=== PATIENT | male | born 1960 | race Caucasian/White ===

== ENCOUNTER 2016-04-28 10:05 | Day surgery (SDC) | payer BC ==
[2016-04-23 14:18] VITALS: BMI 39.5
[2016-04-28] MEDS: LACTATED RINGERS 1,000 ML IV SCH (10:32)
[2016-04-28] MEDS: LIDOCAINE 1% 20 ML VIAL (10MG/ML) FOR IV START INTRADERMA ONE (10:32)
[2016-04-28 10:38] VITALS: RESP 16; TEMP 98.5
[2016-04-28] MEDS ORDERED: DEXAMETHASONE SOD PHOS (MDV) 100 MG/10 ML VIAL ONE (11:12)
[2016-04-28] MEDS ORDERED: IOHEXOL 180 MG/ML 1 ML ML ONE (11:12)
[2016-04-28] MEDS ORDERED: fentaNYL (PF) 50 MCG/ML 2 ML AMP ONE (11:12)
[2016-04-28] MEDS ORDERED: BUPIVACAINE (PF) 0.25% 30 ML VIAL ONE (11:12)
[2016-04-28] MEDS ORDERED: MIDAZOLAM 2 MG/2 ML VIAL ONE (11:12)
[2016-04-28] MEDS: IV FLUID CONTINUATION 1,000 ML IV ONE (11:39)
--- NOTE | 2016-04-28 11:48 | P.PCN ---
Date of Procedure: 04/28/16 Procedure(s) Performed: . PROCEDURE 1. Cervical epidural steroid injection under fluoroscopic guidance, C7-T1 2. Cervical epidurogram. 3. Left occipital nerve block PREOPERATIVE DIAGNOSIS: 1- Cervical Degenerative Disc Diseases 2- left occipital neuralgia POSTOPERATIVE DIAGNOSIS: : 1- Cervical Degenerative Disc Diseases , 2-left occipital neuralgia ANESTHESIA: Local anesthesia with 1% lidocaine 3 ml , and IV sedation with Versed 2 mg and Fentanyl 100 mcg. EBL 0 PROCEDURE INDICATION: The patient with neck pain/headache and radiculitis unresponsive to conservative treatment consents for procedure. PROCEDURE DESCRIPTION / TECHNIQUE: The patient was seen and identified in the preoperative area. Risks, benefits, complications, including but not limited to infections ,bleeding , allergic reactions to the medications ,and not complete pain releife, and alternatives were discussed with the patient, the patient agreed to proceed with the procedure and signed the consent. Patient was taken to the OR and time out was completed. The patient was placed in the prone position on the procedure table. A pillow was placed under the patients chest to increase the cervical interlaminar space. The cervical area was prepped and draped in the usual sterile fashion. Vital signs were closely monitored during the procedure. Conscious sedation was used during the procedure to decrease patients anxiety. Using anterior-posterior fluoroscopy, the C7-T1 interlaminar space was identified and the skin over this site was marked and then infiltrated with 1% lidocaine subcutaneously. Subsequently, a 20-gauge 3-1/2-inch Tuohy epidural needle was inserted and advanced toward the epidural space by means of the `` hanging-drop technique and guided by AP and lateral fluoroscopy. The correct needle position in the epidural space was verified with the injection of 2 mL of the water soluble contrast dye [id number] and observing an excellent epidurogram with the epidural spread of the dye, after negative aspiration for blood and CSF and in the absence of paresthesias. Again after negative aspiration, mixture containing 15 mg Dexamethasone and 2 ml of preservative- free normal saline injected and a washout of epidurogram was seen. Needle was withdrawn intact, skin was cleansed, and bandages were applied. PROCEDURE DESCRIPTION / TECHNIQUE for the left occipital nerve = the occiptial area were prepped with chlorhexidine 3 The left occiptal ridge was palpated and was then accessed with a 25 G needle. Then after negative aspiration, 6 ml of the block solution containing 6 ml of PF Buvicaine 0.5% and dexamethasone 5 mg was injected. Needle was withdrawn intact. Patient tolerated procedure well. No acute complications. Complications= none. Disposition= patient was placed in supine position and transferred to the recovery room area in stable condition and there was no evidence of upper or lower extremity motor or sensory deficit after the procedure patient was discharged from recovery room after discharge criteria met and home discharge instructions was given by the staff and patient will follow with the pain clinic in 2-4 weeks
--- NOTE | 2016-04-28 11:50 | FL ---
FLUOROSCOPY 3 seconds of fluoroscopy time were utilized during Pain Injection. 1 images document the procedure.
[2016-04-28 12:25] VITALS: BP 131/76; PULSE 88
== END 2016-04-28 12:44 | disposition home or self-care (01) ==
LOC: ORPAIN 10:05
PROVIDERS: ATTEND Specialist
DX: M50.13 Cervical disc disorder with radiculopathy, cervicothoracic region (principal); M54.81 Occipital neuralgia; Z88.1 Allergy status to other antibiotic agents
CPT/HCPCS: 64405; 62321; J2250; Q9965; J3010; J1100

== ENCOUNTER 2016-06-03 10:48 | Day surgery (SDC) | payer BC, OTHER ==
[2016-06-01 16:11] VITALS: BMI 39.5
[~2016-06-03 10:48] MED LIST: LACTATED RINGERS 1,000 ML IV SCH; LIDOCAINE 1% 20 ML VIAL (10MG/ML) FOR IV START INTRADERMA ONE
[2016-06-03 11:32] VITALS: RESP 16; TEMP 97.6
[2016-06-03] MEDS ORDERED: BUPIVACAINE (PF) 0.5% 30 ML VIAL ONE (11:38)
[2016-06-03] MEDS ORDERED: TRIAMCINOLONE ACETONIDE 40 MG/ML 1 ML VIAL ONE (11:38)
[2016-06-03] MEDS ORDERED: MIDAZOLAM 2 MG/2 ML VIAL ONE (11:38)
[2016-06-03] MEDS ORDERED: IOHEXOL 180 MG/ML 1 ML ML ONE (11:38)
[2016-06-03] MEDS ORDERED: fentaNYL (PF) 50 MCG/ML 2 ML AMP ONE (11:38)
[2016-06-03] MEDS ORDERED: DEXAMETHASONE SOD PHOS (MDV) 100 MG/10 ML VIAL ONE (11:38)
--- NOTE | 2016-06-03 12:02 | P.PCN ---
Date of Procedure: 06/03/16 Surgeon: Agustín Newberry Pathology: none sent Condition: stable Disposition: PACU Description of Procedure: PREOPERATIVE DIAGNOSIS: 1) Cervical radiculopathy; 2) left occipital neuralgia POSTOPERATIVE DIAGNOSIS: same PROCEDURE 1. Cervical epidural steroid injection under fluoroscopic guidance, C7-T1 level. 2. Cervical epidurogram. 3. Left occipital nerve block ANESTHESIA: Local anesthesia with 1% lidocaine and IV sedation with versed/ fentanyl. EBL: Minimal PROCEDURE INDICATION: The patient with neck pain and radiculitis and left sided headaches unresponsive to conservative treatment consents for procedure, #3 today. No use of blood thinners. PROCEDURE DESCRIPTION / TECHNIQUE: The patient was seen and identified in the preoperative area. Risks, benefits, complications, and alternatives were discussed with the patient (including but not limited to incomplete pain relief, bleeding, infection, nerve damage, and allergies to medications), the patient agreed to proceed with the procedure and signed the consent after all questions were answered. Patient was taken to the OR and time out was completed to verify proper patient , position, laterality of pain, and allergies. Pt was placed in the prone position. A pillow was placed under the patients chest to increase the cervical interlaminar space. The cervical and occipital areas were prepped and draped in the usual sterile fashion. Critical pause was taken. Vital signs were closely monitored during the procedure. Conscious sedation was used during the procedure to decrease patients anxiety. Using anterior-posterior fluoroscopy, the C7-T1 interlaminar space was identified and the skin over this site was marked and then infiltrated with 1% lidocaine subcutaneously in a paramedian fashion. Subsequently, a 20-gauge 3-1/2 -inch Tuohy epidural needle was inserted and advanced toward the epidural space by means of the loss of resistance technique and guided by AP and lateral fluoroscopy. After negative aspiration for blood or CSF and in the absence of paresthesias, the correct needle position in the epidural space was verified with the injection of 1 mL of the water soluble contrast dye [id number] and observing an excellent epidurogram with the epidural spread of the dye, after negative aspiration for blood and CSF and in the absence of paresthesias. Again after negative aspiration, a 5 ml mixture containing 10 mg of Decadron and 4 ml of preservative free Normal Saline solution was injected and a washout of epidurogram was seen. Needle was withdrawn intact. The left occipital ridge was palpated and was then accessed with a 25 G needle. Then after negative aspiration, 4 ml of the total 4 ml block solution containing 3 ml of PF Bupivacaine 0.5% and Kenalog 40 mg was injected. Needle was withdrawn intact. After completion of all procedures, skin was cleansed, and bandages were applied. COMPLICATIONS: None COMMENTS: DISPOSITION / PLANS: The patient was placed in a supine position and transferred to the recovery area in a stable condition for observation. There was no evidence of upper extremity motor or sensory deficit after the procedure. Patient was discharged from the recovery room after meeting discharge criteria. Home discharge instructions were given to the patient by the staff. The patient was reexamined prior to discharge. The patient will schedule a follow up in the clinic in 4-6 weeks.
[2016-06-03] MEDS ORDERED: IV FLUID CONTINUATION 1,000 ML IV ONE (12:16)
[2016-06-03 12:49] VITALS: BP 140/92; PULSE 77
--- NOTE | 2016-06-03 13:11 | FL ---
EXAMINATION TYPE: FL guided pain mgmt statistic DATE OF EXAM: 06/03/2016 12:05 PM CLINICAL HISTORY: Neck pain. TECHNIQUE: Fluoroscopy. COMPARISON: None. FINDINGS: Fluoroscopic guidance was provided during pain relief procedure performed by Dr. Newberry . A total of 14 seconds of fluoroscopic time was utilized during the procedure and two spot images are acquired. Images acquired shows needle localization in the lower cervical spine. IMPRESSION: As Above.
== END 2016-06-03 13:05 | disposition home or self-care (01) ==
LOC: ORPAIN 10:48
PROVIDERS: ATTEND Anesthesiology
DX: M54.12 Radiculopathy, cervical region (principal); M54.81 Occipital neuralgia; F41.9 Anxiety disorder, unspecified; Z79.1 Long term (current) use of non-steroidal anti-inflammatories (NSAID); Z79.899 Other long term (current) drug therapy; Z88.8 Allergy status to other drugs, medicaments and biological substances
CPT/HCPCS: 64405; 62321; 99152; J2250; J3301; Q9965; J3010; J1100

== ENCOUNTER → 2016-08-11 | Outpatient (CLI) | payer OTHER ==
[2016-08-11 12:30] VITALS: BP 164/99; PULSE 92; RESP 18; TEMP 99
--- NOTE | 2016-08-12 10:16 | P.PN ---
Subjective This is follow-up visit for this patient with a history of severe and chronic neck pain and headache,was cervical bulging disc disease and occipital neuralgia, we have done Cervical epidural steroid injections and left occipital nerve block, he reported that he get only short-term and partial benefit from it, and he continued to have severe neck pain and Headache, is currently on Motrin 800 -1200 mg every 8 hours, amitriptyline 25 mg daily at bedtime Patient denies any side effects of the medication, denies excessive drowsiness or sleepiness, denies suicidal ideation, and reports that the current pain medication is NOT helping To control the pain and improve activity of daily living Patient denies any motor or sensory deficit , patient denies any fever or night sweats, denies any change in the bowel movements or urination Physical Examinations : 1-Constitutiona : Cooperative , not in acute distress . 2-HEENT : nech ; supple , no Lymphadenopathy , no Thyromegaly , normal thyroid size . eyes : no ptosis , no icterus, no photophobia . ENT : normal of hearing , normal oropharynx , no Thrush . 3- Respiratory : Chest clear to auscultations Bilaterally , no wheezing , no Rhonchi . 4- Cardiovascular : regular rate and rhythem , S1 , S2 , no S3 , no S4. 5- Gastrointestinal : abdomen soft no tenderness , bowel sounds positive all four quadrents , no organomegally . 6- Genitourinary : Defferred . 7- neurologic : Cranial nerve II to XII intact , no focal neurological deffecit . 8-psychatric : alert , oriented X 3 , appropriate affect , intact judgment and insight . 9-Lymphatic : no Lymphadenopathy . 10- musculoskeltal : exams of the cervical spine = motor strength normal bilateral upper extremities facet loading test cervical area positive. exams of the [place] spine = motor strength lower extremities ,thigh and legs .5/5 Assessment and plan = - Chronic neck pain and headaches secondary to cervical bulging disc disease , and occipital neuralgia patient had no benefit from the cervical epidural steroid injections and occipital nerve block , patient most likely to have cervicogenic headaches secondary to cervical spondylosis - diagnoses, prognosis, and treatment options including but not limited to physical therapy, surgical interventions, interventional therapies , and medication management including narcotics and adjuvant medication were discussed with the patient and all questions answered Patient will be scheduled for diagnostic medial branch block cervical area C2- 3/ C 3- 4 , and third occipital nerve do it twice and benefits positive sit to the radiofrequency ablation Regarding medication management I instructed the patient to not take more than 800 mg of Motrin every 8 hours, recommend to start patient on Topamax 25 mg twice a day, and patient could benefit from Ultram 50 mg every 8 hours dispense 60, patient could benefit from increase in amitriptyline 50 mg daily at bedtime, and sleep and improve his pain Objective - Vital Signs Vital signs: Vital Signs Temp 99.0 F 08/11/16 12:18 Pulse 92 08/11/16 12:18 Resp 18 08/11/16 12:18 BP 164/99 08/11/16 12:18 Pulse Ox 96 08/11/16 12:18 Intake & Output 08/11/16 08/12/16 08/12/16 18:59 06:59 18:59 Weight 120.202 kg
== END | disposition home or self-care (01) ==
LOC: PNWHC3 11:46
PROVIDERS: ATTEND Specialist
DX: M50.20 Other cervical disc displacement, unspecified cervical region (principal); M47.812 Spondylosis without myelopathy or radiculopathy, cervical region; M54.81 Occipital neuralgia; R51 Headache
CPT/HCPCS: 99211

== ENCOUNTER → 2016-09-02 | Outpatient (CLI) | payer BC, OTHER ==
--- NOTE | 2016-09-02 19:55 | PN ---
DATE OF SERVICE: 09/02/2016 This patient is a 56-year-old gentleman who has been followed in the sleep center for treatment of obstructive sleep apnea/hypopnea syndrome. Recently patient has been diagnosed with sleep apnea. He was started on treatment and is here to discuss results of his sleep studies with him in detail. Diagnostic sleep study showed severe obstructive sleep apnea/hypopnea syndrome with apnea-hypopnea index 30.9, fixed with CPAP at the pressure 11 cm of water. Subsequently patient was recommended to use CPAP equipment with this pressure. Today patient brought his CPAP unit, which I checked. Usage is 25 out of 30 nights for more than 4 hours, which is normal compliance. CPAP pressure 11 cm of water. Apnea-hypopnea index reading from the machine is only 2.1. Leak is borderline at 36 L/minute. Patient is using a full-face mask. There are signs of redness of his cheeks in the areas where the mask contacts his skin. Patient feels that he sleeps better with the machine, but sometimes he has difficulties related to fitting of the mask. [place] Sleepiness Scale today is 8. MEDICATIONS: 1. Motrin. 2. Topamax. 3. Elavil. 4. Ultram. During physical exam, patient in no distress. VITAL SIGNS: BP 150/84, HR 88, RR 16. Weight 268. Temperature 94.4. Oxygen saturation at room air 94%. HEENT: PERRLA, EOMI. Evaluation of oropharynx showed tongue protrudes midline; moderately low position of soft palate. NECK: Supple. No JVD. Thyroid is not palpable. LUNGS: Clear to percussion and to auscultation. Good air exchange. No wheezing or rhonchi. HEART: S1, S2 regular. No murmurs, gallops or rubs. ABDOMEN: Obese. EXTREMITIES: No clubbing or cyanosis. CAR WASHER: Awake, alert, and oriented x3. Cranial nerves 2 to 7 intact. There is no fasciculation or atrophy noted. No focal deficits observed. IMPRESSION: 1. Severe obstructive sleep apnea/hypopnea syndrome, under control with CPAP at 11 cm of water. Patient demonstrated good compliance with treatment, benefiting from treatment. 2. Obesity. 3. Tinnitus. 4. Migraines headaches. 5. Status post head trauma in June of 2015. 6. Occipital nerve blockage. 7. Hypertension. 8. Hyperlipidemia. 9. Anxiety. 10. Acid reflux. 11. Status post left knee surgery. PLAN: 1. Continue treatment with CPAP every night for the whole night. 2. Take machine with him to the hospital. Patient is planning to have surgery on his leg in the near future. 3. Losing weight. 4. Sleep hygiene with regular time in bed for at least 8 hours. 5. No driving if feeling any sleepiness. 6. We will fit patient with AmaraView mask today. Thank you very much for allowing me to participate in the management your patient. Sincerely, Evens Quach MD, PhD, FAASM. Diplomat of [place] [employer], Sleep Medicine Board by [place] [employer], [place] [employer]
== END | disposition home or self-care (01) ==
LOC: SLEEP 14:36
PROVIDERS: ATTEND Internal Medicine
DX: G47.33 Obstructive sleep apnea (adult) (pediatric) (principal); E66.9 Obesity, unspecified; I10 Essential (primary) hypertension; E78.5 Hyperlipidemia, unspecified; F41.9 Anxiety disorder, unspecified; K21.9 Gastro-esophageal reflux disease without esophagitis; H93.19 Tinnitus, unspecified ear; G43.909 Migraine, unspecified, not intractable, without status migrainosus; Z96.652 Presence of left artificial knee joint; Z79.1 Long term (current) use of non-steroidal anti-inflammatories (NSAID); Z79.899 Other long term (current) drug therapy

== ENCOUNTER → 2016-09-09 | Day surgery (SDC) | payer OTHER ==
[2016-09-06 15:55] VITALS: BMI 40.7
[~2016-09-09] MED LIST changes: +BUPIVACAINE (PF) 0.5% 30 ML VIAL ONE; +DEXAMETHASONE SOD PHOS (MDV) 100 MG/10 ML VIAL ONE; +IV FLUID CONTINUATION 1,000 ML IV ONE; +MIDAZOLAM 2 MG/2 ML VIAL ONE; +fentaNYL (PF) 50 MCG/ML 2 ML AMP ONE
[2016-09-09 13:57] VITALS: TEMP 98.7
[2016-09-09 14:53] VITALS: RESP 18
[2016-09-09 15:10] VITALS: BP 113/66; PULSE 73
--- NOTE | 2016-09-09 15:29 | FL ---
EXAMINATION TYPE: FL guided pain mgmt statistic DATE OF EXAM: 09/09/2016 HISTORY: Flouroscopy time 10 seconds of fluoroscopy provided. IMPRESSION: 1. Fluoroscopy time.
--- NOTE | 2016-09-09 20:35 | P.PCN ---
Date of Procedure: 09/09/16 Preoperative Diagnosis: Postoperative Diagnosis: Procedure(s) Performed: PREOPERATIVE DIAGNOSIS: 1-Cervical Spondylosis with Facet Arthropathy.without myelopathy. 2-occipital neuralgia. 3-cervicogenic headache. 4-cervical degenerative disc disease POSTOPERATIVE DIAGNOSIS: Same as preoperative diagnoses. PROCEDURES: Diagnostic bilateral C2-4 C3-4, medial branch blocks, with fluoroscopic guidance Diagnostic bilateral third occipital nerve block under fluoroscopy guidance ANESTHESIA: Local with 1% lidocaine; IV sedation with Versed 2 mg and fentanyl 100 g. EBL: Minimal PROCEDURE INDICATION: The patient with neck pain and headache secondary to cervical arthropathy, and occipital neuralgia unresponsive to more conservative treatments. PROCEDURE DESCRIPTION / TECHNIQUE: The patient was seen and identified in the preoperative area. Risks, benefits, complications, and alternatives were discussed with the patient, the patient agreed to proceed with the procedure and signed the consent. IV was started. Vital signs remained stable throughout the procedure. Patient was taken to the OR and time out was completed. The patient was placed in the prone position on the procedure table. A pillow was placed under the patients chest to increase the cervical interlaminar space. The cervical area was prepped and draped in the usual sterile fashion. Critical pause was taken. Vital signs were closely monitored during the procedure. Conscious sedation was used during the procedure to decrease patients anxiety. Using cross-table lateral fluoroscopy, the centroid of the trapezoid of right C2 ,C3,was identified, marked, and localized with 1% lidocaine 1 ml at each level for skin and Sub Q infiltrations . Subsequently, a 22 G 2 spinal needle was advanced guided by fluoroscopy to the centroid of the trapezoid of Right C3, C4 , C5, C6 . [place] tip position was confirmed at the centroid of the trapezoids of Right C2 , C3 , with anteroposterior fluoroscopy. Subsequently, 1 ml of preservative-free Bupivacaine 0.5% mixed with Dexamethasone 10 mg and half ml of the mixture was injected after negative aspiration for blood and CSF. [place] was then removed intact the same procedure was repeated at the left C2-3 ,C3-4 levels. Then after that to do the right third occipital nerve block 22-gauge Quincke- type spinal needle placed at the center of the facet joint that is formed between the C2 and C3 vertebral, needle placement confirmed under fluoroscopy, and after negative aspiration Marcaine 0.5% half mL, injected after negative aspiration and there was no paresthesia during the injection, the same procedure done for the left side third occipital nerve COMPLICATIONS: No acute complications. COMMENTS: DISPOSITION / PLANS: The patient was placed in a supine position and transferred to the recovery area in a stable condition for observation and was discharged from the recovery room after meeting discharge criteria. Home discharge instructions given to the patient by the staff. The patient was reexamined prior to discharge. The patient will schedule a follow up in the clinic in 2-4 weeks. Implants: Indications for Procedure: Operative Findings: Description of Procedure:
== END | disposition home or self-care (01) ==
LOC: ORPAIN 13:40
PROVIDERS: ATTEND Specialist
DX: M46.92 Unspecified inflammatory spondylopathy, cervical region (principal); Z88.1 Allergy status to other antibiotic agents; M54.81 Occipital neuralgia; M47.812 Spondylosis without myelopathy or radiculopathy, cervical region; M50.31 Other cervical disc degeneration, high cervical region
CPT/HCPCS: 64490; 64491; 64492; 99152; J2250; J3010; J1100

== ENCOUNTER 2016-09-21 21:09 | Emergency (ER) | payer OTHER ==
[2016-09-21] MEDS ORDERED: HYDROmorphone 1 MG/ML 1 ML SYRINGE IVP STA (21:59)
[2016-09-21] MEDS ORDERED: SODIUM CHLORIDE 0.9% 1,000 ML IV STA (21:59)
--- NOTE | 2016-09-21 22:06 | ED ---
General Adult HPI - General Chief complaint: Back Pain/Injury Stated complaint: groin and back pain Time Seen by Provider: 09/21/16 21:53 Source: patient, RN notes reviewed Mode of arrival: ambulatory Limitations: no limitations - History of Present Illness Initial comments: Patient is a pleasant 56-year-old male. Patient presents to emergency Department with right-sided back pain. Symptoms have been present for at least a couple of weeks. Discomfort is right lateral lumbar region and does radiate towards the groin and leg. Discomfort is very positional. Patient also is having decreased urination over the past several weeks. Patient did see his doctor and had urinalysis done however does not know results. No fevers. No nausea or vomiting. Patient states discomfort is worse going from lying to standing position. No weakness. No loss of control of bowel or bladder. - Related Data Home Medications Medication Instructions Recorded Confirmed ALPRAZolam [Xanax] 0.25 mg PO TID PRN 01/20/16 09/21/16 Lisinopril-Hctz 10-12.5 mg 1 tab PO DAILY 01/20/16 09/21/16 [Zestoretic 10-12.5] Ranitidine HCl 150 mg PO BID PRN 01/20/16 09/21/16 Acetaminophen [Tylenol] 500 ng PO Q4H PRN 01/26/16 09/21/16 Atorvastatin [Lipitor] 20 mg PO DAILY 01/26/16 09/21/16 Fish Oil/Dha/Epa [Fish Oil 1,200 1,200 mg PO BID 01/26/16 09/21/16 mg Fish Oil] Amitriptyline HCl [Elavil] 25 mg PO HS 09/21/16 09/21/16 Previous Rx's Medication Instructions Recorded Ibuprofen [Motrin] 800 mg PO Q8HR PRN #90 tab 08/11/16 Topiramate [Topamax] 25 mg PO BID #60 tab 08/11/16 traMADol HCL [Ultram] 50 mg PO Q6HR PRN #60 tab 08/11/16 Hydrocodone/Acetaminophen [[place] 1 each PO Q4HR PRN #15 tab 09/21/16 5-325] Allergies Allergy/AdvReac Type Severity Reaction Status Date / Time moxifloxacin [From Avelox] Allergy Severe Anaphylaxis Verified 09/21/16 21:29 Review of Systems ROS Statement: Those systems with pertinent positive or pertinent negative responses have been documented in the HPI. ROS Other: All systems not noted in ROS Statement are negative. Constitutional: Denies: fever Eyes: Denies: eye pain ENT: Denies: ear pain Respiratory: Denies: dyspnea Cardiovascular: Denies: chest pain Endocrine: Denies: fatigue Gastrointestinal: Reports: abdominal pain. Denies: nausea, vomiting Genitourinary: Reports: urgency. Denies: dysuria Musculoskeletal: Reports: back pain Skin: Denies: rash Neurological: Denies: weakness Past Medical History Past Medical History: Asthma, GERD/Reflux, Hyperlipidemia, Hypertension, Osteoarthritis (OA) Additional Past Medical History / Comment(s): head injury 07/08/15-pain head and neck, "nerve pain lt side of neck", tinnitus brittney ears-worse in left, History of Any Multi-Drug Resistant Organisms: None Reported Past Surgical History: Orthopedic Surgery Additional Past Surgical History / Comment(s): lt knee surgery, Past Anesthesia/Blood Transfusion Reactions: No Reported Reaction Past Psychological History: Anxiety Past Alcohol Use History: Occasional - Past Family History Mother Family Medical History: No Reported History Additional Family Medical History / Comment(s): . General Exam Limitations: no limitations General appearance: alert, in no apparent distress Head exam: Present: atraumatic Eye exam: Present: normal appearance, PERRL ENT exam: Present: normal oropharynx Neck exam: Present: normal inspection Respiratory exam: Present: normal lung sounds bilaterally Cardiovascular Exam: Present: regular rate, normal rhythm Expanded Peripheral pulses: 2+: Dorsalis Pedis (R), Dorsalis Pedis (L) GI/Abdominal exam: Present: soft, normal bowel sounds. Absent: distended, tenderness, guarding, rebound, rigid, pulsatile mass exam: Present: testicular tenderness (Mild right greater than left), other ( No anesthesia). Absent: scrotal swelling Extremities exam: Present: normal inspection Back exam: Present: tenderness (Right lateral lumbar region below the CVA) Neurological exam: Present: alert. Absent: motor sensory deficit Expanded Motor strength exam: RLE: 5, LLE: 5 Psychiatric exam: Present: normal affect, normal mood Skin exam: Present: normal color Course Vital Signs 09/21/16 21:16 Temperature 99.2 F Pulse Rate 84 Respiratory 18 Rate Blood Pressure 138/96 O2 Sat by Pulse 98 Oximetry Medical Decision Making - Medical Decision Making Patient reexamined and resting comfortably in bed. Patient updated on results and need for follow-up. - Lab Data Result diagrams: 09/21/16 22:14 09/21/16 22:14 Lab Results 09/21/16 09/21/16 09/21/16 Range/Units 22:14 22:14 22:14 WBC 6.3 (3.8-10.6) k/uL RBC 4.66 (4.30-5.90) m/uL Hgb 15.5 (13.0-17.5) gm/dL Hct 44.7 (39.0-53.0) % MCV 96.0 (80.0-100.0) fL MCH 33.3 (25.0-35.0) pg MCHC 34.7 (31.0-37.0) g/dL RDW 12.8 (11.5-15.5) % Plt Count 254 (150-450) k/uL Neutrophils % 69 % Lymphocytes % 21 % Monocytes % 5 % Eosinophils % 3 % Basophils % 0 % Neutrophils # 4.3 (1.3-7.7) k/uL Lymphocytes # 1.3 (1.0-4.8) k/uL Monocytes # 0.3 (0-1.0) k/uL Eosinophils # 0.2 (0-0.7) k/uL Basophils # 0.0 (0-0.2) k/uL PT 9.5 (9.0-12.0) sec INR 0.9 (<1.1) APTT 22.2 (22.0-30.0) sec Sodium 140 (137-145) mmol/L Potassium 4.4 (3.5-5.1) mmol/L Chloride 107 (98-107) mmol/L Carbon Dioxide 22 (22-30) mmol/L Anion Gap 11 mmol/L BUN 19 (9-20) mg/dL Creatinine 0.79 (0.66-1.25) mg/dL Est GFR (MDRD) Af Amer >60 (>60 ml/min/1.73 sqM) Est GFR (MDRD) Non-Af >60 (>60 ml/min/1.73 sqM) Glucose 98 (74-99) mg/dL Calcium 9.3 (8.4-10.2) mg/dL Total Bilirubin 0.6 (0.2-1.3) mg/dL AST 33 (17-59) U/L ALT 52 (21-72) U/L Alkaline Phosphatase 60 (38-126) U/L Total Protein 7.3 (6.3-8.2) g/dL Albumin 4.6 (3.5-5.0) g/dL Amylase 57 (30-110) U/L Lipase 76 (23-300) U/L - Radiology Data Radiology results: report reviewed (Computed tomography scan shows no acute process. Scrotal ultrasound shows no acute process except for small right- sided hydrocele) Disposition Clinical Impression: Low back pain Disposition: HOME SELF-CARE Condition: Stable Instructions: Acute Low Back Pain (ED) Additional Instructions: Please follow-up with your primary care physician this week. Return for weakness, loss of control of bowel or bladder, fever, worsening symptoms or other concerns. Prescriptions: Hydrocodone/Acetaminophen [[place] 5-325] 1 each PO Q4HR PRN #15 tab PRN Reason: Pain Referrals: Hubert Warren Jr, [Primary Care Provider] - 1-2 days Time of Disposition: 23:52
[2016-09-21 22:23] LABS: Basophils % (A) 0 %; CH 33.1; CHCM 34.6; Eosinophils # (A) 0.2 k/uL (0-0.7); Eosinophils % (A) 3 %; HCT 44.7 % (39.0-53.0); HDW 2.28; HGB 15.5 gm/dL (13.0-17.5); Luc # (Auto) 0.08; Luc % (Auto) 1; Lymphocytes # (A) 1.3 k/uL (1.0-4.8); Lymphocytes % (A) 21 %; MCH 33.3 pg (25.0-35.0); MCHC 34.7 g/dL (31.0-37.0); Mean Platelet Volume 7.2; Monocytes # (A) 0.3 k/uL (0-1.0); Monocytes % (A) 5 %; Neutrophils # (A) 4.3 k/uL (1.3-7.7); Neutrophils % (A) 69 %; RBC 4.66 m/uL (4.30-5.90); RDW 12.8 % (11.5-15.5); WBC 6.3 k/uL (3.8-10.6); WBC (Perox) 5.83
[2016-09-21 22:31] LABS: INR 0.9 (<1.1); Partial Thromboplastin Time 22.2 sec (22.0-30.0); Prothrombin Time 9.5 sec (9.0-12.0)
[2016-09-21 22:32] LABS: ALT 52 U/L (21-72); AST 33 U/L (17-59); Alkaline Phosphatase 60 U/L (38-126); Amylase 57 U/L (30-110); Anion Gap 11 mmol/L; Blood Urea Nitrogen 19 mg/dL (9-20); Calcium 9.3 mg/dL (8.4-10.2); Carbon Dioxide 22 mmol/L (22-30); Chloride 107 mmol/L (98-107); Glucose 98 mg/dL (74-99); Non-African American GFR(MDRD) >60 (>60 ml/min/1.73 sqM); Potassium 4.4 mmol/L (3.5-5.1); Sodium 140 mmol/L (137-145); Total Bilirubin 0.6 mg/dL (0.2-1.3); Total Protein 7.3 g/dL (6.3-8.2)
--- NOTE | 2016-09-21 23:10 | CT ---
EXAM: CT Abdomen and Pelvis Without Intravenous Contrast CLINICAL HISTORY: Reason: Right flank/back pain TECHNIQUE: Axial computed tomography images of the abdomen and pelvis without intravenous contrast. CTDI is 24.4 mGy and DLP is 1218.4 mGy-cm. This CT exam was performed using one or more of the following dose reduction techniques: automated exposure control, adjustment of the mA and/or kV according to patient size, and/or use of iterative reconstruction technique. COMPARISON: No relevant prior studies available. FINDINGS: Lower thorax: Imaged lung bases are unremarkable although are somewhat limited by respiratory motion artifact. ABDOMEN: Liver: No significant abnormalities. Gallbladder and bile ducts: : Unremarkable No calcified stones. Pancreas: Unremarkable Spleen: No significant abnormalities. Adrenals: No adrenal masses Kidneys and ureters: Kidneys: No evidence of renal calculi or hydronephrosis. Minimal bilateral perinephric stranding. No ureteral dilatation. No definite ureteral calculi identified. Stomach and bowel: Stomach is nondistended limiting gastric evaluation. No evidence of bowel obstruction or pneumoperitoneum. No evidence of appendicitis. Colonic diverticulosis. No evidence of diverticulitis. Appendix: No evidence of appendicitis. PELVIS: Bladder: Urinary bladder is unremarkable. No bladder calculi identified. Reproductive: Unremarkable as visualized. ABDOMEN and PELVIS: Intraperitoneal space: See above. Bones/joints: Lower Thoracic and lumbar spondylosis. Soft tissues: Unremarkable. Vasculature: Mild aortic atherosclerotic disease. No evidence of abdominal aortic aneurysm. Lymph nodes: No abnormal masses or adenopathy identified. IMPRESSION: No evidence of acute abdominal-pelvic disease. Colonic diverticulosis. No evidence of renal calculi or hydronephrosis.
--- NOTE | 2016-09-21 23:27 | US ---
EXAM: US Scrotum CLINICAL HISTORY: Reason: Pain TECHNIQUE: Real-time ultrasound of the scrotum with color Doppler and image documentation. COMPARISON: No relevant prior studies available. FINDINGS: Right testicle: Both testicles demonstrate normal arterial and venous Doppler flow signal. No evidence of testicular mass. No ultrasound evidence of torsion. Left testicle: See above. Epididymides: Epididymis are unremarkable bilaterally. Scrotum: Small right hydrocele. No evidence of left hydrocele. No evidence of varicocele. IMPRESSION: Unremarkable scrotal ultrasound except for small right sided hydrocele.
[2016-09-22 00:06] VITALS: BP 139/71; PULSE 68; RESP 12; TEMP 98.1
== END 2016-09-22 00:10 | disposition home or self-care (01) ==
LOC: EC 21:09
DX: M54.5 Low back pain (principal); N43.3 Hydrocele, unspecified; R10.31 Right lower quadrant pain; M79.604 Pain in right leg; E78.5 Hyperlipidemia, unspecified; I10 Essential (primary) hypertension; F41.9 Anxiety disorder, unspecified; Z79.899 Other long term (current) drug therapy; Z88.1 Allergy status to other antibiotic agents
CPT/HCPCS: 36415; 80053; 82150; 83690; 85025; 85610; 85730; 93975; 76870; 74176; 99284; 96374; 96361 ×2; J1170

== ENCOUNTER → 2016-10-05 | Outpatient (CLI) | payer OTHER ==
[2016-10-05 14:34] VITALS: BP 162/104; PULSE 74; RESP 18; TEMP 98.4
--- NOTE | 2016-10-05 14:53 | P.PN ---
Progress Note - Text Patient returns for followup for chronic neck pain with radiation to shoulders. Patient recently underwent bilateral cervical MBB, which provided excellent relief for 1 week's interval. Patient continues on tramadol medications for pain with good relief but is relating very poor sleep; he has also been complaining of swollen testicles. Patient denies adverse drug effects from medications. Today, pt denies new-onset weakness, bowel/bladder incontinence, or any other signs or symptoms of cauda equina syndrome. There are no signs of acute intoxication, and no indications of medication diversion or overuse. In addition to above, 13-point review of systems is also negative for chest pain , shortness of breath, changes in vision, changes in hearing, new onset weakness , abdominal pain, diarrhea, extreme fatigue, malaise, fever, skin changes, homicidal or suicidal ideation, or bowel or bladder incontinence. 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 cervical spondylosis without myelopathy 2. occipital neuralgia 3. chronic pain syndrome Plan: 1. Explanation: Opioid and psychological risk scores were reviewed. Diagnoses , prognoses, and multiple treatment options including but not limited to physical therapy, interventional therapies, adjuvant medical therapies, narcotic medication therapies, and surgery were discussed with the patient and all questions were answered to the patient's satisfaction. 2. Opioid agreement: Patient has previously signed narcotic agreement, and was orally counseled to not overuse, abuse, divert, or cell medications, and to take them as prescribed by only 1 healthcare provider. The patient was also counseled to store opioid medications in a safe and preferably locked location. Patient was also counseled against driving or operating heavy equipment while using narcotic medications and also to not use alcohol or any illicit or recreational drugs. The patient verbalized understanding that lack of compliance with any of the above and likely result in failure to renew narcotic prescriptions, possible discharge from the clinic, and possible legal ramifications thereafter if indicated. 3. Counseling: The patient was counseled extensively on BODY MASS INDEX, EXERCISE. Specifically, the patient was instructed regarding the importance of weight control, and exercise in the context of both chronic pain and overall health. 4. Procedures: repeat cervical MBB 5. Consultations: None 6. Investigations: None 7. Medications: tramadol increased to 50 mg TID #90 with two refills 8. Disposition: f/u for procedure as scheduled PQRS measures: 1-Patient's medications are documented in the chart. 2-Tobacco use is positive, counseling given 3-Patient has not had a pneumococcal vaccine. 4-Advanced care planning discussed, patient unable to give. 5-Opioid contract signed with the patient. 6-Pain positive, follow-up visit or procedure scheduled 7-Patient's blood pressure measured and documented, and patient will follow up with the primary care due to hypertension. 8-Patient's weight was measured, and body mass index ABOVE the normal limits, and counseling was done. Patient instructed to follow up with PCP. 9-Patient WAS NOT identified as an unhealthy alcohol user.
== END ==
LOC: PNWHC3 14:05
PROVIDERS: ATTEND Anesthesiology
DX: M47.812 Spondylosis without myelopathy or radiculopathy, cervical region (principal); M54.81 Occipital neuralgia; Z79.891 Long term (current) use of opiate analgesic; Z79.899 Other long term (current) drug therapy
CPT/HCPCS: 99211

== ENCOUNTER 2016-10-07 09:39 | Day surgery (SDC) | payer OTHER ==
[2016-10-05 13:10] VITALS: BMI 39.5
[~2016-10-07 09:39] MED LIST changes: -BUPIVACAINE (PF) 0.5% 30 ML VIAL ONE; -DEXAMETHASONE SOD PHOS (MDV) 100 MG/10 ML VIAL ONE; -IV FLUID CONTINUATION 1,000 ML IV ONE; -LIDOCAINE 1% 20 ML VIAL (10MG/ML) FOR IV START INTRADERMA ONE; +LIDOCAINE 1% 20 ML VIAL (10MG/ML) FOR IV START INTRADERMA PRN; -MIDAZOLAM 2 MG/2 ML VIAL ONE; -fentaNYL (PF) 50 MCG/ML 2 ML AMP ONE
[2016-10-07 09:56] VITALS: RESP 16; TEMP 97.2
[2016-10-07] MEDS ORDERED: LIDOCAINE 1% INJ 10MG/ML (20 ML MDV) ONE (11:04)
[2016-10-07] MEDS ORDERED: PROPOFOL 10 MG/ML 20 ML VIAL IV ONE (11:04)
--- NOTE | 2016-10-07 11:10 | P.GSHP ---
History of Present Illness H&P Date: 10/07/16 Chief Complaint: Abdominal pain, screening colonoscopy This is a 56-year-old male for from Dr. Gonzalez. Patient presents today for initial screening colonoscopy. Patient has some complaints of epigastric abdominal pain. Patient also have EGD performed Past Medical History Past Medical History: Asthma, GERD/Reflux, Hyperlipidemia, Hypertension, Osteoarthritis (OA) Additional Past Medical History / Comment(s): head injury 07/08/15-pain to head and neck r/t work accident, "nerve pain lt side of neck", tinnitus brittney ears- worse in left, History of Any Multi-Drug Resistant Organisms: None Reported Past Surgical History: Orthopedic Surgery Additional Past Surgical History / Comment(s): lt knee surgery,. colonoscopy and egd Past Anesthesia/Blood Transfusion Reactions: No Reported Reaction Smoking Status: Current some day smoker - Past Family History Mother Family Medical History: No Reported History Additional Family Medical History / Comment(s): . Medications and Allergies Home Medications Medication Instructions Recorded Confirmed Type ALPRAZolam [Xanax] 0.25 mg PO TID PRN 01/20/16 10/07/16 History Lisinopril-Hctz 10-12.5 mg 1 tab PO DAILY 01/20/16 10/07/16 History [Zestoretic 10-12.5] Ranitidine HCl 150 mg PO BID PRN 01/20/16 10/05/16 History Acetaminophen [Tylenol] 500 ng PO Q4H PRN 01/26/16 10/07/16 History Atorvastatin [Lipitor] 20 mg PO DAILY 01/26/16 10/07/16 History Fish Oil/Dha/Epa [Fish Oil 1,200 1,200 mg PO BID 01/26/16 10/05/16 History mg Fish Oil] Amitriptyline HCl [Elavil] 25 mg PO HS 09/21/16 10/07/16 History Allergies Allergy/AdvReac Type Severity Reaction Status Date / Time moxifloxacin [From Avelox] Allergy Severe Anaphylaxis Verified 10/07/16 09:55 Surgical - Exam Vital Signs Temp Pulse Resp BP Pulse Ox 97.2 F L 79 16 158/97 98 10/07/16 09:55 10/07/16 09:55 10/07/16 09:55 10/07/16 09:55 10/07/16 09:55 - General well developed, no distress - Eyes PERRL - ENT normal pinna - Neck no masses - Respiratory normal expansion - Cardiovascular Rhythm: regular - Abdomen Abdomen is obese. BMI is 40. There is no rebound or guarding. Assessment and Plan Plan: Abdominal pain we'll perform EGD. We'll also perform screening colonoscopy.
--- NOTE | 2016-10-07 11:24 | P.OP ---
Date of Procedure: 10/07/16 Preoperative Diagnosis: Screening colonoscopy Abdominal pain Postoperative Diagnosis: Antral gastritis No evidence of hernia Diverticulosis Procedure(s) Performed: EGD Colonoscopy Implants: Anesthesia: MAC Surgeon: Cholo Meeks Pathology: other (Antrum) Condition: stable Disposition: PACU Indications for Procedure: Operative Findings: Description of Procedure: Patient's placed on the endoscopy table in the lateral position. He received IV sedation. The gastroscope placed oropharynx and passed in the esophagus and under. Scope was placed through the pylorus. The first and second portion of the duodenum appeared normal. Scope was then brought back the antrum and this appeared mildly inflamed. A biopsies performed. The scope was then retroflexed and the remainder some appeared normal. There is no evidence of hiatal hernia. The GE junction was at 40 cm. The distal esophagus appeared normal. The proximal esophagus. Normal. Scope was withdrawn for patient. Next digital rectal exam was performed which revealed no abnormalities. The prostate was symmetric without nodules. The flexible colonoscope was then placed patient anus passed rotator entire colon. The ileocecal valve sutures. The cecum, ascending and transverse colon appeared normal. In the descending and sigmoid colon was mild to moderate diverticulosis. Scope was brought back the rectum and this appeared normal. Scope was withdrawn for patient.
[2016-10-07 11:58] VITALS: BP 138/84; PULSE 62
== END 2016-10-07 12:05 | disposition home or self-care (01) ==
LOC: ORWHC2ENDO 09:39
PROVIDERS: ATTEND Surgery
DX: Z12.11 Encounter for screening for malignant neoplasm of colon (principal); K29.60 Other gastritis without bleeding; K57.30 Diverticulosis of large intestine without perforation or abscess without bleeding; K21.9 Gastro-esophageal reflux disease without esophagitis; E66.9 Obesity, unspecified; Z68.41 Body mass index [BMI] 40.0-44.9, adult; J45.909 Unspecified asthma, uncomplicated; E78.5 Hyperlipidemia, unspecified; I10 Essential (primary) hypertension; M19.90 Unspecified osteoarthritis, unspecified site; F17.200 Nicotine dependence, unspecified, uncomplicated; Z79.899 Other long term (current) drug therapy; Z88.1 Allergy status to other antibiotic agents
CPT/HCPCS: 88305; 88342; 43239; J2001; J2704; G0121

== ENCOUNTER 2016-10-21 13:06 | Day surgery (SDC) | payer OTHER ==
[2016-10-19 12:38] VITALS: BMI 39.5
[~2016-10-21 13:06] MED LIST changes: -LIDOCAINE 1% 20 ML VIAL (10MG/ML) FOR IV START INTRADERMA PRN
[2016-10-21 13:24] VITALS: TEMP 98.3
[2016-10-21] MEDS ORDERED: LIDOCAINE 1% 20 ML VIAL (10MG/ML) FOR IV START INTRADERMA ONE (13:40)
--- NOTE | 2016-10-21 14:10 | P.PCN ---
Date of Procedure: 10/21/16 Preoperative Diagnosis: Postoperative Diagnosis: Procedure(s) Performed: Implants: Surgeon: Agustín Newberry Pathology: none sent Condition: stable Disposition: PACU Indications for Procedure: Operative Findings: Description of Procedure: PREOPERATIVE DIAGNOSIS: Cervical spondylosis without myelopathy, cervicogenic headache. POSTOPERATIVE DIAGNOSIS: same PROCEDURES: Diagnostic bilateral C2-C3, C3-C4 medial branch and bilateral third occipital nerve block, with fluoroscopic guidance ANESTHESIA: Local with 1% lidocaine; conscious sedation EBL: Minimal PROCEDURE INDICATION: This is a patient with neck pain and headaches secondary to cervical arthropathy unresponsive to more conservative treatments. PROCEDURE DESCRIPTION / TECHNIQUE: The patient was seen and identified in the preoperative area. Risks, benefits, complications, and alternatives were discussed with the patient (including but not limited to incomplete pain relief , bleeding, infection, nerve damage, and allergies to medications), the patient agreed to proceed with the procedure and signed the consent after all questions were answered. IV was started. Vital signs remained stable throughout the procedure. Patient was taken to the OR and time out was completed. The patient was placed in the prone position on the procedure table. A pillow was placed under the patients chest to increase the cervical interlaminar space. The cervical area was prepped and draped in the usual sterile fashion. Critical pause was taken. Vital signs were closely monitored during the procedure. Conscious sedation was used during the procedure to decrease patients anxiety. Using cross-table lateral fluoroscopy, the centroid of the trapezoid of right C3 , was identified, marked, and localized with 1% lidocaine. Subsequently, a 22- g 3.5-inch spinal needle was advanced guided by fluoroscopy to the centroid of the trapezoid of C3. Needle tip position was confirmed at the centroid of the trapezoids of C3 with anteroposterior fluoroscopy. Subsequently, 1 ml of a combination of 10 mg Decadron and 5 ml of preservative-free Bupivacaine 0.5% was injected after negative aspiration for blood and CSF. Needle was then removed intact the same procedure was repeated at the right C2/C3 facet joint ( for third occipital nerve), right C4, left C3, left C2-C3 facet joint, and left C4 levels. COMPLICATIONS: No acute complications. COMMENTS: DISPOSITION / PLANS: The patient was placed in a supine position and transferred to the recovery area in a stable condition for observation and was discharged from the recovery room after meeting discharge criteria. Home discharge instructions given to the patient by the staff. The patient was reexamined prior to discharge and there were no issues. The patient will schedule a right vs. left cervical RFA if he has good relief from this procedure.
[2016-10-21] MEDS ORDERED: KETOROLAC 30 MG/ML 1 ML VIAL IVP PRN (14:11)
[2016-10-21] MEDS ORDERED: IV FLUID CONTINUATION 1,000 ML IV ONE (14:17)
[2016-10-21 14:21] VITALS: RESP 16
--- NOTE | 2016-10-21 14:21 | FL ---
EXAMINATION TYPE: FL guided pain mgmt statistic DATE OF EXAM: 10/21/2016 HISTORY: Pain 33 sec FL, 6 images scanned
[2016-10-21 14:33] VITALS: BP 137/72; PULSE 70
== END 2016-10-21 14:56 | disposition home or self-care (01) ==
LOC: ORPAIN 13:06
PROVIDERS: ATTEND Anesthesiology
DX: G89.4 Chronic pain syndrome (principal); M47.812 Spondylosis without myelopathy or radiculopathy, cervical region; M54.81 Occipital neuralgia; R51 Headache; Z79.891 Long term (current) use of opiate analgesic
CPT/HCPCS: 64490; 64491; 64492; 99152; J2250; J1100; J1885; 99153

== ENCOUNTER → 2016-11-11 | Outpatient (CLI) | payer OTHER ==
--- NOTE | 2016-11-11 20:55 | SLS ---
DATE: 11/11/2016 66-year-old gentleman had been followed in sleep center for treatment of obstructive sleep apnea, hypopnea syndrome. The patient is on treatment with CPAP. I saw the patient several months ago. He returned back because he was evaluated in anesthesiology clinic and there is a concern that with his medication he may develop more problems with his breathing during sleep. The patient continued to use his CPAP equipment every night for the whole night. He brought his CPAP unit. I checked the CPAP unit. For the period of last month he used it every night for more than four hours with average usage 9.7 hours. Pressure on the machine is 10.9, liters - 49 liters per minute. Apnea/hypopnea index reading ( ) is only 1.2 which is in perfect range. Some days the patient has difficulty to fall asleep. Previously he was on treatment with amitriptyline but then amitriptyline was stopped and he has more problem with falling asleep now than before. MEDICATIONS: Alprazolam three times a day on a p.r.n. basis, acetaminophen, atorvastatin, ibuprofen, lisinopril, hydrochlorothiazide, ranitidine, Tramadol, hydrocodone/acetaminophen, Wellbutrin and Topamax. PHYSICAL EXAMINATION: GENERAL: During physical exam, patient in no distress. VITAL SIGNS: BP 121/71, HR ( ), RR 16, height 5'8", weight 266, BMI 40.4 , temp 98.3. Oxygen saturation on room air 95%. OROPHARYNX: Moderately low position of soft palate. ABDOMEN: Obese. NECK: Supple. No JVD. Thyroid is not palpable. LUNGS: Clear to percussion and to auscultation. Good air exchange. No wheezing or rhonchi. HEART: S1, S2 regular. No murmurs, gallops or rubs. EXTREMITIES: No clubbing or cyanosis. REHABILITATION DIRECTOR: Awake, alert, and oriented x3. Cranial nerves 2 to 7 intact. There is no fasciculations or atrophy noted. No focal deficits observed. IMPRESSION: 1. Severe obstructive sleep apnea/hypopnea syndrome, uncontrolled with CPAP at 11 cm of water, patient demonstrated 100% compliance, benefitting from treatment. 2. Difficulties to initiate sleep. 3. Obesity. 4. Tinnitus. 5. Migraine headaches. 6. Status post head trauma in June of 2015. 7. History of occipital nerve blockage. 8. Hypertension. 9. Hyperlipidemia. 10. Anxiety. 11. Acid reflux. 12. Status post left knee surgery. PLAN: 1. Continue treatment with CPAP every night for the full night. 2. I will start the patient on Trazodone, smallest dose 50 mg at bedtime to help him to sleep and also as antidepressant. 3. Lose weight. 4. Sleep hygiene, regular time in bed for at least eight hours. 5. No driving if feeling sleepiness. Thank you very much for allowing me to participate in the management of your patient. Sincerely, Evens Qucah MD, PhD, FAASM. Diplomat of [place] [employer], Sleep Medicine Board by [employer] Medical Direct of [facility] [place] [facility]
== END | disposition home or self-care (01) ==
LOC: SLEEP 14:32
PROVIDERS: ATTEND Internal Medicine
DX: G47.33 Obstructive sleep apnea (adult) (pediatric) (principal); E66.9 Obesity, unspecified; H93.19 Tinnitus, unspecified ear; G43.909 Migraine, unspecified, not intractable, without status migrainosus; I10 Essential (primary) hypertension; E78.5 Hyperlipidemia, unspecified; F41.9 Anxiety disorder, unspecified; Z98.890 Other specified postprocedural states; Z79.1 Long term (current) use of non-steroidal anti-inflammatories (NSAID)

== ENCOUNTER 2016-11-25 13:43 | Day surgery (SDC) | payer OTHER ==
[2016-11-22 14:12] VITALS: BMI 39.5
[~2016-11-25 13:43] MED LIST changes: +IV FLUID CONTINUATION 1,000 ML IV ONE; +LACTATED RINGERS 1,000 ML IV ONE; -LACTATED RINGERS 1,000 ML IV SCH
[2016-11-25 14:04] VITALS: TEMP 98.6
[2016-11-25] MEDS ORDERED: LIDOCAINE 1% 20 ML VIAL (10MG/ML) FOR IV START INTRADERMA ONE (14:17)
--- NOTE | 2016-11-25 16:14 | P.PCN ---
Date of Procedure: 11/25/16 Preoperative Diagnosis: Postoperative Diagnosis: Procedure(s) Performed: PREOPERATIVE DIAGNOSIS: 1-Cervical spondylosis with Facet Arthropathy without myelopathy. 2-cervical degenerative disc disease. 3-occipital neuralgia. 4-cervicogenic headache POSTOPERATIVE DIAGNOSIS: same as pre op diagnosis PROCEDURES: Radiofrequency thermocoagulation, left C2- 3, C3-4, medial branch with Fluroscopy Guidence. radiofrequency thermocoagulation left side third occipital nerve under fluoroscopy guidance ANESTHESIA: Local with 1% lidocaine 5 ml ; IV sedation with fentanyl 100 mcg and Versed. 2 mg EBL: Minimal PROCEDURE INDICATION: The patient with neck pain secondary to cervical arthropathy who had more than 50% relief of her pain with previous diagnostic cervical medial branch block. PROCEDURE DESCRIPTION / TECHNIQUE: The patient was seen and identified in the preoperative area. Risks, benefits, complications, and alternatives were discussed with the patient, the patient agreed to proceed with the procedure and signed the consent. IV was started. Vital signs remained stable throughout the procedure. Patient was taken to the OR and time out was completed. The patient was placed in the prone position on the procedure table. A pillow was placed under the patients chest to increase the cervical interlaminar space. The cervical area was prepped and draped in the usual sterile fashion. Critical pause was taken. Vital signs were closely monitored during the procedure. Conscious sedation was used during the procedure to decrease patients anxiety. Using cross-table lateral fluoroscopy, the centroid of the trapezoid of left C2 ,C3, were identified, marked, and localized with 1% lidocaine. Subsequently , a 20 [id number] radiofrequency cannula with a 10-mm active tip was advanced guided by fluoroscopy to the centroid of the trapezoid of Left C2 , C3, . Needle tip position was confirmed at the centroid of the trapezoids of Left C2 ,C3, with anteroposterior fluoroscopy. Each site then underwent sensory testing at 50 Hz and 0 to 1 volt and motor testing at 2 Hz and 0 to 3 volt with local stimulation, but no radicular symptoms down the arm. Thereafter Left C2 , C3, sites underwent radiofrequency thermocoagulation at 80 degrees celsius for 90 seconds after injecting 0.5 ml of PF lidocaine 1%. After thermocoagulation, 1 ml of the block solution containing Dexamethasone 10 mg and 2 mL of preservative-free normal saline was injected at theC2 , C3, levels after negative aspiration of CSF and blood and with no paresthesias. Again to do the radiofrequency for the left side third occipital nerve I placed 20-gauge 100 mm radiofrequency active tip needles at the center of the facet joint that is from between the C2_3 , C3-4 on the left side , this sensory testing and motor testing the same at we did for the left side C2- 3 on the left side C3-4 , the sensory stimulation was positive and motor stimulation was positive for stimulation on the multifidus muscles and there was no stimulation in the upper extremity , , again and check needle placement with AP and lateral view then after appropriate needle placement confirmed and there was aspiration for heme or CSF , we did thermocoagulation at 80C for 90 seconds , then after that the Cannulas were retracted while injecting lidocaine 1% until the needle is out. Skin was cleansed and bandages were applied. COMPLICATIONS: No acute complications DISPOSITION / PLANS: The patient was placed in a supine position and transferred to the recovery area in a stable condition for observation and was discharged from the recovery room after meeting discharge criteria. Home discharge instructions given to the patient by the staff. The patient was reexamined prior to discharge. The patient will schedule a follow up in the clinic in 2-4 weeks to have the Radiofrequency on the right side Implants: Indications for Procedure: Operative Findings: Description of Procedure:
[2016-11-25 16:16] VITALS: RESP 16
[2016-11-25] MEDS ORDERED: IV FLUID CONTINUATION 1,000 ML IV ONE (16:17)
[2016-11-25 16:33] VITALS: BP 117/69; PULSE 64
--- NOTE | 2016-11-26 10:27 | FL ---
Fluoroscopy INDICATION: Pain FINDINGS: Fluoroscopy time: 32 seconds. Images obtained: 7. IMPRESSIONS: 1. Documentation of fluoroscopy.
== END 2016-11-25 16:35 | disposition home or self-care (01) ==
LOC: ORPAIN 13:43
PROVIDERS: ATTEND Specialist
DX: M47.812 Spondylosis without myelopathy or radiculopathy, cervical region (principal); M46.92 Unspecified inflammatory spondylopathy, cervical region; M50.30 Other cervical disc degeneration, unspecified cervical region; M54.81 Occipital neuralgia; R51 Headache; I10 Essential (primary) hypertension
CPT/HCPCS: 99152; 99153; 64633; 64634; J2250; J1100; J3010

== ENCOUNTER 2016-12-23 08:25 | Day surgery (SDC) | payer OTHER ==
[~2016-12-23 08:25] MED LIST changes: -IV FLUID CONTINUATION 1,000 ML IV ONE
[2016-12-23 08:59] VITALS: RESP 16; TEMP 97.8
[2016-12-23] MEDS ORDERED: LIDOCAINE 1% 20 ML VIAL (10MG/ML) FOR IV START INTRADERMA ONE (09:07)
--- NOTE | 2016-12-23 10:16 | P.PCN ---
Date of Procedure: 12/23/16 Procedure(s) Performed: PREOPERATIVE DIAGNOSIS: 1-Cervical spondylosis with Facet Arthropathy without myelopathy 2-cervical degenerative disc disease. 3-occipital neuralgia. 4-cervicogenic headache. POSTOPERATIVE DIAGNOSIS: Same as preoperative diagnoses. PROCEDURES: Radiofrequency thermocoagulation, right side C2-3, C3-4, medial branch with Fluroscopy Guidence. Radiofrequency thermocoagulation of the right side third occipital nerve ANESTHESIA: Local with 1% lidocaine 5 ml ; IV sedation with fentanyl 150 mcg and Versed. 2 mg EBL: Minimal PROCEDURE INDICATION: The patient with neck pain secondary to cervical arthropathy who had more than 50% relief of her pain with previous diagnostic cervical medial branch block. PROCEDURE DESCRIPTION / TECHNIQUE: The patient was seen and identified in the preoperative area. Risks, benefits, complications, and alternatives were discussed with the patient, the patient agreed to proceed with the procedure and signed the consent. IV was started. Vital signs remained stable throughout the procedure. Patient was taken to the OR and time out was completed. The patient was placed in the prone position on the procedure table. A pillow was placed under the patients chest to increase the cervical interlaminar space. The cervical area was prepped and draped in the usual sterile fashion. Critical pause was taken. Vital signs were closely monitored during the procedure. Conscious sedation was used during the procedure to decrease patients anxiety. Using cross-table lateral fluoroscopy, the centroid of the trapezoid of Right C2 ,C3, were identified, marked, and localized with 1% lidocaine. Subsequently, a 20 [id number] radiofrequency cannula with a 10-mm active tip was advanced guided by fluoroscopy to the centroid of the trapezoid of Right C2 , C3 . Needle tip position was confirmed at the centroid of the trapezoids of Right C2 , C3,with anteroposterior fluoroscopy. Each site then underwent sensory testing at 50 Hz and 0 to 1 volt and motor testing at 2 Hz and 0 to 3 volt with local stimulation, but no radicular symptoms down the arm. Thereafter the right C2- 3, C3-4, sites underwent radiofrequency thermocoagulation at 80 degrees celsius for 90 seconds after injecting 0.5 ml of PF lidocaine 1%. After thermocoagulation, 1 ml of the block solution containing Dexamethasone 10 mg was injected at the C3, C4, C5, and C6 levels after negative aspiration of CSF and blood and with no paresthesias , due to the frequency of the right side third occipital nerve the 20-gauge radiofrequency active tip needle placed between the facet joint that is confirmed between the C2 and C3 on the right side then we did the sensory is the testing, it was positive and then we did the motor testing it was positive for localized contractions in the multifidus muscles right side underwent no contractions in the right upper extremities, then we did the radiofrequency at 80C for 90 seconds, that the radiofrequency done, . Cannulas were retracted while injecting lidocaine 1% until the needle is out. Skin was cleansed and bandages were applied. COMPLICATIONS: No acute complications. COMMENTS: DISPOSITION / PLANS: The patient was placed in a supine position and transferred to the recovery area in a stable condition for observation and was discharged from the recovery room after meeting discharge criteria. Home discharge instructions given to the patient by the staff. The patient was reexamined prior to discharge. The patient will schedule a follow up in the clinic in 2-4 weeks.
[2016-12-23] MEDS ORDERED: IV FLUID CONTINUATION 1,000 ML IV ONE (10:30)
[2016-12-23 10:33] VITALS: BP 131/77; PULSE 65
--- NOTE | 2016-12-23 12:48 | FL ---
EXAMINATION TYPE: FL guided pain mgmt statistic DATE OF EXAM: 12/23/2016 FLUOROSCOPY Fluoroscopy time of 23 seconds was used during 3 level right-sided cervical radiofrequency ablation. 2 image/s document/s the procedure.
== END 2016-12-23 11:08 | disposition home or self-care (01) ==
LOC: ORPAIN 08:25
PROVIDERS: ATTEND Specialist
DX: M47.812 Spondylosis without myelopathy or radiculopathy, cervical region (principal); M46.92 Unspecified inflammatory spondylopathy, cervical region; M50.30 Other cervical disc degeneration, unspecified cervical region; M54.81 Occipital neuralgia; R51 Headache; Z79.2 Long term (current) use of antibiotics
CPT/HCPCS: 64640; 64633; 64634; 99152; 99153; J2250; J1100; J3010

== ENCOUNTER → 2017-01-05 | Outpatient (CLI) | payer OTHER ==
--- NOTE | 2017-01-05 17:02 | PN ---
PROGRESS NOTE This patient is a 56-year-old gentleman who has been followed in the sleep center for treatment of obstructive sleep apnea and insomnia. The patient continues successfully using his CPAP equipment. I checked his CPAP equipment today. CPAP pressure is 11 cm of water. Usage is 28/30 nights for more than 4 hours. Average usage is 6.5 hours. Pressure in the machine is again 11 cm of water. Leak is up to 29 L/minute, which is borderline. Apnea-hypopnea index on the machine is only 1.7, so patient's respiration is under control while he is using his CPAP equipment. Patient continues to have difficulties with falling asleep. He was tried on Ambien, then trazodone, and then doxepin, but with all medications he still continued to have difficulties falling asleep. He has taken uong-xly-dtniakm Benadryl with a significant amount of tablets. MEDICATIONS: 1. Xanax on p.r.n. basis. 2. Acetaminophen. 3. Atorvastatin. 4. Ibuprofen. 5. Lisinopril. 6. Hydrochlorothiazide. 7. Ranitidine. 8. Tramadol. 9. Hydrocodone. 10.Wellbutrin. 11.Topamax. PHYSICAL EXAMINATION: Patient in no distress. VITAL SIGNS: BP 154/89, HR 80, RR 16, height 68-1/2, weight 268.8, BMI 40.3, temperature 98.9, oxygen saturation at room air 96%. HEENT: PERRLA, EOMI. Evaluation of oropharynx showed tongue protrudes midline; extremely low position of soft palate. NECK: Supple. No JVD. Thyroid is not palpable. LUNGS: Clear to percussion and to auscultation. Good air exchange. No wheezing or rhonchi. HEART: S1, S2 irregularly irregular. ABDOMEN: Obese. EXTREMITIES: No clubbing or cyanosis. REHABILITATION PROGRAM MANAGER: Awake, alert and oriented x3. Cranial nerves 2 to 7 intact. There is no fasciculation or atrophy noted. No focal deficits observed. IMPRESSION: 1. Obstructive sleep apnea-hypopnea syndrome, fully controlled with CPAP. The patient demonstrated practically 100% compliance with treatment and showed good hours of using the machine. \. 2. Insomnia, psychophysiological and possibly related to anxiety. 3. Tinnitus. 4. Obesity. 5. Migraine headaches. 6. Status post head trauma in June of 2015. 7. History of occipital nerve blockage. 8. Hypertension. 9. Hyperlipidemia. 10.Anxiety. 11.Acid reflux. 12.Status post left knee surgery. PLAN: 1. I discussed with the patient psychological techniques for treatment of insomnia: stimulus control, paradoxical intention, time. He should not look at the clock during the night. 2. I will start the patient on prolonging form of melatonin at 8 p.m. 3. We may consider slight restriction therapy also. 4. Exposure to the bright sunlight in the morning after awakenings because patient also may have sleep delay syndrome. Thank you very much for allowing me to participate in management of your patient. Sincerely, Evens Quach MD, PhD, FAASM Diplomat of [employer] Client Application Support Engineer of [facility] Carmine ARIANNA / DELTA: [id number] /
== END | disposition home or self-care (01) ==
LOC: SLEEP 15:20
PROVIDERS: ATTEND Internal Medicine
DX: G47.33 Obstructive sleep apnea (adult) (pediatric) (principal); G47.00 Insomnia, unspecified; H93.19 Tinnitus, unspecified ear; E66.9 Obesity, unspecified; G43.909 Migraine, unspecified, not intractable, without status migrainosus; I10 Essential (primary) hypertension; F41.9 Anxiety disorder, unspecified; K21.9 Gastro-esophageal reflux disease without esophagitis; Z98.890 Other specified postprocedural states

== ENCOUNTER → 2017-01-12 | Outpatient (CLI) | payer OTHER ==
--- NOTE | 2017-01-12 15:11 | P.PN ---
Subjective Progress Note Date: 01/12/17 This is follow-up visit for this patient with a history of severe and chronic neck pain , and headache , diagnosed with occipital neuralgia and cervical spondylosis,, we did interventional pain management injection,, diagnostic medial branch block cervical area and third occipital nerve and it was successful and later on we did radiofrequency ablation of C2 3 , C3 4 , radiofrequency ablation of the third occipital nerve reported to the radiofrequency helped to improve his neck pain and headache , but he reported that he is continuing to come have some dizziness episodes and frequency of the dizziness increased over the last few weeks patient currently on Ultram 50 mg every 6 hours when necessary , and Motrin 800 mg every 8 hours Patient denies any side effects of the medication, denies excessive drowsiness or sleepiness, denies suicidal ideation, and reports that the current pain medication is NOT helping To control the pain and improve activity of daily living . Patient denies any motor or sensory deficit, denies change in bowel movement or urination, patient denies any fever or night sweats and patient here for follow-up visit and medication refill Objective - Exam Physical Examinations : 1-Constitutiona : Cooperative , not in acute distress . 2-HEENT : nech ; supple , no Lymphadenopathy , normal thyroid size . eyes : no ptosis , no icterus, no photophobia . ENT : normal of hearing , normal oropharynx , no Thrush . 3- Respiratory : Chest clear to auscultations Bilaterally , no wheezing , no Rhonchi . 4- Cardiovascular : regular rate and rhythem , S1 , S2 , no S3 , no S4. 5- Gastrointestinal : abdomen soft no tenderness , bowel sounds positive all four quadrents , no organomegally . 6- Genitourinary : Defferred . 7- neurologic : Cranial nerve II to XII intact , no focal neurological deffecit . 8-psychatric : alert , oriented X 3 , appropriate affect , intact judgment and insight . 9-Lymphatic : no Lymphadenopathy . 10- musculoskeltal : cervical spine = motor stregnth in the deltoid and biceps, motor stregnth biceps and the wrist extensors (C6) . motor stregnth in the triceps muscle . deep tendon reflexes normal at the biceps , l normal at Brachioradialis normal at the triceps positive cervical facet loading test . , Lumber spine = normal moter stegnth lower extremities ,thigh and legs .5/5 Assessment and Plan Plan: Assessment and plan= chronic neck pain and headaches secondary to cervical spondylosis and occipital neuralgia, status post radiofrequency ablation of the medial branch cervical area C2-3 , C3 4, radiofrequency ablation of the third occipital nerve , Patient signed the narcotic agreement, and he was orally counseled, not to overuse, not to abuse, not to Divert , not tp sell pain medication, and to take it as prescribed only, Patient was counseled not to drive or operate heavy equipment while using narcotic medication, and advised not to use alcohol or any Illicit drugs while using the narcotis, the patient's verbalized understanding that lack of compliance with any of the above instructions and will likely to cause discharge from the pain service, not to renew his narcotic prescriptions Medication managements= patient will be given prescription refills for 1-,lyrica 50 mg every 6 hours dispense 120 with one refill , Motrin 800 mg every 8 hours dispense 90 with 1 refill Interventional pain management=none Refferal = neurologist for evaluation regarding the dizziness Follow-up= 2 months ,
[2017-01-12 15:20] VITALS: BP 140/91; PULSE 71; RESP 16
== END ==
LOC: PNWHC3 13:33
PROVIDERS: ATTEND Specialist
DX: M47.812 Spondylosis without myelopathy or radiculopathy, cervical region (principal); M54.81 Occipital neuralgia; Z79.891 Long term (current) use of opiate analgesic; Z79.899 Other long term (current) drug therapy
CPT/HCPCS: 99211

== ENCOUNTER → 2017-02-15 | Outpatient (CLI) | payer OTHER ==
[2017-02-15 13:23] VITALS: BP 136/91; PULSE 75; RESP 16
--- NOTE | 2017-02-15 13:40 | P.PN ---
Progress Note - Text Progress Note Date: 02/15/17 Patient returns for followup for chronic neck pain with radiation to shoulders. Patient recently underwent bilateral cervical RFA, with which he initially had dizziness which is being worked by neurology with EEG. Patient continues on tramadol medications for pain with good relief but is relating very poor sleep; he has also been complaining of swollen testicles. Patient denies adverse drug effects from medications. Today, pt denies new-onset weakness, bowel/bladder incontinence, or any other signs or symptoms of cauda equina syndrome. There are no signs of acute intoxication, and no indications of medication diversion or overuse. In addition to above, 13-point review of systems is also negative for chest pain , shortness of breath, changes in vision, changes in hearing, new onset weakness , abdominal pain, diarrhea, extreme fatigue, malaise, fever, skin changes, homicidal or suicidal ideation, or bowel or bladder incontinence. Vital Signs: Reviewed in EMR Gen: WDWN, AAOx3, NAD HEENT: NCAT, EOMI, hearing grossly normal Pulm: resp unlabored Abd: soft, NT, ND Neck: supple, trachea midline ROM in flexion cervical spine: reduced ROM in extension cervical spine: reduced Cervical paravertebral tenderness: + Cervical Facet tenderness: + bilateral Spurling's: neg Upper extremity: decreased scrap hoist operator strength, decreased shoulder abduction ROM, and decreased elbow flexion/extension secondary to pain Neuro: CN II-XII grossly intact, muscle strength lower extremities PRESERVED Imaging: Reviewed in EMR Assessment: 1. cervical spondylosis without myelopathy 2. occipital neuralgia 3. chronic pain syndrome Plan: 1. Explanation: Opioid and psychological risk scores were reviewed. Diagnoses , prognoses, and multiple treatment options including but not limited to physical therapy, interventional therapies, adjuvant medical therapies, narcotic medication therapies, and surgery were discussed with the patient and all questions were answered to the patient's satisfaction. 2. Opioid agreement: Patient has previously signed narcotic agreement, and was orally counseled to not overuse, abuse, divert, or cell medications, and to take them as prescribed by only 1 healthcare provider. The patient was also counseled to store opioid medications in a safe and preferably locked location. Patient was also counseled against driving or operating heavy equipment while using narcotic medications and also to not use alcohol or any illicit or recreational drugs. The patient verbalized understanding that lack of compliance with any of the above and likely result in failure to renew narcotic prescriptions, possible discharge from the clinic, and possible legal ramifications thereafter if indicated. 3. Counseling: The patient was counseled extensively on BODY MASS INDEX, EXERCISE. Specifically, the patient was instructed regarding the importance of weight control, and exercise in the context of both chronic pain and overall health. 4. Procedures: none for now 5. Consultations: None 6. Investigations: None 7. Medications: tramadol increased to 50 mg TID #90 and Motrin 800 mg #90 with two refills. Will not re-prescribe Elavil secondary to risk of serotonin syndrome and have patient consult with sleep specialist/neurologist for further evaluation of sleep medications (preferably not SNRI or TCA). Of note, the patient was warned regarding the synergistic effects of benzodiazepines and opioids in terms of sedation, nausea, and respiratory depression possibly resulting in . The patient verbalized understanding and acceptance of these risks. 8. Disposition: f/u for re-eval in 12 weeks PQRS measures: 1-Patient's medications are documented in the chart. 2-Tobacco use is positive, counseling given 3-Patient has not had a pneumococcal vaccine. 4-Advanced care planning discussed, patient unable to give. 5-Opioid contract signed with the patient. 6-Pain positive, follow-up visit or procedure scheduled 7-Patient's blood pressure measured and documented, and patient will follow up with the primary care due to hypertension. 8-Patient's weight was measured, and body mass index ABOVE the normal limits, and counseling was done. Patient instructed to follow up with PCP. 9-Patient WAS NOT identified as an unhealthy alcohol user.
== END | disposition home or self-care (01) ==
LOC: PNWHC3 12:39
PROVIDERS: ATTEND Anesthesiology
DX: M47.812 Spondylosis without myelopathy or radiculopathy, cervical region (principal); M54.81 Occipital neuralgia; G89.4 Chronic pain syndrome; Z79.899 Other long term (current) drug therapy
CPT/HCPCS: 99211

== ENCOUNTER → 2017-03-30 | Outpatient (CLI) | payer OTHER ==
--- NOTE | 2017-03-30 14:48 | P.PN ---
Progress Note - Text Progress Note Date: 03/30/17 Patient returns for followup for chronic neck pain with radiation to shoulders. Patient recently underwent bilateral cervical RFA, which helped with his neck but not with his chronic headaches, a cause of which neither neurology nor sleep medicine have been able to assist with up until this point, despite testing with EEG, EMG, and MRI. Patient continues on tramadol medications for pain with relief of his neck pain but is relating very poor sleep, photophobia, and knee pain. Patient denies adverse drug effects from medications. Today, pt denies new-onset weakness, bowel/bladder incontinence, or any other signs or symptoms of cauda equina syndrome. There are no signs of acute intoxication, and no indications of medication diversion or overuse. In addition to above, 13-point review of systems is also negative for chest pain , shortness of breath, changes in vision, changes in hearing, new onset weakness , abdominal pain, diarrhea, extreme fatigue, malaise, fever, skin changes, homicidal or suicidal ideation, or bowel or bladder incontinence. Vital Signs: Reviewed in EMR Gen: WDWN, AAOx3, NAD HEENT: NCAT, EOMI, hearing grossly normal, tenderness over occipital ridges bilateral Pulm: resp unlabored Abd: soft, NT, ND Neck: supple, trachea midline ROM in flexion cervical spine: reduced ROM in extension cervical spine: reduced Cervical paravertebral tenderness: + Cervical Facet tenderness: + bilateral Spurling's: neg Upper extremity: decreased figure clerk strength, decreased shoulder abduction ROM, and decreased elbow flexion/extension secondary to pain Neuro: CN II-XII grossly intact, muscle strength lower extremities PRESERVED Imaging: Reviewed in EMR Assessment: 1. cervical spondylosis without myelopathy 2. occipital neuralgia 3. chronic pain syndrome Plan: 1. Explanation: Opioid and psychological risk scores were reviewed. Diagnoses , prognoses, and multiple treatment options including but not limited to physical therapy, interventional therapies, adjuvant medical therapies, narcotic medication therapies, and surgery were discussed with the patient and all questions were answered to the patient's satisfaction. 2. Opioid agreement: Patient has previously signed narcotic agreement, and was orally counseled to not overuse, abuse, divert, or cell medications, and to take them as prescribed by only 1 healthcare provider. The patient was also counseled to store opioid medications in a safe and preferably locked location. Patient was also counseled against driving or operating heavy equipment while using narcotic medications and also to not use alcohol or any illicit or recreational drugs. The patient verbalized understanding that lack of compliance with any of the above and likely result in failure to renew narcotic prescriptions, possible discharge from the clinic, and possible legal ramifications thereafter if indicated. 3. Counseling: The patient was counseled extensively on BODY MASS INDEX, EXERCISE. Specifically, the patient was instructed regarding the importance of weight control, and exercise in the context of both chronic pain and overall health. 4. Procedures: none for now 5. Consultations: None 6. Investigations: None 7. Medications: start [place] 7.5/325 #60 with no refill. Of note, the patient was warned regarding the synergistic effects of benzodiazepines and opioids in terms of sedation, nausea, and respiratory depression possibly resulting in . The patient verbalized understanding and acceptance of these risks. 8. Disposition: f/u 4 weeks. We still do not have a clear idea of the source of this patient's headaches and he will likely need specialty referral to an academic center to help determine the cause of his headaches, as occipital nerve blocks have helped only slightly and cervical RFA helped only with his neck pain. Plan for UDS at next visit. PQRS measures: 1-Patient's medications are documented in the chart. 2-Tobacco use is positive, counseling given 3-Patient has not had a pneumococcal vaccine. 4-Advanced care planning discussed, patient unable to give. 5-Opioid contract signed with the patient. 6-Pain positive, follow-up visit or procedure scheduled 7-Patient's blood pressure measured and documented, and patient will follow up with the primary care due to hypertension. 8-Patient's weight was measured, and body mass index ABOVE the normal limits, and counseling was done. Patient instructed to follow up with PCP. 9-Patient WAS NOT identified as an unhealthy alcohol user.
[2017-03-30 23:29] VITALS: BP 162/96; PULSE 65; RESP 16; TEMP 98.1
== END | disposition home or self-care (01) ==
LOC: PNWHC3 13:46
PROVIDERS: ATTEND Anesthesiology
DX: M47.812 Spondylosis without myelopathy or radiculopathy, cervical region (principal); M54.81 Occipital neuralgia; I10 Essential (primary) hypertension; M25.569 Pain in unspecified knee; Z72.0 Tobacco use; Z79.891 Long term (current) use of opiate analgesic
CPT/HCPCS: 99211

== ENCOUNTER → 2017-04-27 | Outpatient (CLI) | payer OTHER ==
[2017-04-27 14:25] VITALS: BP 182/90; PULSE 85; RESP 16
--- NOTE | 2017-04-27 14:46 | P.PN ---
Progress Note - Text Progress Note Date: 04/27/17 Patient returns for followup for chronic neck pain with radiation to shoulders. Patient recently underwent bilateral cervical RFA, which helped with his neck but not with his chronic headaches, a cause of which neither neurology nor sleep medicine have been able to assist with up until this point, despite testing with EEG, EMG, and MRI. Patient continues on tramadol medications for pain with relief of his neck pain but is relating very poor sleep, photophobia, and knee pain. Patient denies adverse drug effects from medications. Today, pt denies new-onset weakness, bowel/bladder incontinence, or any other signs or symptoms of cauda equina syndrome. There are no signs of acute intoxication, and no indications of medication diversion or overuse. In addition to above, 13-point review of systems is also negative for chest pain , shortness of breath, changes in vision, changes in hearing, new onset weakness , abdominal pain, diarrhea, extreme fatigue, malaise, fever, skin changes, homicidal or suicidal ideation, or bowel or bladder incontinence. Vital Signs: Reviewed in EMR Gen: WDWN, AAOx3, NAD HEENT: NCAT, EOMI, hearing grossly normal, tenderness over occipital ridges bilateral Pulm: resp unlabored Abd: soft, NT, ND Neck: supple, trachea midline ROM in flexion cervical spine: reduced ROM in extension cervical spine: reduced Cervical paravertebral tenderness: + Cervical Facet tenderness: + bilateral Spurling's: neg Upper extremity: decreased sample prep technician strength secondary to pain Lower extremity: decreased ROM R knee flexion and extension due to pain Neuro: CN II-XII grossly intact, muscle strength lower extremities PRESERVED Imaging: Reviewed in EMR Assessment: 1. cervical spondylosis without myelopathy 2. occipital neuralgia 3. chronic pain syndrome Plan: 1. Explanation: Opioid and psychological risk scores were reviewed. Diagnoses , prognoses, and multiple treatment options including but not limited to physical therapy, interventional therapies, adjuvant medical therapies, narcotic medication therapies, and surgery were discussed with the patient and all questions were answered to the patient's satisfaction. 2. Opioid agreement: Patient has previously signed narcotic agreement, and was orally counseled to not overuse, abuse, divert, or cell medications, and to take them as prescribed by only 1 healthcare provider. The patient was also counseled to store opioid medications in a safe and preferably locked location. Patient was also counseled against driving or operating heavy equipment while using narcotic medications and also to not use alcohol or any illicit or recreational drugs. The patient verbalized understanding that lack of compliance with any of the above and likely result in failure to renew narcotic prescriptions, possible discharge from the clinic, and possible legal ramifications thereafter if indicated. 3. Counseling: The patient was counseled extensively on BODY MASS INDEX, EXERCISE. Specifically, the patient was instructed regarding the importance of weight control, and exercise in the context of both chronic pain and overall health. 4. Procedures: left knee injection (intra-articular) 5. Consultations: None 6. Investigations: None 7. Medications: Patient wishes to stop [place] and return to tramadol 50 mg #120 with one refill, and will also fill Motrin 800 mg #90 with two refills. Of note , the patient was warned regarding the synergistic effects of benzodiazepines and opioids in terms of sedation, nausea, and respiratory depression possibly resulting in . The patient verbalized understanding and acceptance of these risks. 8. Disposition: f/u 4 weeks for procedure as scheduled and 8 weeks for medications PQRS measures: 1-Patient's medications are documented in the chart. 2-Tobacco use is positive, counseling given 3-Patient has not had a pneumococcal vaccine. 4-Advanced care planning discussed, patient unable to give. 5-Opioid contract signed with the patient. 6-Pain positive, follow-up visit or procedure scheduled 7-Patient's blood pressure measured and documented, and patient will follow up with the primary care due to hypertension. 8-Patient's weight was measured, and body mass index ABOVE the normal limits, and counseling was done. Patient instructed to follow up with PCP. 9-Patient WAS NOT identified as an unhealthy alcohol user.
== END | disposition home or self-care (01) ==
LOC: PNWHC3 13:57
PROVIDERS: ATTEND Anesthesiology
DX: G89.4 Chronic pain syndrome (principal); M54.2 Cervicalgia; M47.812 Spondylosis without myelopathy or radiculopathy, cervical region; M54.81 Occipital neuralgia; H53.149 Visual discomfort, unspecified; F17.200 Nicotine dependence, unspecified, uncomplicated; G47.8 Other sleep disorders; M25.569 Pain in unspecified knee; Z79.891 Long term (current) use of opiate analgesic; Z71.6 Tobacco abuse counseling
CPT/HCPCS: 99211

== ENCOUNTER 2017-05-26 09:38 | Day surgery (SDC) | payer OTHER ==
[~2017-05-26 09:38] MED LIST changes: -LACTATED RINGERS 1,000 ML IV ONE; +LACTATED RINGERS 1,000 ML IV SCH
[2017-05-26 11:09] VITALS: RESP 16; TEMP 97.6
[2017-05-26] MEDS ORDERED: LIDOCAINE 1% 20 ML VIAL (10MG/ML) FOR IV START INTRADERMA ONE (11:34)
[2017-05-26] MEDS ORDERED: IV FLUID CONTINUATION 1,000 ML IV ONE (12:16)
[2017-05-26 12:18] VITALS: BP 144/83; PULSE 58
--- NOTE | 2017-05-26 12:25 | FL ---
EXAMINATION TYPE: FL guided pain mgmt statistic DATE OF EXAM: 05/26/2017 CLINICAL HISTORY: Left knee pain. TECHNIQUE: Fluoroscopy. COMPARISON: None. FINDINGS: Fluoroscopic guidance was provided during pain relief procedure performed by Dr. Starkey . A total of 6 seconds of fluoroscopic time was utilized during the procedure and two spot images ar e acquired. Images acquired shows needle localization with contrast injection at level of knee joint . IMPRESSION: As Above.
--- NOTE | 2017-05-26 21:30 | P.PCN ---
Date of Procedure: 05/26/17 Procedure(s) Performed: Preoperative diagnoses= 1-bilateral knee joint arthralgia Postoperative diagnoses= same as preoperative diagnosis. Procedure= bilateral Knee joint steroid injection under fluoroscopic guidance. Anesthesia= moderate sedation with Versed 2 mg and fentanyl 100 micrograms and local infiltration with lidocaine 1% 4 ml Estimated blood loss=minimal. Procedure indication= the patient had a history of severe chronic knee pain pain , diagnosed with bilateral knee joint arthralgia and he was scheduled to have left-sided knee joint steroid injection but he was complaining of increased pain on the right side for this reason we chose to do bilateral knee joint steroid injection Procedure description= the patient was seen and identified in the preoperative holding area, risks and benefits and alternative of the procedure and possible complications discussed with the patient, and he agreed with the preceding, patient signed the consent, an IV was started, and vital signs were monitored and were stable throughout the procedure, patient was placed in the supine position or table and the knee area was prepped and draped with a sterile fashion, vital signs were closely monitored during the procedure, the fluoroscopy camera was placed in the PA view on the Knee joint and the lower part of the joint was identified, local infiltration of the skin and subcutaneous tissue with lidocaine 1% 2 mL then a 22-gauge Quincke-type spinal needle advanced slowly under fluoroscopy and placed in the medial and inferior border of the left knee joints , placement confirmed with AP and lateral view, and after appropriate needle placement confirmed and after negative aspiration for heme and there was no paresthesia during the injection, 4 ml of Marcaine 0.5% and 40 mg of Kenalog injected after negative aspiration, the needle removed , and the entire same procedure was repeated for the right knee joint joint Patient tolerated the procedure well without any complication, The procedures area was cleaned and a Band-Aid applied, the patient transported to recovery room in stable condition and he was monitored for 30 minutes before he was discharged home and then patient was reexamined before going home and patient was discharged in stable condition and patient will follow up with the pain clinic in a few weeks
== END 2017-05-26 13:00 | disposition home or self-care (01) ==
LOC: ORPAIN 09:38
PROVIDERS: ATTEND Specialist
DX: M25.562 Pain in left knee (principal); M25.561 Pain in right knee; M17.0 Bilateral primary osteoarthritis of knee; M47.812 Spondylosis without myelopathy or radiculopathy, cervical region; I10 Essential (primary) hypertension; J45.909 Unspecified asthma, uncomplicated; K21.9 Gastro-esophageal reflux disease without esophagitis; Z88.1 Allergy status to other antibiotic agents
CPT/HCPCS: 20610; J2250; J1030; Q9965; J3010

== ENCOUNTER 2017-06-22 10:14 | Day surgery (SDC) | payer OTHER ==
[2017-06-22 10:22] VITALS: TEMP 98
[2017-06-22 10:26] VITALS: BMI 41.0
--- NOTE | 2017-06-22 11:40 | FL ---
EXAMINATION TYPE: FL guided pain mgmt statistic DATE OF EXAM: 06/22/2017 FLUOROSCOPY Fluoroscopy time of 3 seconds was used during bilateral knee injection. 2 image/s document/s the pro cedure.
[2017-06-22 12:04] VITALS: BP 143/81; PULSE 63; RESP 16
--- NOTE | 2017-06-22 12:13 | P.PCN ---
Date of Procedure: 06/22/17 Procedure(s) Performed: Preoperative diagnoses= 1-bilateral knee arthralgia Postoperative diagnoses= same as preoperative diagnosis. Procedure= bilateral knee joint steroid injection under fluoroscopic guidance. Anesthesia= local infiltration with lidocaine 1% 4 ml, no IV sedation was given Estimated blood loss=minimal. Procedure indication= the patient had a history of severe chronic knee pain, diagnosed with bilateral knee arthralgia , unresponsive to conservative treatment. Procedure description= the patient was seen and identified in the preoperative holding area, risks and benefits and alternative of the procedure and possible complications discussed with the patient, and he agreed with the preceding, patient signed the consent, and vital signs were monitored and were stable throughout the procedure, patient was placed in the supine position or table and the knee area was prepped and draped with a sterile fashion, vital signs were closely monitored during the procedure, the fluoroscopy camera was placed in the posterior anterior view on the left knee joint and thelateral part of the joint was identified, local infiltration of the skin and subcutaneous tissue with lidocaine 1% 2 mL then a 22-gauge Quincke-type spinal needle advanced slowly under fluoroscopy and placed in the lateral border of the right knee joint, placement confirmed with AP and lateral view, and after appropriate needle placement confirmed with injection of Isovue 200 , 2 mL injected and after negative aspiration for heme there was no paresthesia during the injection, 3 ml of Marcaine 0.5% and 40 mg of Kenalog injected after negative aspiration, the needle removed, and the entire same procedure was repeated for the right knee joint Patient tolerated the procedure well without any complication, Then the knee was cleaned and a Band-Aid applied, the patient transported to recovery room in stable condition and he was monitored for 30 minutes before he was discharged home and then patient was reexamined before going home and patient was discharged in stable condition and patient will follow up with the pain clinic in a few weeks
== END 2017-06-22 12:12 | disposition home or self-care (01) ==
LOC: ORPAIN 10:14
PROVIDERS: ATTEND Specialist
DX: G89.29 Other chronic pain (principal); M25.562 Pain in left knee; M25.561 Pain in right knee; I10 Essential (primary) hypertension; J45.909 Unspecified asthma, uncomplicated; Z88.3 Allergy status to other anti-infective agents
CPT/HCPCS: 20610; J3301; Q9966

== ENCOUNTER → 2017-07-21 | Outpatient (CLI) | payer OTHER ==
--- NOTE | 2017-07-21 17:31 | PN ---
PROGRESS NOTE DATE OF SERVICE: 07/21/2017 This patient is a 57-year-old gentleman who has been followed in the sleep center for treatment of obstructive sleep apnea-hypopnea syndrome. The patient continues to use his CPAP equipment every night for the whole night. I checked his machine; usage is 100% of the nights, average usage 10.7 hours. Pressure is 11 cm of water. Leak is 23 L/minute, which is in acceptable range. Apnea-hypopnea index is 1.0, which is perfect. Wynne Sleepiness Scale today is 18. MEDICATIONS: 1. Acetaminophen. 2. Atorvastatin. 3. Ibuprofen. 4. Lisinopril. 5. Hydrochlorothiazide. 6. Ranitidine. 7. Tramadol. 8. Topamax. 9. Fioricet. PHYSICAL EXAMINATION: GENERAL A pleasant gentleman in no distress. VITAL SIGNS: BP 147/90, HR 78, RR 16, height 5 feet 8 inches, weight 267.2, BMI 40.5. Patient's weight is 4 pounds more than during the previous visit. Temperature 98.9, oxygen saturation at room air 95%. HEENT: PERRLA, EOMI. Evaluation of oropharynx showed tongue protrudes midline; moderately low position of soft palate. NECK: Supple. No JVD. Thyroid is not palpable. LUNGS: Clear to percussion and to auscultation. Good air exchange. A few wheezes. HEART: S1, S2 regular. No murmurs, gallops or rubs. ABDOMEN: Obese. EXTREMITIES : No clubbing or cyanosis. SENIOR ENVIRONMENTAL SCIENTIST: Awake, alert, and oriented X3. Cranial nerves 2 to 7 intact. There is no fasciculation or atrophy. noted. No focal deficits observed. IMPRESSION: 1. Obstructive sleep apnea-hypopnea syndrome, under full control with CPAP at 11 cm of water. Patient demonstrated 100% compliance with treatment, benefitting from treatment. 2. Obesity. 3. Status post head trauma in June of 2015 with concussion syndrome. 4. Migraine headaches. 5. History of occipital neuralgia. 6. Hypertension. 7. Episodes of dizziness. 8. Hyperlipidemia. 9. History of anxiety. 10.Acid reflux. 11.Status post left knee surgery. 12.Tinnitus. PLAN: 1. Prescription for all necessary CPAP supplies, including mask, tube, filters. 2. Continue using CPAP equipment every night for the whole night. 3. Losing weight. 4. Sleep hygiene with regular time in bed for at least 8 hours. 5. No driving if feeling any sleepiness. Thank you very much for allowing me to participate in the management of your patient. Sincerely, Evens Quach MD, PhD, FAASM Diplomat of [place] [employer] [place] [employer] Medical Resident of [facility] MMODL / IJN: [id number] /
== END | disposition home or self-care (01) ==
LOC: SLEEP 15:34
PROVIDERS: ATTEND Internal Medicine
DX: G47.33 Obstructive sleep apnea (adult) (pediatric) (principal); E66.9 Obesity, unspecified; G43.909 Migraine, unspecified, not intractable, without status migrainosus; M54.81 Occipital neuralgia; I10 Essential (primary) hypertension; F41.9 Anxiety disorder, unspecified; K21.9 Gastro-esophageal reflux disease without esophagitis; Z98.890 Other specified postprocedural states; H93.19 Tinnitus, unspecified ear; R42 Dizziness and giddiness; Z99.89 Dependence on other enabling machines and devices; Z79.899 Other long term (current) drug therapy; Z79.891 Long term (current) use of opiate analgesic; Z79.1 Long term (current) use of non-steroidal anti-inflammatories (NSAID)

== ENCOUNTER → 2017-07-26 | Outpatient (CLI) | payer OTHER ==
[2017-07-26 14:02] LABS: HCT 42.1 % (39.0-53.0); HGB 14.3 gm/dL (13.0-17.5); MCH 32.8 pg (25.0-35.0); MCV 96.5 fL (80.0-100.0); Mean Platelet Volume 7.3; Platelet Count 251 k/uL (150-450); RBC 4.36 m/uL (4.30-5.90); RDW 12.5 % (11.5-15.5); WBC 7.9 k/uL (3.8-10.6)
[2017-07-26 14:03] LABS: Appearance,Urine Clear (Clear); Bilirubin,Urine Negative (Negative); Blood,Urine Negative (Negative); Color,Urine Yellow; Glucose,Urine (UA) Negative (Negative); Ketones,Urine Negative (Negative); Leukocyte Esterase,Urine Negative (Negative); Nitrite,Urine Negative (Negative); PH, Urine 7.5 (5.0-8.0); Protein,Urine Negative (Negative); Specific Gravity,Urine 1.021 (1.001-1.035); Urobilinogen,Urine <2.0 mg/dL (<2.0)
[2017-07-26 14:16] LABS: Prothrombin Time 9.6 sec (9.0-12.0)
[2017-07-26 14:19] LABS: Partial Thromboplastin Time 20.6 sec (22.0-30.0)
[2017-07-26 14:26] LABS: ALT 63 U/L (21-72); AST 29 U/L (17-59); Albumin 4.5 g/dL (3.5-5.0); Alkaline Phosphatase 87 U/L (38-126); Anion Gap 13 mmol/L; Blood Urea Nitrogen 22 mg/dL (9-20); Calcium 9.7 mg/dL (8.4-10.2); Carbon Dioxide 28 mmol/L (22-30); Chloride 100 mmol/L (98-107); Glucose 97 mg/dL (74-99); Sodium 141 mmol/L (137-145); Total Bilirubin 0.5 mg/dL (0.2-1.3); Total Protein 6.8 g/dL (6.3-8.2)
== END ==
LOC: LABPAT 13:27
PROVIDERS: ATTEND Orthopaedic Surgery
DX: Z01.818 Encounter for other preprocedural examination (principal); Z01.812 Encounter for preprocedural laboratory examination
CPT/HCPCS: 36415; 80053; 81003; 85027; 85610; 85730; 87070; 93005

== ENCOUNTER 2017-08-16 09:11 | Inpatient (IN) | payer OTHER ==
[2017-08-08 11:45] VITALS: BMI 39.5
[~2017-08-16 09:11] MED LIST changes: +ACETAMINOPHEN TAB 500 MG TAB PO ONE; +DEXAMETHASONE SOD PHOSPHATE 10 MG/ML 1 ML VIAL IV ONE; -LACTATED RINGERS 1,000 ML IV SCH; +MELOXICAM 7.5 MG TAB PO ONE; +MIDAZOLAM 2 MG/2 ML VIAL IV PRN; +ONDANSETRON 4 MG/2 ML VIAL IVP ONE; +SCOPOLAMINE 1.5MG/72HR PATCH TRANSDERM ONE; +TRANEXAMIC ACID 1,000 MG in SODIUM CHLORIDE 0.9% 50 ML IVPB ONE; +ceFAZolin IN SWFI 2 GM/20 ML SYRINGE IVP ONE; +fentaNYL (PF) 50 MCG/ML 2 ML AMP IV PRN
[2017-08-16] MEDS ORDERED: LIDOCAINE 1% 20 ML VIAL (10MG/ML) FOR IV START INTRADERMA ONE (10:22)
[2017-08-16] MEDS: LACTATED RINGERS 1,000 ML IV SCH (10:22)
[2017-08-16] MEDS ORDERED: MIDAZOLAM 2 MG/2 ML VIAL IV ONE (10:25)
[2017-08-16] MEDS ORDERED: SODIUM CHLORIDE 0.9% 100 ML BAG ONE (11:02)
[2017-08-16] MEDS ORDERED: fentaNYL (PF) 50 MCG/ML 2 ML AMP ONE (11:02)
[2017-08-16] MEDS ORDERED: MIDAZOLAM 2 MG/2 ML VIAL ONE (11:02)
[2017-08-16] MEDS ORDERED: TRANEXAMIC ACID 1,000 MG/10 ML VIAL ONE (11:02)
[2017-08-16] MEDS ORDERED: PROPOFOL 10 MG/ML 20 ML VIAL IV ONE (11:02)
[2017-08-16] MEDS ORDERED: diphenhydrAMINE 50 MG/ML 1 ML VIAL ONE (11:02)
[2017-08-16] MEDS: ROPIVACAINE 246.25 MG, EPINEPHrine 0.5 MG, KETOROLAC 30 MG, cloNIDine HCL/PF 80 MCG, WA... MISCELLANE ONE ×10 (11:08→12:15)
[2017-08-16] MEDS ORDERED: ceFAZolin 3,000 MG in SODIUM CHLORIDE 0.9% IRRIGATIO 3,000 ML IRRIGATION ONE (11:09)
[2017-08-16] MEDS ORDERED: BISACODYL 10 MG SUPP RECTAL PRN (13:01)
[2017-08-16] MEDS ORDERED: ONDANSETRON 4 MG/2 ML VIAL IVP PRN (13:01)
[2017-08-16] MEDS ORDERED: hydrOXYzine PAMOATE 25 MG CAP PO PRN (13:01)
[2017-08-16] MEDS ORDERED: MAGNESIUM HYDROXIDE 2,400 MG/10 ML CUP PO PRN (13:01)
[2017-08-16] MEDS ORDERED: HYDROmorphone 0.5 MG/0.5 ML SYRINGE IVP PRN ×2 (13:01)
[2017-08-16] MEDS ORDERED: DIAZEPAM 5 MG TAB PO PRN ×2 (13:01)
[2017-08-16] MEDS ORDERED: NA PHOS,M-B/NA PHOS,DI-BA 133 ML ENEMA RECTAL PRN (13:01)
[2017-08-16] MEDS ORDERED: HYDROcodone/APAP 7.5-325MG 1 EACH TAB PO PRN ×2 (13:01)
[2017-08-16] MEDS ORDERED: NALOXONE 0.4 MG/ML 1 ML VIAL IV PRN (13:01)
[2017-08-16] MEDS ORDERED: ROPIVACAINE 1,100 MG, SODIUM CHLORIDE 0.9% 330 ML MISCELLANE PRN ×2 (13:12)
--- NOTE | 2017-08-16 13:23 | XR ---
EXAMINATION TYPE: XR knee limited LT DATE OF EXAM: 08/16/2017 COMPARISON: NONE HISTORY: Postop left knee replacement TECHNIQUE: 2 views left knee FINDINGS: Tibial and femoral components of in place. Postsurgical changes are within the soft tissues . No acute fractures are evident. IMPRESSION: 1. No acute fractures post left knee replacement.
--- NOTE | 2017-08-16 14:02 | P.OP ---
Date of Procedure: 08/16/17 Preoperative Diagnosis: Severe osteoarthritis left knee Postoperative Diagnosis: Severe osteoarthritis left knee Procedure(s) Performed: Left total knee arthroplasty Implants: [employer] Oxinium femoral component size 6, left [employer] Samantha II left nonporous tibial baseplate size 7 [employer]hew size 9 mm Legion XLPE dished articular insert, size 7-8 [employer] Samantha II resurfacing patellar component, 35 mm All components were cemented using Nora bone cement.. The articulation is Oxinium on polyethylene. Anesthesia: spinal Surgeon: Jluis Taylor Assistant Professor Of Education #1: Belle Rangel Estimated Blood Loss (ml): 50 Pathology: other (Bone and cartilage) Condition: stable Disposition: PACU Indications for Procedure: After failure of conservative treatment we discussed the surgical and nonsurgical treatment options at length. Patient wishes to proceed with a total knee arthroplasty. Complications specific to this procedure were discussed at length, including but not limited to infection, bleeding, stiffness , and nerve injury. Patient is aware of all these complications and informed consent was obtained Operative Findings: The operative findings are consistent with severe osteoarthritis of the left knee Description of Procedure: Patient was seen in the preoperative area consent was reviewed and operative site was marked with a skin marker. An adductor canal pain catheter was placed by anesthesia in the preoperative area. Patient was then brought to the operating room and given preoperative antibiotics intravenously. A spinal anesthetic was administered by the anesthesia department. A tourniquet was placed on the upper thigh and the lower extremity was prepped and draped in usual sterile fashion. A gram of transexamic acid was given. A universal timeout was then performed which confirmed the patient's name, surgical site, ALLERGIES, and consent. The lower extremity was then exsanguinated and tourniquet was inflated to 250 mmHg. A standard and anterior midline approach to the knee was performed. The skin and subcutaneous tissue was dissected down to the patellar tendon. A medial parapatellar arthrotomy was then performed. The knee was then extended, the patellar was everted, and the knee was again flexed. Anterior horns of both menisci were excised, and a release was performed to the posterior medial aspect of the knee. On gross visual inspection, there was complete loss of articular cartilage in the medial and patellofemoral joint spaces. There was also significant cartilage damage in the lateral compartment. There were multiple periarticular osteophytes which were then removed with a Ronguer. The femoral canal was then opened with the appropriate drill, and the intramedullary femoral cutting guide was then placed and set for 4 of valgus. The distal femoral cutting block was then pinned in place, and the distal femur was then cut. The cutting block was then removed and the cut was checked for flatness. Next, the sizing guide was then placed and set for 3 external rotation based off of the epicondylar axis and Whitesides line. After the femur was sized, the appropriate 4-in-1 cutting block was then pinned in place. The anterior condyles were cut without notching. The posterior and chamfer cuts were performed while protecting the collateral ligaments. The cutting block was then removed, and the femoral canal was plugged with autologous bone. Attention was then directed to the tibia. The remaining ACL was removed with a Ronguer, and the tibia was then gently subluxed forward with a large bent knee retractor. Any remaining menisci was excised. The posterior lateral corner was cauterized in order to cauterize the lateral geniculate artery. The extra medullary tibial cutting guide was then placed, set for the appropriate rotation , slope, and depth of resection. The proximal tibia cutting guide was then pinned in place. Proximal tibia was then cut and sized. Next trials were then placed with the appropriate-sized insert. The knee was able to fully extend and flex to 130 and was stable throughout all range of motion. The knee was then extended, patella everted. Patella was then measured, and then using an osteotomy guide, the patella was cut at the appropriate level. The patella was then measured and drilled and the patella trial was then placed. The knee was then taken through range of motion with the patella trial and the patella tracked normally. The knee was then extended patella trial was then removed and the patella was everted. Knee was then flexed and lug holes were drilled through the femoral trial and the femoral trial was then removed. The tibial was then exposed, and the tibial broach guide was then pinned in place after it was set for the appropriate rotation to allow for the most coverage without overhang. The tibia was then reamed and broached. The cut surfaces of bone were then irrigated with pulsatile lavage. The posterior structures were injected with the ropivacaine solution. The knee was also irrigated with Irrisept solution. The components were then opened, the cement was mixed, and the components were then cemented in place. The cement was allowed to harden with the knee in full extension. While the cement was hardening, the remaining soft tissues were then injected with a ropivacaine solution, which consisted of 246.25 mg of ropivacaine, 0.5 mg of epinephrine, 30 mg of Toradol, 80 g of clonidine, and 48.45 mL of sterile water, for a total of 100 mL of fluid injected. After the cemented hardened. The tourniquet was released, and hemostasis was obtained. A second gram of transexamic acid was given. The knee was again irrigated. The knee was again taken through range of motion and found to be stable throughout all range of motion of 0-130 , and the patella tracked normally. The fascia was then closed with #2 strata fix suture. The subcutaneous tissue was closed with 3-0 Vicryl and 3-0 strata fix. Dermabond glue was used for the skin and placed with the knee in flexion. The patient was placed in a sterile silver dressing. Patient was then transferred to recovery room in stable condition. The events administrative assistant YOANA Wilburn was required due the complexity surgery and the need for a skilled surgical supervisor. She assisted in positioning, draping, retraction, and closure of the wound.
[2017-08-16] MEDS: SODIUM CHLORIDE 0.9% 1,000 ML IV SCH (14:44)
[2017-08-16] MEDS: ceFAZolin IN SWFI 2 GM/20 ML SYRINGE IVP SCH (20:31)
[2017-08-16] MEDS: FAMOTIDINE 20 MG TAB PO SCH (20:32)
[2017-08-16] MEDS: ASPIRIN 325 MG TAB PO SCH (20:32)
[2017-08-16] MEDS: TOPIRAMATE 100 MG TAB PO SCH (20:33)
[2017-08-16] MEDS: SENNOSIDES-DOCUSATE SODIUM 1 EACH TAB PO SCH (20:33)
[2017-08-16] MEDS: ARTIFICIAL TEARS-HYPROMELLOSE DROPS 15 ML BTL BOTH EYES SCH (20:34)
[2017-08-17] MEDS: LACTATED RINGERS 1,000 ML IV SCH (03:01)
[2017-08-17] MEDS: ceFAZolin IN SWFI 2 GM/20 ML SYRINGE IVP SCH (03:06)
[2017-08-17] MEDS: HYDROmorphone 0.5 MG/0.5 ML SYRINGE IVP PRN (03:06)
[2017-08-17] MEDS: SODIUM CHLORIDE 0.9% 1,000 ML IV SCH (04:22)
--- NOTE | 2017-08-17 07:34 | P.PN ---
Progress Note - Text Progress Note Date: 08/17/17 Postoperative day # 1 status post left total knee arthroplasty, under spinal anesthesia, and adductor canal catheter placed for postoperative analgesia, currently at ropivacaine 0.2% 8 mL per hour and continuous infusion, visual analogue scale is 6/10, patient using oral pain medication for breakthrough pain. Isom 7.5/325 every 6 hours when necessary patient continued to complain of left knee pain and headache to Assessment and plan= Acute postoperative pain, adductor canal catheter for pain control, the patient continued to have knee pain and headache, recommend to increase Isom to 10/325 every 6 hours when necessary for breakthrough pain
[2017-08-17 08:10] LABS: Basophils % (A) 0 %; Eosinophils # (A) 0.1 k/uL (0-0.7); Eosinophils % (A) 1 %; HCT 35.8 % (39.0-53.0); HGB 12.1 gm/dL (13.0-17.5); Lymphocytes # (A) 1.5 k/uL (1.0-4.8); Lymphocytes % (A) 14 %; MCH 32.6 pg (25.0-35.0); MCHC 33.7 g/dL (31.0-37.0); MCV 96.8 fL (80.0-100.0); Mean Platelet Volume 7.2; Monocytes # (A) 0.6 k/uL (0-1.0); Monocytes % (A) 5 %; Neutrophils # (A) 8.7 k/uL (1.3-7.7); Neutrophils % (A) 79 %; Platelet Count 195 k/uL (150-450); RDW 12.4 % (11.5-15.5)
[2017-08-17] MEDS ORDERED: traMADol 50 MG TAB PO PRN (08:40)
--- NOTE | 2017-08-17 08:54 | P.DS ---
Providers Date of admission: 08/16/17 09:11 Expected date of discharge: 08/17/17 Attending physician: Jluis Taylor Consults: 08/16/17 13:01 Consult Physician Routine Consulting Provider: Gino Cordova Consult Reason/Comments: medical management Do you want consulting provider notified?: Yes Primary care physician: Gino Cordova - Discharge Diagnosis(es) (1) Primary osteoarthritis of left knee Current Visit: Yes Status: Acute (2) S/P total knee arthroplasty Current Visit: Yes Status: Acute Hospital Course: This is a 57-year-old male with known history of degenerative arthritis of the left knee. The patient presents for evaluation. After discussion and consideration patient elects to proceed with total knee arthroplasty. The patient is seen preoperatively by Dr. Taylor and medically cleared for surgery by their primary care physician. Patient is admitted to [facility] on 08/16/2017 for total knee arthroplasty. The procedures performed without complication or sequelae. The patient is doing well postoperatively. Labs and vital signs are stable on day of discharge. On day of discharge patient's knee incision is healing well. There is minimal erythema. There is no drainage noted at this time. There is minimal soft tissue swelling to the knee. Patient has full foot and ankle motion without difficulty or pain. Neurovascular status to the left lower extremity is intact. Patient is discharged home in good condition. Please see med rec for accurate list of home medications. Plan - Discharge Summary Discharge Rx Participant: Yes New Discharge Prescriptions: New Aspirin 325 mg PO BID #60 tab Sennosides [Senokot] 1 tab PO BID #60 tablet traMADol HCl [Ultram] 50 mg PO Q6H PRN #90 tab PRN Reason: Pain No Action Ranitidine HCl 150 mg PO BID Lisinopril-Hctz 10-12.5 mg [Zestoretic 10-12.5] 1 tab PO QAM Atorvastatin [Lipitor] 20 mg PO DAILY Acetaminophen [Tylenol] 500 ng PO Q4H PRN PRN Reason: Headache Butalb/APAP/Caff 50-325-40Mg [Fioricet 50-325-40] 1 tab PO DAILY Ibuprofen 800 mg PO TID PRN #90 tablet PRN Reason: Pain traMADol HCl [Ultram] 50 mg PO QID prednisoLONE ACETATE 1% OPHTH [Pred Forte 1%] 4 drops BOTH EYES DAILY Propylene Glycol/Peg 400/Pf [Systane 0.3-0.4% Eye Drops] 1 drop BOTH EYES TID Multivitamin [Men's Multi-Vitamin] 1 tab PO DAILY Citalopram Hydrobromide [CeleXA] 20 mg PO QAM Aspirin 325 mg PO DAILY Topiramate [Topamax] 100 mg PO HS Discharge Medication List Lisinopril-Hctz 10-12.5 mg [Zestoretic 10-12.5] 1 tab PO QAM 01/20/16 [History] Ranitidine HCl 150 mg PO BID 01/20/16 [History] Acetaminophen [Tylenol] 500 ng PO Q4H PRN 01/26/16 [History] Atorvastatin [Lipitor] 20 mg PO DAILY 01/26/16 [History] Butalb/APAP/Caff 50-325-40Mg [Fioricet 50-325-40] 1 tab PO DAILY 02/15/17 [ History] Ibuprofen 800 mg PO TID PRN #90 tablet 04/27/17 [Rx] Aspirin 325 mg PO DAILY 08/08/17 [History] Citalopram Hydrobromide [CeleXA] 20 mg PO QAM 08/08/17 [History] Multivitamin [Men's Multi-Vitamin] 1 tab PO DAILY 08/08/17 [History] Propylene Glycol/Peg 400/Pf [Systane 0.3-0.4% Eye Drops] 1 drop BOTH EYES TID [History] Topiramate [Topamax] 100 mg PO HS 08/08/17 [History] prednisoLONE ACETATE 1% OPHTH [Pred Forte 1%] 4 drops BOTH EYES DAILY 08/08/17 [ History] traMADol HCl [Ultram] 50 mg PO QID 08/08/17 [History] Aspirin 325 mg PO BID #60 tab 08/17/17 [Rx] Sennosides [Senokot] 1 tab PO BID #60 tablet 08/17/17 [Rx] traMADol HCl [Ultram] 50 mg PO Q6H PRN #90 tab 08/17/17 [Rx] Follow up Appointment(s)/Referral(s): Jluis Taylor DO [Doctor of Osteopathic Medicine] - 2 Weeks Ambulatory/Diagnostic Orders: Continuous Passive Motion (CPM) Machine [DME.AMB1] Time Frame: 3 Weeks, Location : Determined By Patient Activity/Diet/Wound Care/Special Instructions: Weightbearing as tolerated with a walker CPM 5-6h daily Leave dressing intact. May be removed by home care nurse in 10 days. May shower with dressing on. [facility] with questions or concerns [phone] Discharge Disposition: HOME WITH HOME HEALTH SERVICES
[2017-08-17] MEDS ORDERED: prednisoLONE ACETATE 1% OPHTH DROPS 5 ML BTL BOTH EYES SCH (09:00)
[2017-08-17] MEDS: ARTIFICIAL TEARS-HYPROMELLOSE DROPS 15 ML BTL BOTH EYES SCH ×4 (09:03→21:17)
[2017-08-17] MEDS: ATORVASTATIN 20 MG TAB PO SCH (09:04)
[2017-08-17] MEDS: CITALOPRAM HYDROBROMIDE 20 MG TAB PO SCH (09:04)
[2017-08-17] MEDS: ASPIRIN 325 MG TAB PO SCH ×2 (09:04→21:17)
[2017-08-17] MEDS: FAMOTIDINE 20 MG TAB PO SCH ×2 (09:04→21:17)
[2017-08-17] MEDS: MELOXICAM 7.5 MG TAB PO SCH (09:05)
[2017-08-17] MEDS: LISINOPRIL-HCTZ 10-12.5 MG 1 EACH TAB PO SCH (09:05)
[2017-08-17] MEDS: traMADol 50 MG TAB PO PRN ×3 (09:18→21:23)
[2017-08-17] MEDS: MULTIVITAMINS, THERA 1 EACH TAB PO SCH (11:35)
--- NOTE | 2017-08-17 15:12 | P.CONS ---
History of Present Illness - Reason for Consult Consult date: 08/17/17 Medical Management - Chief Complaint s/p L TKA - History of Present Illness 57-year-old male who underwent elective left total knee arthroplasty by Dr. Taylor on 08/16/2017. Dr. Warren was consulted for medical management. The patient has a history of asthma, GERD, hyperlipidemia, hypertension, OA, and sleep apnea. He also has a history of anxiety and depression. He is a former cigarette smoker and quit smoking in March 2017. The patient was seen and examined at the bedside. The patient is laying in bed. Awake and alert. Denies chest pain or pressure. Denies shortness of breath. He states his pain is tolerable at this time. He has been ambulating in the hallways. He was cleared for discharge per orthopedics but patient states he would like to go to inpatient rehab. Case management has already been notified and is working on discharge planning. Review of Systems GENERAL: Patient denies fever. Denies chills. EYES: Denies blurred vision. Denies vision changes. Denies eye pain. EARS, NOSE, MOUTH, & THROAT: Denies headache. Denies sore throat. Denies ear pain. RESPIRATORY: Denies cough. Denies shortness of breath. Denies sputum production. Denies hemoptysis. CARDIOVASCULAR: Denies chest pain or pressure. Denies palpitations. Denies arrhythmias. GASTROINTESTINAL: Denies abdominal pain. Denies diarrhea. Denies constipation. Denies nausea. Denies vomiting. Denies heartburn. Denies blood in the stool. GENITOURINARY: Denies urinary frequency. Denies burning. Denies dysuria. Denies cloudy urine. Denies blood in the urine. MUSCULOSKELETAL: Denies myalgias. Denies joint swelling. Denies decreased range of motion beyond patients baseline. INTEGUMENTARY: Denies pruitis. Denies rash. PSYCHIATRIC: Denies suicidal or homicial ideations. ENDOCRINE: Denies weight change. Denies polydipsia. Denies polyuria. HEMATOLOGIC: Denies bleeding disorders. Past Medical History Past Medical History: Asthma, GERD/Reflux, Hearing Disorder / Deafness, Hyperlipidemia, Hypertension, Memory Impairment, Osteoarthritis (OA), Pneumonia , Sleep Apnea/CPAP/BIPAP Additional Past Medical History / Comment(s): Hx asthma, no problems in 10+ yrs , hx pneumonia quite a few yrs ago, hx head injury 07/08/15-pain to head and neck, left ear hearing loss and memory impairment r/t work accident, "nerve pain left side of neck", tinnitus brittney ears-worse in left. CPAP use. History of Any Multi-Drug Resistant Organisms: None Reported Past Surgical History: Orthopedic Surgery Additional Past Surgical History / Comment(s): Left knee surgery, colonoscopy and EGD, 9 pain procedures. Past Anesthesia/Blood Transfusion Reactions: No Reported Reaction Past Psychological History: Anxiety, Depression Smoking Status: Former smoker Past Alcohol Use History: Rare Additional Past Alcohol Use History / Comment(s): Quit smoking Mar 2017. Smoked 1 pack per 2 months on and off for 10 yrs. Past Drug Use History: None Reported - Past Family History Mother Family Medical History: Pneumonia Additional Family Medical History / Comment(s): . Medications and Allergies Home Medications Medication Instructions Recorded Confirmed Type Lisinopril-Hctz 10-12.5 mg 1 tab PO QAM 01/20/16 08/16/17 History [Zestoretic 10-12.5] Ranitidine HCl 150 mg PO BID 01/20/16 08/16/17 History Acetaminophen [Tylenol] 500 ng PO Q4H PRN 01/26/16 08/16/17 History Atorvastatin [Lipitor] 20 mg PO DAILY 01/26/16 08/16/17 History Butalb/APAP/Caff 50-325-40Mg 1 tab PO DAILY 02/15/17 08/16/17 History [Fioricet 50-325-40] Ibuprofen 800 mg PO TID PRN #90 tablet 04/27/17 08/16/17 Rx Aspirin 325 mg PO DAILY 08/08/17 08/16/17 History Citalopram Hydrobromide [CeleXA] 20 mg PO QAM 08/08/17 08/16/17 History Multivitamin [Men's Multi-Vitamin] 1 tab PO DAILY 08/08/17 08/16/17 History Propylene Glycol/Peg 400/Pf 1 drop BOTH EYES TID 08/08/17 08/16/17 History [Systane 0.3-0.4% Eye Drops] Topiramate [Topamax] 100 mg PO HS 08/08/17 08/16/17 History prednisoLONE ACETATE 1% OPHTH 4 drops BOTH EYES DAILY 08/08/17 08/16/17 History [Pred Forte 1%] traMADol HCl [Ultram] 50 mg PO QID 08/08/17 08/16/17 History Aspirin 325 mg PO BID #60 tab 08/17/17 Rx Sennosides [Senokot] 1 tab PO BID #60 tablet 08/17/17 Rx traMADol HCl [Ultram] 50 mg PO Q6H PRN #90 tab 08/17/17 Rx Allergies Allergy/AdvReac Type Severity Reaction Status Date / Time moxifloxacin [From Avelox] Allergy Severe Anaphylaxis Verified 08/16/17 13:18 Physical Exam Vitals: Vital Signs Temp Pulse Resp BP Pulse Ox 08/17/17 08:48 98.5 F 80 18 137/74 96 08/17/17 01:00 99.1 F 65 16 118/68 94 L 08/16/17 20:51 99.8 F H 69 16 127/66 93 L 08/16/17 16:30 67 116/58 08/16/17 16:15 64 119/55 08/16/17 16:00 65 109/53 08/16/17 15:45 68 136/63 08/16/17 15:30 72 111/53 08/16/17 15:15 76 154/90 Intake and Output 08/17/17 08/17/17 08/17/17 06:59 14:59 22:59 Intake Total 1150 Balance 1150 Intake: Intake, IV Titration 650 Amount Sodium Chloride 0.9% 1, 650 000 ml @ 65 mls/hr IV . [id number] [facility] Rx#:[id number] Oral 500 GENERAL: This is a 57-year-old male in no apparent distress at the time of examination. Pleasant and cooperative. HEENT: Head is atraumatic, normocephalic. Pupils are equal, round, and reactive to light. Sclerae anicteric. Conjunctivae are clear. Mucus membranes of the mouth are moist. Neck is supple. RESPIRATORY: Clear to ausculation. No wheezes, rales, or rhonchi. No use of accessory muscles. Patient maintaining oxygen saturation greater than 92%. No chest wall tenderness is noted on palpation or with deep breathing. CARDIOVASCULAR: Regular rate and rhythm. S1 and S2 noted. No systolic or diastolic murmur auscultated. No JVD noted. No S3 or S4 noted. GASTROINTESTINAL: No distention noted. Abdomen soft and round. Normal active bowel sounds auscultated x 4 quadrants. No pain or tenderness noted upon palpation. INTEGUMENTARY: Surgical dressing clean dry and intact. No s/s of infection. No cyanosis. No jaundice. No rashes noted. No cellulitis noted. EXTREMITIES: 2+ peripheral pulses. Patient with mild swelling to left upper leg. On-Q pain pump present and infusing. No calf tenderness noted. NEUROLOGIC: Cranial nerves II-XII intact. PSYCHIATRIC: Awake, alert, and oriented X 3. Appropriate affect. Intact judgement and insight. Results CBC & Chem 7: 08/17/17 06:58 08/16/17 20:40 Labs: Abnormal Lab Results - Last 24 Hours (Table) 08/17/17 Range/Units 06:58 WBC 11.0 H (3.8-10.6) k/uL RBC 3.70 L (4.30-5.90) m/uL Hgb 12.1 L (13.0-17.5) gm/dL Hct 35.8 L (39.0-53.0) % Neutrophils # 8.7 H (1.3-7.7) k/uL Assessment and Plan Plan: ASSESSMENT: Osteoarthritis, s/p left total knee arthroplasty, POD #1 Hypertension Hyperlipidemia History of sleep apnea History of asthma, no evidence of acute exacerbation History of gastroesophageal reflux disease History of nicotine dependence, in remission, patient is a former cigarette smoker and quit smoking in March 2017 Obesity: BMI 39.5 PLAN: Continue postoperative management per orthopedics Pain control Activity as tolerated. Encourage ambulation in the hallway IS 10 times an hour while awake Resume home medications Await evaluation by Dr. Booth for IPR Patient is cleared for discharge from a medical standpoint Nurse practitioner note has been reviewed by physician. Signing provider agrees with the documented findings, assessment, and plan of care.
--- NOTE | 2017-08-17 16:15 | P.CONS ---
History of Present Illness - Chief Complaint Walking difficulty - History of Present Illness I had the opportunity to see patient for inpatient rehab consultation with regard to walking difficulty. He was admitted to [facility] August 16 for elective left TKA performed by Dr. Jluis Taylor. Postoperative the x-ray noted. Seen by diagnostic medical sonographer. PT reports modified independent with bed mobility and supervision to modified independent with transfers and gait 220 feet with roller walker. OT prescribed. Previous functional history as elicited from patient: 57-year-old right-handed white male who is and lives in one floor home alone. On disability related to total accident, hit on head. Patient describes independent with cooking, laundry, driving, standing shower and gait without device. History smoking but doesn't smoke currently. Rare drink. Dr. Cordova is regular doctor. Family medical history mother was a smoker. Review of Systems Review of systems: ENT: Denies sneezes or discharge. Eyes: Denies discharge or photophobia. Cardiac: Denies chest pain or palpitation. Pulmonary: Denies cough or shortness of breath. Gastrointestinal: Denies nausea, emesis, constipation, diarrhea. Genitourinary: Denies discharge or frequency. Musculoskeletal: Left knee discomfort. Neurologic: Denies motor or sensory change. Endocrine: Denies shakes or sweats. Oncology: Denies cancers. Dermatologic: Denies rash, itching, pruritus. ALLERGY/immunology: Denies sneezes, rashes. Past Medical History Past Medical History: Asthma, GERD/Reflux, Hearing Disorder / Deafness, Hyperlipidemia, Hypertension, Memory Impairment, Osteoarthritis (OA), Pneumonia , Sleep Apnea/CPAP/BIPAP Additional Past Medical History / Comment(s): Hx asthma, no problems in 10+ yrs , hx pneumonia quite a few yrs ago, hx head injury 07/08/15-pain to head and neck, left ear hearing loss and memory impairment r/t work accident, "nerve pain left side of neck", tinnitus brittney ears-worse in left. CPAP use. History of Any Multi-Drug Resistant Organisms: None Reported Past Surgical History: Orthopedic Surgery Additional Past Surgical History / Comment(s): Left knee surgery, colonoscopy and EGD, 9 pain procedures. Past Anesthesia/Blood Transfusion Reactions: No Reported Reaction Past Psychological History: Anxiety, Depression Smoking Status: Former smoker Past Alcohol Use History: Rare Additional Past Alcohol Use History / Comment(s): Quit smoking Mar 2017. Smoked 1 pack per 2 months on and off for 10 yrs. Past Drug Use History: None Reported - Past Family History Mother Family Medical History: Pneumonia Additional Family Medical History / Comment(s): . Medications and Allergies Home Medications Medication Instructions Recorded Confirmed Type Lisinopril-Hctz 10-12.5 mg 1 tab PO QAM 01/20/16 08/16/17 History [Zestoretic 10-12.5] Ranitidine HCl 150 mg PO BID 01/20/16 08/16/17 History Acetaminophen [Tylenol] 500 ng PO Q4H PRN 01/26/16 08/16/17 History Atorvastatin [Lipitor] 20 mg PO DAILY 01/26/16 08/16/17 History Butalb/APAP/Caff 50-325-40Mg 1 tab PO DAILY 02/15/17 08/16/17 History [Fioricet 50-325-40] Ibuprofen 800 mg PO TID PRN #90 tablet 04/27/17 08/16/17 Rx Aspirin 325 mg PO DAILY 08/08/17 08/16/17 History Citalopram Hydrobromide [CeleXA] 20 mg PO QAM 08/08/17 08/16/17 History Multivitamin [Men's Multi-Vitamin] 1 tab PO DAILY 08/08/17 08/16/17 History Propylene Glycol/Peg 400/Pf 1 drop BOTH EYES TID 08/08/17 08/16/17 History [Systane 0.3-0.4% Eye Drops] Topiramate [Topamax] 100 mg PO HS 08/08/17 08/16/17 History prednisoLONE ACETATE 1% OPHTH 4 drops BOTH EYES DAILY 08/08/17 08/16/17 History [Pred Forte 1%] traMADol HCl [Ultram] 50 mg PO QID 08/08/17 08/16/17 History Aspirin 325 mg PO BID #60 tab 08/17/17 Rx Sennosides [Senokot] 1 tab PO BID #60 tablet 08/17/17 Rx traMADol HCl [Ultram] 50 mg PO Q6H PRN #90 tab 08/17/17 Rx Allergies Allergy/AdvReac Type Severity Reaction Status Date / Time moxifloxacin [From Avelox] Allergy Severe Anaphylaxis Verified 08/16/17 13:18 Physical Exam Vitals: Vital Signs Temp Pulse Pulse Resp BP Pulse Ox 08/17/17 15:24 98.8 F 94 16 131/79 97 08/17/17 08:48 98.5 F 80 18 137/74 96 08/17/17 01:00 99.1 F 65 16 118/68 94 L 08/16/17 20:51 99.8 F H 69 16 127/66 93 L 08/16/17 16:30 67 116/58 08/16/17 16:15 64 119/55 Intake and Output 08/17/17 08/17/17 08/17/17 06:59 14:59 22:59 Intake Total 1150 Balance 1150 Intake: Intake, IV Titration 650 Amount Sodium Chloride 0.9% 1, 650 000 ml @ 65 mls/hr IV . [id number] KEVIN Rx#:[id number] Oral 500 Other: Voiding Method Urinal # Voids 2 Skin: Good color, texture, turgor. General: Medium to overweight build and comfortable appearance. Head: Normocephalic, atraumatic. Eyes: Symmetric. Pupils equal round. Ears: Symmetric. Hearing within normal limits. Mouth: Clear. Neck: Supple. Carotid without bruit. Cardiac: Regular rate and rhythm. Lungs: Clear anteriorly and posteriorly. Abdomen: Soft active nontender. Extremities: Normal tone. Knee clean and dressed anteriorly. Neurological: Mental status: Alert, cooperative, pleasant. Cranial nerves: Symmetric facial tone and trapezius. Motor: Active movement all 4 limbs but giveaway weakness left leg and knee. Sensation: Intact throughout. DTRs: Symmetric and equal throughout. Mobility: Receive CPM from the nurse tech. Results CBC & Chem 7: 08/17/17 06:58 08/16/17 20:40 Labs: Abnormal Lab Results - Last 24 Hours (Table) 08/17/17 Range/Units 06:58 WBC 11.0 H (3.8-10.6) k/uL RBC 3.70 L (4.30-5.90) m/uL Hgb 12.1 L (13.0-17.5) gm/dL Hct 35.8 L (39.0-53.0) % Neutrophils # 8.7 H (1.3-7.7) k/uL Assessment and Plan (1) Primary osteoarthritis of left knee Current Visit: Yes Status: Acute Code(s): M17.12 - UNILATERAL PRIMARY OSTEOARTHRITIS, LEFT KNEE SNOMED Code(s): 796858100739238 Plan: Pressure and: 1. Walking difficulty. 2. Osteoarthritis with elective left TKA today. 3. History of closed head injury with memory impairment. 4. Hypertension. 5. Dyslipidemia. 6. Asthma. 7. Structures sleep apnea with CPAP. 8. Deafness. Comments and plan: At this time PT ongoing and OT prescribed. Follow therapies with yourself. PT however reports patient really independent or at least does not require physical assistance. May in fact be too good for inpatient rehab.
[2017-08-17] MEDS: prednisoLONE ACETATE 1% OPHTH DROPS 5 ML BTL BOTH EYES SCH (18:31)
[2017-08-17] MEDS: SENNOSIDES-DOCUSATE SODIUM 1 EACH TAB PO SCH (21:17)
[2017-08-17] MEDS: TOPIRAMATE 100 MG TAB PO SCH (21:17)
[2017-08-18] MEDS: prednisoLONE ACETATE 1% OPHTH DROPS 5 ML BTL BOTH EYES SCH ×3 (00:57→13:57)
[2017-08-18] MEDS: traMADol 50 MG TAB PO PRN (04:15)
[2017-08-18] MEDS: HYDROmorphone 0.5 MG/0.5 ML SYRINGE IVP PRN (05:48)
--- NOTE | 2017-08-18 08:50 | P.PN ---
Subjective Progress Note Date: 08/18/17 This is a 57-year-old male who is status post left total knee arthroplasty. This is postoperative day #2. Patient does complain of pain to the left knee. Patient states that he has been up and walking with physical therapy. Patient states that he has not been able to sleep much while in the hospital. Patient denies any fever/chills, numbness, weakness, tingling, abdominal pain, shortness of breath or chest pain. Objective - Vital Signs Vital signs: Vital Signs Temp 97.6 F 08/18/17 07:35 Pulse 73 08/18/17 07:35 Resp 18 08/18/17 07:35 BP 138/81 08/18/17 07:35 Pulse Ox 96 08/18/17 07:35 Intake & Output 08/17/17 08/18/17 08/18/17 18:59 06:59 18:59 Intake Total 1300 180 Output Total 475 Balance -475 1300 180 Intake: Oral 1300 180 Output: Urine 475 Other: Voiding Method Urinal Urinal # Voids 2 4 - Exam Vital signs are stable. Patient is in no acute distress and is alert and oriented 3. Calf is soft and nontender to palpation. Dressing is clean, dry, and intact. Patient has full foot and ankle motion without pain or difficulty. Neurovascular status and circulatory status are intact. - Labs CBC & Chem 7: 08/17/17 06:58 08/16/17 20:40 Assessment and Plan (1) Primary osteoarthritis of left knee Current Visit: Yes Status: Acute Code(s): M17.12 - UNILATERAL PRIMARY OSTEOARTHRITIS, LEFT KNEE SNOMED Code(s): 090033695096273 (2) S/P total knee arthroplasty Current Visit: Yes Status: Acute Code(s): Z96.659 - PRESENCE OF UNSPECIFIED ARTIFICIAL KNEE JOINT SNOMED Code(s): 8516506324460 Plan: #1 Continue with routine postoperative care, leave dressing in place for ten days. #2 Anticoagulation with aspirin. #3 Physical therapy and CPM today. #4 Appreciate input from medicine. #5 Anticipate discharge in the near future. Patient would like to go to rehab as he lives alone.
[2017-08-18] MEDS: SODIUM CHLORIDE 0.9% 1,000 ML IV SCH (09:16)
[2017-08-18] MEDS: ATORVASTATIN 20 MG TAB PO SCH (09:19)
[2017-08-18] MEDS: FAMOTIDINE 20 MG TAB PO SCH (09:19)
[2017-08-18] MEDS: MELOXICAM 7.5 MG TAB PO SCH (09:19)
[2017-08-18] MEDS: ASPIRIN 325 MG TAB PO SCH (09:19)
[2017-08-18] MEDS: CITALOPRAM HYDROBROMIDE 20 MG TAB PO SCH (09:21)
[2017-08-18] MEDS: LISINOPRIL-HCTZ 10-12.5 MG 1 EACH TAB PO SCH (09:21)
[2017-08-18] MEDS: LACTATED RINGERS 1,000 ML IV SCH (09:22)
[2017-08-18] MEDS ORDERED: HYDROcodone/APAP 7.5-325MG 1 EACH TAB PO PRN ×2 (09:38)
[2017-08-18] MEDS: ARTIFICIAL TEARS-HYPROMELLOSE DROPS 15 ML BTL BOTH EYES SCH (10:07)
--- NOTE | 2017-08-18 10:20 | P.DS ---
Providers Date of admission: 08/16/17 09:11 Expected date of discharge: 08/18/17 Attending physician: Jluis Taylor Consults: 08/16/17 13:01 Consult Physician Routine Consulting Provider: Gino Cordova Consult Reason/Comments: medical management Do you want consulting provider notified?: Yes 08/17/17 11:38 Consult Physician Routine Consulting Provider: Carlos Booth Consult Reason/Comments: evaluate for IP rehab Do you want consulting provider notified?: Yes Primary care physician: Gino Cordova - Discharge Diagnosis(es) (1) Primary osteoarthritis of left knee Current Visit: Yes Status: Acute (2) S/P total knee arthroplasty Current Visit: Yes Status: Acute Hospital Course: This is a 57-year-old male with known history of degenerative arthritis of the left knee. The patient presents for evaluation. After discussion and consideration patient elects to proceed with total knee arthroplasty. The patient is seen preoperatively by Dr. Taylor and medically cleared for surgery by their primary care physician. Patient is admitted to [facility] on 08/16/2017 for total knee arthroplasty. The procedures performed without complication or sequelae. The patient is doing well postoperatively. Labs and vital signs are stable on day of discharge. On day of discharge patient's knee incision is healing well. There is minimal erythema. There is no drainage noted at this time. There is minimal soft tissue swelling to the knee. Patient has full foot and ankle motion without difficulty or pain. Neurovascular status to the left lower extremity is intact. Patient is discharged home in good condition. Please see med rec for accurate list of home medications. Plan - Discharge Summary Discharge Rx Participant: Yes New Discharge Prescriptions: New Aspirin 325 mg PO BID #60 tab Sennosides [Senokot] 1 tab PO BID #60 tablet HYDROcodone/APAP 7.5-325MG [[place] 7.5-325] 1 - 2 tab PO Q4-6H PRN #60 tab PRN Reason: Pain No Action Ranitidine HCl 150 mg PO BID Lisinopril-Hctz 10-12.5 mg [Zestoretic 10-12.5] 1 tab PO QAM Atorvastatin [Lipitor] 20 mg PO DAILY Acetaminophen [Tylenol] 500 ng PO Q4H PRN PRN Reason: Headache Butalb/APAP/Caff 50-325-40Mg [Fioricet 50-325-40] 1 tab PO DAILY Ibuprofen 800 mg PO TID PRN #90 tablet PRN Reason: Pain traMADol HCl [Ultram] 50 mg PO QID prednisoLONE ACETATE 1% OPHTH [Pred Forte 1%] 4 drops BOTH EYES DAILY Propylene Glycol/Peg 400/Pf [Systane 0.3-0.4% Eye Drops] 1 drop BOTH EYES TID Multivitamin [Men's Multi-Vitamin] 1 tab PO DAILY Citalopram Hydrobromide [CeleXA] 20 mg PO QAM Aspirin 325 mg PO DAILY Topiramate [Topamax] 100 mg PO HS Discharge Medication List Lisinopril-Hctz 10-12.5 mg [Zestoretic 10-12.5] 1 tab PO QAM 01/20/16 [History] Ranitidine HCl 150 mg PO BID 01/20/16 [History] Acetaminophen [Tylenol] 500 ng PO Q4H PRN 01/26/16 [History] Atorvastatin [Lipitor] 20 mg PO DAILY 01/26/16 [History] Butalb/APAP/Caff 50-325-40Mg [Fioricet 50-325-40] 1 tab PO DAILY 02/15/17 [ History] Ibuprofen 800 mg PO TID PRN #90 tablet 04/27/17 [Rx] Aspirin 325 mg PO DAILY 08/08/17 [History] Citalopram Hydrobromide [CeleXA] 20 mg PO QAM 08/08/17 [History] Multivitamin [Men's Multi-Vitamin] 1 tab PO DAILY 08/08/17 [History] Propylene Glycol/Peg 400/Pf [Systane 0.3-0.4% Eye Drops] 1 drop BOTH EYES TID [History] Topiramate [Topamax] 100 mg PO HS 08/08/17 [History] prednisoLONE ACETATE 1% OPHTH [Pred Forte 1%] 4 drops BOTH EYES DAILY 08/08/17 [ History] traMADol HCl [Ultram] 50 mg PO QID 08/08/17 [History] Aspirin 325 mg PO BID #60 tab 08/17/17 [Rx] Sennosides [Senokot] 1 tab PO BID #60 tablet 08/17/17 [Rx] HYDROcodone/APAP 7.5-325MG [[place] 7.5-325] 1 - 2 tab PO Q4-6H PRN #60 tab [Rx] Follow up Appointment(s)/Referral(s): Gino Cordova MD [Primary Care Provider] - 08/24/17 10:00 am Jluis Taylor DO [Doctor of Osteopathic Medicine] - 08/31/17 9:45 am Ambulatory/Diagnostic Orders: Continuous Passive Motion (CPM) Machine [DME.AMB1] Time Frame: 3 Weeks, Location : Determined By Patient Activity/Diet/Wound Care/Special Instructions: Weightbearing as tolerated with a walker CPM 5-6h daily Leave dressing intact. May be removed by home care nurse in 10 days. May shower with dressing on. [facility] with questions or concerns [phone] Discharge Disposition: HOME WITH HOME HEALTH SERVICES
[2017-08-18] MEDS ORDERED: HYDROmorphone 2 MG TAB PO PRN ×2 (11:14→11:15)
[2017-08-18] MEDS ORDERED: HYDROmorphone 4 MG TABLET PO PRN (11:15)
[2017-08-18] MEDS: MULTIVITAMINS, THERA 1 EACH TAB PO SCH (13:58)
[2017-08-18 14:46] VITALS: BP 110/65; PULSE 83; RESP 16; TEMP 98.5
== END 2017-08-18 14:54 | disposition home health service (06) | DRG 470 ==
LOC: 2ORMAIN 09:11 → 3SUR 13:58
PROVIDERS: ADMIT Orthopaedic Surgery; ATTEND Orthopaedic Surgery
PROC: 0SRD069 Replacement of Left Knee Joint with Oxidized Zirconium on Polyethylene Synthetic Substitute, Cemented, Open Approach (ICD-10-PCS; principal; 2017-08-16 11:00)
DX: M17.12 Unilateral primary osteoarthritis, left knee (principal); E66.9 Obesity, unspecified; Z68.39 Body mass index [BMI] 39.0-39.9, adult; I10 Essential (primary) hypertension; K21.9 Gastro-esophageal reflux disease without esophagitis; G89.18 Other acute postprocedural pain; G47.30 Sleep apnea, unspecified; F17.201 Nicotine dependence, unspecified, in remission; F43.23 Adjustment disorder with mixed anxiety and depressed mood; F32.9 Major depressive disorder, single episode, unspecified; J45.909 Unspecified asthma, uncomplicated; F41.9 Anxiety disorder, unspecified; E78.5 Hyperlipidemia, unspecified; H91.90 Unspecified hearing loss, unspecified ear; Z79.82 Long term (current) use of aspirin; Z79.891 Long term (current) use of opiate analgesic; Z79.899 Other long term (current) drug therapy; Z87.820 Personal history of traumatic brain injury; Z87.01 Personal history of pneumonia (recurrent); Z88.1 Allergy status to other antibiotic agents; Z82.49 Family history of ischemic heart disease and other diseases of the circulatory system; Z82.5 Family history of asthma and other chronic lower respiratory diseases; Z81.1 Family history of alcohol abuse and dependence; Z81.8 Family history of other mental and behavioral disorders; Z80.9 Family history of malignant neoplasm, unspecified; Z82.0 Family history of epilepsy and other diseases of the nervous system
CPT/HCPCS: 84132; 85025; 88300

== ENCOUNTER → 2017-08-24 | Outpatient (CLI) | payer OTHER ==
[2017-08-24 12:24] VITALS: BP 129/89; PULSE 98; RESP 18
--- NOTE | 2017-08-24 12:55 | P.PN ---
Subjective Progress Note Date: 08/24/17 Principal diagnosis: Cervicogenic headache Subacute pain in the left knee status post left total knee replacement recently This is a 57-year-old male with history of work injury that resulted in trauma to his head. The patient has been having chronic headaches since then. There is no obvious cause of his headaches even after extensive workup by neurology. He also gets neck pain which responded previously to medial branch RFA. Vital the patient takes tramadol for his headache and because of his knee surgery he was prescribed Mangum 7.5 mg by his surgeons. He received 60 pills only of Mangum with no refills. Objective - Vital Signs Vital signs: Vital Signs Temp Pulse 98 08/24/17 12:15 Resp 18 08/24/17 12:15 BP 129/89 08/24/17 12:15 Pulse Ox 92 L 08/24/17 12:15 Intake & Output 08/23/17 08/24/17 08/24/17 18:59 06:59 18:59 Weight 118.388 kg - Constitutional General appearance: Present: obese - EENT Eyes: Present: PERRLA - Respiratory Respiratory: bilateral: CTA - Cardiovascular Rhythm: regular - Neurologic Neurologic: Present: CNII-XII intact - Psychiatric Psychiatric: Present: A&O x's 3 (He has tenderness on both sides of his cervical spine posteriorly.), appropriate affect (Neuro exam of the upper extremities showed normal muscle strength and symmetrical triceps reflex laterally. Absent triceps reflexes bilaterally.), intact judgment & insight Assessment and Plan Plan: This is a 57-year-old male with work injury that resulted in chronic head and neck pain. The patient underwent left total knee replacement recently and his been using Mangum for his knee pain and tramadol for his headache. He does not use Mangum one he drives. Today I'll give her prescription for tramadol up to 4 times a day if needed for pain with one refill. The patient will stop using Mangum when his knee pain starts to get better after finishing physical therapy. We will see the patient 2 months from now
== END | disposition home or self-care (01) ==
LOC: PNWHC3 12:07
PROVIDERS: ATTEND Anesthesiology
DX: G89.29 Other chronic pain (principal); R51 Headache; M54.2 Cervicalgia; Z79.891 Long term (current) use of opiate analgesic; Z96.652 Presence of left artificial knee joint
CPT/HCPCS: 99211

== ENCOUNTER → 2017-10-19 | Outpatient (CLI) | payer OTHER ==
[2017-10-19 15:02] VITALS: BP 149/97; PULSE 83; RESP 18; TEMP 98
--- NOTE | 2017-10-19 15:15 | P.PN ---
Progress Note - Text Progress Note Date: 10/19/17 Progress Note - Text Progress Note Date: 10/19/2017 Patient returns for followup for chronic neck pain with radiation to shoulders, and also status post total knee replacement 2 months ago. Patient states that he is having increasing left-sided neck pain. In the past we have done cervical radio frequency ablation of C2-C3, C3-C4. He states he has had excellent relief greater than 70% which lasted for greater than 9 months. We will repeat this procedure next available date. Patient continues on tramadol medications for pain with relief of his neck pain but is relating very poor sleep, photophobia, and knee pain. Patient denies adverse drug effects from medications. Today, pt denies new-onset weakness, bowel/bladder incontinence, or any other signs or symptoms of cauda equina syndrome. There are no signs of acute intoxication, and no indications of medication diversion or overuse. In addition to above, 13-point review of systems is also negative for chest pain , shortness of breath, changes in vision, changes in hearing, new onset weakness , abdominal pain, diarrhea, extreme fatigue, malaise, fever, skin changes, homicidal or suicidal ideation, or bowel or bladder incontinence. Vital Signs: Reviewed in EMR Gen: WDWN, AAOx3, NAD HEENT: NCAT, EOMI, hearing grossly normal, tenderness over occipital ridges bilateral Pulm: resp unlabored Abd: soft, NT, ND Neck: supple, trachea midline ROM in flexion cervical spine: reduced ROM in extension cervical spine: reduced Cervical paravertebral tenderness: + Cervical Facet tenderness: + bilateral Spurling's: Positive on left, reproducible and the C3,4 distribution Upper extremity: decreased therapeutic radiologist strength secondary to pain Lower extremity: decreased ROM R knee flexion and extension due to pain Neuro: CN II-XII grossly intact, muscle strength lower extremities PRESERVED Imaging: Reviewed in EMR Assessment: 1. cervical spondylosis without myelopathy 2. occipital neuralgia 3. chronic pain syndrome 4. Knee osteoarthritis Plan: 1. Explanation: Opioid and psychological risk scores were reviewed. Diagnoses , prognoses, and multiple treatment options including but not limited to physical therapy, interventional therapies, adjuvant medical therapies, narcotic medication therapies, and surgery were discussed with the patient and all questions were answered to the patient's satisfaction. 2. Opioid agreement: Patient has previously signed narcotic agreement, and was orally counseled to not overuse, abuse, divert, or cell medications, and to take them as prescribed by only 1 healthcare provider. The patient was also counseled to store opioid medications in a safe and preferably locked location. Patient was also counseled against driving or operating heavy equipment while using narcotic medications and also to not use alcohol or any illicit or recreational drugs. The patient verbalized understanding that lack of compliance with any of the above and likely result in failure to renew narcotic prescriptions, possible discharge from the clinic, and possible legal ramifications thereafter if indicated. 3. Counseling: The patient was counseled extensively on BODY MASS INDEX, EXERCISE. Specifically, the patient was instructed regarding the importance of weight control, and exercise in the context of both chronic pain and overall health. 4. Procedures: Left Cervical radiofrequency ablation C2-C3, C3-C4 5. Consultations: None 6. Investigations: None 7. Medications: Patient wishes to stop [place] and return to tramadol 50 mg #120 with one refill, and will also fill Motrin 800 mg #90 with two refills. Of note , the patient was warned regarding the synergistic effects of benzodiazepines and opioids in terms of sedation, nausea, and respiratory depression possibly resulting in . The patient verbalized understanding and acceptance of these risks. 8. Disposition: f/u 4 weeks for procedure as scheduled and 8 weeks for medications PQRS measures: 1-Patient's medications are documented in the chart. 2-Tobacco use is positive, counseling given 3-Patient has not had a pneumococcal vaccine. 4-Advanced care planning discussed, patient unable to give. 5-Opioid contract signed with the patient. 6-Pain positive, follow-up visit or procedure scheduled 7-Patient's blood pressure measured and documented, and patient will follow up with the primary care due to hypertension. 8-Patient's weight was measured, and body mass index ABOVE the normal limits, and counseling was done. Patient instructed to follow up with PCP. 9-Patient WAS NOT identified as an unhealthy alcohol user.
== END | disposition home or self-care (01) ==
LOC: PNWHC3 13:26
PROVIDERS: ATTEND Anesthesiology
DX: G89.4 Chronic pain syndrome (principal); M47.812 Spondylosis without myelopathy or radiculopathy, cervical region; M54.81 Occipital neuralgia; M17.9 Osteoarthritis of knee, unspecified; Z79.891 Long term (current) use of opiate analgesic; Z79.1 Long term (current) use of non-steroidal anti-inflammatories (NSAID)
CPT/HCPCS: 99211

== ENCOUNTER 2017-11-02 06:25 | Day surgery (SDC) | payer OTHER ==
[2017-10-31 14:26] VITALS: BMI 39.5
[2017-11-02 06:57] VITALS: RESP 16; TEMP 98.8
[2017-11-02] MEDS ORDERED: LIDOCAINE 1% 20 ML VIAL (10MG/ML) FOR IV START INTRADERMA ONE (07:00)
[2017-11-02] MEDS: LACTATED RINGERS 1,000 ML IV SCH ×2 (07:00→07:05)
--- NOTE | 2017-11-02 07:39 | P.PCN ---
Date of Procedure: 11/02/17 Procedure(s) Performed: PREOPERATIVE DIAGNOSIS: 1-Cervical spondylosis with Facet Arthropathy without myelopathy 2-cervical degenerative disc disease. 3-occipital neuralgia. 4-cervicogenic headache. POSTOPERATIVE DIAGNOSIS: Same as preoperative diagnoses. PROCEDURES: Radiofrequency thermocoagulation, right side C2-3, C3-4, medial branch with Fluroscopy [place]. Radiofrequency thermocoagulation of the right side third occipital nerve ANESTHESIA: Local with 1% lidocaine 5 ml ; moderate Iintravenous sedation with fentanyl 100 mcg,and Versed. 2 mg EBL: Minimal PROCEDURE INDICATION: The patient with neck pain secondary to cervical arthropathy who had more than 50% relief of her pain with previous diagnostic cervical medial branch block. PROCEDURE DESCRIPTION / TECHNIQUE: The patient was seen and identified in the preoperative area. Risks, benefits, complications, and alternatives were discussed with the patient, the patient agreed to proceed with the procedure and signed the consent. IV was started. Vital signs remained stable throughout the procedure. Patient was taken to the OR and time out was completed. The patient was placed in the prone position on the procedure table. A pillow was placed under the patients chest to increase the cervical interlaminar space. The cervical area was prepped and draped in the usual sterile fashion. Critical pause was taken. Vital signs were closely monitored during the procedure. Conscious sedation was used during the procedure to decrease patients anxiety. Using cross-table lateral fluoroscopy, the centroid of the trapezoid of Right C2 ,C3, were identified, marked, and localized with 1% lidocaine. Subsequently, a 20 [id number] radiofrequency cannula with a 10-mm active tip was advanced guided by fluoroscopy to the centroid of the trapezoid of Right C2 , C3 . Needle tip position was confirmed at the centroid of the trapezoids of Right C2 , C3,with anteroposterior fluoroscopy. Each site then underwent sensory testing at 50 Hz and 0 to 1 volt and motor testing at 2 Hz and 0 to 3 volt with local stimulation, but no radicular symptoms down the arm. Thereafter the right C2- 3, C3-4, sites underwent radiofrequency thermocoagulation at 80 degrees celsius for 90 seconds after injecting 0.5 ml of PF lidocaine 1%. After thermocoagulation, 1 ml of the block solution containing Depo medrole 40 mg was injected at the C2 , C3 levels after negative aspiration of CSF and blood and with no paresthesias , to do the Radiofrequency of the right side third occipital nerve the 20-gauge radiofrequency active tip needle placed between the facet joint that is confirmed between the C2 and C3 on the right side then we did the sensory is the testing, it was positive and then we did the motor testing it was positive for localized contractions in the multifidus muscles right side underwent no contractions in the right upper extremities, then we did the radiofrequency at 80C for 90 seconds, that the radiofrequency done, . Cannulas were retracted while injecting lidocaine 1% until the needle is out. Skin was cleansed and bandages were applied. COMPLICATIONS: No acute complications. COMMENTS: DISPOSITION / PLANS: The patient was placed in a supine position and transferred to the recovery area in a stable condition for observation and was discharged from the recovery room after meeting discharge criteria. Home discharge instructions given to the patient by the staff. The patient was reexamined prior to discharge. The patient will schedule a follow up in the clinic in 2-4 weeks.
[2017-11-02] MEDS ORDERED: IV FLUID CONTINUATION 1,000 ML IV ONE (07:44)
[2017-11-02 08:01] VITALS: BP 144/88; PULSE 65
--- NOTE | 2017-11-02 09:43 | FL ---
EXAMINATION TYPE: FL guided pain mgmt statistic DATE OF EXAM: 11/02/2017 FLUOROSCOPY Fluoroscopy time of 10 seconds was used during right-sided cervical facet block. 2 image/s document/ s the procedure.
== END 2017-11-02 08:24 | disposition home or self-care (01) ==
LOC: ORPAIN 06:25
PROVIDERS: ATTEND Specialist
DX: M47.812 Spondylosis without myelopathy or radiculopathy, cervical region (principal); M54.81 Occipital neuralgia; M50.30 Other cervical disc degeneration, unspecified cervical region; I10 Essential (primary) hypertension; G47.33 Obstructive sleep apnea (adult) (pediatric); K21.9 Gastro-esophageal reflux disease without esophagitis; Z88.1 Allergy status to other antibiotic agents
CPT/HCPCS: 64640; 64633; 64634; J2250; J3301; J3010; 99152; 99153

== ENCOUNTER → 2017-11-15 | Day surgery (SDC) | payer OTHER ==
[2017-11-11 14:18] VITALS: BMI 39.5
[~2017-11-15] MED LIST changes: -ACETAMINOPHEN TAB 500 MG TAB PO ONE; -DEXAMETHASONE SOD PHOSPHATE 10 MG/ML 1 ML VIAL IV ONE; +LACTATED RINGERS 1,000 ML IV SCH; +LIDOCAINE 1% 20 ML VIAL (10MG/ML) FOR IV START INTRADERMA ONE; -MELOXICAM 7.5 MG TAB PO ONE; -MIDAZOLAM 2 MG/2 ML VIAL IV PRN; -ONDANSETRON 4 MG/2 ML VIAL IVP ONE; -SCOPOLAMINE 1.5MG/72HR PATCH TRANSDERM ONE; -TRANEXAMIC ACID 1,000 MG in SODIUM CHLORIDE 0.9% 50 ML IVPB ONE; -ceFAZolin IN SWFI 2 GM/20 ML SYRINGE IVP ONE; -fentaNYL (PF) 50 MCG/ML 2 ML AMP IV PRN
[2017-11-15 08:28] VITALS: RESP 16; TEMP 98.2
--- NOTE | 2017-11-15 09:17 | P.PCN ---
Date of Procedure: 11/15/17 Procedure(s) Performed: PREOPERATIVE DIAGNOSIS: 1-Cervical spondylosis with Facet Arthropathy without myelopathy 2-cervical degenerative disc disease. 3-occipital neuralgia. 4-cervicogenic headache. POSTOPERATIVE DIAGNOSIS: Same as preoperative diagnoses. PROCEDURES: Radiofrequency thermocoagulation, Left side C2-3, C3-4, medial branch with Fluroscopy Guidence. Radiofrequency thermocoagulation of the Left side third occipital nerve ANESTHESIA: Local with Ropivacaine 0.5 % , and moderate Iintravenous sedation with fentanyl 100 mcg,and Versed. 2 mg EBL: Minimal PROCEDURE INDICATION: The patient with neck pain secondary to cervical arthropathy who had more than 50% relief of her pain with previous diagnostic cervical medial branch block. PROCEDURE DESCRIPTION / TECHNIQUE: The patient was seen and identified in the preoperative area. Risks, benefits, complications, and alternatives were discussed with the patient, the patient agreed to proceed with the procedure and signed the consent. IV was started. Vital signs remained stable throughout the procedure. Patient was taken to the OR and time out was completed. The patient was placed in the prone position on the procedure table. A pillow was placed under the patients chest to increase the cervical interlaminar space. The cervical area was prepped and draped in the usual sterile fashion. Critical pause was taken. Vital signs were closely monitored during the procedure. Conscious sedation was used during the procedure to decrease patients anxiety. Using cross-table lateral fluoroscopy, the centroid of the trapezoid of Left C2 ,C3, were identified, marked, and localized with 1% lidocaine. Subsequently, a 20 [id number] radiofrequency cannula with a 10-mm active tip was advanced guided by fluoroscopy to the centroid of the trapezoid of Left C2 , C3 . Needle tip position was confirmed at the centroid of the trapezoids of Left C2 , C3,with anteroposterior fluoroscopy. Each site then underwent sensory testing at 50 Hz and 0 to 1 volt and motor testing at 2 Hz and 0 to 3 volt with local stimulation, but no radicular symptoms down the arm. Thereafter the Left C2- 3, C3-4, sites underwent radiofrequency thermocoagulation at 80 degrees celsius for 90 seconds after injecting 0.5 ml of PF lidocaine 1%. After thermocoagulation, 1 ml of the block solution containing Kenalog 40 mg was injected at the C2 , C3 levels after negative aspiration of CSF and blood and with no paresthesias , to do the Radiofrequency of the Left side third occipital nerve the 20-gauge radiofrequency active tip needle placed between the facet joint that is confirmed between the C2 and C3 on the Left side then we did the sensory is the testing, it was positive and then we did the motor testing it was positive for localized contractions in the multifidus muscles right side underwent no contractions in the right upper extremities, then we did the radiofrequency at 80C for 90 seconds, that the radiofrequency done, . Cannulas were retracted while injecting lidocaine 1% until the needle is out. Skin was cleansed and bandages were applied. COMPLICATIONS: No acute complications. COMMENTS: DISPOSITION / PLANS: The patient was placed in a supine position and transferred to the recovery area in a stable condition for observation and was discharged from the recovery room after meeting discharge criteria. Home discharge instructions given to the patient by the staff. The patient was reexamined prior to discharge. The patient will schedule a follow up in the clinic in 2-4 weeks.
--- NOTE | 2017-11-15 09:20 | FL ---
Fluoroscopy HISTORY: Pain 11 seconds fluoroscopy time supplied to the referring clinician. 2 intraoperative C-arm images docum ent the procedure. See dictated report from anesthesia.
[2017-11-15 09:26] VITALS: PULSE 79
[2017-11-15 09:42] VITALS: BP 112/67
== END ==
LOC: ORPAIN 08:01
PROVIDERS: ATTEND Specialist
DX: M47.812 Spondylosis without myelopathy or radiculopathy, cervical region (principal); M50.30 Other cervical disc degeneration, unspecified cervical region; M54.81 Occipital neuralgia; Z88.1 Allergy status to other antibiotic agents
CPT/HCPCS: 64633; 64634; J2250; J1030; J3010; 99152

== ENCOUNTER → 2017-12-14 | Outpatient (CLI) | payer OTHER ==
[2017-12-14 13:26] VITALS: BP 117/80; PULSE 20; RESP 20
--- NOTE | 2017-12-14 13:39 | P.PAINPG ---
Subjective Progress Note Date: 12/14/17 This is follow-up visit for this patient with a history of severe and chronic neck pain and headache, diagnosed with cervical degenerative disc disease cervical spondylosis, occipital neuralgia and cervicogenic headache We have done an interventional pain procedure radiofrequency ablation damage and paracervical area C2 3/C3-4 /third occipital nerve this helped his headaches significantly The patient currently on Motrin 800 mg every 8 hours when necessary and Ultram 50 mg every 8 hours when necessary, He continued to have neck pain increases with neck movement Patient denies any side effect of the medication , patient denies any excessive drowsiness or sleepiness, patient denies any suicidal ideation, Patient reported that the current medication is helping to control the pain and improve the activity of daily livings, Patient denies any motor or sensory deficit, denies any change in the bowel movement or urination, patient denies any fever or night sweats. Patient here today for follow-up visit and medication refill Objective - Vital Signs Vital signs: Vital Signs Temp Pulse 20 L 12/14/17 13:16 Resp 20 12/14/17 13:16 BP 117/80 12/14/17 13:16 Pulse Ox 97 12/14/17 13:16 - Exam Physical Examinations : 1-Constitutiona : Cooperative , not in acute distress . 2-HEENT : nech ; supple , no Lymphadenopathy , normal thyroid size . eyes : no ptosis , no icterus , no photophobia . ENT : normal of hearing , normal oropharynx , no Thrush . 3- Respiratory : Chest clear to auscultations Bilaterally , no wheezing , no Rhonchi . 4- Cardiovascular : regular rate and rhythem , S1 , S2 , no S3 , no S4. 5- Gastrointestinal : abdomen soft no tenderness , bowel sounds , no organomegally . 6- Genitourinary : Defferred . 7- neurologic : Cranial nerve II to XII intact , no focal neurological deffecit . 8-psychatric : alert , oriented X 3 , appropriate affect , intact judgment and insight . 9-Lymphatic : no Lymphadenopathy . 10- musculoskeltal : Cervical Spine motor stregnth in the deltoid and biceps, normal right side , normal Left side motor stregnth biceps and the wrist extensors normal right side ,normal left side . motor stregnth in the triceps muscle . normal Right side , normal Left side deep tendon reflexes normal at the biceps , normal at Brachioradialis , normal at triceps. positive cervical facet loading test . Lumber spine moter stegnth lower extremities ,thigh and legs 5/5 Right side , 5/5 Left side Assessment and Plan Plan: Assessment and plan= chronic neck pain secondary to cervical degenerative disc disease cervical spondylosis, and occipital neuralgia, Headache improved after radiofrequency ablation of the cervical medial branch , currently is complaining of neck pain increases with any neck movement chronic and current use of high-risk medication (opioids) Patient denies any side effects of the current pain medication and the current treatment/medication helping the patient to do activity of daily living , Diagnoses, prognosis, treatment options, including but not limited to physical therapy, medication management, interventional therapies, and surgery, were discussed with the patient All the questions answered The narcotic consent was signed and patient agreed and understood the side effects and complications of opioid treatment. Patient signed the narcotic agreement, and was orally counseled, not to overuse, not to abuse, not to Divert , not tp sell pain medication, and to take it as prescribed only, Patient was counseled not to drive or operate heavy equipment while using narcotic medication, and advised not to use alcohol or any Illicit drugs while using the narcotis, understanding that lack of compliance with any of the above instructions, will likely to cause discharge from, the pain service, not to renew his narcotic prescriptions MAPS Reviwed and it was apropriate . Medication managements= patient will be given prescription refills for Motrin 800 mg every 8 hours dispense 90 with 1 refill and 50 mg every 8 hours dispense 90 with 1 refill Interventions= patient could benefit from cervical epidural steroid injections under fluoroscopy guidance C7-T1 , Time with Patient: Less than 30 PQRS Measure Charge Sheet Measure #130: Documentation of Current Meds in Medical Chart: Patient's medications documented in chart Measure #226: Tobacco Use: Screen & Cessation Intervention: Pt not a tobacco user Measure #111: Pneumonia Vaccination: Pneumococcal vaccine NOT administered or previously given Measure #47: Advance Care Plan: Advance care planning discussed & documented, pt chose/unable to give Measure #412: Opioid Treatment Agreement: Documented signed opioid trtmnt agreemnt min once during opioid trtmnt Measure #408: Opioid Therapy Follow-up Evaluation: Patient had f/u eval minimum every 3 months during opioid therapy Measure #317: Preventitive Care & Scrn High Bld Press & F/U: Normal blood pressure, f/u not required Measure #128: Body Mass Index (BMI) Screening & Follow-up: BMI documented ABOVE normal parameters - f/u documented Measure #131: Pain Assessment & Follow-up: Pain positive & plan documented, Follow-up scheduled Measure #431: Unhealthy Alcohol Use Preventative Care & Scrn: Patient not identified as an unhealthy alcohol user PQRS Narrative: Smoking Status Former smoker Do You Want the Pneumonia Yes Vaccine AT THIS TIME? Blood Pressure 117/80 Pain Intensity [Neck] 7 Scale Used Numeric (1 - 10) Hx Alcohol Use (MH) Yes: rare Home Medications: Ambulatory Orders Lisinopril-Hctz 10-12.5 mg [Zestoretic 10-12.5] 1 tab PO QAM 01/20/16 Butalb/APAP/Caff 50-325-40Mg [Fioricet 50-325-40] 1 tab PO BID 02/15/17 Ibuprofen 800 mg PO TID PRN #90 tablet 04/27/17 Citalopram Hydrobromide [CeleXA] 20 mg PO BID 08/08/17 Multivitamin [Men's Multi-Vitamin] 1 tab PO DAILY 08/08/17 Propylene Glycol/Peg 400/Pf [Systane 0.3-0.4% Eye Drops] 1 drop BOTH EYES TID Topiramate [Topamax] 100 mg PO HS 08/08/17 prednisoLONE ACETATE 1% OPHTH [Pred Forte 1%] 2 drops BOTH EYES DAILY 08/08/17 traMADol HCl [Ultram] 50 mg PO QID 08/08/17 diphenhydrAMINE [Benadryl] 300 mg PO HS 10/19/17 Aspirin 325 mg PO DAILY 10/31/17 Melatonin 100 mg PO HS 10/31/17 Ranitidine HCl 150 mg PO BID 10/31/17 Atorvastatin [Lipitor] 40 mg PO QAM 11/11/17 Citalopram Hydrobromide [CeleXA] 1 tab PO DAILY 12/14/17 Controlled Substance Measures - Controlled Substance Measures Is patient prescribed a controlled substance at discharge?: Yes When asked, does pt state using other controlled substances?: No If prescribed controlled substance>3 days was MAPS reviewed?: Yes If Rx opioid, was Start Talking consent form obtained?: Yes If opioid is for acute pain is fill amount 7 days or less?: No Was information provided regarding opioid addiction?: Yes
== END ==
LOC: PNWHC3 12:50
PROVIDERS: ATTEND Specialist
DX: G89.29 Other chronic pain (principal); M54.2 Cervicalgia; M50.30 Other cervical disc degeneration, unspecified cervical region; M47.812 Spondylosis without myelopathy or radiculopathy, cervical region; M54.81 Occipital neuralgia; R51 Headache; Z87.891 Personal history of nicotine dependence; Z79.899 Other long term (current) drug therapy; Z79.1 Long term (current) use of non-steroidal anti-inflammatories (NSAID); Z79.82 Long term (current) use of aspirin
CPT/HCPCS: 99211

== ENCOUNTER 2017-12-29 09:47 | Day surgery (SDC) | payer MEDICARE, OTHER ==
[~2017-12-29 09:47] MED LIST changes: -LIDOCAINE 1% 20 ML VIAL (10MG/ML) FOR IV START INTRADERMA ONE
[2017-12-29 10:46] VITALS: TEMP 98.1
[2017-12-29] MEDS ORDERED: LIDOCAINE 1% 20 ML VIAL (10MG/ML) FOR IV START INTRADERMA ONE (10:51)
--- NOTE | 2017-12-29 11:19 | P.PCN ---
Date of Procedure: 12/29/17 Surgeon: Sierra Sanchez Pathology: none sent Condition: stable Disposition: PACU Description of Procedure: PROCEDURE 1. Cervical epidural steroid injection under fluoroscopic guidance, C7-T1 right paramedian approach. 2. Cervical epidurogram. : PREOPERATIVE DIAGNOSIS: Cervical radiculopathy, cervical spondylosis without myelopathy POSTOPERATIVE DIAGNOSIS: : Same as above ANESTHESIA: Local anesthesia with 1% lidocaine and IV moderate conscious sedation with Versed and Fentanyl . EBL 0 PROCEDURE INDICATION: The patient with neck pain and radiculopathy unresponsive to conservative treatment consents for procedure. PROCEDURE DESCRIPTION / TECHNIQUE: The patient was seen and identified in the preoperative area. Risks, benefits, complications, including but not limited to infections ,bleeding , allergic reactions to the medications ,and not complete pain relief, and alternatives were discussed with the patient, the patient agreed to proceed with the procedure and signed the consent. Patient was taken to the OR and time out was completed. The patient was placed in the prone position on the procedure table. A pillow was placed under the patients chest to increase the flexion of the cervical spine . The cervical area was prepped and draped in the usual sterile fashion. Vital signs were closely monitored during the procedure. Conscious sedation was used during the procedure to decrease patients anxiety. Using anterior-posterior fluoroscopy, the C7-T1 interlaminar space was identified and the skin over this site was marked and then infiltrated with 1% lidocaine subcutaneously. Subsequently, a 20-gauge 3-1/2-inch Tuohy epidural needle was inserted and advanced toward the epidural space by means of loss of resistance to air technique and guided by AP and lateral fluoroscopy. The needle tip contacted the lamina of T1 vertebra first, then it was walked off the bone and into the epidural space using the loss of to air and fluoroscopic guidance to identify the epidural space. The correct needle position in the epidural space was verified with the injection of 1 mL of the water soluble contrast dye Isovue and observing an excellent epidurogram with the epidural spread of the dye, after negative aspiration for blood and CSF and in the absence of paresthesias. Again after negative aspiration, a 5 ml mixture containing 10 mg of Decadron and 4 ml of preservative free Normal Saline solution was injected and a washout of epidurogram was seen. Needle was withdrawn intact, skin was cleansed, and bandages were applied.
[2017-12-29] MEDS ORDERED: IV FLUID CONTINUATION 1,000 ML IV ONE ×2 (11:31)
[2017-12-29 11:53] VITALS: BP 113/70; PULSE 57; RESP 18
--- NOTE | 2017-12-29 12:05 | FL ---
Fluoroscopy INDICATION: Pain FINDINGS: Fluoroscopy time: 10 seconds. Images obtained: 1. IMPRESSIONS: 1. Documentation of fluoroscopy.
== END 2017-12-29 12:09 | disposition home or self-care (01) ==
LOC: ORPAIN 09:47
PROVIDERS: ATTEND Anesthesiology
DX: M47.22 Other spondylosis with radiculopathy, cervical region (principal); I10 Essential (primary) hypertension; E66.01 Morbid (severe) obesity due to excess calories; Z88.1 Allergy status to other antibiotic agents; Z68.41 Body mass index [BMI] 40.0-44.9, adult
CPT/HCPCS: 62321; J2250; J1100; J3010; Q9966; 99152

== ENCOUNTER → 2018-01-17 | Day surgery (SDC) | payer MEDICARE, OTHER ==
[2018-01-13 12:36] VITALS: BMI 39.5
[~2018-01-17] MED LIST changes: -LACTATED RINGERS 1,000 ML IV SCH; +SODIUM CHLORIDE 0.9% 500 ML 500 ML IV SCH
[2018-01-17 08:25] VITALS: RESP 18; TEMP 98
--- NOTE | 2018-01-17 09:26 | P.PCN ---
Date of Procedure: 01/17/18 Procedure(s) Performed: . PROCEDURE 1. Cervical epidural steroid injection under fluoroscopic guidance, C7-T1 2. Cervical epidurogram. PREOPERATIVE DIAGNOSIS: 1- Cervical Degenerative Disc Diseases 2-cervical spondylosis with cervical Facet arthropathy without myelopathy POSTOPERATIVE DIAGNOSIS: : 1- Cervical Degenerative Disc Diseases , 2-cervical spondylosis with cervical Facet arthropathy without myelopathy ANESTHESIA: Local anesthesia with lidocaine 1 % , and moderate sedation, with Versed 2 mg and Fentanyl 100 mcg. EBL 0 PROCEDURE INDICATION: The patient with neck pain and radiculitis unresponsive to conservative treatment consents for procedure. PROCEDURE DESCRIPTION / TECHNIQUE: The patient was seen and identified in the preoperative area. Risks, benefits, complications, including but not limited to infections ,bleeding , allergic reactions to the medications ,and not complete pain releife, and alternatives were discussed with the patient, the patient agreed to proceed with the procedure and signed the consent. Patient was taken to the OR and time out was completed. The patient was placed in the prone position on the procedure table. A pillow was placed under the patients chest to increase the cervical interlaminar space. The cervical area was prepped and draped in the usual sterile fashion. Vital signs were closely monitored during the procedure. Conscious sedation was used during the procedure to decrease patients anxiety. Using anterior-posterior fluoroscopy, the C7-T1 interlaminar space was identified and the skin over this site was marked and then infiltrated with 1% lidocaine subcutaneously. Subsequently, a 20-gauge 3-1/2-inch Tuohy epidural needle was inserted and advanced toward the epidural space by means of the `` hanging-drop technique and guided by AP and lateral fluoroscopy. The correct needle position in the epidural space was verified with the injection of 2 mL of the water soluble contrast dye [id number]-200 and observing an excellent epidurogram with the epidural spread of the dye, after negative aspiration for blood and CSF and in the absence of paresthesias. Again after negative aspiration, mixture containing 20 mg Dexamethasone and 2 ml of preservative- free normal saline injected and a washout of epidurogram was seen. Needle was withdrawn intact, skin was cleansed, and bandages were applied. Complications= none. Disposition= patient was placed in supine position and transferred to the recovery room area in stable condition and there was no evidence of upper or lower extremity motor or sensory deficit after the procedure patient was discharged from recovery room after discharge criteria met and home discharge instructions was given by the staff and patient will follow with the pain clinic in 2-4 weeks
--- NOTE | 2018-01-17 09:52 | FL ---
EXAMINATION TYPE: FL guided pain mgmt statistic DATE OF EXAM: 01/17/2018 COMPARISON: NONE HISTORY: Neck pain TECHNIQUE: Fluoroscopy. FINDINGS/IMPRESSION: Fluoroscopic guidance was provided during procedure performed by Dr. Ware. A total of 3 seconds of fluoroscopic time was utilized during the procedure and 1 spot images was ac quired demonstrating localization of the cervical thoracic spine.
[2018-01-17 09:58] VITALS: BP 135/72; PULSE 57
== END ==
LOC: ORPAIN 08:07
PROVIDERS: ATTEND Specialist
DX: M50.10 Cervical disc disorder with radiculopathy, unspecified cervical region (principal); M47.22 Other spondylosis with radiculopathy, cervical region; Z88.1 Allergy status to other antibiotic agents; I10 Essential (primary) hypertension; G47.33 Obstructive sleep apnea (adult) (pediatric); J45.909 Unspecified asthma, uncomplicated
CPT/HCPCS: 62321; J2250; J1100; J3010; Q9966

== ENCOUNTER → 2018-01-31 | Day surgery (SDC) | payer MEDICARE, OTHER ==
[2018-01-26 11:23] VITALS: BMI 39.5
[~2018-01-31] MED LIST changes: +SODIUM CHLORIDE 0.9% 250 ML IV ONE; +SODIUM CHLORIDE 0.9% 500 ML 500 ML IV ONE; -SODIUM CHLORIDE 0.9% 500 ML 500 ML IV SCH
[2018-01-31 06:28] VITALS: RESP 18; TEMP 98.2
--- NOTE | 2018-01-31 07:19 | P.PCN ---
Date of Procedure: 01/31/18 Procedure(s) Performed: PROCEDURE 1. Cervical epidural steroid injection under fluoroscopic guidance, C7-T1 2. Cervical epidurogram. PREOPERATIVE DIAGNOSIS: 1- Cervical Degenerative Disc Diseases 2-cervical spondylosis with cervical Facet arthropathy without myelopathy POSTOPERATIVE DIAGNOSIS: : 1- Cervical Degenerative Disc Diseases , 2-cervical spondylosis with cervical Facet arthropathy without myelopathy ANESTHESIA: Local anesthesia with lidocaine 1 % , and moderate sedation, with Versed 2 mg and Fentanyl 100 mcg. EBL 0 PROCEDURE INDICATION: The patient with neck pain and radiculitis unresponsive to conservative treatment consents for procedure. PROCEDURE DESCRIPTION / TECHNIQUE: The patient was seen and identified in the preoperative area. Risks, benefits, complications, including but not limited to infections ,bleeding , allergic reactions to the medications ,and not complete pain releife, and alternatives were discussed with the patient, the patient agreed to proceed with the procedure and signed the consent Patient was taken to the OR and time out was completed. The patient was placed in the prone position on the procedure table. A pillow was placed under the patients chest to increase the cervical interlaminar space. The cervical area was prepped and draped in the usual sterile fashion. Vital signs were closely monitored during the procedure. Conscious sedation was used during the procedure to decrease patients anxiety. Using anterior-posterior fluoroscopy, the C7-T1 interlaminar space was identified and the skin over this site was marked and then infiltrated with 1% lidocaine subcutaneously. Subsequently, a 20-gauge 3-1/2-inch Tuohy epidural needle was inserted and advanced toward the epidural space by means of the `` hanging-drop technique and guided by AP and lateral fluoroscopy. The correct needle position in the epidural space was verified with the injection of 2 mL of the water soluble contrast dye [id number]-200 and observing an excellent epidurogram with the epidural spread of the dye, after negative aspiration for blood and CSF and in the absence of paresthesias. Again after negative aspiration, mixture containing 20 mg Dexamethasone and 2 ml of preservative- free normal saline injected and a washout of epidurogram was seen. Needle was withdrawn intact, skin was cleansed, and bandages were applied. Complications= none. Disposition= patient was placed in supine position and transferred to the recovery room area in stable condition and there was no evidence of upper or lower extremity motor or sensory deficit after the procedure patient was discharged from recovery room after discharge criteria met and home discharge instructions was given by the staff and patient will follow with the pain clinic in 2-4 weeks
[2018-01-31 08:06] VITALS: BP 125/71; PULSE 60
--- NOTE | 2018-01-31 10:01 | FL ---
Fluoroscopy INDICATION: Pain FINDINGS: Fluoroscopy time: 2 seconds. Images obtained: 1. IMPRESSIONS: 1. Documentation of fluoroscopy.
== END | disposition home or self-care (01) ==
LOC: ORPAIN 06:05
PROVIDERS: ATTEND Specialist
DX: M47.22 Other spondylosis with radiculopathy, cervical region (principal); M50.10 Cervical disc disorder with radiculopathy, unspecified cervical region; Z88.3 Allergy status to other anti-infective agents
CPT/HCPCS: 62321; J2250; J1100; J3010; Q9966

== ENCOUNTER → 2018-02-07 | Outpatient (CLI) | payer MEDICARE, OTHER ==
--- NOTE | 2018-02-07 20:58 | CONS ---
CONSULTATION REASON FOR CONSULTATION: Insomnia and obstructive sleep apnea. This is a 57-year-old male patient who [facility] under the care of Dr. Quach. The patient was diagnosed having obstructive sleep apnea. The patient has an AHI of 30 and he was given CPAP pressure of 11 cm of water. The patient also has multiple medical problems and comorbidities. He has been involved in a closed head injury occupational and he sustained head trauma and concussion back in June of 2015. Since then, the patient is having difficulties in sleep initiation and maintenance, migraines, tinnitus, occipital neuralgia, neck pain, dizziness. He also has a component of anxiety/depression. The patient is coming in today because he is unable to initiate and maintain sleep. Upon further questioning, there is obvious problems in this patient's sleep schedule and sleep hygiene in general. The patient goes to bed around 10:00 pm in an attempt to take adequate number of hours of sleep. Nevertheless, despite that, he had difficulty in initiating and maintaining sleep. He stays in bed throughout the night wearing his CPAP and he gets out of bed at noon time the next day. His CPAP compliance data reflects the patient has been spending at least 10 hours in bed. I checked his compliance data over the past 30 days. The patient has been utilizing CPAP 100% of the time with an AHI of 1.1 while being at a pressure of 11 cm of water. Never the less, he tells me that he is not awake most of the time and feels like he has taken around 4 hours of sleep max. He gets out of bed around noontime, wakes up tired, has trouble with attention, concentration and feels fatigued throughout the day. He has been going to bed earlier in an attempt to increase his sleep hours. However, he has failed to do so. He has seen Dr. Quach, and has been given various sleeping aides including Ambien and trazodone and he was taken up to 300 mg of Benadryl and all these measures failed to improve his sleep quality. His weight is up and currently he is up to 260 pounds. He tosses and turns throughout the night and he is unable to maintain sleep. He is coming in for further advice. There were no active signs of depression. His pain is under good control for now. No seizure activity. No nocturnal heartburn. No major restlessness in his lower extremities. His previous sleep study showed periodic limb movements. However the patient has only 3 periodic limb movements with arousals with an index of 0.6. No night terrors. No nightmares. No sleep walking or sleep talking. No other parasomnias noted. PAST MEDICAL HISTORY: 1. Includes obstructive sleep apnea. Details discussed above. 2. History of brain concussion back in June of 2016 secondary to closed head injury. 3. Chronic migraines. 4. Occipital neuralgia. 5. Hypertension. 6. Chronic dizziness. 7. Chronic tinnitus. 8. Hyperlipidemia. 9. Generalized anxiety disorder. 10.Acid reflux. PAST SURGICAL HISTORY: Negative. DRUG ALLERGIES: DRUG ALLERGIES ARE TO AVELOX. OUTPATIENT MEDICATION LIST: The patient has been takin. Aspirin 325 mg p.o. daily. 2. Lipitor 40 mg p.o. daily. 3. Fioricet 1 tablet twice a day. 4. Celexa 40 mg p.o. daily. 5. Ibuprofen 800 mg on a p.r.n. basis. 6. Zestoretic 12.5, 1 tablet a day. 7. Melatonin 10 mg and has been taking up to 100 mg at bedtime. 8. Multivitamin 1 tablet a day. 9. Ranitidine 150 mg twice a day. 10.Systane eyedrops. 11.Topamax 100 mg p.o. at bedtime. 12.Diphenhydramine up to 300 mg p.o. at bedtime. 13.Prednisone eye drops. 14.Tramadol 50 mg 3 times a day for pain control. SOCIAL HISTORY: An ex-smoker. No history of alcohol. No history of IV drugs. FAMILY HISTORY: Negative for sleep apnea. REVIEW OF SYSTEMS: 12-point review of system was done. Positive findings are mentioned above in the history of present illness. PHYSICAL EXAMINATION: BP is 142/66, pulse is 84, respirations 16, temperature 98.2, saturation 96% on room air. Weight is 272. Height is 5 feet 8 inches, neck size is 20 inches. GENERAL APPEARANCE: Calm, comfortable. Head is atraumatic, normocephalic. Neck is short, supple. Mallampati class IV. There is no goiter or neck masses. LUNGS: Clear to auscultation. HEART: Sounds regular rate and rhythm. Normal S1, S2. No S3. No murmurs. ABDOMEN: Soft, nontender. No organomegaly. EXTREMITIES: No edema. No cyanosis or clubbing. IMPRESSION: 1. Chronic insomnia, comorbid insomnia is considered as the patient is a survivor of closed head injury/previous history of [employer] concussion. Other comorbidities could also contribute to his chronic insomnia including migraine headaches, occipital neuralgia, chronic pain, and anxiety. 2. Obstructive sleep apnea. Currently adequately treated. The patient has severe KALIN with an AHI of 32, currently on CPAP pressure of 11 and has been successfully treated with an AHI of 1.1 while being on treatment. 3. Obesity with a BMI of 41.3. 4. Chronic hypersomnia [place] score of 16. 5. Migraines. 6. Occipital neuralgia. 7. Hypertension. 8. Dizziness. 9. Tinnitus related to previous trauma. 10.Hyperlipidemia. 11.Chronic anxiety. 12.Acid reflux. 13.Degenerative arthritis. 14.Chronic pain. PLAN: 1. I had a lengthy discussion with the patient. 2. Obstructive sleep apnea is not a factor as the patient has been treated with CPAP therapy. His treatment has been successful for now based on his compliancy data. 3. The patient has active issue as comorbid insomnia. He does have problems with sleep hygiene and I performed cognitive behavioral therapy on him. I mainly concentrated on 2 factors. First factor is the sleep restriction and 2nd factor stimulus control. I will introduce relaxation techniques at a later stage. In terms of sleep restriction, I asked the patient to get out of bed around 7 o'clock by the use of an alarm. To bring up an efficiency of 90%, he needs to go to bed at around 2:00 a.m. in the morning. He will carry this sleep schedule for around a week or two maintaining a good sleep diary. If he is able to achieve 90% sleep efficiency, I will gradually move up his go to bedtime to an earlier time bringing him to 1 a.m. and then to midnight. During this time, sleep diary will be maintained. Stop Benadryl. Stop melatonin. Continue CPAP therapy. No need for any sleeping aids such as Ambien or trazodone for now. The rest of the medication were reviewed. Take the Celexa in the morning at the dose of 40 mg. Encourage weight loss. Exercise late in the afternoon or early evening hours. 4. See me back in 30 days to assess clinical response. MMODL / IJN: [id number] /
== END | disposition home or self-care (01) ==
LOC: SLEEP 15:43
PROVIDERS: ATTEND Internal Medicine Critical Care Medicine
DX: G47.33 Obstructive sleep apnea (adult) (pediatric) (principal); E66.9 Obesity, unspecified; G43.909 Migraine, unspecified, not intractable, without status migrainosus; I10 Essential (primary) hypertension; H93.19 Tinnitus, unspecified ear; E78.5 Hyperlipidemia, unspecified; F41.9 Anxiety disorder, unspecified; K21.9 Gastro-esophageal reflux disease without esophagitis; M19.90 Unspecified osteoarthritis, unspecified site; G89.29 Other chronic pain; Z68.41 Body mass index [BMI] 40.0-44.9, adult; Z87.891 Personal history of nicotine dependence; Z99.89 Dependence on other enabling machines and devices; Z79.82 Long term (current) use of aspirin; Z79.899 Other long term (current) drug therapy; Z79.51 Long term (current) use of inhaled steroids; Z88.1 Allergy status to other antibiotic agents
CPT/HCPCS: 99211

== ENCOUNTER 2018-02-28 08:02 | Day surgery (SDC) | payer MEDICARE, OTHER ==
[2018-02-27 11:47] VITALS: BMI 39.5
[~2018-02-28 08:02] MED LIST changes: -SODIUM CHLORIDE 0.9% 250 ML IV ONE; -SODIUM CHLORIDE 0.9% 500 ML 500 ML IV ONE; +SODIUM CHLORIDE 0.9% 500 ML 500 ML IV SCH
[2018-02-28 08:23] VITALS: TEMP 98.3
[2018-02-28] MEDS ORDERED: LACTATED RINGERS 1,000 ML IV ONE (08:35)
[2018-02-28] MEDS ORDERED: LIDOCAINE 1% 20 ML VIAL (10MG/ML) FOR IV START INTRADERMA ONE (08:37)
--- NOTE | 2018-02-28 09:44 | P.PCN ---
Date of Procedure: 02/28/18 Procedure(s) Performed: PREOPERATIVE DIAGNOSIS: Cervical Spondylosis with Facet Arthropathy.without myelopathy POSTOPERATIVE DIAGNOSIS: Cervical Spondylosis Facet Arthropathy. Without myelopathy PROCEDURES: Diagnostic Bilateral C4-5 , C5-6, and C6-7 medial branch blocks, with fluoroscopic guidance ANESTHESIA: Local with 1% lidocaine; moderate sedation with Versed. 2 mg , and fentanyl 50 micrograms EBL: Minimal PROCEDURE INDICATION: The patient with neck pain secondary to cervical arthropathy unresponsive to more conservative treatments. PROCEDURE DESCRIPTION / TECHNIQUE: The patient was seen and identified in the preoperative area. Risks, benefits, complications, and alternatives were discussed with the patient, the patient agreed to proceed with the procedure and signed the consent. IV was started. Vital signs remained stable throughout the procedure. Patient was taken to the OR and time out was completed. The patient was placed in the prone position on the procedure table. A pillow was placed under the patients chest to increase the cervical interlaminar space. The cervical area was prepped and draped in the usual sterile fashion. Critical pause was taken. Vital signs were closely monitored during the procedure. Conscious sedation was used during the procedure to decrease patients anxiety. Using cross-table lateral fluoroscopy, the centroid of the trapezoid of right C4 , C5 and C6, was identified, marked, and localized with 1% lidocaine 1 ml at each level for skin and Sub Q infiltrations . Subsequently, a 22 G 3 spinal needle was advanced guided by fluoroscopy to the centroid of the trapezoid of Right C3, C4 , C5, C6 . Mineral tip position was confirmed at the centroid of the trapezoids of Right C4 , C5 ,C6 with anteroposterior fluoroscopy. Subsequently, 1.5 ml of preservative-free Ropivacaine 0.5% mixed with Depo-Medrol 20 mg , and half ml of the mixture was injected after negative aspiration for blood and CSF. Mineral was then removed intact the same procedure was repeated at the left C4-5, C5-6, and C6-7 levels. COMPLICATIONS: No acute complications DISPOSITION / PLANS: The patient was placed in a supine position and transferred to the recovery area in a stable condition for observation and was discharged from the recovery room after meeting discharge criteria. Home discharge instructions given to the patient by the staff. The patient was reexamined prior to discharge. The patient will schedule a follow up in the clinic in 2-4 weeks.
[2018-02-28] MEDS ORDERED: IV FLUID CONTINUATION 600 ML IV ONE (09:50)
[2018-02-28 09:58] VITALS: RESP 16
[2018-02-28 10:10] VITALS: BP 154/76; PULSE 70
--- NOTE | 2018-02-28 12:04 | FL ---
Fluoroscopy HISTORY: Pain 46 seconds fluoroscopy time supplied to the referring clinician. 4 intraoperative C-arm images docum ent the procedure. See dictated report from anesthesia.
== END 2018-02-28 10:20 | disposition home or self-care (01) ==
LOC: ORPAIN 08:02
PROVIDERS: ATTEND Specialist
DX: M47.812 Spondylosis without myelopathy or radiculopathy, cervical region (principal); Z88.1 Allergy status to other antibiotic agents
CPT/HCPCS: 64490; 64491; 64492; J2250; J1030; J3010; 99152; 99153

== ENCOUNTER 2018-03-13 09:53 | Day surgery (SDC) | payer MEDICARE, OTHER ==
[2018-03-13 10:09] VITALS: TEMP 96.4
[2018-03-13] MEDS ORDERED: LACTATED RINGERS 1,000 ML IV ONE ×2 (10:13→11:21)
[2018-03-13] MEDS ORDERED: LIDOCAINE 1% 20 ML VIAL (10MG/ML) FOR IV START INTRADERMA ONE (10:13)
--- NOTE | 2018-03-13 11:19 | P.PCN ---
Date of Procedure: 03/13/18 Procedure(s) Performed: PREOPERATIVE DIAGNOSIS: Cervical Spondylosis with Facet Arthropathy.without myelopathy POSTOPERATIVE DIAGNOSIS: Cervical Spondylosis Facet Arthropathy. Without myelopathy PROCEDURES: Diagnostic Bilateral C4-5 , C5-6, and C6-7 medial branch blocks, with fluoroscopic guidance# 2nd ANESTHESIA: Local with 1% lidocaine; moderate sedation with Versed. 2 mg , and fentanyl 50 micrograms EBL: Minimal PROCEDURE INDICATION: The patient with neck pain secondary to cervical arthropathy unresponsive to more conservative treatments. PROCEDURE DESCRIPTION / TECHNIQUE: The patient was seen and identified in the preoperative area. Risks, benefits, complications, and alternatives were discussed with the patient, the patient agreed to proceed with the procedure and signed the consent. IV was started. Vital signs remained stable throughout the procedure. Patient was taken to the OR and time out was completed. The patient was placed in the prone position on the procedure table. A pillow was placed under the patients chest to increase the cervical interlaminar space. The cervical area was prepped and draped in the usual sterile fashion. Critical pause was taken. Vital signs were closely monitored during the procedure. Conscious sedation was used during the procedure to decrease patients anxiety. Using cross-table lateral fluoroscopy, the centroid of the trapezoid of right C4 , C5 and C6, was identified, marked, and localized with 1% lidocaine 1 ml at each level for skin and Sub Q infiltrations . Subsequently, a 22 G 3 spinal needle was advanced guided by fluoroscopy to the centroid of the trapezoid of Right C3, C4 , C5, C6 . Makanda tip position was confirmed at the centroid of the trapezoids of Right C4 , C5 ,C6 with anteroposterior fluoroscopy. Subsequently, 1.5 ml of preservative-free Ropivacaine 0.5% mixed with Depo-Medrol 20 mg , and half ml of the mixture was injected after negative aspiration for blood and CSF. Makanda was then removed intact the same procedure was repeated at the left C4-5, C5-6, and C6-7 levels. COMPLICATIONS: No acute complications DISPOSITION / PLANS: The patient was placed in a supine position and transferred to the recovery area in a stable condition for observation and was discharged from the recovery room after meeting discharge criteria. Home discharge instructions given to the patient by the staff. The patient was reexamined prior to discharge. The patient will schedule a follow up in the clinic in 2-4 weeks.
[2018-03-13 11:24] VITALS: RESP 17
[2018-03-13 11:59] VITALS: BP 149/81; PULSE 76
--- NOTE | 2018-03-13 13:33 | FL ---
EXAMINATION TYPE: FL guided pain mgmt statistic DATE OF EXAM: 03/13/2018 FLUOROSCOPY Fluoroscopy time of 1 minute 36 seconds was used during cervical facet block. 2 image/s document/s t he procedure.
== END 2018-03-13 11:59 | disposition home or self-care (01) ==
LOC: ORPAIN 09:53
PROVIDERS: ATTEND Specialist
DX: M47.812 Spondylosis without myelopathy or radiculopathy, cervical region (principal); Z88.1 Allergy status to other antibiotic agents
CPT/HCPCS: 64490; 64491; 64492; J2250; J1030; J3010; 99152; 99153

== ENCOUNTER → 2018-04-05 | Outpatient (CLI) | payer MEDICARE, OTHER ==
[2018-04-05 14:01] VITALS: BP 126/83; PULSE 90; RESP 16
--- NOTE | 2018-04-06 06:12 | P.PN ---
Subjective Progress Note Date: 04/05/18 This is follow-up visit for this patient with a history of severe and chronic neck pain and headache ,he is diagnosed with cervicogenic headaches, cervical spondylosis and cervical degenerative disc disease, We have done an interventional pain procedure radiofrequency ablation of the medial branch cervical area C2-C3/C3 4 and third occipital nerve, he reported that his headache improved but he continued to have severe neck pain, and over the last few weeks we've done a gelastic medial branch blocks cervical area C4 5 /C5 6/C6 7 X2 He reported that he had more than 50% improvement of his neck pain after each block, fortunately the pain relief was for short-term for a few days after each block The patient currently on Motrin 800 mg every 8 hours and Ultram 50 mg every 6 hours Patient denies any side effect of the medication , patient denies any excessive drowsiness or sleepiness, patient denies any suicidal ideation, Patient reported that the current medication is helping to control the pain and improve the activity of daily livings, Patient denies any motor or sensory deficit, denies any change in the bowel movement or urination, patient denies any fever or night sweats. Patient here today for follow-up visit and medication refill Physical Examinations : 1-Constitutiona : Cooperative , not in acute distress . 2-HEENT : nech ; supple , no Lymphadenopathy , normal thyroid size . eyes : no ptosis , no icterus, no photophobia . ENT : normal of hearing , normal oropharynx , no Thrush . 3- Respiratory : Chest clear to auscultations Bilaterally , no wheezing , no Rhonchi . 4- Cardiovascular : regular rate and rhythem , S1 , S2 , no S3 , no S4. 5- Gastrointestinal : abdomen soft no tenderness , bowel sounds , no organomegally . 6- Genitourinary : Defferred . 7- neurologic : Cranial nerve II to XII intact , no focal neurological deffecit . 8-psychatric : alert , oriented X 3 , appropriate affect , intact judgment and insight . 9-Lymphatic : no Lymphadenopathy . 10- musculoskeltal : Cervical Spine motor stregnth in the deltoid and biceps, normal right side , normal Left side motor stregnth biceps and the wrist extensors normal right side ,normal left side . motor stregnth in the triceps muscle . normal Right side , normal Left side deep tendon reflexes normal at the biceps , normal at Brachioradialis , normal at triceps. positive cervical facet loading test . Lumber spine moter stegnth lower extremities , thigh and legs 5/5 Right side , 5/5 Left side Assessment and plan= chronic neck pain and headache secondary to cervical degenerative disc disease ,cervical spondylosis with lumbar facet arthropathy . Patient had more than 50% improvement of his neck pain after the diagnostic medial branch blocks cervical area C4 5/C5-C6/C6 7 chronic and current use of high-risk medication (opioids) Patient denies any side effects of the current pain medication and the current treatment/medication helping the patient to do activity of daily living , Diagnoses, prognosis, treatment options, including but not limited to physical therapy, medication management, interventional therapies, and surgery, were discussed with the patient All the questions answered The narcotic consent was signed and patient agreed and understood the side effects and complications of opioid treatment. Patient signed the narcotic agreement, and was orally counseled, not to overuse, not to abuse, not to Divert , not tp sell pain medication, and to take it as prescribed only, Patient was counseled not to drive or operate heavy equipment while using narcotic medication, and advised not to use alcohol or any Illicit drugs while using the narcotis. understanding that lack of compliance with any of the above instructions, will likely to cause discharge from, the pain service, not to renew his narcotic prescriptions MAPS Reviwed and it was apropriate . Medication managements= patient will be given prescription refills for ultrasound 50 mg every 6 hours when necessary with one refill, Motrin 800 mg every 8 hours #90 with 1 refill Interventions= patient could benefit from the frequency ablation of the medial branch cervical area C4 5/C56/C67 we will start with a left-side first , then we will do the right-sided , PQRS Measure Charge Sheet Measure #130: Documentation of Current Meds in Medical Chart: Patient's medications documented in chart Measure #226: Tobacco Use: Screen & Cessation Intervention: Pt not a tobacco user Measure #111: Pneumonia Vaccination: Pneumococcal vaccine NOT administered or previously given Measure #47: Advance Care Plan: Advance care planning discussed & documented, pt chose/unable to give Measure #412: Opioid Treatment Agreement: Documented signed opioid trtmnt agreemnt min once during opioid trtmnt Measure #408: Opioid Therapy Follow-up Evaluation: Patient had f/u eval minimum every 3 months during opioid therapy Measure #317: Preventitive Care & Scrn High Bld Press & F/U: Normal blood pressure, f/u not required Measure #128: Body Mass Index (BMI) Screening & Follow-up: BMI documented ABOVE normal parameters - f/u documented Measure #131: Pain Assessment & Follow-up: Pain positive & plan documented, Follow-up scheduled Measure #431: Unhealthy Alcohol Use Preventative Care & Scrn: Patient not identified as an unhealthy alcohol user PQRS Narrative: - Controlled Substance Measures Is patient prescribed a controlled substance at discharge?: Yes When asked, does pt state using other controlled substances?: No If prescribed controlled substance>3 days was MAPS reviewed?: Yes If Rx opioid, was Start Talking consent form obtained?: Yes If opioid is for acute pain is fill amount 7 days or less?: No Was information provided regarding opioid addiction?: Yes Objective - Vital Signs Vital signs: Vital Signs Temp Pulse 90 04/05/18 13:53 Resp 16 04/05/18 13:53 BP 126/83 04/05/18 13:53 Pulse Ox 95 04/05/18 13:53 Intake & Output 04/05/18 04/05/18 04/06/18 06:59 18:59 06:59 Weight 116.12 kg
== END | disposition home or self-care (01) ==
LOC: PNWHC3 13:27
PROVIDERS: ATTEND Specialist
DX: G89.29 Other chronic pain (principal); M50.30 Other cervical disc degeneration, unspecified cervical region; M47.812 Spondylosis without myelopathy or radiculopathy, cervical region; M46.96 Unspecified inflammatory spondylopathy, lumbar region; Z79.1 Long term (current) use of non-steroidal anti-inflammatories (NSAID); Z79.891 Long term (current) use of opiate analgesic
CPT/HCPCS: 99211

== ENCOUNTER → 2018-05-16 | Outpatient (CLI) | payer MEDICARE, OTHER ==
--- NOTE | 2018-05-16 22:31 | PN ---
PROGRESS NOTE This is a 57-year-old male patient with known history of obstructive sleep apnea who is coming in for followup. Please refer to my earlier evaluation that was done on this patient, as the patient has multiple other medical problems and comorbidities. In addition to his obstructive sleep apnea, the patient had a concussion to his brain along with closed head injury and he suffers from chronic migraines and occipital neuralgia and is under the care of Neurology and Pain Management. He also has chronic dizziness, tinnitus, hyperlipidemia, hypertension and anxiety disorder. On today's evaluation, the patient brought in his CPAP machine. I checked the compliance, and his numbers look great. He is averaging around 10.4 hours of CPAP use per night. He is using the CPAP every night without any interruption. His AHI while on treatment is down to 1.1 and his leak factor is around 30 L/minute. He has issues in maintaining sleep. We talked about sleep restriction and stimulus control during his last evaluation, which he implemented. Nevertheless, it seems that the patient may need pharmacotherapy to help him with sleeping. As mentioned, the patient has used various sleeping pills in the past, without much success. The only pill that has helped him for sleep and pain is amitriptyline. Nevertheless, amitriptyline has been interacting with Topamax, and the medication has not been used for that reason, due to concerns about side effects and toxicity and interaction with Topamax. Topamax is being given for chronic migraines. REVIEW OF SYSTEMS: Twelve-point review of systems was done. Positive findings were all mentioned above in the history of present illness. His migraines are active. His headaches are active. His back pain is active. His sleep apnea is well treated. He is averaging about 5 hours of sleep, according to him; however, the compliance data from the CPAP machine is showing that the patient is utilizing his CPAP more than 10 hours on average. PHYSICAL EXAMINATION: BP is 151/83, pulse 86, respirations 16, temperature 98.1, saturation 95% on room air. Weight is 269. Height is 5 feet 8 inches. GENERAL APPEARANCE: Calm, comfortable. Head is atraumatic, normocephalic. Neck is short. There is no JVD. No goiter or neck masses. LUNGS: Diminished; otherwise clear. Heart sounds are regular rate and rhythm. Normal S1, S2. No S3, S4. No murmurs. ABDOMEN: Soft, nontender. No organomegaly. EXTREMITIES: No edema. No cyanosis or clubbing. IMPRESSION: 1. Chronic insomnia. This may be a sleep misperception versus a true insomnia. Based on his sleep log, the patient is averaging around 5 hours of sleep; however, based on the CPAP compliance data, the patient has been utilizing his CPAP more than 10 hours. As such, I am not sure whether we are dealing with a true insomnia versus a sleep misconception. At any rate, the patient is requesting a sleeping pill as an adjunct to help him prolong his sleep hours. 2. Obstructive sleep apnea with apnea/hypopnea index of 32, currently on CPAP pressure of 11 with successful treatment. 3. Obesity. 4. Chronic hypersomnia. 5. Migraines. 6. Occipital neuralgia. 7. Hypertension. 8. Dizziness. 9. Tinnitus related to previous trauma to the head. 10.Hyperlipidemia. PLAN: 1. Encourage weight loss. 2. Continue CPAP therapy at this time at the same level of pressure. 3. Ideally we would like to use amitriptyline, which has a positive affect on chronic pain and sleep induction and maintenance. This has helped in the past and I would like to restart it as long as there is no significant reaction with other medications. One concern is interaction with Topamax. I asked the patient to talk with his neurologist and see if we can discontinue Topamax for now and use amitriptyline instead. That will help him with chronic pain. He is going to contact his neurologist and get back to me regarding this issue. Meanwhile, I do not recommend any other changes in his CPAP. His CPAP is functional and the patient is successfully treated for now. MMODL / IJN: [id number] /
== END ==
LOC: SLEEP 15:09
PROVIDERS: ATTEND Internal Medicine Critical Care Medicine
DX: G47.33 Obstructive sleep apnea (adult) (pediatric) (principal); F51.04 Psychophysiologic insomnia; E66.9 Obesity, unspecified; G43.909 Migraine, unspecified, not intractable, without status migrainosus; M54.81 Occipital neuralgia; I10 Essential (primary) hypertension; R42 Dizziness and giddiness; H93.19 Tinnitus, unspecified ear; E78.5 Hyperlipidemia, unspecified; Z99.89 Dependence on other enabling machines and devices

== ENCOUNTER 2018-05-29 06:21 | Day surgery (SDC) | payer MEDICARE, OTHER ==
[2018-05-29 07:18] VITALS: RESP 16; TEMP 97.6
[2018-05-29] MEDS ORDERED: LACTATED RINGERS 1,000 ML IV ONE (07:28)
[2018-05-29] MEDS ORDERED: LIDOCAINE 1% 20 ML VIAL (10MG/ML) FOR IV START INTRADERMA ONE (07:29)
--- NOTE | 2018-05-29 08:40 | P.PCN ---
Date of Procedure: 05/29/18 Procedure(s) Performed: PREOPERATIVE DIAGNOSIS: Cervical spondylosis with Facet Arthropathy without myelopathy. POSTOPERATIVE DIAGNOSIS: Cervical spondylosis with Facet Arthropathy without myelopathy. PROCEDURES: Radiofrequency thermocoagulation left , C4-5 , C5-6 , C6-7 medial branch with Fluroscopy [place] ANESTHESIA: Local with Ropivacaine 0.5 % , moderate sedation with fentanyl 50 micrograms and Versed.2 mg EBL: Minimal PROCEDURE INDICATION: The patient with neck pain secondary to cervical arthropathy who had more than 50% relief of her pain with previous diagnostic cervical medial branch block. PROCEDURE DESCRIPTION / TECHNIQUE: The patient was seen and identified in the preoperative area. Risks, benefits, complications, and alternatives were discussed with the patient, the patient agreed to proceed with the procedure and signed the consent. IV was started. Vital signs remained stable throughout the procedure. Patient was taken to the OR and time out was completed. The patient was placed in the Lateral position on the procedure table.( Left side Up ). The cervical area was prepped and draped in the usual sterile fashion. Critical pause was taken. Vital signs were closely monitored during the procedure. Conscious sedation was used during the procedure to decrease patient's anxiety. Using cross-table lateral fluoroscopy, the centroid of the trapezoid of left C4 , C5, and C6 were identified, marked, and localized with 1% lidocaine. Subsequently, a 20 -ua radiofrequency cannula with a 10-mm active tip was advanced guided by fluoroscopy to the centroid of the trapezoid of left C4 , C5, and C6 . Needle tip position was confirmed at the centroid of the trapezoids of C4, C5, and C6 with anteroposterior fluoroscopy. Each site then underwent sensory testing at 50 Hz and 0 to 1 volt and motor testing at 2 Hz and 0 to 3 volt with local stimulation, but no radicular symptoms down the arm. Thereafter the left C4,C5 and C6 sites underwent radiofrequency thermocoagulation at 80 degrees celsius for 90 seconds after injecting 0.5 ml of PF Ropivacaine 0.5 %. After thermocoagulation, 1 ml of the block solution containing Kenalog 40 mg and 5 mL of preservative-free normal saline was injected at the left C4, C5, and C6 levels after negative aspiration of CSF and blood and with no paresthesias. Cannulas were retracted while injecting lidocaine 1% until the needle is out. Skin was cleansed and bandages were applied. COMPLICATIONS: No acute complications. DISPOSITION / PLANS: The patient was placed in a supine position and transferred to the recovery area in a stable condition for observation and was discharged from the recovery room after meeting discharge criteria. Home discharge instructions given to the patient by the staff. The patient was reexamined prior to discharge. The patient will schedule a follow up in the clinic in 2-4 weeks. note= patient had very short and thick neck , for this reason it was clinically very difficult to the procedure in the prone position.
[2018-05-29] MEDS ORDERED: IV FLUID CONTINUATION 1,000 ML IV ONE (08:43)
[2018-05-29 09:03] VITALS: BP 127/80; PULSE 60
--- NOTE | 2018-05-29 11:07 | FL ---
EXAMINATION TYPE: FL guided pain mgmt statistic DATE OF EXAM: 05/29/2018 CLINICAL HISTORY: Neck pain. TECHNIQUE: Fluoroscopy. COMPARISON: None. FINDINGS: Fluoroscopic guidance was provided during pain relief procedure performed by Dr. Starkye . A total of 40 seconds of fluoroscopic time was utilized during the procedure and 3 spot images are acquired. Images acquired shows needle localization of multiple cervical spine levels. IMPRESSION: As Above.
== END 2018-05-29 09:18 | disposition home or self-care (01) ==
LOC: ORPAIN 06:21
PROVIDERS: ATTEND Specialist
DX: M47.812 Spondylosis without myelopathy or radiculopathy, cervical region (principal)
CPT/HCPCS: 64633; 64634; J2250; J1030; J3010; 99152; 99153

== ENCOUNTER → 2018-05-31 | Outpatient (CLI) | payer MEDICARE, OTHER ==
[2018-05-31 14:16] VITALS: BP 138/82; PULSE 77; RESP 16; TEMP 98
--- NOTE | 2018-05-31 15:34 | P.PN ---
Subjective Progress Note Date: 05/31/18 This is follow-up visit for this patient with a history of severe and chronic neck pain and headache ,he is diagnosed with cervicogenic headaches, cervical spondylosis and cervical degenerative disc disease, cervical facet arthropathy, We have done an interventional pain procedure radiofrequency ablation of the medial branch cervical area left side C4/5/ 6 , and he is scheduled to have the right side next few weeks The patient currently on Motrin 800 mg every 8 hours and Ultram 50 mg every 6 hours Patient denies any side effect of the medication , patient denies any excessive drowsiness or sleepiness, patient denies any suicidal ideation, Patient reported that the current medication is helping to control the pain and improve the activity of daily livings, Patient denies any motor or sensory deficit, denies any change in the bowel movement or urination, patient denies any fever or night sweats. Patient here today for follow-up visit and medication refill Physical Examinations : 1-Constitutiona : Cooperative , not in acute distress . 2-HEENT : nech ; supple , no Lymphadenopathy , normal thyroid size . eyes : no ptosis , no icterus, no photophobia . ENT : normal of hearing , normal oropharynx , no Thrush . 3- Respiratory : Chest clear to auscultations Bilaterally , no wheezing , no Rhonchi . 4- Cardiovascular : regular rate and rhythem , S1 , S2 , no S3 , no S4. 5- Gastrointestinal : abdomen soft no tenderness , bowel sounds , no organomegally . 6- Genitourinary : Defferred . 7- neurologic : Cranial nerve II to XII intact , no focal neurological deffecit . 8-psychatric : alert , oriented X 3 , appropriate affect , intact judgment and insight . 9-Lymphatic : no Lymphadenopathy . 10- musculoskeltal : Cervical Spine motor stregnth in the deltoid and biceps, normal right side , normal Left side motor stregnth biceps and the wrist extensors normal right side ,normal left side . motor stregnth in the triceps muscle . normal Right side , normal Left side deep tendon reflexes normal at the biceps , normal at Brachioradialis , normal at triceps. positive cervical facet loading test . Lumber spine moter stegnth lower extremities , thigh and legs 5/5 Right side , 5/5 Left side Assessment and plan= chronic neck pain and headache secondary to cervical degenerative disc disease ,cervical spondylosis with lumbar facet arthropathy . Patient scheduled to have the radiofrequency on the right side C4/C5/C6 in the next few weeks (status post the radiofrequency on the left side ) chronic and current use of high-risk medication (opioids) Patient denies any side effects of the current pain medication and the current treatment/medication helping the patient to do activity of daily living , Diagnoses, prognosis, treatment options, including but not limited to physical therapy, medication management, interventional therapies, and surgery, were discussed with the patient All the questions answered The narcotic consent was signed and patient agreed and understood the side effects and complications of opioid treatment. Patient signed the narcotic agreement, and was orally counseled, not to overuse, not to abuse, not to Divert , not tp sell pain medication, and to take it as prescribed only, Patient was counseled not to drive or operate heavy equipment while using narcotic medication, and advised not to use alcohol or any Illicit drugs while using the narcotis. understanding that lack of compliance with any of the above instructions, will likely to cause discharge from, the pain service, not to renew his narcotic prescriptions MAPS Reviwed and it was apropriate . Medication managements= patient will be given prescription refills for ultrasound 50 mg every 6 hours when necessary with one refill, Motrin 800 mg every 8 hours #90 with 1 refill Interventions=RFA medial branch block cervical area Right C4 5/C5 6/C6 7 , , PQRS Measure Charge Sheet Measure #130: Documentation of Current Meds in Medical Chart: Patient's medications documented in chart Measure #226: Tobacco Use: Screen & Cessation Intervention: Pt not a tobacco user Measure #111: Pneumonia Vaccination: Pneumococcal vaccine NOT administered or previously given Measure #47: Advance Care Plan: Advance care planning discussed & documented, pt chose/unable to give Measure #412: Opioid Treatment Agreement: Documented signed opioid trtmnt agreemnt min once during opioid trtmnt Measure #408: Opioid Therapy Follow-up Evaluation: Patient had f/u eval minimum every 3 months during opioid therapy Measure #317: Preventitive Care & Scrn High Bld Press & F/U: Normal blood pressure, f/u not required Measure #128: Body Mass Index (BMI) Screening & Follow-up: BMI documented ABOVE normal parameters - f/u documented Measure #131: Pain Assessment & Follow-up: Pain positive & plan documented, Follow-up scheduled Measure #431: Unhealthy Alcohol Use Preventative Care & Scrn: Patient not identified as an unhealthy alcohol user PQRS Narrative: Smoking Status Former smoker Do You Want the Pneumonia No Vaccine AT THIS TIME? Narcotic Agreement Date Signed 12/14/17 Blood Pressure 121/85 Pain Intensity [Bilateral 4 Posterior Neck] Scale Used Numeric (1 - 10) Hx Alcohol Use (MH) Yes: rare Home Medications: Ambulatory Orders Lisinopril-Hctz 10-12.5 mg [Zestoretic 10-12.5] 1 tab PO QAM 01/20/16 Butalb/APAP/Caff 50-325-40Mg [Fioricet 50-325-40] 1 tab PO DAILY 02/15/17 Ibuprofen 800 mg PO TID PRN #90 tablet 04/27/17 Multivitamin [Men's Multi-Vitamin] 1 tab PO DAILY 08/08/17 Propylene Glycol/Peg 400/Pf [Systane 0.3-0.4% Eye Drops] 1 drop BOTH EYES TID Topiramate [Topamax] 100 mg PO HS 08/08/17 prednisoLONE ACETATE 1% OPHTH [Pred Forte 1%] 2 drops BOTH EYES DAILY 08/08/17 traMADol HCl [Ultram] 50 mg PO QID 08/08/17 diphenhydrAMINE [Benadryl] 100 mg PO TID 10/19/17 Aspirin 325 mg PO DAILY 10/31/17 Melatonin 60 mg PO HS 10/31/17 Ranitidine HCl 150 mg PO BID 10/31/17 Atorvastatin [Lipitor] 40 mg PO QAM 11/11/17 Acetaminophen Tab [Tylenol Tab] 2,000 mg PO BID 02/08/18 Citalopram Hydrobromide [CeleXA] 40 mg PO DAILY 02/08/18 Controlled Substance Measures - Controlled Substance Measures Is patient prescribed a controlled substance at discharge?: Yes When asked, does pt state using other controlled substances?: No If prescribed controlled substance>3 days was MAPS reviewed?: Yes If Rx opioid, was Start Talking consent form obtained?: Yes If opioid is for acute pain is fill amount 7 days or less?: No Was information provided regarding opioid addiction?: Yes Objective - Vital Signs Vital signs: Vital Signs Temp 98 F 05/31/18 14:10 Pulse 77 05/31/18 14:10 Resp 16 05/31/18 14:10 BP 138/82 05/31/18 14:10 Pulse Ox 98 05/31/18 14:10 Intake & Output 05/30/18 05/31/18 05/31/18 18:59 06:59 18:59 Weight 121.563 kg
== END ==
LOC: PNWHC3 13:53
PROVIDERS: ATTEND Specialist
DX: G89.29 Other chronic pain (principal); M47.812 Spondylosis without myelopathy or radiculopathy, cervical region; M50.30 Other cervical disc degeneration, unspecified cervical region; M46.82 Other specified inflammatory spondylopathies, cervical region; R51 Headache; F11.90 Opioid use, unspecified, uncomplicated; Z98.890 Other specified postprocedural states; Z79.1 Long term (current) use of non-steroidal anti-inflammatories (NSAID); Z79.82 Long term (current) use of aspirin; Z87.891 Personal history of nicotine dependence
CPT/HCPCS: 99211

== ENCOUNTER 2018-06-13 06:35 | Day surgery (SDC) | payer MEDICARE, OTHER ==
[2018-06-07 13:22] VITALS: BMI 39.5
[2018-06-13] MEDS ORDERED: SODIUM CHLORIDE 0.9% 500 ML 500 ML IV SCH (07:00)
[2018-06-13 07:35] VITALS: RESP 16; TEMP 98.6
[2018-06-13] MEDS ORDERED: LACTATED RINGERS 1,000 ML IV ONE (07:35)
[2018-06-13] MEDS ORDERED: LIDOCAINE 1% 20 ML VIAL (10MG/ML) FOR IV START SQ ONE (07:36)
[2018-06-13] MEDS ORDERED: IV FLUID CONTINUATION 1,000 ML IV ONE (08:15)
[2018-06-13 08:32] VITALS: BP 142/75; PULSE 72
--- NOTE | 2018-06-13 08:56 | P.PCN ---
Date of Procedure: 06/13/18 Surgeon: Bryan Epps Description of Procedure: PREOPERATIVE DIAGNOSIS: Cervical spondylosis POSTOPERATIVE DIAGNOSIS: Same PROCEDURES: Right C3, C4, C5 Radiofrequency thermocoagulation, with fluoroscopic guidance SURGEON: Bryan Epps MD. ANESTHESIA: Moderate sedation with intravenous versed 2 mg and fentanyl 100 mcg and local infiltration with lidocaine 1% 4 ml EBL: Minimal PROCEDURE INDICATION: This is a very pleasant 57-year-old gentleman with history of intractable neck pain who presents today for repeat of radiofrequency ablation. He's had these procedures done in the past and they have afforded him significant relief of his neck and head pain. PROCEDURE DESCRIPTION / TECHNIQUE: The patient was seen and identified in the preoperative area. Risks, benefits, complications, including but not limited to risk of infection ,bleeding , allergic reactions to the medications, incomplete pain relief, nerve damage and headache Alternatives were discussed with the patient, the patient agreed to proceed with the procedure and signed the consent. IV was started. The operative site was marked. Patient was taken to the OR and time out was completed. The patient was placed in the prone position on the procedure table. The lumber area was prepped and draped in the usual sterile fashion. . Vital signs were closely monitored during the procedure .IV sedation was used during the procedure to decrease patients anxiety. Using AP and then oblique fluoroscopy, the articular waist of the corresponding cervical vertebral bodies for the above-mentioned levels were identified, marked, and localized with 1% lidocaine. Subsequently, a 20 [id number] ra diofrequency cannula with a 10-mm active tip was advanced guided by fluoroscopy to the midpoint of the trapezoid formed on the lateral view of the cervical vertebral bodies at each site then underwent sensory testing at 50 Hz and 0 to 1 volt and motor testing at 2.5 Hz and 0 to 3 volt with local stimulation, but no radicular symptoms down the legs. Then the sites underwent radiofrequency thermocoagulation at 80 degrees celsius for 90 seconds after injecting 0.5 ml of PF lidocaine 1%. After the thermocoagulation done , 1 ml of the block solution containing depomedrol 40 mg and 4 ml of maraine 0.5% was injected at each levels after negative aspiration of CSF and blood and with no paresthesias. Cannulas were retracted while injecting lidocaine 1% until the needle is out.. At the end of the procedure, the skin was cleansed and bandages were applied. COMPLICATIONS: No acute complications. DISPOSITION / PLANS: The patient was placed in a supine position and transferred to the recovery area in a stable condition for observation and was discharged from the recovery room after meeting discharge criteria. Home discharge instructions given to the patient by the staff.
--- NOTE | 2018-06-13 08:58 | FL ---
EXAMINATION TYPE: FL guided pain mgmt statistic DATE OF EXAM: 06/13/2018 CLINICAL HISTORY: Neck pain TECHNIQUE: Fluoroscopy. COMPARISON: None. FINDINGS: Fluoroscopic guidance was provided during procedure performed by Dr. Epps. A total of 1 5 seconds of fluoroscopic time was utilized during the procedure and 2 spot images was acquired demon strating multilevel localization of the cervical spine. IMPRESSION: As Above.
[2018-06-14 07:23] LABS: Glucose,Whole Blood 92 mg/dL (75-99)
== END 2018-06-13 08:52 | disposition home or self-care (01) ==
LOC: ORPAIN 06:35
PROVIDERS: ATTEND Pain Medicine Pain Medicine
DX: M47.812 Spondylosis without myelopathy or radiculopathy, cervical region (principal); Z88.1 Allergy status to other antibiotic agents
CPT/HCPCS: 64633; 64634; J2250; J1030; J2001; J3010; 99152

== ENCOUNTER → 2018-07-26 | Outpatient (CLI) | payer MEDICARE, OTHER ==
[2018-07-26 14:02] VITALS: BP 143/101; PULSE 70; RESP 18
--- NOTE | 2018-07-26 21:47 | P.PN ---
Subjective Progress Note Date: 07/26/18 This is follow-up visit for this patient with a history of severe and chronic neck pain and headache ,he is diagnosed with cervicogenic headaches, cervical spondylosis and cervical degenerative disc disease, cervical facet arthropathy, We have done an interventional pain procedure radiofrequency ablation of the medial branch cervical area . The patient currently on Motrin 800 mg every 8 hours and Ultram 50 mg every 6 hours and amitriptyline 25 mg daily at bedtime Patient denies any side effect of the medication , patient denies any excessive drowsiness or sleepiness, patient denies any suicidal ideation, Patient reported that the current medication is helping to control the pain and improve the activity of daily livings, Patient denies any motor or sensory deficit, denies any change in the bowel movement or urination, patient denies any fever or night sweats. Patient here today for medication refill, she'll continue to complain of neck pain, and he had difficulty sleeping at night Physical Examinations : 1-Constitutiona : Cooperative , not in acute distress . 2-HEENT : nech ; supple , no Lymphadenopathy , normal thyroid size . eyes : no ptosis , no icterus, no photophobia . ENT : normal of hearing , normal oropharynx , no Thrush . 3- Respiratory : Chest clear to auscultations Bilaterally , no wheezing , no Rhonchi . 4- Cardiovascular : regular rate and rhythem , S1 , S2 , no S3 , no S4. 5- Gastrointestinal : abdomen soft no tenderness , bowel sounds , no organomegally . 6- Genitourinary : Defferred . 7- neurologic : Cranial nerve II to XII intact , no focal neurological deffecit . 8-psychatric : alert , oriented X 3 , appropriate affect , intact judgment and insight . 9-Lymphatic : no Lymphadenopathy . 10- musculoskeltal : Cervical Spine motor stregnth in the deltoid and biceps, normal right side , normal Left side motor stregnth biceps and the wrist extensors normal right side ,normal left side . motor stregnth in the triceps muscle . normal Right side , normal Left side deep tendon reflexes normal at the biceps , normal at Brachioradialis , normal at triceps. positive cervical facet loading test . Multiple trigger point identified in the cervical paravertebral muscles, trapezius and rhomboid muscles Lumber spine moter stegnth lower extremities ,thigh and legs 5/5 Right side , 5/5 Left side Assessment and plan= chronic neck pain and headache secondary to cervical degenerative disc disease ,cervical spondylosis with lumbar facet arthropathy . Myofascial pain syndrome cervical area Insomnia Patient currently having myofascial pain syndrome and cervical area chronic and current use of high-risk medication (opioids) Patient denies any side effects of the current pain medication and the current treatment/medication helping the patient to do activity of daily living , Diagnoses, prognosis, treatment options, including but not limited to physical therapy, medication management, interventional therapies, and surgery, were discussed with the patient All the questions answered The narcotic consent was signed and patient agreed and understood the side effects and complications of opioid treatment. Patient signed the narcotic agreement, and was orally counseled, not to overuse, not to abuse, not to Divert , not tp sell pain medication, and to take it as prescribed only, Patient was counseled not to drive or operate heavy equipment while using narcotic medication, and advised not to use alcohol or any Illicit drugs while using the narcotis. understanding that lack of compliance with any of the above instructions, will likely to cause discharge from, the pain service, not to renew his narcotic prescriptions MAPS Reviwed and it was apropriate . Medication managements= patient will be given prescription refills for Ultram 50 mg every 6 hours , dispense 120 with one refill, Motrin 800 mg every 8 hours #90 with 1 refill Increase amitriptyline to 50 mg daily at bedtime (to help with the sleep, pain ), start patient on baclofen 10 mg twice dispense 60 with 1 refill Interventions= schedule patient to have trigger point injections cervical paravertebral muscles, trapezius muscles, rhomboid muscles bilaterally , PQRS Measure Charge Sheet Measure #130: Documentation of Current Meds in Medical Chart: Patient's medications documented in chart Measure #226: Tobacco Use: Screen & Cessation Intervention: Pt not a tobacco user Measure #111: Pneumonia Vaccination: Pneumococcal vaccine NOT administered or previously given Measure #47: Advance Care Plan: Advance care planning discussed & documented, pt chose/unable to give Measure #412: Opioid Treatment Agreement: Documented signed opioid trtmnt agreemnt min once during opioid trtmnt Measure #408: Opioid Therapy Follow-up Evaluation: Patient had f/u eval minimum every 3 months during opioid therapy Measure #317: Preventitive Care & Scrn High Bld Press & F/U: Blood pressure elevated, she will follow up with her primary care Measure #128: Body Mass Index (BMI) Screening & Follow-up: BMI documented ABOVE normal parameters - f/u documented Measure #131: Pain Assessment & Follow-up: Pain positive & plan documented, Follow-up scheduled Measure #431: Unhealthy Alcohol Use Preventative Care & Scrn: Patient not identified as an unhealthy alcohol user PQRS Narrative: Objective - Vital Signs Vital signs: Vital Signs Temp Pulse 70 07/26/18 13:56 Resp 18 07/26/18 13:56 BP 143/101 07/26/18 13:56 Pulse Ox 94 L 07/26/18 13:56 Intake & Output 07/26/18 07/26/18 07/27/18 06:59 18:59 06:59 Weight 117.934 kg
== END ==
LOC: PNWHC3 13:29
PROVIDERS: ATTEND Specialist
DX: G89.29 Other chronic pain (principal); M50.30 Other cervical disc degeneration, unspecified cervical region; M47.812 Spondylosis without myelopathy or radiculopathy, cervical region; M46.96 Unspecified inflammatory spondylopathy, lumbar region; M79.18 Myalgia, other site; G47.00 Insomnia, unspecified; R51 Headache; Z79.1 Long term (current) use of non-steroidal anti-inflammatories (NSAID); Z79.899 Other long term (current) drug therapy
CPT/HCPCS: 99211

== ENCOUNTER → 2018-08-22 | Day surgery (SDC) | payer MEDICARE, OTHER ==
[~2018-08-22] MED LIST changes: +LACTATED RINGERS 1,000 ML IV SCH; -SODIUM CHLORIDE 0.9% 500 ML 500 ML IV SCH
== END ==
LOC: ORPAIN 08:49
PROVIDERS: ATTEND Anesthesiology
DX: Z53.9 Procedure and treatment not carried out, unspecified reason (principal)

== ENCOUNTER 2018-08-31 09:26 | Day surgery (SDC) | payer MEDICARE ==
[2018-08-29 16:14] VITALS: BMI 42.5
[2018-08-31 10:02] VITALS: PULSE 63; RESP 16; TEMP 96.8
--- NOTE | 2018-08-31 10:49 | P.PCN ---
Description of Procedure: Preoperative Diagnosis: myofascial pain syndrome of the neck Postoperative diagnosis: Same Anesthesia: Local Surgeon: Kwaku Marquez MD Indications for procedure: This is a 58-year-old patient with myofascial pain and palpable trigger points in bilateral trapezius and cervical paraspinal muscles. The patient consents for an injection after an explanation of risks including but not limited to bleeding and infection, benefits, and alternatives and the patient has signed a consent form indicating understanding of all of them. Description of procedure: After informed consent was obtained the patient's painful area was sterilely prepped in the usual fashion with ChloraPrep. XX trigger points were identified via palpation of the trapezius and cervical paraspinal muscles and marked sterilely. Each trigger point was injected with a 25-gauge one and a half inch needle. At that point a solution consisting of 9ml of 0.5% ropivacaine with 40mg of depomedrol was distributed evenly over the trigger points. The patient's vital signs were stable afterwards and the procedure was tolerated well. Patient was discharged home with follow-up instructions.
[2018-08-31 11:05] VITALS: BP 143/87
== END 2018-08-31 11:29 | disposition home or self-care (01) ==
LOC: ORPAIN 09:26
PROVIDERS: ATTEND Hospitalist
DX: M79.18 Myalgia, other site (principal)
CPT/HCPCS: 20552; J1030; 20553

== ENCOUNTER → 2018-09-20 | Outpatient (CLI) | payer MEDICARE ==
[2018-09-20 12:05] VITALS: BP 141/89; PULSE 81; RESP 18
--- NOTE | 2018-09-20 12:54 | P.PAINPG ---
Subjective Progress Note Date: 09/20/18 Principal diagnosis: Cervical spondylosis, left eye cataract, left knee arthritis, intractable mechanical low back pain This is a pleasant 58-year-old gentleman who is maintained in our clinic with medication management. He is also undergone procedures. Since we last saw him, his dose of amitriptyline was increased. He reports this has helped him sleep more. He also has had other medication changes by his other physicians including a significant increase in his topiramate. He also had a left lens implant placed. He reports all of these changes are helping him to function at a better level. He denies any new complaints. Overall, his mood seems upbeat. Objective - Vital Signs Vital signs: Vital Signs Temp Pulse 81 09/20/18 12:00 Resp 18 09/20/18 12:00 BP 141/89 09/20/18 12:00 Pulse Ox 96 09/20/18 12:00 Intake & Output 09/19/18 09/20/18 09/20/18 18:59 06:59 18:59 Weight 117.934 kg - Exam General: The patient is alert and oriented. Patient is not sedated Patient answers all question appropriately. Cardiac: Heart is regular in rate and rhythm Respiratory: Clear to auscultation. No audible wheezes. Abdomen: Soft nontender nondistended. Musculoskeletal: Strength is normal bilaterally. Sensation is normal bilaterally. Straight leg raise is negative bilaterally. Neurological: Reflexes are preserved and symmetric bilaterally. Assessment and Plan (1) Cervical spondylosis Current Visit: Yes Status: Acute Code(s): M47.812 - SPONDYLOSIS W/O MYELOPATHY OR RADICULOPATHY, CERVICAL REGION SNOMED Code(s): 572793979 (2) Lumbar spondylosis Current Visit: Yes Status: Acute Code(s): M47.816 - SPONDYLOSIS W/O MYELOPATHY OR RADICULOPATHY, LUMBAR REGION SNOMED Code(s): 227069101 (3) Osteoarthritis of left knee Narrative/Plan: Plan of Care 1. Medications: I will refill the patient's medications at their current dosages including amitriptyline 50 mg by mouth daily at bedtime, tramadol one by mouth 4 times a day when necessary, Motrin, baclofen. I have reviewed the patient's MAPS report and it reveals expected results. Patient has signed an opiate agreement as well as opiate consent for treatment in our clinic. They understand the risks and benefits of opiate medications. They are aware of the potential for addiction. 2. Interventions: None at this time 3. Referrals: None 4. Testing: None 5. Follow-up: 2 months for medication management. Current Visit: No Status: Acute Code(s): M17.12 - UNILATERAL PRIMARY OSTEOARTHRITIS, LEFT KNEE SNOMED Code(s): 455832200922291 PQRS Measure Charge Sheet Measure #130: Documentation of Current Meds in Medical Chart: Patient's medications documented in chart Measure #226: Tobacco Use: Screen & Cessation Intervention: Pt not a tobacco user Measure #111: Pneumonia Vaccination: Pneumococcal vaccine administered or pre viously received Measure #47: Advance Care Plan: Advance care planning discussed & documented, plan or surrogate given Measure #412: Opioid Treatment Agreement: Documented signed opioid trtmnt agreemnt min once during opioid trtmnt Measure #408: Opioid Therapy Follow-up Evaluation: Patient had f/u eval minimum every 3 months during opioid therapy Measure #317: Preventitive Care & Scrn High Bld Press & F/U: Normal blood pressure, f/u not required Measure #128: Body Mass Index (BMI) Screening & Follow-up: BMI documented within normal parameters Measure #131: Pain Assessment & Follow-up: Pain positive & plan documented Measure #431: Unhealthy Alcohol Use Preventative Care & Scrn: Patient not identified as an unhealthy alcohol user PQRS Narrative: Smoking Status Former smoker Narcotic Agreement Date Signed 12/14/17 Blood Pressure 141/89 Pain Intensity [Neck] 6 Scale Used Numeric (1 - 10) Hx Alcohol Use (MH) Yes: rare Home Medications: Ambulatory Orders Lisinopril-Hctz 10-12.5 mg [Zestoretic 10-12.5] 1 tab PO QAM 01/20/16 Butalb/APAP/Caff 50-325-40Mg [Fioricet 50-325-40] 1 tab PO BID 02/15/17 Ibuprofen 800 mg PO TID PRN #90 tablet 04/27/17 Multivitamin [Men's Multi-Vitamin] 1 tab PO DAILY 08/08/17 Propylene Glycol/Peg 400/Pf [Systane 0.3-0.4% Eye Drops] 1 drop BOTH EYES TID 08/08/17 Topiramate [Topamax] 100 mg PO HS 08/08/17 prednisoLONE ACETATE 1% OPHTH [Pred Forte 1%] 1 drops LEFT EYE QID 08/08/17 diphenhydrAMINE [Benadryl] 100 mg PO HS PRN 10/19/17 Aspirin 325 mg PO DAILY 10/31/17 Melatonin 60 mg PO HS 10/31/17 Ranitidine HCl 150 mg PO BID 10/31/17 Atorvastatin [Lipitor] 40 mg PO QAM 11/11/17 Acetaminophen Tab [Tylenol Tab] 2,000 mg PO BID PRN 02/08/18 Citalopram Hydrobromide [CeleXA] 40 mg PO DAILY 02/08/18 Amitriptyline HCl [Elavil] 50 mg PO HS 06/07/18 Cyanocobalamin (Vitamin B-12) [Vitamin B-12] 2,000 mcg PO DAILY 06/07/18 Baclofen [Lioresal] 10 mg PO BID 07/26/18 traMADol HCl [Ultram] 50 mg PO QID #120 tab 08/09/18 Ciprofloxacin Ophth Soln [Cipro 0.3% Ophth Soln] 1 drops LEFT EYE TID 08/29/18 Ketorolac 0.5% Ophth Soln [Acular] 1 drops LEFT EYE QID 08/29/18 Prednisolone Acetate/Pf [Prednisolone Acet 1% Eye Drop] 1 drop RIGHT EYE TID 08/29/18 Topiramate [Topamax] 50 mg PO DAILY 09/20/18 Controlled Substance Measures - Controlled Substance Measures Is patient prescribed a controlled substance at discharge?: Yes When asked, does pt state using other controlled substances?: No If prescribed controlled substance>3 days was MAPS reviewed?: Yes
== END | disposition home or self-care (01) ==
LOC: PNWHC3 11:38
PROVIDERS: ATTEND Pain Medicine Pain Medicine
DX: M47.812 Spondylosis without myelopathy or radiculopathy, cervical region (principal); M47.816 Spondylosis without myelopathy or radiculopathy, lumbar region; M17.12 Unilateral primary osteoarthritis, left knee; Z87.891 Personal history of nicotine dependence
CPT/HCPCS: 99211

== ENCOUNTER → 2018-11-15 | Outpatient (CLI) | payer MEDICARE ==
[2018-11-15 13:27] VITALS: BP 128/76; PULSE 80; RESP 18
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
== END ==
LOC: PNWHC3 12:21
PROVIDERS: ATTEND Anesthesiology
DX: M47.22 Other spondylosis with radiculopathy, cervical region (principal); R51 Headache; Z87.891 Personal history of nicotine dependence; Z79.899 Other long term (current) drug therapy; Z79.1 Long term (current) use of non-steroidal anti-inflammatories (NSAID); Z79.82 Long term (current) use of aspirin; Z79.891 Long term (current) use of opiate analgesic
CPT/HCPCS: 99211

== ENCOUNTER 2018-12-09 13:29 | Emergency (ER) | payer MEDICARE ==
[2018-12-09 14:16] VITALS: RESP 18
[2018-12-09] MEDS ORDERED: KETOROLAC 30 MG/ML 1 ML VIAL IM STA (15:41)
[2018-12-09] MEDS ORDERED: METOCLOPRAMIDE 5 MG/ML 2 ML VIAL IVP STA (15:41)
[2018-12-09] MEDS ORDERED: diphenhydrAMINE 50 MG/ML 1 ML VIAL IM STA (15:41)
[2018-12-09] MEDS ORDERED: KETOROLAC 30 MG/ML 1 ML VIAL IVP STA (15:54)
[2018-12-09] MEDS ORDERED: diphenhydrAMINE 50 MG/ML 1 ML VIAL IVP STA (15:55)
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
[2018-12-09 18:06] VITALS: BP 137/79; PULSE 70; TEMP 97.9
== END 2018-12-09 18:06 | disposition home or self-care (01) ==
LOC: EC 13:29
DX: H72.91 Unspecified perforation of tympanic membrane, right ear (principal); G43.909 Migraine, unspecified, not intractable, without status migrainosus; R42 Dizziness and giddiness; K21.9 Gastro-esophageal reflux disease without esophagitis; E78.5 Hyperlipidemia, unspecified; I10 Essential (primary) hypertension; M19.90 Unspecified osteoarthritis, unspecified site; G47.30 Sleep apnea, unspecified; F32.9 Major depressive disorder, single episode, unspecified; F41.9 Anxiety disorder, unspecified; Z87.891 Personal history of nicotine dependence; Z88.1 Allergy status to other antibiotic agents; Z79.1 Long term (current) use of non-steroidal anti-inflammatories (NSAID); Z79.52 Long term (current) use of systemic steroids; Z79.82 Long term (current) use of aspirin; Z79.891 Long term (current) use of opiate analgesic; Z79.899 Other long term (current) drug therapy; Z96.652 Presence of left artificial knee joint; Z97.8 Presence of other specified devices; Z99.89 Dependence on other enabling machines and devices
CPT/HCPCS: 99284; 96374; 96375 ×2; J1200; J2765; J1885

== ENCOUNTER → 2019-01-08 | Outpatient (CLI) | payer MEDICARE ==
[2019-01-08 14:38] VITALS: BP 156/78; PULSE 81; RESP 18
--- NOTE | 2019-01-09 11:14 | P.PAINPG ---
Subjective Progress Note Date: 01/08/19 This is follow-up visit for this patient with a history of severe and chronic neck pain and headache ,he is diagnosed with cervicogenic headaches, cervical spondylosis with facet arthropathy and cervical degenerative disc disease, The patient currently on Motrin 800 mg every 8 hours and Ultram 50 mg every 6 hours and amitriptyline 75 mg daily at bedtime ,Patient denies any side effect of the medication , he denies any excessive drowsiness or sleepiness, patient denies any suicidal ideation,Patient reported that the current medication is helping to control the pain and improve the activity of daily livings,Patient denies any motor or sensory deficit, denies any change in the bowel movement or urination, patient denies any fever or night sweats. Patient here today for medication refill, she'll continue to complain of neck pain, and he had difficulty sleeping at night he continued to have chronic numbness and tingling sensation in his left forearm and wrist and he is given a half EMG done by neurologist very soon, he continued to have sleep disordered breathing is being followed by sleep medicine physician Objective - Vital Signs Vital signs: Vital Signs Temp Pulse 81 01/08/19 14:34 Resp 18 01/08/19 14:34 BP 156/78 01/08/19 14:34 Pulse Ox 98 01/08/19 14:34 - Exam Physical Examinations : -Constitutiona : Cooperative , not in acute distress . -HEENT : nech : supple , no Lymphadenopathy , normal thyroid size . eyes : no ptosis , no icterus, no photophobia . ENT : normal of hearing , normal oropharynx , no Thrush . - Respiratory : Chest clear to auscultations Bilaterally , no wheezing , no Rhonchi . - Cardiovascula : regular rate and rhythem , S1 , S2 , no S3 , no S4. - Gastrointestina : abdomen soft no tenderness , bowel sounds , no organomegally . - Genitourinary : Defferred . - neurologic : Cranial nerve II to XII intact , no focal neurological deffecit . -psychatric : alert , oriented X 3 , appropriate affect , intact judgment and insight . -Lymphatic : no Lymphadenopathy . - musculoskeltal : Cervical Spine motor stregnth in the deltoid and biceps, normal right side , normal Left side motor stregnth biceps and the wrist extensors normal right side ,normal left side . motor stregnth in the triceps muscle . normal Right side , normal Left side deep tendon reflexes normal at the biceps , normal at Brachioradialis , normal at triceps. cervical facet loading test: Positive Bilaterally Tenderness over the occipital nerve bilaterally Lumber spine moter stegnth lower extremities ,thigh and legs 5/5 Right side , 5/5 Left side y. Assessment and Plan Plan: Assessment and plan= chronic neck pain secondary to cervical degenerative disc disease , cervical spondylosis with facet arthropathy . Occipital neuralgia, cervical genic headache chronic and current use of high-risk medication (opioids) Patient denies any side effects of the current pain medication and the current treatment/medication helping the patient to do activity of daily living , Diagnoses, prognosis, treatment options, including but not limited to physical therapy, medication management, interventional therapies, and surgery, were discussed with the patient All the questions answered The narcotic consent was signed and patient agreed and understood the side effects and complications of opioid treatment. Patient signed the narcotic agreement, and was orally counseled, not to overuse, not to abuse, not to Divert , not tp sell pain medication, and to take it as prescribed only, Patient was counseled not to drive or operate heavy equipment while using narcotic medication, and advised not to use alcohol or any Illicit drugs while using the narcotis. understanding that lack of compliance with any of the above instructions, will likely to cause discharge from, the pain service, not to renew his narcotic prescriptions MAPS Reviwed and it was apropriate . Medication managements= patient will be given prescription refills for baclofen 10 mg twice a day dispense 60 with 1 refill, recommend to increase the Elavil to 100 mg daily at bedtime Dispense 30 with one refill, continue Motrin 800 mg 3 times a day . Interventions-patient will be good candidate to have diagnostic medial branch block cervical area C2, C3, and third occipital nerve bilaterally , Time with Patient: Less than 30 PQRS Measure Charge Sheet Measure #130: Documentation of Current Meds in Medical Chart: Patient's medications documented in chart Measure #226: Tobacco Use: Screen & Cessation Intervention: Pt not a tobacco user Measure #111: Pneumonia Vaccination: Pneumococcal vaccine NOT administered or previously given Measure #47: Advance Care Plan: Advance care planning discussed & documented, pt chose/unable to give Measure #412: Opioid Treatment Agreement: Documented signed opioid trtmnt agreemnt min once during opioid trtmnt Measure #408: Opioid Therapy Follow-up Evaluation: Patient had f/u eval minimum every 3 months during opioid therapy Measure #317: Preventitive Care & Scrn High Bld Press & F/U: Pre-hypertensive or hypertensive BP documented, pt will f/u with PCP Measure #128: Body Mass Index (BMI) Screening & Follow-up: BMI documented ABOVE normal parameters - f/u documented Measure #131: Pain Assessment & Follow-up: Pain positive & plan documented, Follow-up scheduled Measure #431: Unhealthy Alcohol Use Preventative Care & Scrn: Patient not identified as an unhealthy alcohol user PQRS Narrative: Smoking Status Former smoker Narcotic Agreement Date Signed 12/14/17 Blood Pressure 156/78 Pain Intensity [Neck] 5 Pain Intensity [Head] 6 Scale Used Numeric (1 - 10) Hx Alcohol Use (MH) Yes: rare Home Medications: Ambulatory Orders Lisinopril-Hctz 10-12.5 mg [Zestoretic 10-12.5] 1 tab PO QAM 01/20/16 Butalb/APAP/Caff 50-325-40Mg [Fioricet 50-325-40] 1 tab PO BID 02/15/17 Multivitamin [Men's Multi-Vitamin] 1 tab PO DAILY 08/08/17 Propylene Glycol/Peg 400/Pf [Systane 0.3-0.4% Eye Drops] 1 drop BOTH EYES TID 08/08/17 Topiramate [Topamax] 100 mg PO HS 08/08/17 diphenhydrAMINE [Benadryl] 100 mg PO HS PRN 10/19/17 Aspirin 325 mg PO DAILY 10/31/17 Melatonin 60 mg PO HS 10/31/17 Ranitidine HCl 150 mg PO BID 10/31/17 Atorvastatin [Lipitor] 40 mg PO QAM 11/11/17 Acetaminophen Tab [Tylenol Tab] 2,000 mg PO BID PRN 02/08/18 Citalopram Hydrobromide [CeleXA] 40 mg PO DAILY 02/08/18 Cyanocobalamin (Vitamin B-12) [Vitamin B-12] 2,000 mcg PO DAILY 06/07/18 Ciprofloxacin Ophth Soln [Cipro 0.3% Ophth Soln] 1 drops BOTH EYES TID 08/29/18 Ketorolac 0.5% Ophth Soln [Acular] 1 drops LEFT EYE QID 08/29/18 Prednisolone Acetate/Pf [Prednisolone Acet 1% Eye Drop] 1 drop RIGHT EYE TID 08/29/18 Topiramate [Topamax] 50 mg PO DAILY 09/20/18 Jhhnomne-Feoernksx-Sk Otic [Cortisporin Otic Soln] 2 drops RIGHT EAR TID #1 bottle 12/09/18 Ondansetron Odt [Zofran Odt] 4 mg PO Q8HR PRN #10 tab 12/09/18 Amitriptyline HCl [Elavil] 100 mg PO HS #30 tab 01/08/19 Baclofen [Lioresal] 10 mg PO BID #60 tab 01/08/19 Ibuprofen 800 mg PO TID PRN #90 tablet 01/08/19 traMADol HCl [Ultram] 50 mg PO QID #120 tab 01/08/19 Controlled Substance Measures - Controlled Substance Measures Is patient prescribed a controlled substance at discharge?: Yes When asked, does pt state using other controlled substances?: No If prescribed controlled substance>3 days was MAPS reviewed?: Yes If Rx opioid, was Start Talking consent form obtained?: Yes If opioid is for acute pain is fill amount 7 days or less?: No Was information provided regarding opioid addiction?: Yes
== END | disposition home or self-care (01) ==
LOC: PNWHC3 13:48
PROVIDERS: ATTEND Specialist
DX: G89.29 Other chronic pain (principal); M50.30 Other cervical disc degeneration, unspecified cervical region; M47.812 Spondylosis without myelopathy or radiculopathy, cervical region; M46.92 Unspecified inflammatory spondylopathy, cervical region; G44.89 Other headache syndrome; M54.81 Occipital neuralgia; R20.0 Anesthesia of skin; R20.2 Paresthesia of skin; Z87.891 Personal history of nicotine dependence; Z79.1 Long term (current) use of non-steroidal anti-inflammatories (NSAID); Z79.891 Long term (current) use of opiate analgesic; Z79.2 Long term (current) use of antibiotics; Z79.82 Long term (current) use of aspirin; Z79.899 Other long term (current) drug therapy
CPT/HCPCS: 99211

== ENCOUNTER 2019-01-25 08:12 | Day surgery (SDC) | payer MEDICARE ==
[2019-01-23 11:55] VITALS: BMI 37.2
[2019-01-25 08:42] VITALS: TEMP 97.6
[2019-01-25] MEDS ORDERED: LIDOCAINE 1% 20 ML VIAL (10MG/ML) FOR IV START INTRADERMA ONE (08:52)
--- NOTE | 2019-01-25 10:29 | P.PCN ---
Date of Procedure: 01/25/19 Procedure(s) Performed: PREOPERATIVE DIAGNOSIS: Cervical Spondylosis with Facet Arthropathy.without myelopathy. 2-cervicogenic headache. 3-occipital neuralgia POSTOPERATIVE DIAGNOSIS: Same as preop diagnosis PROCEDURES: Diagnostic bilateral C2 , C3 medial branch blocks, with fluorosc opic guidance (fluoroscopy images available in radiology department ) Diagnostic bilateral cervical occipital nerve block under fluoroscopy guidance ANESTHESIA: Local with 1% lidocaine; moderate sedation with Versed. 2 mg , and fentanyl 50 micrograms EBL: Minimal PROCEDURE INDICATION: The patient with neck pain secondary to cervical arthropathy unresponsive to more conservative treatments. PROCEDURE DESCRIPTION / TECHNIQUE: The patient was seen and identified in the preoperative area. Risks, benefits, complications, and alternatives were discussed with the patient, the patient agreed to proceed with the procedure and signed the consent. IV was started. Vital signs remained stable throughout the procedure. Patient was taken to the OR and time out was completed. The patient was placed in the prone position on the procedure table. A pillow was placed under the patients chest to increase the cervical interlaminar space. The cervical area was prepped and draped in the usual sterile fashion. Critical pause was taken. Vital signs were closely monitored during the procedure. Conscious sedation was used during the procedure to decrease patients anxiety. Using cross-table lateral fluoroscopy, the centroid of the trapezoid of right C2 C3, was identified, marked, and localized with 1% lidocaine 1 ml at each level for skin and Sub Q infiltrations . Subsequently, a 25 G spinal needle was advanced guided by fluoroscopy to the centroid of the trapezoid of Right C2 ,C3, [place] tip position was confirmed at the centroid of the trapezoids of Right C2 , C3 , with anteroposterior fluoroscopy. Subsequently, 2 ml of preservative-free Ropivacaine 0.5% mixed with Depo-Medrol 20 mg and half ml of the mixture was injected after negative aspiration for blood and CSF. [place] was then removed intact the same procedure was repeated at the left C2 ,[id number]. To do the right third occipital nerve block 25-gauge needle placed at the center of the facet joint between the C2 and C3 on the right side after needle placement confirmed and 0.5% ropivacaine half mL injected after negative aspiration and the same procedure was repeated for the left side COMPLICATIONS: No acute complications DISPOSITION / PLANS: The patient was placed in a supine position and transferred to the recovery area in a stable condition for observation and was discharged from the recovery room after meeting discharge criteria. Home discharge instructions given to the patient by the staff. The patient was reexamined prior to discharge. The patient will schedule a follow up in the clinic in 2-4 weeks.
[2019-01-25] MEDS ORDERED: IV FLUID CONTINUATION 500 ML IV ONE (10:32)
[2019-01-25 11:10] VITALS: BP 118/72; PULSE 66; RESP 18
--- NOTE | 2019-01-25 12:18 | FL ---
EXAMINATION TYPE: FL guided pain mgmt statistic DATE OF EXAM: 01/25/2019 FLUOROSCOPY Fluoroscopy time of 12 seconds was used during bilateral cervical facet blocks. 4 image/s document/s the procedure.
== END 2019-01-25 11:11 | disposition home or self-care (01) ==
LOC: ORPAIN 08:12
PROVIDERS: ATTEND Specialist
DX: M47.812 Spondylosis without myelopathy or radiculopathy, cervical region (principal); M54.81 Occipital neuralgia; Z79.82 Long term (current) use of aspirin
CPT/HCPCS: 64490; 64450; J2250; J1030; J3010; 99152

== ENCOUNTER 2019-02-15 08:10 | Day surgery (SDC) | payer MEDICARE ==
[2019-02-14 12:39] VITALS: BMI 37.4
[2019-02-15 08:43] VITALS: TEMP 97.8
[2019-02-15] MEDS ORDERED: LIDOCAINE 1% 20 ML VIAL (10MG/ML) FOR IV START INTRADERMA ONE (08:51)
[2019-02-15] MEDS ORDERED: LACTATED RINGERS 1,000 ML IV ONE (08:51)
--- NOTE | 2019-02-15 10:02 | P.PCN ---
Date of Procedure: 02/15/19 Procedure(s) Performed: PREOPERATIVE DIAGNOSIS: Cervical Spondylosis with Facet Arthropathy.without myelopathy. 2-cervicogenic headache. 3-occipital neuralgia POSTOPERATIVE DIAGNOSIS: Same as preop diagnosis PROCEDURES: Diagnostic bilateral C2 , C3 medial branch blocks, with fluorosc opic guidance (fluoroscopy images available in radiology department ) Diagnostic bilateral 3 rd occipital nerve block under fluoroscopy guidance ANESTHESIA: Local with 1% lidocaine; moderate sedation with Versed. 2 mg , and fentanyl 50 micrograms EBL: Minimal PROCEDURE INDICATION: The patient with neck pain secondary to cervical arthropathy unresponsive to more conservative treatments. PROCEDURE DESCRIPTION / TECHNIQUE: The patient was seen and identified in the preoperative area. Risks, benefits, complications, and alternatives were discussed with the patient, the patient agreed to proceed with the procedure and signed the consent. IV was started. Vital signs remained stable throughout the procedure. Patient was taken to the OR and time out was completed. The patient was placed in the prone position on the procedure table. A pillow was placed under the patients chest to increase the cervical interlaminar space. The cervical area was prepped and draped in the usual sterile fashion. Critical pause was taken. Vital signs were closely monitored during the procedure. Conscious sedation was used during the procedure to decrease patients anxiety. Using cross-table lateral fluoroscopy, the centroid of the trapezoid of right C2 C3, was identified, marked, and localized with 1% lidocaine 1 ml at each level for skin and Sub Q infiltrations . Subsequently, a 25 G spinal needle was advanced guided by fluoroscopy to the centroid of the trapezoid of Right C2 ,C3, [place] tip position was confirmed at the centroid of the trapezoids of Right C2 , C3 , with anteroposterior fluoroscopy. Subsequently, 2 ml of preservative-free Ropivacaine 0.5% mixed with Depo-Medrol 20 mg and half ml of the mixture was injected after negative aspiration for blood and CSF. [place] was then removed intact the same procedure was repeated at the left C2 ,[id number]. To do the right third occipital nerve block 25-gauge needle placed at the center of the facet joint between the C2 and C3 on the right side after needle placement confirmed and 0.5% ropivacaine half mL injected after negative aspiration and the same procedure was repeated for the left side COMPLICATIONS: No acute complications DISPOSITION / PLANS: The patient was placed in a supine position and transferred to the recovery area in a stable condition for observation and was discharged from the recovery room after meeting discharge criteria. Home discharge instructions given to the patient by the staff. The patient was reexamined prior to discharge. The patient will schedule a follow up in the clinic in 2-4 weeks.
[2019-02-15] MEDS ORDERED: IV FLUID CONTINUATION 550 ML IV ONE (10:14)
--- NOTE | 2019-02-15 10:21 | FL ---
EXAMINATION TYPE: FL guided pain mgmt statistic DATE OF EXAM: 02/15/2019 HISTORY: Pain bilateral cervical facets. 12 seconds fl time.
[2019-02-15 10:30] VITALS: BP 127/78; PULSE 71; RESP 16
== END 2019-02-15 10:45 | disposition home or self-care (01) ==
LOC: ORPAIN 08:10
PROVIDERS: ATTEND Specialist
DX: M47.812 Spondylosis without myelopathy or radiculopathy, cervical region (principal); M54.81 Occipital neuralgia; Z88.1 Allergy status to other antibiotic agents
CPT/HCPCS: 64490; 64450; J2250; J1030; J3010; 99152

== ENCOUNTER → 2019-03-05 | Outpatient (CLI) | payer MEDICARE ==
[2019-03-05 14:18] VITALS: BP 158/95; PULSE 91; RESP 20
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
== END | disposition home or self-care (01) ==
LOC: PNWHC3 13:47
PROVIDERS: ATTEND Anesthesiology
DX: M47.22 Other spondylosis with radiculopathy, cervical region (principal); M54.81 Occipital neuralgia; Z87.891 Personal history of nicotine dependence; Z79.82 Long term (current) use of aspirin; Z79.1 Long term (current) use of non-steroidal anti-inflammatories (NSAID); Z79.891 Long term (current) use of opiate analgesic; Z79.899 Other long term (current) drug therapy
CPT/HCPCS: 80307; G0482; G0463; 99211

== ENCOUNTER 2019-04-05 08:52 | Day surgery (SDC) | payer MEDICARE ==
[~2019-04-05 08:52] MED LIST changes: +BUPIVACAINE (PF) 0.5% 30 ML VIAL ONE; -LACTATED RINGERS 1,000 ML IV SCH; +methylPREDNISolone ACETATE 40 MG/ML 1 ML VIAL ONE
[2019-04-05] MEDS ORDERED: LACTATED RINGERS 1,000 ML IV SCH (09:31)
[2019-04-05 09:48] VITALS: RESP 16; TEMP 97.2
[2019-04-05] MEDS ORDERED: LIDOCAINE 1% 20 ML VIAL (10MG/ML) FOR IV START INTRADERMA ONE (09:48)
--- NOTE | 2019-04-05 10:24 | P.PCN ---
Date of Procedure: 04/05/19 Procedure(s) Performed: Pre-operative diagnosis: Bilateral occipital neuralgia Post Operative Diagnosis same Procedure: Bilateral occipital nerve block ANESTHESIA: none EBL: Minimal PROCEDURE INDICATION: The patient with neck pain and headache secondary to occipital neuralgia unresponsive to conservative treatments. PROCEDURE DESCRIPTION / TECHNIQUE: The patient was seen and identified in the preoperative area. Risks, benefits, complications, and alternatives were discussed with the patient, the patient agreed to proceed with the procedure and signed the consent. IV was started. Vital signs remained stable throughout the procedure. Patient was taken to the OR and time out was completed. The patient was placed in the seated position on the procedure table. The cervical area and Bilateral occiptial area were prepped with alcohol swab. Vital signs were closely monitored during the procedure. The Bilateral occiptal ridge was palpated and was then accessed with a 25 G needle. Then after negative aspiration, 3 ml of the block solution containing 2 ml of ropivacaine 0.5% and Depo-Medrol 40 mg was injected. A total of 80 mg of Depo-Medrol was used. Needle was withdrawn intact. Patient tolerated procedure well. No acute complications.
[2019-04-05] MEDS ORDERED: IV FLUID CONTINUATION 1,000 ML IV ONE (10:45)
[2019-04-05 10:46] VITALS: BP 131/70; PULSE 64
== END 2019-04-05 10:57 | disposition home or self-care (01) ==
LOC: ORPAIN 08:52
PROVIDERS: ATTEND Anesthesiology
DX: M54.81 Occipital neuralgia (principal)
CPT/HCPCS: 64405; J1030

== ENCOUNTER → 2019-04-30 | Outpatient (CLI) | payer MEDICARE ==
[2019-04-30 14:02] VITALS: BP 150/95; PULSE 73; RESP 16
--- NOTE | 2019-04-30 14:44 | P.PAINPG ---
Subjective Progress Note Date: 04/30/19 This is follow-up visit for this patient with a history of severe and chronic neck pain and headache ,he is diagnosed with occipital neuralgia, cervical spondylosis with facet arthropathy and cervical degenerative disc disease, a few weeks ago we have done bilateral occipital nerve block which helped his headache The patient currently on Motrin 800 mg every 8 hours and Ultram 50 mg every 6 hours and amitriptyline 100 mg daily at bedtime , baclofen 10 mg twice a day ,Patient denies any side effect of the medication , he denies any excessive drowsiness or sleepiness, patient denies any suicidal ideation,Patient reported that the current medication is helping to control the pain and improve the activity of daily livings,Patient denies any motor or sensory deficit, denies any change in the bowel movement or urination, patient denies any fever or night sweats. Patient here today for medication refill. Objective - Vital Signs Vital signs: Vital Signs Temp Pulse 73 04/30/19 13:53 Resp 16 04/30/19 13:53 BP 150/95 04/30/19 13:53 Pulse Ox 96 04/30/19 13:53 - Exam -Constitutiona : Cooperative , not in acute distress . -HEENT : nech : supple , no Lymphadenopathy , normal thyroid size . eyes : no ptosis , no icterus, no photophobia . ENT : normal of hearing , normal oropharynx , no Thrush . - Respiratory : Chest clear to auscultations Bilaterally , no wheezing , no Rhonchi . - Cardiovascula : regular rate and rhythem , S1 , S2 , no S3 , no S4. - Gastrointestina : abdomen soft no tenderness , bowel sounds , no organomegally . - Genitourinary : Defferred . - neurologic : Cranial nerve II to XII intact , no focal neurological deffecit . -psychatric : alert , oriented X 3 , appropriate affect , intact judgment and insight . -Lymphatic : no Lymphadenopathy . - musculoskeltal : Cervical Spine motor stregnth in the deltoid and biceps, normal right side , normal Left side motor stregnth biceps and the wrist extensors normal right side ,normal left side . motor stregnth in the triceps muscle . normal Right side , normal Left side deep tendon reflexes normal at the biceps , normal at Brachioradialis , normal at triceps. cervical facet loading test: Positive Bilaterally Tenderness over the occipital nerve bilaterally Lumber spine moter stegnth lower extremities ,thigh and legs 5/5 Right side , 5/5 Left side . Assessment and Plan Plan: chronic neck pain secondary to cervical degenerative disc disease , cervical spondylosis with facet arthropathy . Occipital neuralgia, cervical genic headache chronic and current use of high-risk medication (opioids) Patient denies any side effects of the current pain medication and the current treatment/medication helping the patient to do activity of daily living , Diagnoses, prognosis, treatment options, including but not limited to physical therapy, medication management, interventional therapies, and surgery, were discussed with the patient All the questions answered The narcotic consent was signed and patient agreed and understood the side effects and complications of opioid treatment. Patient signed the narcotic agreement, and was orally counseled, not to overuse, not to abuse, not to Divert , not tp sell pain medication, and to take it as prescribed only, Patient was counseled not to drive or operate heavy equipment while using narcotic medication, and advised not to use alcohol or any Illicit drugs while using the narcotis. understanding that lack of compliance with any of the above instructions, will likely to cause discharge from, the pain service, not to renew his narcotic prescriptions MAPS Reviwed and it was apropriate . Medication managements= patient will be given prescription refills for baclofen 10 mg twice a day dispense 60 with 1 refill, recommend to increase the Elavil to 100 mg daily at bedtime Dispense 30 with one refill, continue Motrin 800 mg 3 times a day, Ultram 50 mg every 6 hours dispense 120 with one refill . Time with Patient: Less than 30 PQRS Measure Charge Sheet Measure #130: Documentation of Current Meds in Medical Chart: Patient's medications documented in chart Measure #226: Tobacco Use: Screen & Cessation Intervention: Pt not a tobacco user Measure #111: Pneumonia Vaccination: Pneumococcal vaccine NOT administered or previously given Measure #47: Advance Care Plan: Advance care planning discussed & documented, pt chose/unable to give Measure #412: Opioid Treatment Agreement: Documented signed opioid trtmnt agreemnt min once during opioid trtmnt Measure #408: Opioid Therapy Follow-up Evaluation: Patient had f/u eval minimum every 3 months during opioid therapy Measure #317: Preventitive Care & Scrn High Bld Press & F/U: Pre-hypertensive or hypertensive BP documented, pt will f/u with PCP Measure #128: Body Mass Index (BMI) Screening & Follow-up: BMI documented ABOVE normal parameters - f/u documented Measure #131: Pain Assessment & Follow-up: Pain positive & plan documented, Fo llow-up scheduled Measure #431: Unhealthy Alcohol Use Preventative Care & Scrn: Patient not identified as an unhealthy alcohol user PQRS Narrative: Smoking Status Former smoker Narcotic Agreement Date Signed 03/05/19 Blood Pressure 150/95 Pain Intensity [Posterior Head 4 ] Scale Used Numeric (1 - 10) Hx Alcohol Use (MH) No: quit 2016 Home Medications: Ambulatory Orders Lisinopril-Hctz 10-12.5 mg [Zestoretic 10-12.5] 1 tab PO QAM 01/20/16 Butalb/APAP/Caff 50-325-40Mg [Fioricet 50-325-40] 1 tab PO BID 02/15/17 Multivitamin [Men's Multi-Vitamin] 1 tab PO DAILY 08/08/17 Propylene Glycol/Peg 400/Pf [Systane 0.3-0.4% Eye Drops] 1 drop BOTH EYES TID 08/08/17 Topiramate [Topamax] 100 mg PO HS 08/08/17 diphenhydrAMINE [Benadryl] 100 mg PO HS PRN 10/19/17 Aspirin 325 mg PO DAILY 10/31/17 Ranitidine HCl 150 mg PO BID PRN 10/31/17 Atorvastatin [Lipitor] 40 mg PO QAM 11/11/17 Acetaminophen Tab [Tylenol Tab] 2,000 mg PO BID PRN 02/08/18 Citalopram Hydrobromide [CeleXA] 40 mg PO DAILY 02/08/18 Cyanocobalamin (Vitamin B-12) [Vitamin B-12] 2,000 mcg PO DAILY 06/07/18 Prednisolone Acetate/Pf [Prednisolone Acet 1% Eye Drop] 1 drop RIGHT EYE TID 08/29/18 Topiramate [Topamax] 50 mg PO DAILY PRN 09/20/18 Amitriptyline HCl [Elavil] 100 mg PO HS #30 tab 01/08/19 Baclofen [Lioresal] 10 mg PO BID #60 tab 01/08/19 Ibuprofen 800 mg PO TID PRN #90 tablet 01/08/19 traMADol HCl [Ultram] 50 mg PO QID #120 tab 01/08/19 Controlled Substance Measures - Controlled Substance Measures Is patient prescribed a controlled substance at discharge?: Yes When asked, does pt state using other controlled substances?: No If prescribed controlled substance>3 days was MAPS reviewed?: Yes If Rx opioid, was Start Talking consent form obtained?: Yes If opioid is for acute pain is fill amount 7 days or less?: No Was information provided regarding opioid addiction?: Yes
== END | disposition home or self-care (01) ==
LOC: PNWHC3 12:54
PROVIDERS: ATTEND Specialist
DX: G89.29 Other chronic pain (principal); M51.36 Other intervertebral disc degeneration, lumbar region; M47.812 Spondylosis without myelopathy or radiculopathy, cervical region; M46.92 Unspecified inflammatory spondylopathy, cervical region; M54.81 Occipital neuralgia; Z87.891 Personal history of nicotine dependence; Z79.891 Long term (current) use of opiate analgesic; Z79.899 Other long term (current) drug therapy; Z79.82 Long term (current) use of aspirin; Z79.52 Long term (current) use of systemic steroids; Z79.1 Long term (current) use of non-steroidal anti-inflammatories (NSAID)
CPT/HCPCS: 99211

== ENCOUNTER → 2019-08-29 | Outpatient (CLI) | payer MEDICARE ==
--- NOTE | 2019-08-29 11:46 | P.PAINPG ---
Subjective Progress Note Date: 08/29/19 Mr Joe is a 59 y/o male with cervical spondylosis, occipital neuralgia who was seen via telemedicine visit today. He continues to have the same pain, vas 5-7/10, no new symptoms. He continues to have neck pain, ringing in his ears, sleeping disturbance. He is having headaches as well. Trouble with sleeping, cant turn alot due to pain in the neck. No n/t down the arms. No lower ext weakness, bowel or bladder incontenance. Pain medications working well, no side effects. Objective - Exam GENERAL: Awake, alert, oriented, no distress HENT: atraumatic, normocephalic, trachea midline, nose midline RESP: NO audible wheezing, no coughing CARDIO: Reg rate (per patient palpation), no edema ABDOMEN: Non tender (per patient), no distension CERVICAL SPINE: Range of motion decreased, Spurling Negative LUMBAR SPINE: Limited range of motion secondary to pain, pain with flexion and extension of the Lumbar spine. NEURO: Gait is Normal, Sensation in Lower ext normal (per patient) PSYCH: Cooperative, normal affect. Assessment and Plan Assessment: Cervical spondylosis without myelopathy Occipital neuralgia Plan: Plan is to refill the medication for 90 days, set up for repeat occipital nerve block b/l. PQRS Measure Charge Sheet Measure #130: Documentation of Current Meds in Medical Chart: Patient's medications documented in chart Measure #226: Tobacco Use: Screen & Cessation Intervention: Pt screened for tobacco use AND intervention given Measure #111: Pneumonia Vaccination: Pneumococcal vaccine NOT administered or previously given Measure #47: Advance Care Plan: Advance care planning discussed & documented, plan or surrogate given Measure #412: Opioid Treatment Agreement: Documented signed opioid trtmnt agreemnt min once during opioid trtmnt Measure #408: Opioid Therapy Follow-up Evaluation: Patient had f/u eval minimum every 3 months during opioid therapy Measure #317: Preventitive Care & Scrn High Bld Press & F/U: Blood pressure not documented, patient not eligible Measure #128: Body Mass Index (BMI) Screening & Follow-up: BMI documented within normal parameters Measure #131: Pain Assessment & Follow-up: Pain positive & plan documented Measure #431: Unhealthy Alcohol Use Preventative Care & Scrn: Patient not identified as an unhealthy alcohol user PQRS Narrative: Smoking Status Former smoker Narcotic Agreement Date Signed 03/05/19 Hx Alcohol Use (MH) Yes: rare Home Medications: Ambulatory Orders Lisinopril-Hctz 10-12.5 mg [Zestoretic 10-12.5] 1 tab PO QAM 01/20/16 Butalb/APAP/Caff 50-325-40Mg [Fioricet 50-325-40] 1 tab PO BID 02/15/17 Multivitamin [Men's Multi-Vitamin] 1 tab PO DAILY 08/08/17 Propylene Glycol/Peg 400/Pf [Systane 0.3-0.4% Eye Drops] 1 drop BOTH EYES TID 08/08/17 Topiramate [Topamax] 100 mg PO HS 08/08/17 diphenhydrAMINE [Benadryl] 100 mg PO HS PRN 10/19/17 Aspirin 325 mg PO DAILY 10/31/17 Ranitidine HCl 150 mg PO BID PRN 10/31/17 Atorvastatin [Lipitor] 40 mg PO QAM 11/11/17 Acetaminophen Tab [Tylenol Tab] 2,000 mg PO BID PRN 02/08/18 Citalopram Hydrobromide [CeleXA] 40 mg PO DAILY 02/08/18 Cyanocobalamin (Vitamin B-12) [Vitamin B-12] 2,000 mcg PO DAILY 06/07/18 Prednisolone Acetate/Pf [Prednisolone Acet 1% Eye Drop] 1 drop RIGHT EYE TID 08/29/18 Topiramate [Topamax] 50 mg PO DAILY PRN 09/20/18 Amitriptyline HCl [Elavil] 100 mg PO HS #30 tab 01/08/19 Baclofen [Lioresal] 10 mg PO BID #60 tab 01/08/19 Ibuprofen 800 mg PO TID PRN #90 tablet 01/08/19 traMADol HCl [Ultram] 50 mg PO QID #120 tab 01/08/19 Controlled Substance Measures - Controlled Substance Measures Is patient prescribed a controlled substance at discharge?: Yes When asked, does pt state using other controlled substances?: No If prescribed controlled substance>3 days was MAPS reviewed?: Yes If Rx opioid, was Start Talking consent form obtained?: Yes If opioid is for acute pain is fill amount 7 days or less?: No Was information provided regarding opioid addiction?: Yes
== END | disposition home or self-care (01) ==
LOC: PNWHC3 07:03
PROVIDERS: ATTEND Hospitalist
DX: Z53.9 Procedure and treatment not carried out, unspecified reason (principal)

== ENCOUNTER → 2019-09-12 | Outpatient (CLI) | payer MEDICARE ==
[2019-09-12 13:24] VITALS: BP 131/84; PULSE 86; RESP 16
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
== END | disposition home or self-care (01) ==
LOC: PNWHC3 13:03
PROVIDERS: ATTEND Anesthesiology
DX: M47.22 Other spondylosis with radiculopathy, cervical region (principal); R51 Headache; M54.81 Occipital neuralgia; Z79.891 Long term (current) use of opiate analgesic; Z79.899 Other long term (current) drug therapy; Z79.52 Long term (current) use of systemic steroids; Z79.82 Long term (current) use of aspirin
CPT/HCPCS: 99211

== ENCOUNTER 2019-10-02 09:36 | Day surgery (SDC) | payer MEDICARE ==
[2019-09-27 09:33] VITALS: BMI 37.2
[~2019-10-02 09:36] MED LIST changes: -BUPIVACAINE (PF) 0.5% 30 ML VIAL ONE; +LACTATED RINGERS 1,000 ML IV SCH; -methylPREDNISolone ACETATE 40 MG/ML 1 ML VIAL ONE
[2019-10-02 10:37] VITALS: TEMP 96.5
[2019-10-02] MEDS ORDERED: methylPREDNISolone ACETATE 40 MG/ML 1 ML VIAL ONE (11:05)
[2019-10-02] MEDS ORDERED: ROPIVACAINE 5MG/ML 20ML VIAL ONE (11:05)
--- NOTE | 2019-10-02 11:21 | P.PCN ---
Date of Procedure: 10/02/19 Procedure(s) Performed: PREOPERATIVE DIAGNOSIS: 1-Cervical spondylosis with Facet Arthropathy without myelopathy 2-cervical degenerative disc disease. 3-occipital neuralgia. 4-myofascial pain syndrome cervical paraspinal muscles, rhomboid muscles, trapezius muscles bilaterally. POSTOPERATIVE DIAGNOSIS: Same as preoperative diagnoses. PROCEDURES: Trigger point injections cervical paraspinal muscles, rhomboid muscles trapezius muscles bilaterally ( total of 6 trigger points injected ) ANESTHESIA: none EBL: Minimal PROCEDURE INDICATION: The patient with neck pain secondary to cervical arthropathy and myofascial pain syndrome cervical area is here today to have trigger point injection in the cervical paraspinal muscles trapezius muscles and rhomboid muscles bilaterally. PROCEDURE DESCRIPTION / TECHNIQUE: The patient was seen and identified in the preoperative area. Risks, benefits, complications, and alternatives were discussed with the patient, the patient agreed to proceed with the procedure and signed the consent.. Vital signs remained stable throughout the procedure. Patient was taken to the OR and time out was completed. The patient was placed in the sitting position, all the trigger point that is identified in the preop holding area and the cervical paraspinal muscles and the trapezius muscles and the rhomboid muscles bilaterally each muscle injected with 2 mL of the mixture of ropivacaine 0.5% and 40 mg of Depo-Medrol, total of 12 ML of the mixture used, injection done using 22-gauge needle and injection done after negative aspiration under was no paresthesia during the injection, patient tolerated the procedure well without any claudications total of 6 trigger point injected 3 on the right side cervical paraspinal muscles, trapezius muscles ,and rhomboid muscles, and 3 on the left side cervical paraspinal muscles trapezius muscles and rhomboid muscles, patient tolerated the procedure well without any condition and he will follow up in the pain clinic in a few weeks
[2019-10-02 11:29] VITALS: BP 139/74; PULSE 65; RESP 16
== END 2019-10-02 11:39 | disposition home or self-care (01) ==
LOC: ORPAIN 09:36
PROVIDERS: ATTEND Specialist
DX: M47.812 Spondylosis without myelopathy or radiculopathy, cervical region (principal); M50.30 Other cervical disc degeneration, unspecified cervical region; M54.81 Occipital neuralgia; M79.18 Myalgia, other site; I10 Essential (primary) hypertension; E78.5 Hyperlipidemia, unspecified; G47.33 Obstructive sleep apnea (adult) (pediatric); J45.909 Unspecified asthma, uncomplicated; Z88.1 Allergy status to other antibiotic agents
CPT/HCPCS: 20553

== ENCOUNTER → 2019-10-23 | Outpatient (CLI) | payer MEDICARE ==
[2019-10-23 14:21] VITALS: BP 143/86; PULSE 84; RESP 18
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
== END ==
LOC: PNWHC3 13:09
PROVIDERS: ATTEND Anesthesiology
DX: M47.22 Other spondylosis with radiculopathy, cervical region (principal); R51 Headache; M54.81 Occipital neuralgia; Z79.899 Other long term (current) drug therapy; Z79.891 Long term (current) use of opiate analgesic; Z79.82 Long term (current) use of aspirin; Z79.1 Long term (current) use of non-steroidal anti-inflammatories (NSAID); Z87.891 Personal history of nicotine dependence
CPT/HCPCS: 99211

== ENCOUNTER 2019-11-13 09:10 | Day surgery (SDC) | payer MEDICARE ==
[2019-11-12 10:09] VITALS: BMI 36.5
[2019-11-13 10:40] VITALS: TEMP 97.1
[2019-11-13] MEDS ORDERED: ROPIVACAINE 5MG/ML 20ML VIAL ONE (11:13)
[2019-11-13] MEDS ORDERED: methylPREDNISolone ACETATE 40 MG/ML 1 ML VIAL ONE (11:13)
[2019-11-13 11:31] VITALS: RESP 16
[2019-11-13 11:38] VITALS: BP 140/84; PULSE 72
--- NOTE | 2019-11-13 14:20 | P.PCN ---
Date of Procedure: 11/13/19 Description of Procedure: PREOPERATIVE DIAGNOSIS: 1-Cervical spondylosis with Facet Arthropathy without myelopathy 2-cervical degenerative disc disease. 3-occipital neuralgia. 4-myofascial pain syndrome cervical paraspinal muscles, rhomboid muscles, trapezius muscles bilaterally. POSTOPERATIVE DIAGNOSIS: Same as preoperative diagnoses. PROCEDURES: Bilateral occipital nerve block Trigger point injections cervical paraspinal muscles, rhomboid muscles trapezius muscles bilaterally ( total of 6 trigger points injected ) ANESTHESIA: none EBL: Minimal PROCEDURE INDICATION: The patient with neck pain secondary to cervical arthropathy, occipital neuralgia, and myofascial pain syndrome cervical area is here today to have bilateral occipital nerve blocks and trigger point injection in the cervical paraspinal muscles trapezius muscles and rhomboid muscles bilaterally. PROCEDURE DESCRIPTION / TECHNIQUE: The patient was seen and identified in the preoperative area. Risks, benefits, complications, and alternatives were discussed with the patient, the patient agreed to proceed with the procedure and signed the consent.. Vital signs remained stable throughout the procedure. Patient was taken to the OR and time out was completed. The patient was placed in the seated position on the procedure table. The cervical area and Bilateral occipital area were prepped with alcohol swab. Vital signs were closely monitored during the procedure. The Bilateral occiptal ridge was palpated and was then accessed with a 25 G needle. Then after negative aspiration, 5 ml of the block solution containing 24ml of ropivacaine 0.5% and Depo-Medrol 40 mg was injected. A total of 80 mg of Depo-Medrol was used. Needle was withdrawn intact. I then turned my attention to the patient's cervical trigger point injections. all the trigger point that is identified in the preop holding area and the cervical paraspinal muscles and the trapezius muscles and the rhomboid muscles bilaterally each muscle injected with 1 mL of the mixture of ropivacaine 0.5%, total of6 ML of the mixture used, injection done using 22-gauge needle and injection done after negative aspiration under was no paresthesia during the injection, patient tolerated the procedure well without any claudications total of 6 trigger point injected 3 on the right side cervical paraspinal muscles, trapezius muscles ,and rhomboid muscles, and 3 on the left side cervical paraspinal muscles trapezius muscles and rhomboid muscles, patient tolerated the procedure well without any condition and he will follow up in the pain clinic in a few weeks
== END 2019-11-13 11:42 | disposition home or self-care (01) ==
LOC: ORPAIN 09:10
PROVIDERS: ATTEND Anesthesiology
DX: M54.81 Occipital neuralgia (principal); M47.812 Spondylosis without myelopathy or radiculopathy, cervical region; M79.18 Myalgia, other site; M50.10 Cervical disc disorder with radiculopathy, unspecified cervical region; Z88.1 Allergy status to other antibiotic agents
CPT/HCPCS: 64405; J1030; J2795

== ENCOUNTER → 2020-01-16 | Outpatient (CLI) | payer MEDICARE ==
[2020-01-16 12:35] VITALS: BP 114/82; PULSE 87; RESP 14; TEMP 98.3
--- NOTE | 2020-01-17 09:00 | P.PN ---
Subjective Progress Note Date: 01/16/20 This is follow-up visit for this patient with a history of severe and chronic neck pain and headache ,he is diagnosed with occipital neuralgia, cervical spondylosis with facet arthropathy and cervical degenerative disc disease, and myofascial pain syndrome and cervical area The patient currently on Motrin 800 mg every 8 hours and Ultram 50 mg every 6 hours and amitriptyline 100 mg daily at bedtime , baclofen 10 mg twice a day ,Patient denies any side effect of the medication , he denies any excessive drowsiness or sleepiness, patient denies any suicidal ideation,Patient reported that the current medication is helping to control the pain and improve the activity of daily livings,Patient denies any motor or sensory deficit, denies any change in the bowel movement or urination, patient denies any fever or night sweats. Patient here today for medication refill. Objective Physical exam -Constitutiona : Cooperative , not in acute distress . -HEENT : nech : supple , no Lymphadenopathy , normal thyroid size . eyes : no ptosis , no icterus, no photophobia . ENT : normal of hearing , normal oropharynx , no Thrush . - Respiratory : Chest clear to auscultations Bilaterally , no wheezing , no Rhonchi . - Cardiovascula : regular rate and rhythem , S1 , S2 , no S3 , no S4. - Gastrointestina : abdomen soft no tenderness , bowel sounds , no organomegally . - Genitourinary : Defferred . - neurologic : Cranial nerve II to XII intact , no focal neurological deffecit . -psychatric : alert , oriented X 3 , appropriate affect , intact judgment and insight . -Lymphatic : no Lymphadenopathy . - musculoskeltal : Cervical Spine motor stregnth in the deltoid and biceps, normal right side , normal Left side motor stregnth biceps and the wrist extensors normal right side ,normal left side . motor stregnth in the triceps muscle . normal Right side , normal Left side deep tendon reflexes normal at the biceps , normal at Brachioradialis , normal at triceps. cervical facet loading test: Positive Bilaterally Tenderness over the occipital nerve bilaterally Multiple trigger point identified in the cervical paraspinal muscles and trapezius and rhomboid muscles bilaterally Lumber spine moter stegnth lower extremities ,thigh and legs 5/5 Right side , 5/5 Left side . Assessment and Plan chronic neck pain secondary to cervical degenerative disc disease , cervical spondylosis with facet arthropathy . Occipital neuralgia, cervical genic headache chronic and current use of high-risk medication (opioids) Patient denies any side effects of the current pain medication and the current treatment/medication helping the patient to do activity of daily living , Diagnoses, prognosis, treatment options, including but not limited to physical therapy, medication management, interventional therapies, and surgery, were discussed with the patient All the questions answered The narcotic consent was signed and patient agreed and understood the side effects and complications of opioid treatment. Patient signed the narcotic agreement, and was orally counseled, not to overuse, not to abuse, not to Divert , not tp sell pain medication, and to take it as prescribed only, Patient was counseled not to drive or operate heavy equipment while using narcotic medication, and advised not to use alcohol or any Illicit drugs while using the narcotis. understanding that lack of compliance with any of the above instructions, will likely to cause discharge from, the pain service, not to renew his narcotic prescriptions MAPS Reviwed and it was apropriate . Medication managements= patient will be given prescription refills for baclofen 10 mg twice a day dispense 60 with 1 refill, recommend to increase the Elavil to 100 mg daily at bedtime Dispense 30 with one refill, continue Motrin 800 mg 3 times a day, Ultram 50 mg every 6 hours dispense 120 with one refill . Patient could benefit from trigger point injections cervical paraspinal muscles and trapezius muscles , rhomboid bilaterally Patient could benefit from physical therapy evaluation and treatment/aquatic therapy. referral for physical therapy aquatic therapy given Time with Patient: Less than 30 PQRS Measure Charge Sheet Measure #130: Documentation of Current Meds in Medical Chart: Patient's medications documented in chart Measure #226: Tobacco Use: Screen & Cessation Intervention: Pt not a tobacco user Measure #111: Pneumonia Vaccination: Pneumococcal vaccine NOT administered or previously given Measure #47: Advance Care Plan: Advance care planning discussed & documented, pt chose/unable to give Measure #412: Opioid Treatment Agreement: Documented signed opioid trtmnt agreemnt min once during opioid trtmnt Measure #408: Opioid Therapy Follow-up Evaluation: Patient had f/u eval minimum every 3 months during opioid therapy Measure #317: Preventitive Care & Scrn High Bld Press & F/U: BP documented 114/82, pt will f/u with PCP Measure #128: Body Mass Index (BMI) Screening & Follow-up: BMI documented ABOVE normal parameters - f/u documented Measure #131: Pain Assessment & Follow-up: Pain positive & plan documented, Follow-up scheduled Measure #431: Unhealthy Alcohol Use Preventative Care & Scrn: Patient not liliam ntified as an unhealthy alcohol user PQRS Narrative: Objective - Vital Signs Vital signs: Vital Signs Temp 98.3 F 01/16/20 12:28 Pulse 87 01/16/20 12:28 Resp 14 01/16/20 12:28 BP 114/82 01/16/20 12:28 Pulse Ox 97 01/16/20 12:28
== END | disposition home or self-care (01) ==
LOC: PNWHC3 12:07
PROVIDERS: ATTEND Specialist
DX: G89.29 Other chronic pain (principal); M50.30 Other cervical disc degeneration, unspecified cervical region; M47.812 Spondylosis without myelopathy or radiculopathy, cervical region; R51.9 Headache, unspecified
CPT/HCPCS: 99211

== ENCOUNTER 2020-02-05 09:32 | Day surgery (SDC) | payer MEDICARE ==
[2020-02-05 09:58] VITALS: RESP 16; TEMP 96.8
[2020-02-05] MEDS ORDERED: LIDOCAINE 1% (10MG/ML) FOR IV START INTRADERMA ONE (10:10)
[2020-02-05] MEDS ORDERED: ROPIVACAINE 5MG/ML 20ML VIAL ONE (10:43)
[2020-02-05] MEDS ORDERED: methylPREDNISolone ACETATE 40 MG/ML 1 ML VIAL ONE (10:43)
[2020-02-05] MEDS ORDERED: fentaNYL (PF) 50 MCG/ML 2 ML AMP ONE (10:43)
[2020-02-05] MEDS ORDERED: LIDOCAINE 1% INJ 10MG/ML (20 ML MDV) ONE (10:43)
[2020-02-05] MEDS ORDERED: MIDAZOLAM 2 MG/2 ML VIAL ONE (10:43)
[2020-02-05] MEDS ORDERED: IV FLUID CONTINUATION 1,000 ML IV ONE (11:01)
--- NOTE | 2020-02-05 11:02 | P.PCN ---
Date of Procedure: 02/05/20 Procedure(s) Performed: . PROCEDURE 1. trigger points injection cervical paraspinal muscles, rhomboid muscles, trapezius muscles bilaterally, return of 6 trigger point injected 4 on the left side and 2 on the right side cervical area PREOPERATIVE DIAGNOSIS: 1- Cervical Degenerative Disc Diseases 2- myofascial pain syndrome 3-cervical spondylosis with cervical Facet arthropathy without myelopathy POSTOPERATIVE DIAGNOSIS: : Same as preop diagnosis. ANESTHESIA: Local anesthesia with lidocaine 1 % , and moderate sedation, with Versed 2 mg and Fentanyl 100 mcg. EBL 0 PROCEDURE INDICATION: The patient with neck pain unresponsive to conservative treatment, the exam was positive for multiple trigger point identified in the cervical paraspinal muscles and rhomboid muscles and trapezius muscles bilaterally PROCEDURE DESCRIPTION / TECHNIQUE: The patient was seen and identified in the preoperative area. Risks, benefits, complications, including but not limited to infections ,bleeding , allergic reactions to the medications ,and not complete pain releife, and alternatives were discussed with the patient, the patient agreed to proceed with the procedure and signed the consent. Patient was taken to the OR and time out was completed. The patient was placed in the sitting position on the procedure table. A pillow was placed under the patients chest to increase the cervical interlaminar space. The cervical area was prepped and draped in the usual sterile fashion. Vital signs were closely monitored during the procedure. Conscious sedation was used during the procedure to decrease patients and anxiety, each of the trigger point injected with 2 mL of the mixture of ropivacaine 0.5% 12 mL mixed with 40 mg of Depo-Medrol, 2 mL of the mixture injected at each trigger point after negative aspiration using 25-gauge needle, 4 trigger point injected on the left side cervical paraspinal muscles on the rhomboid muscles and trapezius muscles on the left side, and to trigger point injected on the right side cervical paraspinal muscles, injection done after negative aspiration under was no paresthesia during the injection, tolerated the procedure well without any complications Complications= none. Disposition= patient was placed in supine position and transferred to the rec overy room area in stable condition and there was no evidence of upper or lower extremity motor or sensory deficit after the procedure patient was discharged from recovery room after discharge criteria met and home discharge instructions was given by the staff and patient will follow with the pain clinic in 2-4 weeks
[2020-02-05 11:28] VITALS: BP 128/74; PULSE 72
== END 2020-02-05 11:32 | disposition home or self-care (01) ==
LOC: ORPAIN 09:32
PROVIDERS: ATTEND Specialist
DX: M50.30 Other cervical disc degeneration, unspecified cervical region (principal); Z88.1 Allergy status to other antibiotic agents
CPT/HCPCS: 20553; J2250; J1030; J2001; J3010; J2795; 99152

== ENCOUNTER → 2020-04-09 | Outpatient (CLI) | payer MEDICARE ==
[2020-04-09 13:14] VITALS: BP 140/82; PULSE 91; RESP 18; TEMP 98.1
--- NOTE | 2020-04-10 07:24 | P.PN ---
Subjective Progress Note Date: 04/09/20 This is follow-up visit for this patient with a history of severe and chronic neck pain and headache ,he is diagnosed with occipital neuralgia, cervical spondylosis with facet arthropathy and cervical degenerative disc disease, and myofascial pain syndrome and cervical area The patient currently on Motrin 800 mg every 8 hours and Ultram 50 mg every 6 hours and amitriptyline 100 mg daily at bedtime , baclofen 10 mg twice a day ,Patient denies any side effect of the medication , he denies any excessive drowsiness or sleepiness, patient denies any suicidal ideation,Patient reported that the current medication is helping to control the pain and improve the activity of daily livings,Patient denies any motor or sensory deficit, denies any change in the bowel movement or urination, patient denies any fever or night sweats. Patient here today for medication refill. Previously we have done trigger point injection in the cervical area which helped to some degree but patient continued to have severe muscle spasm in the cervical area and is continued to cause severe neck pain interfered with his activities of daily livings Objective - Vital Signs Vital signs: Vital Signs Temp 98.1 F 04/09/20 13:10 Pulse 91 04/09/20 13:10 Resp 18 04/09/20 13:10 BP 140/82 04/09/20 13:10 Pulse Ox 96 04/09/20 13:10 Intake & Output 04/08/20 04/09/20 04/09/20 18:59 06:59 18:59 Weight 117.934 kg - Exam -Constitutiona : Cooperative , not in acute distress . -HEENT : nech : supple , no Lymphadenopathy , normal thyroid size . eyes : no ptosis , no icterus, no photophobia . ENT : normal of hearing , normal oropharynx , no Thrush . - Respiratory : Chest clear to auscultations Bilaterally , no wheezing , no Rhonchi . - Cardiovascula : regular rate and rhythem , S1 , S2 , no S3 , no S4. - Gastrointestina : abdomen soft no tenderness , bowel sounds , no organomegally . - Genitourinary : Defferred . - neurologic : Cranial nerve II to XII intact , no focal neurological deffecit . -psychatric : alert , oriented X 3 , appropriate affect , intact judgment and insight . -Lymphatic : no Lymphadenopathy . - musculoskeltal : Cervical Spine motor stregnth in the deltoid and biceps, normal right side , normal Left side motor stregnth biceps and the wrist extensors normal right side ,normal left side . motor stregnth in the triceps muscle . normal Right side , normal Left side deep tendon reflexes normal at the biceps , normal at Brachioradialis , normal at triceps. cervical facet loading test: Positive Bilaterally Tenderness over the occipital nerve bilaterally Multiple trigger point identified in the cervical paraspinal muscles and trapezius and rhomboid muscles bilaterally Lumber spine moter stegnth lower extremities ,thigh and legs 5/5 Right side , 5/5 Left side . Assessment and Plan Plan: chronic neck pain secondary to cervical degenerative disc disease , cervical spondylosis with facet arthropathy . Occipital neuralgia, cervical genic headac he chronic and current use of high-risk medication (opioids) Patient denies any side effects of the current pain medication and the current treatment/medication helping the patient to do activity of daily living , Diagnoses, prognosis, treatment options, including but not limited to physical therapy, medication management, interventional therapies, and surgery, were discussed with the patient All the questions answered The narcotic consent was signed and patient agreed and understood the side effects and complications of opioid treatment. Patient signed the narcotic agreement, and was orally counseled, not to overuse, not to abuse, not to Divert , not tp sell pain medication, and to take it as prescribed only, Patient was counseled not to drive or operate heavy equipment while using narcotic medication, and advised not to use alcohol or any Illicit drugs while using the narcotis. understanding that lack of compliance with any of the above instructions, will likely to cause discharge from, the pain service, not to renew his narcotic prescriptions MAPS Reviwed and it was apropriate . Medication managements= patient will be given prescription refills for baclofen 10 mg with hours when necessary dispense 90 with 1 refill (increase from twice a day ), continue Elavil to 100 mg daily at bedtime Dispense 30 with one refill, continue Motrin 800 mg 3 times a day, Ultram 50 mg every 6 hours dispense 120 with one refill . Patient could benefit from physical therapy evaluation and treatment/aquatic therapy. referral for physical therapy aquatic therapy given Urine drug screen ordered Time with Patient: Less than 30 PQRS Measure Charge Sheet Measure #130: Documentation of Current Meds in Medical Chart: Patient's medications documented in chart Measure #226: Tobacco Use: Screen & Cessation Intervention: Pt not a tobacco user Measure #111: Pneumonia Vaccination: Pneumococcal vaccine NOT administered or previously given Measure #47: Advance Care Plan: Advance care planning discussed & documented, pt chose/unable to give Measure #412: Opioid Treatment Agreement: Documented signed opioid trtmnt agreemnt min once during opioid trtmnt Measure #408: Opioid Therapy Follow-up Evaluation: Patient had f/u eval minimum every 3 months during opioid therapy Measure #317: Preventitive Care & Scrn High Bld Press & F/U: BP documented 140/82, pt will f/u with PCP Measure #128: Body Mass Index (BMI) Screening & Follow-up: BMI documented ABOVE normal parameters - f/u documented Measure #131: Pain Assessment & Follow-up: Pain positive & plan documented, Follow-up scheduled Measure #431: Unhealthy Alcohol Use Preventative Care & Scrn: Patient not identi fied as an unhealthy alcohol user PQRS Narrative: Time with Patient: Less than 30
== END | disposition home or self-care (01) ==
LOC: PNWHC3 12:34
PROVIDERS: ATTEND Specialist
DX: M50.30 Other cervical disc degeneration, unspecified cervical region (principal); M47.812 Spondylosis without myelopathy or radiculopathy, cervical region; M54.81 Occipital neuralgia
CPT/HCPCS: 80307; G0482; G0463; 99212

== ENCOUNTER → 2020-06-18 | Outpatient (CLI) | payer MEDICARE ==
[2020-06-18 11:10] VITALS: BP 153/91; PULSE 86; RESP 16; TEMP 97.7
--- NOTE | 2020-06-18 12:47 | P.PN ---
Subjective Progress Note Date: 06/18/20 This is follow-up visit for this patient with a history of severe and chronic neck pain and headache ,he is diagnosed with occipital neuralgia, cervical spondylosis with facet arthropathy and cervical degenerative disc disease, and myofascial pain syndrome and cervical area The patient currently on Motrin 800 mg every 8 hours when necessary ,and Ultram 50 mg every 6 hours, and amitriptyline 100 mg daily at bedtime , baclofen 10 mg Q8 hours ,Patient denies any side effect of the medication , he denies any excessive drowsiness or sleepiness, patient denies any suicidal ideation,Patient reported that the current medication is helping to control the pain and improve the activity of daily livings,Patient denies any motor or sensory deficit, denies any change in the bowel movement or urination, patient denies any fever or night sweats.Patient here today for medication refill. Previously we have done trigger point injection in the cervical area which helped to some degree but patient continued to have severe muscle spasm in the cervical area and is continued to cause severe neck pain interfered with his activities of daily livings, is already done physical therapy - Exam -Constitutiona : Cooperative , not in acute distress . -HEENT : nech : supple , no Lymphadenopathy , normal thyroid size . eyes : no ptosis , no icterus, no photophobia . ENT : normal of hearing , normal oropharynx , no Thrush . - Respiratory : Chest clear to auscultations Bilaterally , no wheezing , no Rhonchi . - Cardiovascula : regular rate and rhythem , S1 , S2 , no S3 , no S4. - Gastrointestina : abdomen soft no tenderness , bowel sounds , no organomegally . - Genitourinary : Defferred . - neurologic : Cranial nerve II to XII intact , no focal neurological deffecit . -psychatric : alert , oriented X 3 , appropriate affect , intact judgment and insight . -Lymphatic : no Lymphadenopathy . - musculoskeltal : Cervical Spine motor stregnth in the deltoid and biceps, normal right side , normal Left side motor stregnth biceps and the wrist extensors normal right side ,normal left side . motor stregnth in the triceps muscle . normal Right side , normal Left side deep tendon reflexes normal at the biceps , normal at Brachioradialis , normal at triceps. cervical facet loading test: Positive Bilaterally Tenderness over the occipital nerve bilaterally Multiple trigger point identified in the cervical paraspinal muscles and trapezius and rhomboid muscles bilaterally Lumber spine moter stegnth lower extremities ,thigh and legs 5/5 Right side , 5/5 Left side . Assessment and Plan= chronic neck pain secondary to cervical degenerative disc disease , cervical spondylosis with facet arthropathy . Occipital neuralgia, cervical genic headache chronic and current use of high-risk medication (opioids) Patient denies any side effects of the current pain medication and the current treatment/medication helping the patient to do activity of daily living , Diagnoses, prognosis, treatment options, including but not limited to physical therapy, medication management, interventional therapies, and surgery, were discussed with the patient All the questions answered The narcotic consent was signed and patient agreed and understood the side effects and complications of opioid treatment. Patient signed the narcotic agreement, and was orally counseled, not to overuse, not to abuse, not to Divert , not tp sell pain medication, and to take it as prescribed only, Patient was counseled not to drive or operate heavy equipment while using narcotic medication, and advised not to use alcohol or any Illicit drugs while using the narcotis. understanding that lack of compliance with any of the above instructions, will likely to cause discharge from, the pain service, not to renew his narcotic prescriptions MAPS Reviwed and it was apropriate . Medication managements= patient will be given prescription refills for baclofen 10 mg with hours when necessary dispense 90 with 1 refill , continue Elavil to 100 mg daily at bedtime Dispense 30 with one refill, continue Motrin 800 mg to 12 hours when nece ssary, Ultram 50 mg every 6 hours dispense 120 with one refill . Urine drug screen reviewed and it was appropriate Time with Patient: Less than 30 PQRS Measure Charge Sheet Measure #130: Documentation of Current Meds in Medical Chart: Patient's medications documented in chart Measure #226: Tobacco Use: Screen & Cessation Intervention: Pt not a tobacco user Measure #111: Pneumonia Vaccination: Pneumococcal vaccine NOT administered or previously given Measure #47: Advance Care Plan: Advance care planning discussed & documented, pt chose/unable to give Measure #412: Opioid Treatment Agreement: Documented signed opioid trtmnt agr eemnt min once during opioid trtmnt Measure #408: Opioid Therapy Follow-up Evaluation: Patient had f/u eval minimum every 3 months during opioid therapy Measure #317: Preventitive Care & Scrn High Bld Press & F/U: BP documented 153/91, pt will f/u with PCP Measure #128: Body Mass Index (BMI) Screening & Follow-up: BMI documented ABOVE normal parameters - f/u documented Measure #131: Pain Assessment & Follow-up: Pain positive & plan documented, Follow-up scheduled Measure #431: Unhealthy Alcohol Use Preventative Care & Scrn: Patient not identified as an unhealthy alcohol user Objective - Vital Signs Vital signs: Vital Signs Temp 97.7 F 06/18/20 11:06 Pulse 86 06/18/20 11:06 Resp 16 06/18/20 11:06 BP 153/91 06/18/20 11:06 Pulse Ox 98 06/18/20 11:06 Intake & Output 06/17/20 06/18/20 06/18/20 18:59 06:59 18:59 Weight 113.398 kg
== END ==
LOC: PNWHC3 10:50
PROVIDERS: ATTEND Specialist
DX: G89.29 Other chronic pain (principal); M50.30 Other cervical disc degeneration, unspecified cervical region; M47.812 Spondylosis without myelopathy or radiculopathy, cervical region; M54.81 Occipital neuralgia; Z79.891 Long term (current) use of opiate analgesic; Z87.891 Personal history of nicotine dependence
CPT/HCPCS: 99211

== ENCOUNTER → 2020-08-13 | Outpatient (CLI) | payer MEDICARE ==
--- NOTE | 2020-08-13 13:07 | P.PN ---
Subjective Progress Note Date: 08/13/20 This is a 60-year-old gentleman with history of neck pain and headache. The patient has been receiving interventional pain procedures along with oral medications to treat his pain. The patient sees a neurologist for his headaches and he also takes Topamax and Fioricet from him. Patient denies new-onset weakness, bowel/bladder incontinence, or any other signs or symptoms of cauda equina syndrome. There are no signs of acute intoxication, and no indications of medication diversion or overuse. In addition to above, 13-point review of systems is also negative for chest pain, shortness of breath, changes in vision, changes in hearing, new onset weakness, abdominal pain, diarrhea, extreme fatigue, malaise, fever, skin changes, homicidal or suicidal ideation, or bowel or bladder incontinence. Vital Signs: Reviewed in EMR Gen: AAOx3, NAD HEENT: PERRLA,hearing grossly normal Pulm: resp unlabored Neck: supple, trachea midline Neuro exam of the lower extremities: Straight leg raising test: Gabriel's test: Range of motion of the lumbar spine: Facet loading test: Tenderness in the paravertebral musculature: Neuro: CN II-XII grossly intact, Imaging: Reviewed in EMR/chart Assessment: Cervical spondylosis without myelopathy Myofascial pain Occipital neuralgia Opioid dependence Morbid obesity Plan: 1. Explanation: Opioid and psychological risk scores were reviewed. Diagnoses, prognoses, and multiple treatment options including but not limited to physical therapy, interventional therapies, adjuvant medical therapies, narcotic medication therapies, and surgery were discussed with the patient and all questions were answered to the patient's satisfaction. 2. Opioid agreement: Signed with the patient and the patient is warned not to use opioids while driving or before driving and not to combine opioids with benzodiazepines or alcohol. 3. Counseling: The patient was counseled extensively on SMOKING CESSATION, BODY MASS INDEX, EXERCISE. Specifically, the patient was instructed regarding the importance of smoking cessation, obesity, and exercise in the context of both chronic pain and overall health. 4. Procedures: None for now 5. Consultations: None 6. Investigations: None 7. Medications: Continue baclofen 10 mg 3 times a day , tramadol 50 mg 4 times a day if needed for pain , amitriptyline and Motrin . 8. Disposition: Return to clinic in 8 weeks 9. Maps were reviewed and were appropriate. Controlled Substance Measures Is patient prescribed a controlled substance at discharge?: Yes When asked, does pt state using other controlled substances?: No If prescribed controlled substance>3 days was MAPS reviewed?: Yes If Rx opioid, was Start Talking consent form obtained?: Yes If opioid is for acute pain is fill amount 7 days or less?: No Was information provided regarding opioid addiction?: Yes Objective - Vital Signs Vital signs: Intake & Output 08/12/20 08/13/20 08/13/20 18:59 06:59 18:59 Weight 117.934 kg
== END ==
CPT/HCPCS: 99211

== ENCOUNTER → 2020-10-08 | Outpatient (CLI) | payer MEDICARE ==
[2020-10-08 13:43] VITALS: BP 118/83; PULSE 100; RESP 18; TEMP 98.5
--- NOTE | 2020-10-08 13:54 | P.PN ---
Subjective Progress Note Date: 10/08/20 This is follow-up visit for this patient with a history of severe and chronic neck pain and headache ,he is diagnosed with occipital neuralgia, cervical spondylosis with facet arthropathy and cervical degenerative disc disease, and myofascial pain syndrome and cervical area The patient currently on Motrin 800 mg every 8 hours when necessary ,and Ultram 50 mg every 6 hours, and amitriptyline 100 mg daily at bedtime , baclofen 10 mg Q8 hours ,Patient denies any side effect of the medication , he denies any excessive drowsiness or sleepiness, patient denies any suicidal ideation,Patient reported that the current medication is helping to control the pain and improve the activity of daily livings,Patient denies any motor or sensory deficit, denies any change in the bowel movement or urination, patient denies any fever or night sweats.Patient here today for medication refill. Previously we have done trigger point injection in the cervical area which helped to some degree but patient continued to have severe muscle spasm in the cervical area and is continued to cause severe neck pain and severe headache that started radiate from the base of the skull to the top of the head, interfered with his activities of daily livings, is already done physical therapy - Exam -Constitutiona : Cooperative , not in acute distress . -HEENT : nech : supple , no Lymphadenopathy , normal thyroid size . eyes : no ptosis , no icterus, no photophobia . ENT : normal of hearing , normal oropharynx , no Thrush . - Respiratory : Chest clear to auscultations Bilaterally , no wheezing , no Rhonchi . - Cardiovascula : regular rate and rhythem , S1 , S2 , no S3 , no S4. - Gastrointestina : abdomen soft no tenderness , bowel sounds , no organomegally . - Genitourinary : Defferred . - neurologic : Cranial nerve II to XII intact , no focal neurological deffecit . -psychatric : alert , oriented X 3 , appropriate affect , intact judgment and insight . -Lymphatic : no Lymphadenopathy . - musculoskeltal : Cervical Spine motor stregnth in the deltoid and biceps, normal right side , normal Left side motor stregnth biceps and the wrist extensors normal right side ,normal left side . motor stregnth in the triceps muscle . normal Right side , normal Left side deep tendon reflexes normal at the biceps , normal at Brachioradialis , normal at triceps. cervical facet loading test: Positive Bilaterally severc Tenderness over the occipital nerve bilaterally Multiple trigger point identified in the cervical paraspinal muscles and trapezius and rhomboid muscles bilaterally Lumber spine moter stegnth lower extremities ,thigh and legs 5/5 Right side , 5/5 Left side . Assessment and Plan= chronic neck pain secondary to cervical degenerative disc disease , cervical spondylosis with facet arthropathy . Occipital neuralgia, cervical genic headache Myofascial pain syndrome and cervical paraspinal muscles chronic and current use of high-risk medication (opioids) Patient denies any side effects of the current pain medication and the current treatment/medication helping the patient to do activity of daily living , Diagnoses, prognosis, treatment options, including but not limited to physical therapy, medication management, interventional therapies, and surgery, were discussed with the patient All the questions answered The narcotic consent was signed and patient agreed and understood the side effects and complications of opioid treatment. Patient signed the narcotic agreement, and was orally counseled, not to overuse, not to abuse, not to Divert , not tp sell pain medication, and to take it as prescribed only, Patient was counseled not to drive or operate heavy equipment while using narcotic medication, and advised not to use alcohol or any Illicit drugs while using the narcotis. understanding that lack of compliance with any of the above instructions, will likely to cause discharge from, the pain service, not to renew his narcotic prescriptions MAPS Reviwed and it was apropriate . Medication managements= patient will be given prescription refills for baclofen 10 mg with hours when necessary dispense 90 with 1 refill , continue Elavil to 100 mg daily at bedtime Dispense 30 with one refill, continue Motrin 800 mg to 12 hours when necessary, Ultram 50 mg every 6 hours dispense 120 with one refill . Urine drug screen ordered today Interventions= he could benefit from bilateral occipital nerve block, and he could benefit from trigger point injections cervical paraspinal muscles ( multiple ) Time with Patient: Less than 30 PQRS Measure Charge Sheet Measure #130: Documentation of Current Meds in Medical Chart: Patient's medications documented in chart Measure #226: Tobacco Use: Screen & Cessation Intervention: Pt not a tobacco user Measure #111: Pneumonia Vaccination: Pneumococcal vaccine NOT administered or previously given Measure #47: Advance Care Plan: Advance care planning discussed & documented, pt chose/unable to give Measure #412: Opioid Treatment Agreement: Documented signed opioid trtmnt agreemnt min once during opioid trtmnt Measure #408: Opioid Therapy Follow-up Evaluation: Patient had f/u eval minimum every 3 months during opioid therapy Measure #317: Preventitive Care & Scrn High Bld Press & F/U: BP documented 118/83, pt will f/u with PCP Measure #128: Body Mass Index (BMI) Screening & Follow-up: BMI documented ABOVE normal parameters - f/u documented Measure #131: Pain Assessment & Follow-up: Pain positive & plan documented, Follow-up scheduled Measure #431: Unhealthy Alcohol Use Preventative Care & Scrn: Patient not identified as an unhealthy alcohol user Objective - Vital Signs Vital signs: Vital Signs Temp 98.5 F 10/08/20 13:33 Pulse 100 10/08/20 13:33 Resp 18 10/08/20 13:33 BP 118/83 10/08/20 13:33 Pulse Ox 95 10/08/20 13:33 Intake & Output 10/07/20 10/08/20 10/08/20 18:59 06:59 18:59 Weight 117.934 kg
== END ==
LOC: PNWHC3 12:50
PROVIDERS: ATTEND Specialist
DX: M50.30 Other cervical disc degeneration, unspecified cervical region (principal); M47.812 Spondylosis without myelopathy or radiculopathy, cervical region; M54.81 Occipital neuralgia; M79.18 Myalgia, other site; G89.29 Other chronic pain; Z79.891 Long term (current) use of opiate analgesic; Z88.1 Allergy status to other antibiotic agents; Z87.891 Personal history of nicotine dependence
CPT/HCPCS: 80307; G0482; G0463; 99211; 99212

== ENCOUNTER 2020-11-25 11:50 | Day surgery (SDC) | payer MEDICARE ==
[2020-11-20 12:53] VITALS: BMI 39.5
[2020-11-25 12:14] VITALS: RESP 16; TEMP 97.1
[2020-11-25] MEDS ORDERED: MIDAZOLAM 2 MG/2 ML VIAL ONE (12:21)
[2020-11-25] MEDS ORDERED: ROPIVACAINE 5MG/ML 20ML VIAL ONE (12:21)
[2020-11-25] MEDS ORDERED: methylPREDNISolone ACETATE 40 MG/ML 1 ML VIAL ONE (12:21)
[2020-11-25] MEDS ORDERED: fentaNYL (PF) 50 MCG/ML 2 ML AMP ONE (12:21)
[2020-11-25] MEDS ORDERED: IV FLUID CONTINUATION 1,000 ML IV ONE (12:37)
--- NOTE | 2020-11-25 12:39 | P.PCN ---
Date of Procedure: 11/25/20 Procedure(s) Performed: PROCEDURE 1. trigger points injection cervical paraspinal muscles, rhomboid muscles, trapezius muscles bilaterally, return of 6 trigger point injected 4 left side and 2 right side cervical area. 2. Bilateral Greater occipital nerve block . PREOPERATIVE DIAGNOSIS: 1- Cervical Degenerative Disc Diseases 2- myofascial pain syndrome cervical 3-cervical spondylosis with cervical Facet arthropathy without myelopathy . 4-occipital neuralgia ( bilaterally ) POSTOPERATIVE DIAGNOSIS: : Same as preop diagnosis. ANESTHESIA: moderate sedation, with Versed 2 mg and Fentanyl 100 mcg. EBL 0 PROCEDURE INDICATION: The patient with neck pain unresponsive to conservative treatment, the exam was positive for multiple trigger point identified in the cervical paraspinal muscles and rhomboid muscles and trapezius muscles brittney aterally PROCEDURE DESCRIPTION / TECHNIQUE: The patient was seen and identified in the preoperative area. Risks, benefits, complications, including but not limited to infections ,bleeding , allergic reactions to the medications ,and not complete pain releife, and alternatives were discussed with the patient, the patient agreed to proceed with the procedure and signed the consent. Patient was taken to the OR and time out was completed. The patient was placed in the sitting position on the procedure table. A pillow was placed under the patients chest to increase the cervical interlaminar spa ce. The cervical area was prepped and draped in the usual sterile fashion. Vital signs were closely monitored during the procedure. Conscious sedation was used during the procedure to decrease patients and anxiety, each of the trigger point injected with 2 mL of the mixture of ropivacaine 0.5% 12 mL mixed with 40 mg of Depo-Medrol, 2 mL of the mixture injected at each trigger point after negative aspiration using 25-gauge needle, 4 trigger point injected on the left side cervical paraspinal muscles on the rhomboid muscles and trapezius muscles on the left side, and to trigger point injected on the right side cervical paraspinal muscles, injection done after negative aspiration under was no paresthesia during the injection. And after that,I did the greater occipital nerve block under sterile technique, 25-gauge needle advanced 1 inch lateral to the occipital protuberance on the right side, at the location of the right occipital nerve , then after negative aspiration for heme and CSF and there was no paresthesia during the injection, 6 ml of Robivacaine 0.5% and 20 mg of Depo-Medrol injected after negative aspiration, the needle removed, and the entire same procedure was repeated for the left Greater occipital nerve. Patient tolerated the procedure well without any complication, The patient returned to supine position after the back was cleaned and a Band- Aid applied, the patient transported to recovery room in stable condition and he was monitored for 30 minutes before he was discharged home and then patient was reexamined before going home and patient was discharged in stable condition and patient will follow up with the pain clinic in a few weeks. Complications= none. Disposition= patient was placed in supine position and transferred to the recovery room area in stable condition and there was no evidence of upper or lower extremity motor or sensory deficit after the procedure patient was discharged from recovery room after discharge criteria met and home discharge instructions was given by the staff and patient will follow with the pain clinic in 2-4 weeks
[2020-11-25 12:54] VITALS: BP 135/81; PULSE 83
== END 2020-11-25 13:28 | disposition home or self-care (01) ==
LOC: ORPAIN 11:50
PROVIDERS: ATTEND Specialist
DX: M54.81 Occipital neuralgia (principal); M47.812 Spondylosis without myelopathy or radiculopathy, cervical region; F41.9 Anxiety disorder, unspecified
CPT/HCPCS: 20553; 64405; J2250; J1030; J3010; J2795

== ENCOUNTER → 2020-12-03 | Outpatient (CLI) | payer MEDICARE ==
[2020-12-03 13:00] VITALS: BP 149/75; PULSE 89; RESP 18; TEMP 98.6
--- NOTE | 2020-12-03 13:31 | P.PN ---
Subjective Progress Note Date: 12/03/20 This is follow-up visit for this patient with a history of severe and chronic neck pain and headache ,he is diagnosed with occipital neuralgia, cervical spondylosis with facet arthropathy and cervical degenerative disc disease, and myofascial pain syndrome and cervical area The patient currently on Motrin 800 mg every 8 hours when necessary ,and Ultram 50 mg every 6 hours, and amitriptyline 100 mg daily at bedtime , baclofen 10 mg Q8 hours ,Patient denies any side effect of the medication , he denies any excessive drowsiness or sleepiness, patient denies any suicidal ideation,Patient reported that the current medication is helping to control the pain and improve the activity of daily livings,Patient denies any motor or sensory deficit, denies any change in the bowel movement or urination, patient denies any fever or night sweats.Patient here today for medication refill. recentely we have done trigger point injection in the cervical area ,which helped about 50% but patient continued to have severe muscle spasm in the cervical area and is continued to cause severe neck pain and severe headache that started radiate from the base of the skull to the top of the head, interfered with his activities of daily livings, is already done physical therapy, and currently is doing aquatic therapy through [employer] - Exam -Constitutiona : Cooperative , not in acute distress . -HEENT : nech : supple , no Lymphadenopathy , normal thyroid size . eyes : no ptosis , no icterus, no photophobia . ENT : normal of hearing , normal oropharynx , no Thrush . - Respiratory : Chest clear to auscultations Bilaterally , no wheezing , no Rhonchi . - Cardiovascula : regular rate and rhythem , S1 , S2 , no S3 , no S4. - Gastrointestina : abdomen soft no tenderness , bowel sounds , no organomegally . - Genitourinary : Defferred . - neurologic : Cranial nerve II to XII intact , no focal neurological deffecit . -psychatric : alert , oriented X 3 , appropriate affect , intact judgment and insight . -Lymphatic : no Lymphadenopathy . - musculoskeltal : Cervical Spine motor stregnth in the deltoid and biceps, normal right side , normal Left side motor stregnth biceps and the wrist extensors normal right side ,normal left side . motor stregnth in the triceps muscle . normal Right side , normal Left side deep tendon reflexes normal at the biceps , normal at Brachioradialis , normal at triceps. cervical facet loading test: Positive Bilaterally severc Tenderness over the occipital nerve bilaterally Multiple trigger point identified in the cervical paraspinal muscles and trapezius and rhomboid muscles bilaterally Lumber spine moter stegnth lower extremities ,thigh and legs 5/5 Right side , 5/5 Left side . Assessment and Plan= chronic neck pain secondary to cervical degenerative disc disease , cervical spondylosis with facet arthropathy . Occipital neuralgia, cervical genic headache Myofascial pain syndrome and cervical paraspinal muscles chronic and current use of high-risk medication (opioids) Patient denies any side effects of the current pain medication and the current treatment/medication helping the patient to do activity of daily living , Diagnoses, prognosis, treatment options, including but not limited to physical therapy, medication management, interventional therapies, and surgery, were discussed with the patient All the questions answered The narcotic consent was signed and patient agreed and understood the side effects and complications of opioid treatment. Patient signed the narcotic agreement, and was orally counseled, not to overuse, not to abuse, not to Divert , not tp sell pain medication, and to take it as prescribed only, Patient was counseled not to drive or operate heavy equipment while using narcotic medication, and advised not to use alcohol or any Illicit drugs while using the narcotis. understanding that lack of compliance with any of the above instructions, wi ll likely to cause discharge from, the pain service, not to renew his narcotic prescriptions MAPS Reviwed and it was apropriate . Medication managements= patient will be given prescription refills for baclofen 10 mg with hours when necessary dispense 90 with 1 refill , continue Elavil to 100 mg daily at bedtime Dispense 30 with one refill, continue Motrin 800 mg to 12 hours when necessar y, Ultram 50 mg every 6 hours dispense 120 with one refill . Urine drug screen WAS OK Interventions= none Time with Patient: Less than 30 PQRS Measure Charge Sheet Measure #130: Documentation of Current Meds in Medical Chart: Patient's medications documented in chart Measure #226: Tobacco Use: Screen & Cessation Intervention: Pt not a tobacco user Measure #111: Pneumonia Vaccination: Pneumococcal vaccine NOT administered or previously given Measure #47: Advance Care Plan: Advance care planning discussed & documented, pt chose/unable to give Measure #412: Opioid Treatment Agreement: Documented signed opioid trtmnt agreemnt min once during opioid trtmnt Measure #408: Opioid Therapy Follow-up Evaluation: Patient had f/u eval minimum every 3 months during opioid therapy Measure #317: Preventitive Care & Scrn High Bld Press & F/U: BP documented 149/75, pt will f/u with PCP Measure #128: Body Mass Index (BMI) Screening & Follow-up: BMI documented ABOVE normal parameters - f/u documented Measure #131: Pain Assessment & Follow-up: Pain positive & plan documented, Follow-up scheduled Measure #431: Unhealthy Alcohol Use Preventative Care & Scrn: Patient not identified as an unhealthy alcohol user Objective - Vital Signs Vital signs: Vital Signs Temp 98.6 F 12/03/20 12:49 Pulse 89 12/03/20 12:49 Resp 18 12/03/20 12:49 BP 149/75 12/03/20 12:49 Pulse Ox 94 L 12/03/20 12:49 Intake & Output 12/02/20 12/03/20 12/03/20 18:59 06:59 18:59 Weight 117.934 kg
== END ==
LOC: PNWHC3 12:46
PROVIDERS: ATTEND Specialist
DX: M50.30 Other cervical disc degeneration, unspecified cervical region (principal); M47.812 Spondylosis without myelopathy or radiculopathy, cervical region; M54.81 Occipital neuralgia; M79.18 Myalgia, other site; G89.29 Other chronic pain; Z79.891 Long term (current) use of opiate analgesic; Z91.19 Patient's noncompliance with other medical treatment and regimen; Z87.891 Personal history of nicotine dependence; Z88.1 Allergy status to other antibiotic agents
CPT/HCPCS: 99211

== ENCOUNTER → 2021-03-02 | Outpatient (CLI) | payer MEDICARE ==
[2021-03-02 14:30] VITALS: BP 163/82; PULSE 85; RESP 18; TEMP 97.2
--- NOTE | 2021-03-02 14:52 | P.PN ---
Subjective Progress Note Date: 03/02/21 This is follow-up visit for this patient with a history of severe and chronic neck pain and headache ,he is diagnosed with occipital neuralgia, cervical spondylosis with facet arthropathy and cervical degenerative disc disease, and myofascial pain syndrome and cervical area The patient currently on Motrin 800 mg every 8 hours when necessary ,and Ultram 50 mg every 6 hours, and amitriptyline 100 mg daily at bedtime , baclofen 10 mg Q8 hours ,Patient denies any side effect of the medication , he denies any excessive drowsiness or sleepiness, patient denies any suicidal ideation,Patient reported that the current medication is helping to control the pain and improve the activity of daily livings,Patient denies any motor or sensory deficit, denies any change in the bowel movement or urination, patient denies any fever or night sweats.Patient here today for medication refill. recentely we have done trigger point injection in the cervical area ,which helped about 50% but patient continued to have severe muscle spasm in the cervical area and is continued to cause severe neck pain and severe headache that started radiate from the base of the skull to the top of the head, interfered with his activities of daily livings, is already done physical therapy, and currently is doing aquatic therapy through [email or web address] - Exam -Constitutiona : Cooperative , not in acute distress . -HEENT : nech : supple , no Lymphadenopathy , normal thyroid size . eyes : no ptosis , no icterus, no photophobia . ENT : normal of hearing , normal oropharynx , no Thrush . - Respiratory : Chest clear to auscultations Bilaterally , no wheezing , no Rhonchi . - Cardiovascula : regular rate and rhythem , S1 , S2 , no S3 , no S4. - Gastrointestina : abdomen soft no tenderness , bowel sounds , no organomegally . - Genitourinary : Defferred . - neurologic : Cranial nerve II to XII intact , no focal neurological deffecit . -psychatric : alert , oriented X 3 , appropriate affect , intact judgment and insight . -Lymphatic : no Lymphadenopathy . - musculoskeltal : Cervical Spine motor stregnth in the deltoid and biceps, normal right side , normal Left side motor stregnth biceps and the wrist extensors normal right side ,normal left side . motor stregnth in the triceps muscle . normal Right side , normal Left side deep tendon reflexes normal at the biceps , normal at Brachioradialis , normal at triceps. cervical facet loading test: Positive Bilaterally severc Tenderness over the occipital nerve bilaterally Multiple trigger point identified in the cervical paraspinal muscles and trapezius and rhomboid muscles bilaterally Lumber spine moter stegnth lower extremities ,thigh and legs 5/5 Right side , 5/5 Left side . Assessment and Plan= chronic neck pain secondary to cervical degenerative disc disease , cervical spondylosis with facet arthropathy . Occipital neuralgia, cervical genic headache Myofascial pain syndrome and cervical paraspinal muscles chronic and current use of high-risk medication (opioids) Patient denies any side effects of the current pain medication and the current treatment/medication helping the patient to do activity of daily living , Diagnoses, prognosis, treatment options, including but not limited to physical therapy, medication management, interventional therapies, and surgery, were discussed with the patient All the questions answered The narcotic consent was signed and patient agreed and understood the side effects and complications of opioid treatment. Patient signed the narcotic agreement, and was orally counseled, not to overuse, not to abuse, not to Divert , not tp sell pain medication, and to take it as prescribed only, Patient was counseled not to drive or operate heavy equipment while using narcotic medication, and advised not to use alcohol or any Illicit drugs while using the narcotis. understanding that lack of compliance with any of the above instructions, wi ll likely to cause discharge from, the pain service, not to renew his narcotic prescriptions MAPS Reviwed and it was apropriate . Medication managements= patient will be given prescription refills for baclofen 10 mg with hours when necessary dispense 90 with 1 refill , continue Elavil to 100 mg daily at bedtime Dispense 30 with one refill, continue Motrin 800 mg to 12 hours when necessar y, Ultram 50 mg every 6 hours dispense 120 with one refill . Interventions= none Time with Patient: Less than 30 PQRS Measure Charge Sheet Measure #130: Documentation of Current Meds in Medical Chart: Patient's medications documented in chart Measure #226: Tobacco Use: Screen & Cessation Intervention: Pt not a tobacco user Measure #111: Pneumonia Vaccination: Pneumococcal vaccine NOT administered or previously given Measure #47: Advance Care Plan: Advance care planning discussed & documented, pt chose/unable to give Measure #412: Opioid Treatment Agreement: Documented signed opioid trtmnt agreemnt min once during opioid trtmnt Measure #408: Opioid Therapy Follow-up Evaluation: Patient had f/u eval minimum every 3 months during opioid therapy Measure #317: Preventitive Care & Scrn High Bld Press & F/U: BP documented 163/82, pt will f/u with PCP Measure #128: Body Mass Index (BMI) Screening & Follow-up: BMI documented ABOVE normal parameters - f/u documented Measure #131: Pain Assessment & Follow-up: Pain positive & plan documented, Follow-up scheduled Measure #431: Unhealthy Alcohol Use Preventative Care & Scrn: Patient not identified as an unhealthy alcohol user Objective - Vital Signs Vital signs: Vital Signs Temp 97.2 F L 03/02/21 14:25 Pulse 85 03/02/21 14:25 Resp 18 03/02/21 14:25 BP 163/82 03/02/21 14:25 Pulse Ox 97 03/02/21 14:25 Intake & Output 03/01/21 03/02/21 03/02/21 18:59 06:59 18:59 Weight 74.843 kg
== END ==
LOC: PNWHC3 14:18
PROVIDERS: ATTEND Specialist
DX: G89.29 Other chronic pain (principal); M50.30 Other cervical disc degeneration, unspecified cervical region; M47.812 Spondylosis without myelopathy or radiculopathy, cervical region; M54.81 Occipital neuralgia; M79.18 Myalgia, other site; Z79.891 Long term (current) use of opiate analgesic; Z88.1 Allergy status to other antibiotic agents; Z87.891 Personal history of nicotine dependence
CPT/HCPCS: 99211

== ENCOUNTER → 2021-03-20 | Outpatient (CLI) | payer MEDICARE ==
--- NOTE | 2021-03-20 12:45 | CT ---
EXAMINATION TYPE: CT sinus wo con DATE OF EXAM: 03/20/2021 COMPARISON: NONE HISTORY: chronic sinus headaches, dizziness, pressure CT DLP: 629.1 mGycm. Automated Exposure Control for Dose Reduction was Utilized. TECHNIQUE: CT scan of the sinuses is performed without contrast, axial images are obtained, coronal r eformatted images are also reviewed. FINDINGS: Dependent air-fluid levels in the bilateral maxillary sinuses. Remainder paranasal sinuses clear without suspicious opacification or air-fluid levels. The ostiomeatal complex is patent bilate rally on the coronal images. Visualized portion of mastoid air cells show no abnormal opacification. Left lens is asymmetrically f lattened suggesting underlying cataract. Visualized portion of brain parenchyma unremarkable. IMPRESSION: Bilateral acute maxillary sinusitis.
== END | disposition home or self-care (01) ==
LOC: RADCTMAIN 12:15
PROVIDERS: ATTEND Otolaryngology
DX: J01.00 Acute maxillary sinusitis, unspecified (principal)
CPT/HCPCS: 70486

== ENCOUNTER → 2021-05-01 | Outpatient (CLI) | payer MEDICARE ==
--- NOTE | 2021-05-02 06:19 | CT ---
EXAMINATION TYPE: CT sinus wo con DATE OF EXAM: 05/01/2021 COMPARISON: CT sinus March 20, 2021 HISTORY: RIGHT SIDE PRESSURE AND HEADACHES CT DLP: 385.7 mGycm. Automated Exposure Control for Dose Reduction was Utilized. TECHNIQUE: CT scan of the sinuses is performed without contrast, axial images are obtained, coronal r eformatted images are also reviewed. FINDINGS: Nearly completely Resolved air-fluid levels in the bilateral maxillary sinuses, tiny residu al air fluid level on the left remains present. Remainder paranasal sinuses remain clear without new suspicious opacification. The ostiomeatal complex remains patent bilaterally on the coronal images. Slight nasal septal deviation redemonstrated. Left lens is not well seen, possible product of cataract surgery similar to prior. Visualized portio n of brain parenchyma is unremarkable. IMPRESSION: Resolved right maxillary acute sinusitis. Nearly completely resolved left maxillary acut e sinusitis. No new sinus disease identified.
== END | disposition home or self-care (01) ==
LOC: RADCTMAIN 18:57
PROVIDERS: ATTEND Otolaryngology
DX: J32.9 Chronic sinusitis, unspecified (principal); R51.9 Headache, unspecified
CPT/HCPCS: 70486

== ENCOUNTER → 2021-05-25 | Outpatient (CLI) | payer MEDICARE ==
[2021-05-25 14:22] VITALS: BP 133/80; PULSE 98; RESP 18; TEMP 97.4
--- NOTE | 2021-05-25 14:48 | P.PN ---
Subjective Progress Note Date: 05/25/21 Principal diagnosis: A 60 yr old male with a history of severe and chronic neck pain secondary to cervical degenerative disc diseases and spondylosis with facet arthropathy presents today for medication refills and headache and neck pain evaluation. Pain level is localized in the upper aspect of his cervical spine with radiation of pain up and down the cervical spine but mostly accompanying with generalized headache pain. Pain waxes and wanes in intensity throughout the day but is generally 5 out of 10, sharp, shooting, constant. Pain is provoked by extension of the neck. Pain is alleviated with medications, injections, ice, heat, physical therapy in the past, daily home exercise regimen, sitting in a dark room to alleviate headaches and rest. Interventional pain procedures completed include cervical bilateral RFA and series of greater occipital nerve injections Patient is currently on Ultram, Motrin, Elavil, baclofen. Patient denies any side effects of the medication(s), denies excessive drowsiness or sleepiness, denies suicidal ideation and reports that the current pain medication is helping to control the pain and improve activities of daily living. Patient denies any motor or sensory deficits. Patient denies any fever or night sweats, denies any change in the bowel movements or urination. Physical Examination: -Constitutional: Cooperative. Not in acute distress . -HEENT: Neck is supple. No lymphadenopathy. No thyromegaly. Normal thyroid size. Eyes: No ptosis , no icterus, no photophobia. ENT: No auditory deficits. Normal oropharynx. No Thrush. - Respiratory: Chest clear to auscultations bilaterally. No wheezing. No rhonchi. - Cardiovascular: Regular rate and rhythm. S1 / S2 , no S3 , no S4. - Gastrointestinal: Abdomen soft no tenderness. Bowel sounds positive in all four quadrants. No organomegaly. - Genitourinary: Deferred. - Neurologic: Cranial nerve II to XII intact. No focal neurological deficits. - Psychatric: Alert & oriented x 3. Matching mood & appropriate affect. Judgmen t and insight intact. - Lymphatic: No Lymphadenopathy. - Musculoskeletal: Cervical spine: Muscle bulk/ tone/ strength in the bilateral upper extremities normal. Facet loading test cervical area positive over bilateral C2-C3 with jump reflex. Lumbar spine: Motor bulk/ tone/ strength lower extremities , thigh and legs : 5/5 Deep tendon reflexes : Normal Knee Jerk. Normal Ankle Jerk . Vertebral body tenderness to palpation over Lumbar Facet Loading Test positive Straight Leg Raise: positive at 30 degrees right side/ left side Gaenslen's Test positive Sacral spine : Severe tenderness over the Sacroiliac joint: right side / left side Range of motion: Flexion of the lumbar spine <60 degrees Range of motion: Extension of the lumbar spine <20 degrees Gaenslen's Test positive Ton test: positive right side / left side Assessment and plan: Chronic neck pain secondary to cervical degenerative disc disease , spondylosis with facet arthropathy without myelopathy Recommendation of facet blocks of the medial branch bilateral C2-C3 and third occipital nerve. Patient may need a series of injections to obtain sufficient pain relief. Risks, benefits of procedure discussed and patient verbalized understanding. Denies anticoagulant use. Denies medical history of diabetes mellitus. Chronic and current use of high-risk medication (Opioids). The patient was counseled about risk of opioid use, psychological risk a ssociated with opioids and was orally counseled to not overuse , divert or sell medications. Pt is to store medication in a safe location. The patient is counseled against driving while using narcotic medications and also not to use alcohol or any illicit recreational drugs. Patient verbalized understanding that the lack of compliance will result in failure to renew narcotic prescription(s) as well as possible discharge from the clinic Diagnoses, prognosis and treatment options including but not limited to physical therapy, surgical interventions, interventional therapies and medication management including narcotics and adjuvant medication were discussed. All patient questions answered MAPS reviewed and it was appropriate. Urine collected for UDS. New Opiate agreement signed today. Prescription refill for Motrin, baclofen, Elavil. We will hold tramadol until UDS returns positive for medications prescribed. I have spent 31 minutes on patient care today. Dr Starkey was available by phone for the evaluation of this patient. The time was used to review the medical records including relevant urine studies and Prescription history (MAPs), review of the available imaging, evaluation and examination of the patient, coordination of care with the medical staff and if applicable referring physicians, as well as creation of the medical record Objective - Vital Signs Vital signs: Vital Signs Temp 97.4 F L 05/25/21 14:17 Pulse 98 05/25/21 14:17 Resp 18 05/25/21 14:17 BP 133/80 05/25/21 14:17 Pulse Ox 96 05/25/21 14:17 PQRS Measure Charge Sheet Mode of Arrival: Ambulatory - Pain Location Posterior Head Non-Pharmacological Interventions: Heat, Home Exercise, Ice, Inactivity, Physical Therapy, Position/Reposition, Relaxation Technique, Stretching Pharmacological Interventions: Block, Medication, PRN Medication PQRS Narrative: Smoking Status Former smoker Narcotic Agreement Date Signed 05/25/21 Blood Pressure 133/80 Pain Intensity [Posterior Head 4 ] Scale Used Numeric (1 - 10) Hx Alcohol Use (MH) No Home Medications: Ambulatory Orders Lisinopril-Hctz 10-12.5 mg [Zestoretic 10-12.5] 1 tab PO QAM 01/20/16 Butalb/APAP/Caff 50-325-40Mg [Fioricet 50-325-40] 1 tab PO BID 02/15/17 Multivitamin [Men's Multi-Vitamin] 1 tab PO DAILY 08/08/17 Propylene Glycol/Peg 400/Pf [Systane 0.3-0.4% Eye Drops] 1 drop BOTH EYES TID 08/08/17 Topiramate [Topamax] 100 mg PO HS 08/08/17 diphenhydrAMINE [Benadryl] 100 mg PO HS PRN 10/19/17 Aspirin 325 mg PO DAILY 10/31/17 Atorvastatin [Lipitor] 40 mg PO QAM 11/11/17 Acetaminophen Tab [Tylenol Tab] 2,000 mg PO BID PRN 02/08/18 Citalopram Hydrobromide [CeleXA] 40 mg PO QAM 02/08/18 Prednisolone Acetate/Pf [Prednisolone Acet 1% Eye Drop] 1 drop RIGHT EYE TID PRN 08/29/18 Topiramate [Topamax] 50 mg PO DAILY PRN 09/20/18 Esomeprazole Magnesium [NexIUM] 20 mg PO DAILY 11/12/19 Cholecalciferol (Vitamin D3) [Vitamin D3 (5000 Iu)] 125 mcg PO DAILY 06/17/20 Omega3/Dha/Epa/Fish Oil/Vit D3 [[place]-3 + Vitamin D3 Softgel] 1 each PO DAILY 06/17/20 Albuterol Sulfate [Albuterol Sulfate Hfa] 2 puff PO Q4H 11/20/20 Amitriptyline HCl [Elavil] 100 mg PO HS #30 tab 03/02/21 Baclofen [Lioresal] 10 mg PO TID 30 Days #90 tab 03/02/21 Ibuprofen 800 mg PO BID PRN #60 tab 03/02/21 Mometasone/Formoterol [Dulera 50 Mcg-5 Mcg Inhaler] 1 puff PO BID 03/02/21 traMADol HCl [Ultram] 50 mg PO QID #120 tab 03/02/21
== END ==
LOC: PNWHC3 13:31
PROVIDERS: ATTEND Physician Assistant Medical
DX: G89.29 Other chronic pain (principal); M50.30 Other cervical disc degeneration, unspecified cervical region; M47.812 Spondylosis without myelopathy or radiculopathy, cervical region; Z79.891 Long term (current) use of opiate analgesic; Z87.891 Personal history of nicotine dependence; Z88.1 Allergy status to other antibiotic agents
CPT/HCPCS: 80307; G0482; G0463; 99212

== ENCOUNTER 2021-07-02 11:34 | Day surgery (SDC) | payer MEDICARE ==
[2021-07-02] MEDS ORDERED: LIDOCAINE 1% (10MG/ML) FOR IV START INTRADERMA PRN (12:22)
[2021-07-02] MEDS ORDERED: LACTATED RINGERS 1,000 ML IV SCH (12:22)
[2021-07-02 12:51] VITALS: TEMP 97.9
[2021-07-02] MEDS ORDERED: ROPIVACAINE 5MG/ML 20ML VIAL ONE (13:30)
[2021-07-02] MEDS ORDERED: methylPREDNISolone ACETATE 40 MG/ML 1 ML VIAL ONE (13:30)
[2021-07-02] MEDS ORDERED: fentaNYL (PF) 50 MCG/ML 2 ML AMP ONE (13:30)
[2021-07-02] MEDS ORDERED: MIDAZOLAM 2 MG/2 ML VIAL ONE (13:30)
--- NOTE | 2021-07-02 13:53 | P.PCN ---
Date of Procedure: 07/02/21 Procedure(s) Performed: PREOPERATIVE DIAGNOSIS: 1-Cervical Spondylosis with Facet Arthropathy.without myelopathy. 2-cervical degenerative disc disease. 3-occipital neuralgia POSTOPERATIVE DIAGNOSIS: Same as preoperative diagnosis. PROCEDURES: Diagnostic bilateral C2 , C3, medial branch blocks, with fluoroscopic guidance (fluoroscopy images available in radiology department ) Diagnostic bilateral third occipital nerve block under fluoroscopy guidanc. ANESTHESIA: Monitored anesthesia care as per anesthesia department ,moderate sedation with Versed 2 mg , and fentanyl 100 micrograms EBL: Minimal PROCEDURE INDICATION: The patient with neck pain secondary to cervical arthropathy unresponsive to more conservative treatments. PROCEDURE DESCRIPTION / TECHNIQUE: The patient was seen and identified in the preoperative area. Risks, benefits, complications, and alternatives were discussed with the patient, the patient agreed to proceed with the procedure and signed the consent. IV was started. Vital signs remained stable throughout the procedure. Patient was taken to the OR and time out was completed. The patient was placed in the prone position on the procedure table. A pillow was placed under the patients chest to increase the cervical interlaminar space. The cervical area was prepped and draped in the usual sterile fashion. Critical pause was taken. Vital signs were closely monitored during the procedure. Conscious sedation was used during the procedure to decrease patients anxiety. Using cross-table lateral fluoroscopy, the centroid of the trapezoid of right C2 ,C3 was identified, marked, and localized with 1% lidocaine 1 ml at each level for skin and Sub Q infiltrations . Subsequently, a 22 G 3 spinal needle was advanced guided by fluoroscopy to the centroid of the trapezoid of Right C3, C4 , C5, C6 . [place] tip position was confirmed at the centroid of the trapezoids of Right C2 ,C3 with anteroposterior fluoroscopy. And to do the third occipital nerve block on the right side another 22-gauge Quincke needle advanced slowly under fluoroscopy and placed in the middle of the facet joints between the C2 and C3 vertebral , then after needle placement confirmed under fluoroscopy Subsequently, 1.5 ml of preservative-free Ropivacaine 0.5% mixed with Depo-Medrol 20 mg and half ml of the mixture was injected after negative aspiration for blood and CSF. [place] was then removed intact the same procedure was repeated at the left C2 ,C3 , and the left third occipital nerve levels. COMPLICATIONS: No acute complications. DISPOSITION / PLANS: The patient was placed in a supine position and transferred to the recovery area in a stable condition for observation and was discharged from the recovery room after meeting discharge criteria. Home discharge instructions given to the patient by the staff. The patient was reexamined prior to discharge. The patient will schedule a follow up in the clinic in 2-4 weeks.
[2021-07-02] MEDS ORDERED: IV FLUID CONTINUATION 1,000 ML IV ONE (14:02)
[2021-07-02 14:05] VITALS: RESP 18
[2021-07-02 14:28] VITALS: BP 138/81; PULSE 88
--- NOTE | 2021-07-02 14:33 | FL ---
Fluoroscopy HISTORY: Pain 34 seconds fluoroscopy time supplied to the referring clinician. 3 intraoperative C-arm images docum ent the procedure. See dictated report from anesthesia.
== END 2021-07-02 14:41 | disposition home or self-care (01) ==
LOC: ORPAIN 11:34
PROVIDERS: ATTEND Specialist
DX: M47.812 Spondylosis without myelopathy or radiculopathy, cervical region (principal); M50.30 Other cervical disc degeneration, unspecified cervical region; M54.81 Occipital neuralgia
CPT/HCPCS: 64490; J2250; J1030; J3010; J2795; 99152

== ENCOUNTER → 2021-07-20 | Outpatient (CLI) | payer MEDICARE ==
--- NOTE | 2021-07-20 14:30 | P.PN ---
Subjective Progress Note Date: 07/20/21 Principal diagnosis: A 61 yr old male with a history of severe and chronic neck pain secondary to cervical degenerative disc diseases and spondylosis with facet arthropathy presents today for medication refills and evaluation of bilateral C2-C3 and third occipital nerve injection #1. Patient states he experienced 100% pain relief for 3 days then 75% pain relief thereafter. Patient states his pain level is currently 5 out of 10 in intensity, dull, achy with sharp shooting pain up to the head. Patient feels his total pain relief currently is at 60%. Pain is provoked by extension, rotation and bright light. Pain is alleviated with alternating heat and ice, medications, physical therapy 2 years ago, daily home stretching regimen, repositioning, massage and rest. Interventional pain procedures completed include BL G.O.N. & C2-C3/ 3rd O.N. injections Patient is currently on Tramadol QID, Baclofen TID, Elavil Patient denies any side effects of the medication(s), denies excessive drowsiness or sleepiness, denies suicidal ideation and reports that the current pain medication is helping to control the pain and improve activities of daily living. Patient denies any motor or sensory deficits. Patient denies any fever or night sweats, denies any change in the bowel movements or urination. Physical Examination: -Constitutional: Cooperative. Not in acute distress . -HEENT: Neck is supple. No lymphadenopathy. No thyromegaly. Normal thyroid size. Eyes: No ptosis , no icterus, no photophobia. ENT: No auditory deficits. Normal oropharynx. No Thrush. - Respiratory: Chest clear to auscultations bilaterally. No wheezing. No rhonchi. - Cardiovascular: Regular rate and rhythm. S1 / S2 , no S3 , no S4. - Gastrointestinal: Abdomen soft no tenderness. Bowel sounds positive in all four quadrants. No organomegaly. - Genitourinary: Deferred. - Neurologic: Cranial nerve II to XII intact. No focal neurological deficits. - Psychatric: Alert & oriented x 3. Matching mood & appropriate affect. Judgment and insight intact. - Lymphatic: No Lymphadenopathy. - Musculoskeletal: Cervical spine: Muscle bulk/ tone/ strength in the bilateral upper extremities normal. Facet loading test cervical area positive over C2-C3. Lumbar spine: Motor bulk/ tone/ strength lower extremities , thigh and legs : 5/5 Deep tendon reflexes : Normal Knee Jerk. Normal Ankle Jerk . Vertebral body tenderness to palpation over Lumbar Facet Loading Test positive Straight Leg Raise: positive at 30 degrees right side/ left side Gaenslen's Test positive Sacral spine : Severe tenderness over the Sacroiliac joint: right side / left side Range of motion: Flexion of the lumbar spine <60 degrees Range of motion: Extension of the lumbar spine <20 degrees Gaenslen's Test positive Ton test: positive right side / left side Assessment and plan: Chronic neck pain secondary to cervical degenerative disc disease , spondylosis with facet arthropathy without myelopathy Recommendation of C2-C3 & 3rd O.N. injection #2. May need a series of injections, up until RFA, for optimal pain relief. Risks, benefits of procedure discussed and pt verbalized understanding. Denies anticoagulant use and medical history of diabetes. Chronic and current use of high-risk medication (Opioids). The patient was counseled about risk of opioid use, psychological risk associated with opioids and was orally counseled to not overuse , divert or sell medications. Pt is to store medication in a safe location. The patient is counseled against driving while using narcotic medications and also not to use alcohol or any illicit recreational drugs. Patient verbalized understanding that the lack of compliance will result in failure to renew narcotic prescription(s) as well as possible discharge from the clinic Diagnoses, prognosis and treatment options including but not limited to physical therapy, surgical interventions, interventional therapies and medication management including narcotics and adjuvant medication were discussed. All patient questions answered MAPS reviewed and it was appropriate. UDS from 05/25/21 reviewed and consistent Prescription refill for Tramadol/ Baclofen/ Elavil w 2 refills. I have spent 31 minutes on patient care today. Dr Starkey was available by phone for the evaluation of this patient. The time was used to review the medical records including relevant urine studies and Prescription history (MAPs), review of the available imaging, evaluation and examination of the patient, coordination of care with the medical staff and if applicable referring physicians, as well as creation of the medical record PQRS Measure Charge Sheet PQRS Narrative: Smoking Status Former smoker Narcotic Agreement Date Signed 05/25/21 Hx Alcohol Use (MH) No Home Medications: Ambulatory Orders Lisinopril-Hctz 10-12.5 mg [Zestoretic 10-12.5] 1 tab PO QAM 01/20/16 Butalb/APAP/Caff 50-325-40Mg [Fioricet 50-325-40] 1 tab PO BID 02/15/17 Multivitamin [Men's Multi-Vitamin] 1 tab PO DAILY 08/08/17 Propylene Glycol/Peg 400/Pf [Systane 0.3-0.4% Eye Drops] 1 drop BOTH EYES TID 08/08/17 Topiramate [Topamax] 100 mg PO HS 08/08/17 diphenhydrAMINE [Benadryl] 100 mg PO HS PRN 10/19/17 Aspirin 325 mg PO DAILY 10/31/17 Atorvastatin [Lipitor] 40 mg PO QAM 11/11/17 Acetaminophen Tab [Tylenol Tab] 2,000 mg PO BID PRN 02/08/18 Citalopram Hydrobromide [CeleXA] 40 mg PO QAM 02/08/18 Prednisolone Acetate/Pf [Prednisolone Acet 1% Eye Drop] 1 drop RIGHT EYE TID PRN 08/29/18 Topiramate [Topamax] 50 mg PO DAILY PRN 09/20/18 Esomeprazole Magnesium [NexIUM] 20 mg PO DAILY 11/12/19 Cholecalciferol (Vitamin D3) [Vitamin D3 (5000 Iu)] 125 mcg PO DAILY 06/17/20 Omega3/Dha/Epa/Fish Oil/Vit D3 [[place]-3 + Vitamin D3 Softgel] 1 each PO DAILY 06/17/20 Albuterol Sulfate [Albuterol Sulfate Hfa] 2 puff PO Q4H 11/20/20 Ibuprofen 800 mg PO BID PRN 30 Days #60 tab 05/25/21 Amitriptyline HCl [Elavil] 100 mg PO HS 30 Days #30 tab 07/20/21 Baclofen [Lioresal] 10 mg PO TID 30 Days #90 tab 07/20/21 traMADol HCl [Ultram] 50 mg PO QID PRN 30 Days #120 tab 07/20/21
[2021-07-20 14:41] VITALS: BP 134/82; PULSE 89; RESP 18; TEMP 98.2
== END | disposition home or self-care (01) ==
LOC: PNWHC3 13:05
PROVIDERS: ATTEND Specialist
DX: M43.02 Spondylolysis, cervical region (principal); M50.31 Other cervical disc degeneration, high cervical region; M46.92 Unspecified inflammatory spondylopathy, cervical region
CPT/HCPCS: 99211

== ENCOUNTER → 2021-09-14 | Outpatient (CLI) | payer MEDICARE ==
--- NOTE | 2021-09-14 14:28 | P.PAINPG ---
PQRS Measure Charge Sheet Comment: A 61 yr old male with a history of severe and chronic headache and neck pain secondary to degenerative disc diseases and spondylosis with facet arthropathy presents today for evaluation of 1st nerve block of C2-C3 and 3rd O.N. back in June 2021 where he experienced 100% pain relief x 3 days, then experienced 75% pain relief thereafter. These treatments are diagnostic in nature and a 2nd series needs to be completed. Pain level is currently at 7/10 in intensity, constant, sharp pain in the mid to upper aspects of his cervical spine with radiation to the left side of his head. Pain is provoked by hyperextension. Pain is alleviated with . Interventional pain procedures completed include BL C2-C3 & 3rd O.N. x 1 Patient is currently on tramadol, Motrin 800 mg, baclofen, amitriptyline 100 mg Patient denies any side effects of the medication(s), denies excessive drowsiness or sleepiness, denies suicidal ideation and reports that the current pain medication is helping to control the pain and improve activities of daily living. Patient denies any motor or sensory deficits. Patient denies any fever or night sweats, denies any change in the bowel movements or urination. Physical Examination: -Constitutional: Cooperative. Not in acute distress . -HEENT: Neck is supple. No lymphadenopathy. No thyromegaly. Normal thyroid size. Eyes: No ptosis , no icterus, no photophobia. ENT: No auditory deficits. Normal oropharynx. No Thrush. - Respiratory: Chest clear to auscultations bilaterally. No wheezing. No rhonchi. - Cardiovascular: Regular rate and rhythm. S1 / S2 , no S3 , no S4. - Gastrointestinal: Abdomen soft no tenderness. Bowel sounds positive in all four quadrants. No organomegaly. - Genitourinary: Deferred. - Neurologic: Cranial nerve II to XII intact. No focal neurological deficits. - Psychatric: Alert & oriented x 3. Matching mood & appropriate affect. Judgment and insight intact. - Lymphatic: No Lymphadenopathy. - Musculoskeletal: Cervical spine: Muscle bulk/ tone/ strength in the bilateral upper extremities normal Vertebral body tenderness to palpation over Facet loading test positive over BL C2-C3 w jump reflex Thoracic spine Muscle bulk / tone/ strength in the bilateral paraspinal muscles normal Vertebral body tender to palpation over Facet loading test positive Lumbar spine: Motor bulk/ tone/ strength lower extremities , thigh and legs : 5/5 Deep tendon reflexes : Normal Knee Jerk. Normal Ankle Jerk . Vertebral body tenderness to palpation over Lumbar Facet Loading Test positive Straight Leg Raise: positive at 30 degrees right side/ left side Gaenslen's Test positive Sacral spine : Severe tenderness over the Sacroiliac joint: right side / left side Range of motion: Flexion of the lumbar spine <60 degrees Range of motion: Extension of the lumbar spine <20 degrees Gaenslen's Test positive Gabriel's Test positive Ton test: positive right side / left side Thigh Thrust Test Sacral Thrust Test Assessment and plan: Chronic low back pain secondary to lumbar degenerative disc disease , lumbar spondylosis with facet arthropathy without myelopathy Recommendation of BL C2-C3 and 3rd O.N. #2. Risks, benefits of procedure discussed and pt verbalized understanding. Denies anticoagulant use or medical history of diabetes. Chronic and current use of high-risk medication (Opioids). The patient was counseled about risk of opioid use, psychological risk associated with opioids and was orally counseled to not overuse , divert or sell medications. Pt is to store medication in a safe location. The patient is counseled against driving while using narcotic medica tions and also not to use alcohol or any illicit recreational drugs. Patient verbalized understanding that the lack of compliance will result in failure to renew narcotic prescription(s) as well as possible discharge from the clinic Diagnoses, prognosis and treatment options including but not limited to physical therapy, surgical interventions, interventional therapies and medicatio n management including narcotics and adjuvant medication were discussed. All patient questions answered MAPS reviewed and it was appropriate. UDS from 05/25/21 reviewed and consistent Prescription refill for Tramadol, Motrin 800mg, Baclofen, Amitryptyline 100mg QHS w 1 refill I have spent 31 minutes on patient care today. Dr Starkey was available by phone for the evaluation of this patient. The time was used to review the medical records including relevant urine studies and Prescription history (MAPs), review of the available imaging, evaluation and examination of the patient, coordination of care with the medical staff and if applicable referring physicians, as well as creation of the medical record PQRS Narrative: Smoking Status Former smoker Narcotic Agreement Date Signed 05/25/21 Hx Alcohol Use (MH) No Home Medications: Ambulatory Orders Lisinopril-Hctz 10-12.5 mg [Zestoretic 10-12.5] 1 tab PO QAM 01/20/16 Butalb/APAP/Caff 50-325-40Mg [Fioricet 50-325-40] 1 tab PO BID 02/15/17 Multivitamin [Men's Multi-Vitamin] 1 tab PO DAILY 08/08/17 Propylene Glycol/Peg 400/Pf [Systane 0.3-0.4% Eye Drops] 1 drop BOTH EYES TID 08/08/17 Topiramate [Topamax] 100 mg PO HS 08/08/17 diphenhydrAMINE [Benadryl] 100 mg PO HS PRN 10/19/17 Aspirin 325 mg PO DAILY 10/31/17 Atorvastatin [Lipitor] 40 mg PO QAM 11/11/17 Acetaminophen Tab [Tylenol Tab] 2,000 mg PO BID PRN 02/08/18 Citalopram Hydrobromide [CeleXA] 40 mg PO QAM 02/08/18 Prednisolone Acetate/Pf [Prednisolone Acet 1% Eye Drop] 1 drop RIGHT EYE TID PRN 08/29/18 Topiramate [Topamax] 50 mg PO DAILY PRN 09/20/18 Esomeprazole Magnesium [NexIUM] 20 mg PO DAILY 11/12/19 Cholecalciferol (Vitamin D3) [Vitamin D3 (5000 Iu)] 125 mcg PO DAILY 06/17/20 Omega3/Dha/Epa/Fish Oil/Vit D3 [[place]-3 + Vitamin D3 Softgel] 1 each PO DAILY 06/17/20 Albuterol Sulfate [Albuterol Sulfate Hfa] 2 puff PO Q4H 11/20/20 Amitriptyline HCl [Elavil] 100 mg PO HS 30 Days #30 tab 07/20/21 Baclofen [Lioresal] 10 mg PO TID 30 Days #90 tab 07/20/21 Ibuprofen 800 mg PO BID PRN 30 Days #60 tab 07/20/21 traMADol HCl [Ultram] 50 mg PO QID PRN 30 Days #120 tab 07/20/21 Controlled Substance Measures - Controlled Substance Measures Is patient prescribed a controlled substance at discharge?: Yes When asked, does pt state using other controlled substances?: Yes If prescribed controlled substance>3 days was MAPS reviewed?: Yes If Rx opioid, was Start Talking consent form obtained?: Yes If opioid is for acute pain is fill amount 7 days or less?: Yes Was information provided regarding opioid addiction?: Yes
[2021-09-14 14:29] VITALS: BP 134/82; PULSE 77; RESP 18
== END ==
LOC: PNWHC3 13:23
PROVIDERS: ATTEND Specialist
DX: G89.29 Other chronic pain (principal); M51.36 Other intervertebral disc degeneration, lumbar region; M47.816 Spondylosis without myelopathy or radiculopathy, lumbar region; Z79.891 Long term (current) use of opiate analgesic
CPT/HCPCS: 99211

== ENCOUNTER → 2021-10-23 | Day surgery (SDC) | payer MEDICARE ==
[~2021-10-23] MED LIST changes: +IV FLUID CONTINUATION 1,000 ML IV ONE; +LIDOCAINE 1% (10MG/ML) FOR IV START INTRADERMA PRN; +MIDAZOLAM 2 MG/2 ML VIAL ONE; +ROPIVACAINE 5MG/ML 20ML VIAL ONE; +fentaNYL (PF) 50 MCG/ML 2 ML AMP ONE; +methylPREDNISolone ACETATE 40 MG/ML 1 ML VIAL ONE
[2021-10-23 13:40] VITALS: TEMP 97
--- NOTE | 2021-10-23 14:22 | P.PCN ---
Date of Procedure: 10/23/21 Procedure(s) Performed: PREOPERATIVE DIAGNOSIS: 1-Cervical Spondylosis with Facet Arthropathy.without myelopathy. 2-cervical degenerative disc disease. 3-occipital neuralgia POSTOPERATIVE DIAGNOSIS: Same as preoperative diagnosis. PROCEDURES: Diagnostic bilateral C2 , C3, medial branch blocks, with fluoroscopic guidance (fluoroscopy images available in radiology department ) Diagnostic bilateral third occipital nerve block under fluoroscopy guidance # 2nd . ANESTHESIA: Monitored anesthesia care as per anesthesia department EBL: Minimal PROCEDURE INDICATION: The patient with neck pain secondary to cervical arthropathy unresponsive to more conservative treatments. PROCEDURE DESCRIPTION / TECHNIQUE: The patient was seen and identified in the preoperative area. Risks, benefits, complications, and alternatives were discussed with the patient, the patient agreed to proceed with the procedure and signed the consent. IV was started. Vital signs remained stable throughout the procedure. Patient was taken to the OR and time out was completed. The patient was placed in the prone position on the procedure table. A pillow was placed under the patients chest to increase the cervical interlaminar space. The cervical area was prepped and draped in the usual sterile fashion. Critical pause was taken. Vital signs were closely monitored during the procedure. Conscious sedation was used during the procedure to decrease patients anxiety. Using cross-table lateral fluoroscopy, the centroid of the trapezoid of right C2 ,C3 was identified, marked, and localized with 1% lidocaine 1 ml at each level for skin and Sub Q infiltrations . Subsequently, a 22 G 3 spinal needle was advanced guided by fluoroscopy to the centroid of the trapezoid of Right C2, C3 . [place] tip position was confirmed at the centroid of the trapezoids of Right C2 ,C3 with anteroposterior fluoroscopy. And to do the third occipital nerve block on the right side another 22-gauge Qu[place]ke needle advanced slowly under fluoroscopy and placed in the middle of the facet joints between the C2 and C3 vertebral , then after needle placement confirmed under fluoroscopy Subsequently, 1.5 ml of preservative-free Ropivacaine 0.5% mixed with Depo-Medrol 20 mg and half ml of the mixture was injected after negative aspiration for blood and CSF. [place] was then removed intact the same procedure was repeated at the left C2 ,C3 , and the left third occipital nerve levels. COMPLICATIONS: No acute complications. DISPOSITION / PLANS: The patient was placed in a supine position and transferred to the recovery area in a stable condition for observation and was discharged from the recovery room after meeting discharge criteria. Home discharge instructions given to the patient by the staff. The patient was reexamined prior to discharge. The patient will schedule a follow up in the clinic in 2-4 weeks.
[2021-10-23 14:32] VITALS: RESP 18
--- NOTE | 2021-10-23 14:33 | FL ---
Fluoroscopy INDICATION: Pain FINDINGS: Fluoroscopy time: 14 seconds. Images obtained: 2. IMPRESSIONS: 1. Documentation of fluoroscopy.
[2021-10-23 14:46] VITALS: BP 131/70; PULSE 68
== END ==
LOC: ORPAIN 12:43
PROVIDERS: ATTEND Specialist
DX: M47.816 Spondylosis without myelopathy or radiculopathy, lumbar region (principal); M50.30 Other cervical disc degeneration, unspecified cervical region; M54.81 Occipital neuralgia; I10 Essential (primary) hypertension; G47.33 Obstructive sleep apnea (adult) (pediatric); K21.9 Gastro-esophageal reflux disease without esophagitis; Z88.3 Allergy status to other anti-infective agents; Z79.82 Long term (current) use of aspirin; Z79.899 Other long term (current) drug therapy; Z79.1 Long term (current) use of non-steroidal anti-inflammatories (NSAID); Z87.891 Personal history of nicotine dependence
CPT/HCPCS: 64490; J2250; J1030; J3010; J2795

== ENCOUNTER → 2021-11-09 | Outpatient (CLI) | payer MEDICARE ==
[2021-11-09 14:09] VITALS: BP 145/88; PULSE 69; RESP 18; TEMP 98.6
--- NOTE | 2021-11-16 08:04 | P.PAINPG ---
PQRS Measure Charge Sheet Comment: A 61 yr old male with a history of severe and chronic low back pain secondary to lumbar degenerative disc diseases and lumbar spondylosis with facet arthropathy presents today for medication refill and evaluation s/p C2-C3 and 3rd ON #2. Admits to 80% relief x 2 days s/p procedure. Pain level is currently at 6/10 in intensity, pulsing/sore/tender in character, localized in midneck w radiation of pain towards the top of his head. Pain is provoked by . Pain is alleviated with PT integrated w massage therapy "a couple years ago," daily exercise at the [facility], heat, ice, TENS unit use at home, medications (Tramadol, Elavil, Baclofen), laying supine, repositioning and rest. Interventional pain procedures completed include C2-C3 and 3rd O.N. x2 Patient is currently on Tramadol, Baclofen, Elavil. Patient denies any side effects of the medication(s), denies excessive drowsiness or sleepiness, denies suicidal ideation and reports that the current pain medication is helping to control the pain and improve activities of daily living. Patient denies any motor or sensory deficits. Patient denies any fever or night sweats, denies any change in the bowel movements or urination. Physical Examination: -Constitutional: Cooperative. Not in acute distress . - Neurologic: Cranial nerve II to XII intact. No focal neurological deficits. - Psychatric: Alert & oriented x 3. Matching mood & appropriate affect. Judgment and insight intact. - Musculoskeletal: Cervical spine: +TTP over BL C2-C3 Muscle bulk/ tone/ strength in the bilateral upper extremities normal Vertebral body tenderness to palpation over [place] test positive Distraction test positive Facet loading test positive Thoracic spine Muscle bulk / tone/ strength in the bilateral paraspinal muscles normal Vertebral body tender to palpation over Facet loading test positive Lumbar spine: Motor bulk/ tone/ strength lower extremities , thigh and legs : 5/5 Deep tendon reflexes : Normal Knee Jerk. Normal Ankle Jerk . Vertebral body tenderness to palpation over Lumbar Facet Loading Test positive Straight Leg Raise: positive at 30 degrees right side/ left side Gaenslen's Test positive Sacral spine : Severe tenderness over the Sacroiliac joint: right side / left side Range of motion: Flexion of the lumbar spine <60 degrees Range of motion: Extension of the lumbar spine <20 degrees Gaenslen's Test positive Gabriel's Test positive Ton test: positive right side / left side Thigh Thrust Test Sacral Thrust Test Assessment and plan: Chronic low back pain secondary to lumbar degenerative disc disease , lumbar spondylosis with facet arthropathy without myelopathy Recommendation of RFA BL C2-C3 and 3rd O.N. Pt exhibited sufficient, shor t term pain relief w the prior diagnostic procedures. Risks, benefits of procedure discussed and pt verbalized understanding. Denies anticoagulant use or medical history of diabetes. Chronic and current use of high-risk medication (Opioids). The patient was counseled about risk of opioid use, psychological risk associated with opioids and was orally counseled to not overuse , divert or sell medications. Pt is to store medication in a safe location. The patient is counseled against driving while using narcotic medications and also not to use alcohol or any illicit recreational drugs. Patient verbalized understanding that the lack of compliance will result in failure to renew narcotic prescription(s) as well as possible discharge from the clinic Diagnoses, prognosis and treatment options including but not limited to physical therapy, surgical interventions, interventional therapies and medication management including narcotics and adjuvant medication were discussed. All patient questions answered MAPS reviewed and it was appropriate. Urine for UDS collected today 11/09/21 Prescription refill for Tramadol 50mg #120, Baclofen 10mg #60, Elavil QHS w 1 refill. I have spent less than 30 minutes on patient care today. Dr Starkey was available by phone for the evaluation of this patient. The time was used to review the medical records including relevant urine studies and Prescription history (MAPs), review of the available imaging, evaluation and examination of the patient, coordination of care with the medical staff and if applicable referring physicians, as well as creation of the medical record - Pain Location Bilateral Neck Non-Pharmacological Interventions: Heat, Home Exercise, Ice, Massage, Physical Therapy, Position/Reposition, TENS Unit Pharmacological Interventions: Block, Epidural, Scheduled Medication PQRS Narrative: Smoking Status Former smoker Narcotic Agreement Date Signed 05/25/21 Hx Alcohol Use (MH) No Home Medications: Ambulatory Orders Lisinopril-Hctz 10-12.5 mg [Zestoretic 10-12.5] 1 tab PO QAM 01/20/16 Butalb/APAP/Caff 50-325-40Mg [Fioricet 50-325-40] 1 tab PO BID 02/15/17 Multivitamin [Men's Multi-Vitamin] 1 tab PO DAILY 08/08/17 Propylene Glycol/Peg 400/Pf [Systane 0.3-0.4% Eye Drops] 1 drop BOTH EYES TID 08/08/17 Topiramate [Topamax] 100 mg PO HS 08/08/17 diphenhydrAMINE [Benadryl] 100 mg PO HS PRN 10/19/17 Aspirin 325 mg PO DAILY 10/31/17 Atorvastatin [Lipitor] 40 mg PO QAM 11/11/17 Acetaminophen Tab [Tylenol Tab] 2,000 mg PO BID PRN 02/08/18 Citalopram Hydrobromide [CeleXA] 40 mg PO QAM 02/08/18 Prednisolone Acetate/Pf [Prednisolone Acet 1% Eye Drop] 1 drop RIGHT EYE TID PRN 08/29/18 Esomeprazole Magnesium [NexIUM] 20 mg PO DAILY 11/12/19 Cholecalciferol (Vitamin D3) [Vitamin D3 (5000 Iu)] 125 mcg PO DAILY 06/17/20 Omega3/Dha/Epa/Fish Oil/Vit D3 [[place]-3 + Vitamin D3 Softgel] 1 each PO DAILY 06/17/20 Albuterol Sulfate [Albuterol Sulfate Hfa] 2 puff PO Q4H 11/20/20 Ibuprofen 800 mg PO BID PRN 30 Days #60 tab 07/20/21 Amitriptyline HCl [Elavil] 100 mg PO HS 30 Days #30 tab 11/09/21 Baclofen [Lioresal] 10 mg PO TID 30 Days #90 tab 11/09/21 traMADol HCl [Ultram] 50 mg PO QID PRN 30 Days #120 tab 11/09/21 Controlled Substance Measures - Controlled Substance Measures Is patient prescribed a controlled substance at discharge?: Yes When asked, does pt state using other controlled substances?: No If prescribed controlled substance>3 days was MAPS reviewed?: Yes If Rx opioid, was Start Talking consent form obtained?: Yes Was information provided regarding opioid addiction?: Yes
== END ==
LOC: PNWHC3 13:32
PROVIDERS: ATTEND Specialist
DX: Z51.81 Encounter for therapeutic drug level monitoring (principal); M51.36 Other intervertebral disc degeneration, lumbar region; M47.816 Spondylosis without myelopathy or radiculopathy, lumbar region; G89.29 Other chronic pain; Z79.891 Long term (current) use of opiate analgesic; Z87.891 Personal history of nicotine dependence; Z88.1 Allergy status to other antibiotic agents
CPT/HCPCS: 80307; G0482; G0463; 99211; 99212

== ENCOUNTER 2022-01-07 11:09 | Day surgery (SDC) | payer MEDICARE ==
[2022-01-07 11:52] VITALS: RESP 18; TEMP 98.2
[2022-01-07] MEDS ORDERED: LACTATED RINGERS 1,000 ML IV ONE ×2 (12:08)
[2022-01-07] MEDS ORDERED: DEXAMETHASONE SOD PHOSPHATE 10 MG/ML 1 ML VIAL ONE (12:12)
[2022-01-07] MEDS ORDERED: fentaNYL (PF) 50 MCG/ML 2 ML AMP ONE (12:12)
[2022-01-07] MEDS ORDERED: ROPIVACAINE 5 MG/ML 20 ML AMPULE ONE (12:12)
[2022-01-07] MEDS ORDERED: MIDAZOLAM 2 MG/2 ML VIAL ONE (12:12)
[2022-01-07] MEDS ORDERED: IV FLUID CONTINUATION 1,000 ML IV ONE (13:02)
--- NOTE | 2022-01-07 13:03 | P.PCN ---
Date of Procedure: 01/07/22 Description of Procedure: PREOPERATIVE DIAGNOSIS: Cervical spondylosis with Facet Arthropathy without myelopathy. POSTOPERATIVE DIAGNOSIS: Cervical spondylosis with Facet Arthropathy without myelopathy. PROCEDURES: Attempted Radiofrequency ablation of C2-C3, TON ANESTHESIA: Local with 1% lidocaine; IV sedation with 100 mcq fentanyl and 2mg Versed. Sedation Time: 4743-0000 EBL: Minimal PROCEDURE INDICATION: The patient with neck pain secondary to cervical arthropathy who had more than 50% relief of her pain with previous diagnostic cervical medial branch block. PROCEDURE DESCRIPTION / TECHNIQUE: The patient was seen and identified in the preoperative area. Risks, benefits, complications, and alternatives were discussed with the patient, the patient agreed to proceed with the procedure and signed the consent. IV was started. Vital signs remained stable throughout the procedure. Patient was taken to the OR and time out was completed. The patient was placed in the prone position on the procedure table. A pillow was placed under the patients chest to increase the cervical interlaminar space. The cervical area was prepped and draped in the usual sterile fashion. Critical pause was taken. Vital signs were closely monitored during the procedure. Conscious sedation was used during the procedure to decrease patients anxiety. Easing anterior posterior imaging the waist of C3 and C4 were identified. Local anesthetic 5 ML's of 1% lidocaine was injected subcutaneously at 25-gauge needle. Multiple attempts with a 20-gauge 150 cm for placement in the correct corresponding cervical body were unsuccessful. Difficulty with maneuvering the needle as well as patient compliance. Patient has large body habitus and was moving on the table. It was difficult to get comfortable placement of the needle during performed testing. It was decided then to just abort the procedure, and allow for him to reschedule with the provider who has successfully done radiofrequency ablations in the past COMMENTS: DISPOSITION / PLANS: The patient was placed in a supine position and transferred to the recovery area in a stable condition for observation and was discharged from the recovery room after meeting discharge criteria. Home discharge instructions given to the patient by the staff. The patient was reexamined prior to discharge. Reschedule patient for a later date.
--- NOTE | 2022-01-07 13:13 | FL ---
EXAMINATION TYPE: FL guided pain mgmt statistic DATE OF EXAM: 01/07/2022 FLUOROSCOPY Fluoroscopy time of 2 minutes 33 seconds was used during bilateral cervical facet block. 2 image/s d ocument/s the procedure.
[2022-01-07 13:27] VITALS: BP 147/85; PULSE 65
== END 2022-01-07 13:32 | disposition home or self-care (01) ==
LOC: ORPAIN 11:09
PROVIDERS: ATTEND Anesthesiology
DX: M47.812 Spondylosis without myelopathy or radiculopathy, cervical region (principal); Z53.8 Procedure and treatment not carried out for other reasons
CPT/HCPCS: 64490; J2250; J1100; J3010; J2795; 99152; 99153

== ENCOUNTER → 2022-02-01 | Outpatient (CLI) | payer MEDICARE ==
[2022-02-01 13:24] VITALS: BP 124/75; PULSE 82; RESP 18
--- NOTE | 2022-02-01 15:11 | P.PAINPG ---
Objective - Vital Signs Vital signs: Intake & Output 01/31/22 02/01/22 02/01/22 18:59 06:59 18:59 Weight 120.202 kg PQRS Measure Charge Sheet Comment: A 61 yr old male with a history of severe and chronic neck pain secondary to cervical degenerative disc diseases and spondylosis with facet arthropathy without myelopathy presents today for medication refills. Pain level is currently at 9/10 in intensity, constant, localized in the L cervical spine, sharp/ throbbing in character w shooting towards the top of his scalp and L shoulder. Pain is provoked by flexion and hyperextension. Pain is alleviated with PT in 2020, massage therapy approx 5 yrs ago, heat, ice, medications, TENS unit use, use of sling, repositioning and rest. Unable to perform BL MBB of C2- C3, C3-C4 in last OR visit in Nov 2021 due to anatomical & positioning issues. Script for Soft C collar provided. Patient is currently on Tramadol, Baclofen, Ibuprofen, Elavil Patient denies any side effects of the medication(s), denies excessive drowsiness or sleepiness, denies suicidal ideation and reports that the current pain medication is helping to control the pain and improve activities of daily living. Patient denies any motor or sensory deficits. Patient denies any fever or night sweats, denies any change in the bowel movements or urination. Physical Examination: -Constitutional: Cooperative. Not in acute distress . - Neurologic: Cranial nerve II to XII intact. No focal neurological deficits. - Psychatric: Alert & oriented x 3. Matching mood & appropriate affect. Judgment and insight intact. - Musculoskeletal: Cervical spine: Muscle bulk/ tone/ strength in the bilateral upper extremities normal Vertebral body tenderness to palpation over Spurling test positive Distraction test positive Facet loading test positive Thoracic spine Muscle bulk / tone/ strength in the bilateral paraspinal muscles normal Vertebral body tender to palpation over Facet loading test positive Lumbar spine: Motor bulk/ tone/ strength lower extremities , thigh and legs : 5/5 Deep tendon reflexes : Normal Knee Jerk. Normal Ankle Jerk . Vertebral body tenderness to palpation over Lumbar Facet Loading Test positive Straight Leg Raise: positive at 30 degrees right side/ left side Gaenslen's Test positive Sacral spine : Severe tenderness over the Sacroiliac joint: right side / left side Range of motion: Flexion of the lumbar spine <60 degrees Range of motion: Extension of the lumbar spine <20 degrees Gaenslen's Test positive Gabriel's Test positive Ton test: positive right side / left side Thigh Thrust Test Sacral Thrust Test Assessment and plan: Chronic neck pain secondary to cervical degenerative disc disease, spondylosis with facet arthropathy without myelopathy Chronic and current use of high-risk medication (Opioids). The patient was counseled about risk of opioid use, psychological risk associated with opioids and was orally counseled to not overuse , divert or sell medications. Pt is to store medication in a safe location. The patient is counseled against driving while using narcotic medications and also not to use alcohol or any illicit recreational drugs. Patient verbalized understanding that the lack of compliance will result in failure to renew narcotic prescription(s) as well as possible discharge from the clinic Diagnoses, prognosis and treatment options including but not limited to physical therapy, surgical interventions, interventional therapies and medication management including narcotics and adjuvant medication were discussed. All patient questions answered Opiate agreement signed today 02/01/22 MAPS reviewed and it was appropriate. Discontinue Tramadol. Replace w Tylenol #3 #90 Prescription refill for Tyl #3 #90, Baclofen #90, Ibuprofen #60 , Elavil QHSA #30 w 2 RF I have spent less than 30 minutes on patient care today. Dr Starkey was available by phone for the evaluation of this patient. The time was used to review the medical records including relevant urine studies and Prescription history (MAPs), review of the available imaging, evaluation and examination of the patient, coordination of care with the medical staff and if applicable referring physicians, as well as creation of the medical record - Pain Location Left Upper Neck Non-Pharmacological Interventions: Darkened Room, Exercise, Heat, Home Exercise, Ice, Inactivity, Massage, Physical Therapy, TENS Unit Pharmacological Interventions: Block, Epidural, PRN Medication, Scheduled Medication, Topical Medication PQRS Narrative: Smoking Status Former smoker Narcotic Agreement Date Signed 05/25/21 Hx Alcohol Use (MH) No Home Medications: Ambulatory Orders Lisinopril-Hctz 10-12.5 mg [Zestoretic 10-12.5] 1 tab PO QAM 01/20/16 Butalb/APAP/Caff 50-325-40Mg [Fioricet 50-325-40] 1 tab PO BID PRN 02/15/17 Multivitamin [Men's Multi-Vitamin] 1 tab PO DAILY 08/08/17 Propylene Glycol/Peg 400/Pf [Systane 0.3-0.4% Eye Drops] 1 drop BOTH EYES TID 08/08/17 Topiramate [Topamax] 100 mg PO HS 08/08/17 diphenhydrAMINE [Benadryl] 100 mg PO HS PRN 10/19/17 Aspirin 325 mg PO DAILY 10/31/17 Atorvastatin [Lipitor] 40 mg PO QAM 11/11/17 Acetaminophen Tab [Tylenol Tab] 2,000 mg PO BID PRN 02/08/18 Citalopram Hydrobromide [CeleXA] 40 mg PO QAM 02/08/18 Prednisolone Acetate/Pf [Prednisolone Acet 1% Eye Drop] 1 drop RIGHT EYE TID PRN 08/29/18 Esomeprazole Magnesium [NexIUM] 20 mg PO DAILY 11/12/19 Cholecalciferol (Vitamin D3) [Vitamin D3 (5000 Iu)] 125 mcg PO DAILY 06/17/20 Omega3/Dha/Epa/Fish Oil/Vit D3 [[place]-3 + Vitamin D3 Softgel] 1 each PO DAILY 06/17/20 Albuterol Sulfate [Albuterol Sulfate Hfa] 2 puff PO Q4H PRN 11/20/20 Fluticasone/Umeclidin/Vilanter [Trelegy Ellipta 200-62.5-25] 200 mg INHALATION DAILY 01/07/22 Acetaminophen-Codeine 300-30mg [Tylenol w/codeine #3] 1 tab PO Q8H PRN 30 Days #90 tablet 02/01/22 Amitriptyline HCl [Elavil] 100 mg PO HS 30 Days #30 tab 02/01/22 Baclofen [Lioresal] 10 mg PO TID 30 Days #90 tab 02/01/22 Ibuprofen 600 mg PO Q12H 30 Days #60 tab 02/01/22 Controlled Substance Measures - Controlled Substance Measures Is patient prescribed a controlled substance at discharge?: Yes When asked, does pt state using other controlled substances?: No If prescribed controlled substance>3 days was MAPS reviewed?: Yes If Rx opioid, was Start Talking consent form obtained?: Yes Was information provided regarding opioid addiction?: Yes
== END ==
LOC: PNWHC3 12:47
PROVIDERS: ATTEND Specialist
DX: M47.812 Spondylosis without myelopathy or radiculopathy, cervical region (principal); M50.30 Other cervical disc degeneration, unspecified cervical region; G89.29 Other chronic pain; Z79.891 Long term (current) use of opiate analgesic; Z87.891 Personal history of nicotine dependence; Z88.1 Allergy status to other antibiotic agents
CPT/HCPCS: 80307; G0482; G0463; 99212

== ENCOUNTER → 2022-03-31 | Outpatient (CLI) | payer MEDICARE ==
[2022-03-31 13:53] VITALS: BP 179/92; PULSE 81; RESP 16; TEMP 97.6
--- NOTE | 2022-03-31 15:35 | P.PAINPG ---
Objective - Vital Signs Vital signs: Vital Signs Temp 97.6 F 03/31/22 13:51 Pulse 81 03/31/22 13:51 Resp 16 03/31/22 13:51 BP 179/92 03/31/22 13:51 Pulse Ox 97 03/31/22 13:51 FiO2 Intake & Output 03/30/22 03/31/22 03/31/22 18:59 06:59 18:59 Weight 124.738 kg PQRS Measure Charge Sheet Mode of Arrival: Ambulatory Comment: A 61 yr old male with a history of severe and chronic neck pain secondary to c ervical DDD and spondylosis with facet arthropathy without myelopathy presents today for medication refills. Pain level is currently at 8 /10 in intensity, constant, localized in the mid to lower cervical spine, sore/ achy in character w shooting towards the BL shoulders and UEs. Pain is provoked by rotation, over head lifting. Pain is alleviated with medications, topicals, injections in the past, alternating heat & ice, home exercise regimen as tolerated, use of a lumbar support brace, repositioning and rest. Interventional pain procedures completed include CESIs, C3-C6 RFAs, BL YAZMIN injections Patient is currently on Motrin, Elavil, Baclofen Patient denies any side effects of the medication(s), denies excessive drowsiness or sleepiness, denies suicidal ideation and reports that the current pain medication is helping to control the pain and improve activities of daily living. Patient denies any motor or sensory deficits. Patient denies any fever or night sweats, denies any change in the bowel movements or urination. Physical Examination: -Constitutional: Cooperative. Not in acute distress . - Neurologic: Cranial nerve II to XII intact. No focal neurological deficits. - Psychatric: Alert & oriented x 3. Matching mood & appropriate affect. Judgment and insight intact. - Musculoskeletal: Cervical spine: Muscle bulk/ tone/ strength in the bilateral upper extremities normal Vertebral body tenderness to palpation over C5, C6 Spurling test positive Distraction test positive Facet loading test positive Thoracic spine Muscle bulk / tone/ strength in the bilateral paraspinal muscles normal Vertebral body tender to palpation over Facet loading test positive Lumbar spine: Motor bulk/ tone/ strength lower extremities , thigh and legs : 5/5 Deep tendon reflexes : Normal Knee Jerk. Normal Ankle Jerk . Vertebral body tenderness to palpation over Lumbar Facet Loading Test positive Straight Leg Raise: positive at 30 degrees right side/ left side Gaenslen's Test positive Sacral spine : Severe tenderness over the Sacroiliac joint: right side / left side Range of motion: Flexion of the lumbar spine <60 degrees Range of motion: Extension of the lumbar spine <20 degrees Gaenslen's Test positive Ton test: positive right side / left side Thigh Thrust Test Sacral Thrust Test Assessment and plan: Chronic neck pain secondary to cervical DDD, spondylosis with facet arthropathy without myelopathy Recommendation of 2 mo of medication refills. Violation of Narcotics and Opiate agreement discussed with consumption of alcohol. Chronic and current use of high-risk medication (Opioids). The patient was counseled about risk of opioid use, psychological risk associated with opioids and was orally counseled to not overuse , divert or sell medications. Pt is to store medication in a safe location. The patient is counseled against driving while using narcotic medications and also not to use alcohol or any illicit recreational drugs. Patient verbalized understanding that the lack of compliance will result in failure to renew narcotic prescription(s) as well as possible discharge from the clinic Diagnoses, prognosis and treatment options including but not limited to physical therapy, surgical interventions, interventional therapies and medication management including narcotics and adjuvant medication were discussed. All patient questions answered MAPS reviewed and it was appropriate. UDS from 02/01/22 reviewed and inconsistent. +Ethyl B D Glucuronide. Will recheck UDS today 03/31/22 as pt swears he does not drink alcohol at all and that those results were an error. Prescription refill for Tramadol 50mg #120, Baclofen, Elavil, Ibuprofen 800mg #90 w 1 RF I have spent less than 30 minutes on patient care today. Dr Starkey was available by phone for the evaluation of this patient. The time was used to review the medical records including relevant urine studies and Prescription history (MAPs), review of the available imaging, evaluation and examination of the patient, coordination of care with the medical staff and if applicable referring physicians, as well as creation of the medical record - Pain Location Generalized Non-Pharmacological Interventions: Heat, Ice, Inactivity Pharmacological Interventions: PRN Medication, Scheduled Medication PQRS Narrative: Smoking Status Former smoker Narcotic Agreement Date Signed 05/25/21 Blood Pressure 179/92 Pain Intensity [Generalized] 8 Scale Used Numeric (1 - 10) Hx Alcohol Use (MH) No Home Medications: Ambulatory Orders Lisinopril-Hctz 10-12.5 mg [Zestoretic 10-12.5] 1 tab PO QAM 01/20/16 Butalb/APAP/Caff 50-325-40Mg [Fioricet 50-325-40] 1 tab PO BID PRN 02/15/17 Multivitamin [Men's Multi-Vitamin] 1 tab PO DAILY 08/08/17 Propylene Glycol/Peg 400/Pf [Systane 0.3-0.4% Eye Drops] 1 drop BOTH EYES TID 08/08/17 Topiramate [Topamax] 100 mg PO HS 08/08/17 diphenhydrAMINE [Benadryl] 100 mg PO HS PRN 10/19/17 Aspirin 325 mg PO DAILY 10/31/17 Atorvastatin [Lipitor] 40 mg PO QAM 11/11/17 Acetaminophen Tab [Tylenol Tab] 2,000 mg PO BID PRN 02/08/18 Citalopram Hydrobromide [CeleXA] 40 mg PO QAM 02/08/18 Prednisolone Acetate/Pf [Prednisolone Acet 1% Eye Drop] 1 drop RIGHT EYE TID PRN 08/29/18 Esomeprazole Magnesium [NexIUM] 20 mg PO DAILY 11/12/19 Cholecalciferol (Vitamin D3) [Vitamin D3 (5000 Iu)] 125 mcg PO DAILY 06/17/20 Omega3/Dha/Epa/Fish Oil/Vit D3 [[place]-3 + Vitamin D3 Softgel] 1 each PO DAILY 06/17/20 Albuterol Sulfate [Albuterol Sulfate Hfa] 2 puff PO Q4H PRN 11/20/20 Fluticasone/Umeclidin/Vilanter [Trelegy Ellipta 200-62.5-25] 200 mg INHALATION DAILY 01/07/22 Amitriptyline HCl [Elavil] 100 mg PO HS 30 Days #30 tab 02/01/22 Baclofen [Lioresal] 10 mg PO TID 30 Days #90 tab 02/01/22 Ibuprofen 800 mg PO Q8H PRN 30 Days #90 tab 03/31/22 traMADol HCL 50 mg PO Q6H PRN 30 Days #120 tab 03/31/22 Controlled Substance Measures - Controlled Substance Measures Is patient prescribed a controlled substance at discharge?: Yes When asked, does pt state using other controlled substances?: No If prescribed controlled substance>3 days was MAPS reviewed?: Yes If Rx opioid, was Start Talking consent form obtained?: Yes Was information provided regarding opioid addiction?: Yes
== END ==
LOC: PNWHC3 13:30
PROVIDERS: ATTEND Specialist
DX: M47.812 Spondylosis without myelopathy or radiculopathy, cervical region (principal); G89.29 Other chronic pain; M50.30 Other cervical disc degeneration, unspecified cervical region; Z87.891 Personal history of nicotine dependence; Z79.82 Long term (current) use of aspirin; Z88.1 Allergy status to other antibiotic agents; Z79.891 Long term (current) use of opiate analgesic
CPT/HCPCS: 80307; G0482; G0463; 99212

== ENCOUNTER 2022-04-09 09:30 | Day surgery (SDC) | payer MEDICARE ==
[2022-04-09 09:48] VITALS: TEMP 98
[2022-04-09] MEDS ORDERED: LACTATED RINGERS 1,000 ML IV ONE (09:48)
[2022-04-09] MEDS ORDERED: LIDOCAINE 1% (10MG/ML) FOR IV START INTRADERMA PRN (09:54)
[2022-04-09] MEDS ORDERED: LACTATED RINGERS 1,000 ML IV SCH (09:54)
[2022-04-09] MEDS ORDERED: methylPREDNISolone ACETATE 40 MG/ML 1 ML VIAL ONE (09:59)
[2022-04-09] MEDS ORDERED: ROPIVACAINE 5 MG/ML 20 ML AMPULE ONE (09:59)
[2022-04-09] MEDS ORDERED: MIDAZOLAM 2 MG/2 ML VIAL ONE (09:59)
[2022-04-09] MEDS ORDERED: fentaNYL (PF) 50 MCG/ML 2 ML AMP ONE (09:59)
--- NOTE | 2022-04-09 10:36 | P.PCN ---
Date of Procedure: 04/09/22 Procedure(s) Performed: PREOPERATIVE DIAGNOSIS: Cervical spondylosis with Facet Arthropathy without myelopathy. POSTOPERATIVE DIAGNOSIS: Cervical spondylosis with Facet Arthropathy without myelopathy. PROCEDURES: Radiofrequency thermocoagulation bilateral C2 , C3 medial branch with Fluroscopy [place](fluoroscopy was available in Radiology department ) (to denervate the facet joint at bilateral C2-C3 ) ANESTHESIA: Monitored anesthesia care as per anesthesia department . EBL: Minimal PROCEDURE INDICATION: The patient with neck pain secondary to cervical arthropathy who had more than 50% relief of her pain with previous diagnostic cervical medial branch block. PROCEDURE DESCRIPTION / TECHNIQUE: The patient was seen and identified in the preoperative area. Risks, benefits, complications, and alternatives were discussed with the patient, the patient agreed to proceed with the procedure and signed the consent. IV was started. Vital signs remained stable throughout the procedure. Patient was taken to the OR and time out was completed. The patient was placed in the prone position on the procedure table. A pillow was placed under the patients chest to increase the cervical interlaminar space. The cervical area was prepped and draped in the usual sterile fashion. Critical pause was taken. Vital signs were closely monitored during the procedure. Conscious sedation was used during the procedure to decrease patients anxiety. Using cross-table lateral fluoroscopy, the centroid of the trapezoid of right C2 ,C3,were identified, marked, and localized with 1% lidocaine. Subsequently, a 20 [id number] radiofrequency cannula with a 10-mm active tip was advanced guided by fluoroscopy to the centroid of the trapezoid of right C2 ,C3 . Needle tip position was confirmed at the centroid of the trapezoids of Right C2 ,C3, with anteroposterior fluoroscopy. Each site then underwent sensory testing at 50 Hz and 0 to 1 volt and motor testing at 2 Hz and 0 to 3 volt with local stimulation, but no radicular symptoms down the arm. Thereafter each sites underwent radiofrequency thermocoagulation at 80 degrees celsius for 90 seconds after injecting 0.5 ml of PF Ropivacaine 0.5 %. After thermocoagulation, 1 ml of the block solution containing Depo-Medrol 20 mg and 2 mL of preservative-free normal saline was injected at theright C2 ,C3, levels after negative aspiration of CSF and blood and with no paresthesias. Cannulas were retracted while injecting lidocaine 1% until the needle is out. The exact same procedure was done for the left side C2 , C3 , at the end of the procedure the Skin was cleansed and bandages were applied. COMPLICATIONS: No acute complications. DISPOSITION / PLANS: The patient was placed in a supine position and transferred to the recovery area in a stable condition for observation and was discharged from the recovery room after meeting discharge criteria. Home discharge instructions given to the patient by the staff. The patient was reexamined prior to discharge. The patient will schedule a follow up in the clinic in 2-4 weeks.
[2022-04-09] MEDS ORDERED: IV FLUID CONTINUATION 900 ML IV ONE (10:40)
[2022-04-09 10:42] VITALS: RESP 16
--- NOTE | 2022-04-09 10:56 | FL ---
Intraoperative/procedural fluoroscopic services were provided for bilateral cervical radiofrequency. Total fluoroscopy time is 23.3 seconds with a total of 5 submitted images to PACS. Please see the ope rative note for further details.
[2022-04-09 10:57] VITALS: BP 146/72; PULSE 71
== END 2022-04-09 11:10 | disposition home or self-care (01) ==
LOC: ORPAIN 09:30
PROVIDERS: ATTEND Specialist
DX: M47.812 Spondylosis without myelopathy or radiculopathy, cervical region (principal); I10 Essential (primary) hypertension; E78.5 Hyperlipidemia, unspecified; J45.909 Unspecified asthma, uncomplicated; G47.33 Obstructive sleep apnea (adult) (pediatric); F41.8 Other specified anxiety disorders; M19.90 Unspecified osteoarthritis, unspecified site; K21.9 Gastro-esophageal reflux disease without esophagitis; Z99.89 Dependence on other enabling machines and devices; Z88.1 Allergy status to other antibiotic agents; Z79.899 Other long term (current) drug therapy; Z79.51 Long term (current) use of inhaled steroids; Z79.82 Long term (current) use of aspirin; Z98.890 Other specified postprocedural states
CPT/HCPCS: 64633; J2250; J1030; J3010; J2795

== ENCOUNTER → 2022-07-21 | Outpatient (CLI) | payer MEDICARE ==
[2022-07-21 13:40] VITALS: BP 160/85; PULSE 86; RESP 18; TEMP 98.3
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
== END ==
LOC: PNWHC3 13:04
PROVIDERS: ATTEND Specialist
DX: M50.30 Other cervical disc degeneration, unspecified cervical region (principal); M47.812 Spondylosis without myelopathy or radiculopathy, cervical region; G89.29 Other chronic pain; Z79.891 Long term (current) use of opiate analgesic; Z87.891 Personal history of nicotine dependence; Z79.82 Long term (current) use of aspirin; Z88.1 Allergy status to other antibiotic agents
CPT/HCPCS: 99211

== ENCOUNTER → 2022-09-15 | Outpatient (CLI) | payer MEDICARE ==
[2022-09-15 13:27] VITALS: BP 159/91; PULSE 74; RESP 18
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
== END ==
LOC: PNWHC3 12:44
PROVIDERS: ATTEND Specialist
DX: M47.812 Spondylosis without myelopathy or radiculopathy, cervical region (principal); G89.29 Other chronic pain; Z79.891 Long term (current) use of opiate analgesic; Z87.891 Personal history of nicotine dependence; Z88.1 Allergy status to other antibiotic agents; Z79.82 Long term (current) use of aspirin
CPT/HCPCS: 99211

== ENCOUNTER → 2022-11-10 | Outpatient (CLI) | payer MEDICARE ==
[2022-11-10 14:22] VITALS: BP 162/86; PULSE 79; RESP 16; TEMP 98.2
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
== END ==
LOC: PNWHC3 12:49
PROVIDERS: ATTEND Specialist
DX: M50.30 Other cervical disc degeneration, unspecified cervical region (principal); G89.29 Other chronic pain; Z02.83 Encounter for blood-alcohol and blood-drug test; M47.812 Spondylosis without myelopathy or radiculopathy, cervical region; Z79.891 Long term (current) use of opiate analgesic; Z79.82 Long term (current) use of aspirin; Z87.891 Personal history of nicotine dependence; Z88.1 Allergy status to other antibiotic agents
CPT/HCPCS: 99211

== ENCOUNTER → 2022-11-10 | Outpatient (CLI) | payer MEDICARE ==
[2022-11-11 12:56] LABS: Serum Amphetamine Negative; Serum Barbiturates Negative; Serum Benzodiazepine Negative; Serum Cocaine Negative; Serum Methadone Negative; Serum Opiates Negative; Serum Phencyclidine Negative; Serum Propoxyphene Negative; Serum THC (Cannabis) Negative
== END | disposition home or self-care (01) ==
LOC: LABWHC1 13:50
PROVIDERS: ATTEND Physician Assistant Medical
DX: Z02.83 Encounter for blood-alcohol and blood-drug test (principal)
CPT/HCPCS: 36415; 80307

== ENCOUNTER → 2023-01-05 | Outpatient (CLI) | payer MEDICARE ==
[2023-01-05 14:19] VITALS: BP 174/87; PULSE 68; RESP 16
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
[2023-01-06 12:07] LABS: Serum Amphetamine Negative; Serum Barbiturates Negative; Serum Benzodiazepine Negative; Serum Cocaine Negative; Serum Methadone Negative; Serum Opiates Negative; Serum Phencyclidine Negative; Serum Propoxyphene Negative; Serum THC (Cannabis) Negative
== END ==
LOC: PNWHC3 13:22
PROVIDERS: ATTEND Specialist
DX: Z02.83 Encounter for blood-alcohol and blood-drug test (principal); M50.30 Other cervical disc degeneration, unspecified cervical region; M47.812 Spondylosis without myelopathy or radiculopathy, cervical region; G89.29 Other chronic pain; Z79.891 Long term (current) use of opiate analgesic; Z87.891 Personal history of nicotine dependence; Z79.82 Long term (current) use of aspirin; Z88.1 Allergy status to other antibiotic agents
CPT/HCPCS: 80307; G0463; 99211

== ENCOUNTER → 2023-02-02 | Outpatient (CLI) | payer MEDICARE ==
[2023-02-02 14:52] VITALS: BP 144/78; PULSE 66; RESP 15; TEMP 98.7
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
== END ==
LOC: PNWHC3 14:15
PROVIDERS: ATTEND Specialist
DX: M50.30 Other cervical disc degeneration, unspecified cervical region (principal); M47.812 Spondylosis without myelopathy or radiculopathy, cervical region; G89.29 Other chronic pain; Z79.891 Long term (current) use of opiate analgesic; Z87.891 Personal history of nicotine dependence; Z79.82 Long term (current) use of aspirin; Z88.1 Allergy status to other antibiotic agents
CPT/HCPCS: 99211

== ENCOUNTER 2023-02-14 08:43 | Emergency (ER) | payer MEDICARE ==
[2023-02-14 08:58] VITALS: BP 141/88; PULSE 84; RESP 20; TEMP 98.2
[2023-02-14] MEDS ORDERED: DEXAMETHASONE SOD PHOSPHATE 10 MG/ML 1 ML VIAL IM STA (09:12)
[2023-02-14] MEDS ORDERED: KETOROLAC 15 MG/ML 1 ML VIAL IM STA (09:12)
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
== END 2023-02-14 09:34 | disposition home or self-care (01) ==
LOC: EC 08:43
DX: M54.50 Low back pain, unspecified (principal); E78.5 Hyperlipidemia, unspecified; G47.30 Sleep apnea, unspecified; I10 Essential (primary) hypertension; J45.909 Unspecified asthma, uncomplicated; M19.90 Unspecified osteoarthritis, unspecified site; K21.9 Gastro-esophageal reflux disease without esophagitis; F32.A Depression, unspecified; F41.9 Anxiety disorder, unspecified; Z79.82 Long term (current) use of aspirin; Z79.899 Other long term (current) drug therapy; Z87.891 Personal history of nicotine dependence; Z88.1 Allergy status to other antibiotic agents
CPT/HCPCS: 99283; 96372 ×2; J1100; J1885

== ENCOUNTER → 2023-03-05 | Outpatient (CLI) | payer MEDICARE ==
--- NOTE | 2023-03-05 16:13 | MR ---
EXAMINATION TYPE: MR lumbar spine wo con DATE OF EXAM: 03/05/2023 COMPARISON: None HISTORY: Low back pain into rt side TECHNIQUE: Multiplanar, multisequence images of the lumbar spine were acquired without IV contrast. Findings: The lumbar vertebral segments are normal in height and alignment and there is no fracture subluxation . There is mild loss of signal intensity the L1-2 and L2-3 disc indicating mild degenerative disc disea se. L5-S1 disc is normal. There is mild to moderate degenerative disease at the L4-5 level where there is circumferential disc bulge, mild loss of height and signal intensity. Secondary to eccentric disc bulge to the right, ther e is moderate narrowing of the right L4-5 neural foramina. The remaining neuroforamina throughout the lumbar region are widely patent. There is no spinal stenosis. The conus medullaris and cauda equina appear normal. There is mild facet arthropathy at the L3-4, L4-5 and L5-S1 levels. There is mild atrophy of the paraspinal muscles right greater than left. IMPRESSION: 1. Moderate degenerative disease at the L4-5 level with eccentric disc bulge to the right moderately compromising the right L4-5 neural foramina. 2. Mild degenerative disease at the L1-2 and L2-3 levels. 3. No spinal stenosis. 4. Mild facet arthropathy at the L3-4, L4-5 and L5-S1 levels.
== END | disposition home or self-care (01) ==
LOC: RADMRIMAIN 14:48
PROVIDERS: ATTEND Orthopaedic Surgery Orthopaedic Surgery of the Spine
DX: M47.26 Other spondylosis with radiculopathy, lumbar region (principal); M51.16 Intervertebral disc disorders with radiculopathy, lumbar region; M99.73 Connective tissue and disc stenosis of intervertebral foramina of lumbar region; M47.27 Other spondylosis with radiculopathy, lumbosacral region; R53.1 Weakness
CPT/HCPCS: 72148

== ENCOUNTER → 2023-04-27 | Outpatient (CLI) | payer MEDICARE ==
[2023-04-27 14:20] VITALS: BP 144/96; PULSE 97; RESP 16
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
== END ==
LOC: PNWHC3 13:39
PROVIDERS: ATTEND Anesthesiology
DX: M47.816 Spondylosis without myelopathy or radiculopathy, lumbar region (principal); M47.812 Spondylosis without myelopathy or radiculopathy, cervical region; M50.30 Other cervical disc degeneration, unspecified cervical region; Z79.891 Long term (current) use of opiate analgesic; Z88.1 Allergy status to other antibiotic agents; Z79.82 Long term (current) use of aspirin; Z87.891 Personal history of nicotine dependence
CPT/HCPCS: 99211

== ENCOUNTER → 2023-06-23 | Day surgery (SDC) | payer MEDICARE ==
[~2023-06-23] MED LIST changes: +IOPAMIDOL M200 10 ML VIAL ONE; -IV FLUID CONTINUATION 1,000 ML IV ONE; -LIDOCAINE 1% (10MG/ML) FOR IV START INTRADERMA PRN; -MIDAZOLAM 2 MG/2 ML VIAL ONE; -ROPIVACAINE 5MG/ML 20ML VIAL ONE; -fentaNYL (PF) 50 MCG/ML 2 ML AMP ONE; -methylPREDNISolone ACETATE 40 MG/ML 1 ML VIAL ONE; +methylPREDNISolone ACETATE 80 MG/ML 1 ML VIAL ONE
[2023-06-23 13:01] VITALS: TEMP 97.7
--- NOTE | 2023-06-23 13:08 | P.PCN ---
Date of Procedure: 06/23/23 Procedure(s) Performed: PREOPERATIVE DIAGNOSIS: 1- Lumbar Degenerative Disc Diseases 2-Lumbar spondylosis with Facet arthropathy without myelopathy. POSTOPERATIVE DIAGNOSIS: 1-lumbar degenerative disc disease. 2-lumbar spondylosis with facet arthropathy without myelopathy. PROCEDURE 1. Lumbar epidural steroid injection under fluoroscopic guidance at the L2-3 level. (Fluoroscopy imaging was available in radiology department) 2. Lumbar epidurogram. ANESTHESIA: Lidocaine 1% 3 and then only. EBL: Minimal PROCEDURE INDICATION: The patient with low back pain and radiculitis symptoms unresponsive to conservative treatment. Fluoroscopy was used to optimize visualization of the needle placement and to maximize safety. PROCEDURE DESCRIPTION / TECHNIQUE: The patient was seen and identified in the preoperative area. Risks, benefits, complications including but not limited to infections ,bleeding ,allergic reaction to the medications ,nerve damage and not complete pain releife , and alternatives were discussed with the patient. The patient agreed to proceed with the procedure and signed the consent, and vital signs were stable. Patient was taken to the OR and time out was completed. The patient was placed in the prone position on procedure table and a pillow was placed under the ab domen to reduce lumbar lordosis. The lumbosacral area was prepped and draped in the usual sterile fashion.ere closely monitored during the procedure. Vital signs was monitered during the entire procedure. Using anterior-posterior fluoroscopy, the L2-3 interlaminar space was identified and the skin over this site was marked and then infiltrated with 1% lidocaine subcutaneously. Subsequently, a 20-gauge Tuohy epidural needle was inserted and advanced toward the epidural space using the ``Loss of resistance technique and guided by AP and lateral fluoroscopy. The correct needle position in the epidural space was verified with the injection of 2 mL of the water soluble contrast dye Isovue 200 contrast and observing an excellent epidurogram with the epidural spread of the dye, after negative aspiration for blood and CSF and in the absence of paresthesias. Again after negative aspiration, a 6 ml mixture containing 80 mg of Depo-medrol ( Preservetive Free ), and 2 ml of preservative free Normal Saline, and 2 ml of preservative free lidocaine 1% solution was injected and a washout of epidurogram was seen. Needle was withdrawn intact, skin was cleansed, and bandages were applied. COMPLICATIONS: None DISPOSITION / PLANS: The patient was placed in a supine position and transferred to the recovery area in a stable condition for observation. There was no evidence of lower extremity motor or sensory deficit after the procedure. Patient was discharged from the recovery room after meeting discharge criteria. Home discharge instructions were given to the patient by the staff. The patient was reexamined prior to discharge. The patient will schedule a follow up in the clinic in 2-4 weeks.
[2023-06-23 13:38] VITALS: BP 142/69; PULSE 66; RESP 16
--- NOTE | 2023-06-23 20:48 | FL ---
Fluoroscopy INDICATION: Pain FINDINGS: Fluoroscopy time: 23.3 seconds. Total dose area product (DAP) in uGy*m?, mGy*cm? (or similar): 0.94769 Images obtained: 5. IMPRESSION: 1. Documentation of fluoroscopy.
== END ==
LOC: ORPAIN 12:02
PROVIDERS: ATTEND Specialist
DX: M51.16 Intervertebral disc disorders with radiculopathy, lumbar region (principal); M47.26 Other spondylosis with radiculopathy, lumbar region; Z88.1 Allergy status to other antibiotic agents; Z79.1 Long term (current) use of non-steroidal anti-inflammatories (NSAID); Z79.82 Long term (current) use of aspirin
CPT/HCPCS: 62323; J1040; Q9966

== ENCOUNTER → 2023-07-20 | Outpatient (CLI) | payer MEDICARE ==
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
[2023-07-20 15:28] VITALS: BP 189/89; PULSE 79; RESP 15; TEMP 98.5
== END ==
LOC: PNWHC3 13:32
PROVIDERS: ATTEND Specialist
DX: M50.30 Other cervical disc degeneration, unspecified cervical region (principal); M47.812 Spondylosis without myelopathy or radiculopathy, cervical region; M51.36 Other intervertebral disc degeneration, lumbar region; G89.29 Other chronic pain; M46.1 Sacroiliitis, not elsewhere classified; Z79.891 Long term (current) use of opiate analgesic; Z87.891 Personal history of nicotine dependence; Z88.1 Allergy status to other antibiotic agents
CPT/HCPCS: 80307; G0463; 99211

== ENCOUNTER 2023-08-16 11:28 | Day surgery (SDC) | payer MEDICARE ==
[~2023-08-16 11:28] MED LIST changes: -IOPAMIDOL M200 10 ML VIAL ONE; -methylPREDNISolone ACETATE 80 MG/ML 1 ML VIAL ONE
[2023-08-16 12:32] VITALS: TEMP 98.1
[2023-08-16] MEDS ORDERED: ROPIVACAINE 5MG/ML 20ML VIAL ONE (12:57)
[2023-08-16] MEDS ORDERED: methylPREDNISolone ACETATE 80 MG/ML 1 ML VIAL ONE (12:57)
[2023-08-16] MEDS ORDERED: IOPAMIDOL M200 10 ML VIAL ONE (12:57)
--- NOTE | 2023-08-16 13:07 | P.PCN ---
Date of Procedure: 08/16/23 Procedure(s) Performed: Procedure= bilateral sacroiliac joints steroid injection under fluoroscopy guidance (fluoroscopy image stored on file in the radiology Department ) Preoperative diagnosis= 1-bilateral sacroiliitis 2-lumbar degenerative disc disease Postoperative diagnosis=Same as preop Diagnosis . Complication = none Condition= stable Anesthesia= local anesthesia with ropivacaine 0.5% 4 ml only Indication for the procedure= patient complaining of low back pain , examination was positive for severe tenderness over the sacroiliac joints bilaterally and patient diagnosed with sacroiliitis, for this reason he was good candidate for sacroiliac joint steroid injection. Description of the procedure= procedure risk and benefits discussed with the patient, including but not limited, risk of infection and bleeding, and ALLERGIC reaction to the medication and not complete pain relief and patient agreed with the preceding patient taken to the operating room, placed in prone position or standard monitors applied to the patient then after induction of anesthesia back prepped with chlorhexidine 3 times , Then under strict sterile technique, first I did the right sacroiliac joint the which was identified under fluoroscopy guidance been local infiltration of the skin and subcu interstitial with lidocaine 1% then 22-gauge Quincke Needle advanced slowly under fluoroscopy and placed in the right sacroiliac joint needle placement confirmed with AP and oblique and lateral view, then after that Isovue 200 one mL injected which confirmed the correct needle placement with the appropriate arthrogram of the sacroiliac joint, and after appropriate needle placement confirmed and after negative aspiration, or heme , then Ropivacaine 0.5% 2 mL, and 40 mg of Depo-Medrol mixed together and injected in the right sacroiliac joint after negative aspiration patient tolerated the procedure well without any complication. Then the left sacroiliac joint steroid injection done under strict sterile technique local infiltration of the skin and subcu interstitial at the location of the left sacroiliac joint then a 22-gauge Quincke Needle advanced slowly under fluoroscopy time placed in the left sacroiliac joint, needle placement confirmed with AP and oblique and lateral view then after appropriate needle placement confirmed, with the AP and oblique and lateral then after negative aspiration Isovue 200 1 mL injected showed arthropathy of the left sacroiliac joint, and after negative aspiration 0.5% Ropivacaine 2 mL and 40 mg of Depo- Medrol injected in the left sacroiliac joint after negative aspiration patient tolerated the procedure well that any complications and she will follow up in clinic 3 weeks
[2023-08-16 13:31] VITALS: PULSE 61; RESP 16
--- NOTE | 2023-08-16 13:48 | FL ---
Fluoroscopy INDICATION: Pain FINDINGS: Fluoroscopy time: 11.0 seconds. Total dose area product (DAP) in uGy*m?, mGy*cm? (or similar): 0.56363 Images obtained: 3. IMPRESSION: 1. Documentation of fluoroscopy.
[2023-08-16 14:26] VITALS: BP 143/72
== END 2023-08-16 13:35 | disposition home or self-care (01) ==
LOC: ORPAIN 11:28
PROVIDERS: ATTEND Specialist
DX: M46.1 Sacroiliitis, not elsewhere classified (principal)
CPT/HCPCS: Q9966; J2795; J1010; G0260

== ENCOUNTER → 2023-10-12 | Outpatient (CLI) | payer MEDICARE ==
[2023-10-12 14:31] VITALS: BP 138/79; PULSE 79; RESP 16
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
== END ==
LOC: PNWHC3 14:01
PROVIDERS: ATTEND Specialist
DX: M46.1 Sacroiliitis, not elsewhere classified (principal); M50.30 Other cervical disc degeneration, unspecified cervical region; M47.812 Spondylosis without myelopathy or radiculopathy, cervical region; Z79.891 Long term (current) use of opiate analgesic; Z87.891 Personal history of nicotine dependence; Z88.1 Allergy status to other antibiotic agents
CPT/HCPCS: 99211

== ENCOUNTER → 2024-01-04 | Outpatient (CLI) | payer MEDICARE ==
[2024-01-04 14:09] VITALS: BP 187/100; PULSE 76; RESP 16; TEMP 96.9
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
== END | disposition home or self-care (01) ==
LOC: PNWHC3 13:51
PROVIDERS: ATTEND Specialist
DX: M47.26 Other spondylosis with radiculopathy, lumbar region (principal); M51.16 Intervertebral disc disorders with radiculopathy, lumbar region; M46.1 Sacroiliitis, not elsewhere classified; Z79.891 Long term (current) use of opiate analgesic; Z87.891 Personal history of nicotine dependence; Z88.1 Allergy status to other antibiotic agents
CPT/HCPCS: 80307; 99212

== ENCOUNTER 2024-01-20 12:29 | Day surgery (SDC) | payer MEDICARE ==
[2024-01-20 12:49] VITALS: TEMP 97.2
[2024-01-20] MEDS ORDERED: LACTATED RINGERS 1,000 ML IV SCH (12:55)
[2024-01-20] MEDS ORDERED: IOPAMIDOL M200 10 ML VIAL ONE (13:50)
[2024-01-20] MEDS ORDERED: methylPREDNISolone ACETATE 80 MG/ML 1 ML VIAL ONE (13:50)
--- NOTE | 2024-01-20 13:56 | P.PCN ---
Date of Procedure: 01/20/24 Procedure(s) Performed: PREOPERATIVE DIAGNOSIS: 1- Lumbar Degenerative Disc Diseases 2-Lumbar spondylosis with Facet arthropathy without myelopathy. 3-lumbar radiculopathy POSTOPERATIVE DIAGNOSIS: 1-lumbar degenerative disc disease. 2-lumbar spondylosis with facet arthropathy without myelopathy. 3-lumbar radiculopathy PROCEDURE 1. Lumbar epidural steroid injection under fluoroscopic guidance at the L2-3 level. (Fluoroscopy imaging was available in radiology department) 2. Lumbar epidurogram. ANESTHESIA: Lidocaine 1% 3 and then only. EBL: Minimal PROCEDURE INDICATION: The patient with low back pain and radiculitis symptoms unresponsive to conservative treatment. Fluoroscopy was used to optimize visualization of the needle placement and to maximize safety. PROCEDURE DESCRIPTION / TECHNIQUE: The patient was seen and identified in the preoperative area. Risks, benefits, complications including but not limited to infections ,bleeding ,allergic reaction to the medications ,nerve damage and not complete pain releife , and alternatives were discussed with the patient. The patient agreed to proceed with the procedure and signed the consent, and vital signs were stable. Patient was taken to the OR and time out was completed. The patient was placed in the prone position on procedure table and a pillow was placed under the abdomen to reduce lumbar lordosis. The lumbosacral area was prepped and draped in the usual sterile fashion.ere closely monitored during the procedure. Vital signs was monitered during the entire procedure. Using anterior-posterior fluoroscopy, the L2-3 interlaminar space was identified and the skin over this site was marked and then infiltrated with 1% lidocaine subcutaneously. Subsequently, a 20-gauge Tuohy epidural needle was inserted and advanced toward the epidural space using the ``Loss of resistance technique and guided by AP and lateral fluoroscopy. The correct needle position in the epidural space was verified with the injection of 2 mL of the water soluble contrast dye Isovue 200 contrast and observing an excellent epidurogram with the epidural spread of the dye, after negative aspiration for blood and CSF and in the absence of paresthesias. Again after negative aspiration, a 6 ml mixture containing 80 mg of Depo-medrol ( Preservetive Free ), and 2 ml of preservative free Normal Saline, and 2 ml of preservative free lidocaine 1% solution was injected and a washout of epidurogram was seen. Needle was withdrawn intact, skin was cleansed, and bandages were applied. COMPLICATIONS: None DISPOSITION / PLANS: The patient was placed in a supine position and transferred to the recovery area in a stable condition for observation. There was no evidence of lower extremity motor or sensory deficit after the procedure. Patient was discharged from the recovery room after meeting discharge criteria. Home discharge instructions were given to the patient by the staff. The patient was reexamined prior to discharge. The patient will schedule a follow up in the clinic in 2-4 weeks.
[2024-01-20 14:02] VITALS: RESP 16
[2024-01-20 14:19] VITALS: BP 149/87; PULSE 77
--- NOTE | 2024-01-20 14:35 | FL ---
Fluoroscopy History: Lumbar Epid Inj lesi in pain service. fl time 2.7 secs dap [id number] [facility], , 01/20/2024 2:33 PM
== END 2024-01-20 14:26 | disposition home or self-care (01) ==
LOC: ORPAIN 12:29
PROVIDERS: ATTEND Specialist
DX: M47.26 Other spondylosis with radiculopathy, lumbar region (principal); M51.16 Intervertebral disc disorders with radiculopathy, lumbar region; Z79.82 Long term (current) use of aspirin; Z79.899 Other long term (current) drug therapy; Z88.8 Allergy status to other drugs, medicaments and biological substances
CPT/HCPCS: 62323; Q9966; J1010

== ENCOUNTER → 2024-04-09 | Outpatient (CLI) | payer MEDICARE ==
--- NOTE | 2024-04-10 07:14 | CA ---
Transthoracic Echo Report Name: Bear Joe Age: 63 Gender: M : 1960 Exam Date: 04/09/2024 15:57 Exam Location: [place] [facility] Ht (in): 68 Wt (lb): 270 Ordering Physician: Rodriguez Vale DO ([email or web address]) Attending/Referring Phys: Beverly Mason [facility] Legal Contracts Specialist Shanika Alicea RDCS Procedure CPT: Indications: [id number] CARDIOVASCULAR EXAMINATIO R0602 Cardiac Hx: Technical Quality: Fair Contrast 1: Total Dose (mL): Contrast 2: Total Dose (mL): MEASUREMENTS (Male / Female) Normal Values 2D ECHO LV Diastolic Diameter PLAX 6.3 cm 4.2 - 5.9 / 3.9 - 5.3 cm LV Systolic Diameter PLAX 4.5 cm IVS Diastolic Thickness 1.4 cm 0.6 - 1.0 / 0.6 - 0.9 cm LVPW Diastolic Thickness 1.5 cm 0.6 - 1.0 / 0.6 - 0.9 cm LV Relative Wall Thickness 0.5 RV Internal Dim ED PLAX 3.5 cm LV Diastolic Volume MOD BP 108.6 cm??? 67 - 155 / 56 - 104 cm??? LV Systolic Volume MOD BP 51.4 cm??? - / 19 - 49 cm??? LV Ejection Fraction MOD BP 52.7 % >= 55 % LV Cardiac Index MOD BP 1868.6 cm???/min???m??? LV Diastolic Volume MOD 4C 111.0 cm??? LV Systolic Volume MOD 4C 35.0 cm??? LV Ejection Fraction MOD 4C 68.4 % LV Cardiac Index MOD 4C 2480.1 cm???/min???m??? LV Diastolic Length 4C 7.8 cm LV Systolic Length 4C 5.8 cm LV Diastolic Volume MOD 2C 104.1 cm??? LV Systolic Volume MOD 2C 66.4 cm??? LV Ejection Fraction MOD 2C 36.2 % LV Cardiac Index MOD 2C 1228.6 cm???/min???m??? LV Diastolic Length 2C 7.5 cm LV Systolic Length 2C 7.1 cm LA Volume 49.4 cm??? 18 - 58 / 22 - 52 cm??? LA Volume Index 19.9 cm???/m??? 16 - 28 cm???/m??? M-MODE Aortic Root Diameter MM 4.2 cm DOPPLER AV Peak Velocity 148.2 cm/s AV Peak Gradient 8.8 mmHg MV Area PHT 3.2 cm??? Mitral E Point Velocity 62.9 cm/s Mitral A Point Velocity 80.7 cm/s Mitral E to A Ratio 0.8 MV Deceleration Time 237.0 ms TR Peak Velocity 188.8 cm/s TR Peak Gradient 14.3 mmHg Right Ventricular Systolic Press 19.3 mmHg FINDINGS Left Ventricle Left ventricular ejection fraction is estimated at 55-60 %. Normal left ventricular systolic function with no obvious regional wall motion abnormalities. Moderately increased left ventricular wall thickness. Left ventricular cavity size normal. Right Ventricle Mild right ventricular dilatation. Right ventricular systolic pressure within normal limits. Right Atrium Normal right atrial size. No right atrial thrombus or mass seen. Left Atrium Mildly increased left atrial area. No left atrial thrombus or mass present. Mitral Valve Structurally normal mitral valve. No mitral stenosis, regurgitation or prolapse. Aortic Valve Trileaflet aortic valve. No aortic valve stenosis or regurgitation.aortic valve not well visualized. Tricuspid Valve Structurally normal tricuspid valve. Trace to mild tricuspid regurgitation. Pulmonic Valve No pulmonic regurgitation.pulmonic valve not well visualized. Pericardium No pericardial effusion. Aorta Mild aortic dilatation at the level of the sinuses of valsalva 42 mm CONCLUSIONS Technically difficult study. Normal left ventricular size and systolic function with left ventricular hypertrophy Limited Doppler study with trace to mild tricuspid regurgitation Previewed by: Dr. Philly Stewart MD (Electronically Signed) Final Date: 10 April 2024 07:13
== END | disposition home or self-care (01) ==
LOC: RADECHMAIN 15:49
PROVIDERS: ATTEND Internal Medicine
DX: Z01.810 Encounter for preprocedural cardiovascular examination (principal); I36.1 Nonrheumatic tricuspid (valve) insufficiency; R06.02 Shortness of breath; I51.7 Cardiomegaly
CPT/HCPCS: 93306

== ENCOUNTER → 2024-06-22 | Outpatient (CLI) | payer MEDICARE ==
--- NOTE | 2024-06-22 18:50 | XR ---
EXAMINATION TYPE: XR ribs RT w pa chest xray DATE OF EXAM: 06/22/2024 1:31 PM COMPARISON: None CLINICAL INDICATION: Male, 63 years old with history of N54.6 PAIN IN THORACIC SPINE; PHH, pain TECHNIQUE: XR ribs RT w pa chest xray; Frontal and oblique views of the ribs with frontal chest radio graph. FINDINGS: No evidence of fracture. Overall, the lungs are clear. The cardiac silhouette is normal in size. The remaining osseous structures are intact. Joint space narrowing of the common clavicular j oint with osteophyte formation. IMPRESSION: 1. No remote displaced fracture visualized, No acute osseous pathology. 2. Moderate right shoulder osteoarthrosis. [facility], , 06/22/2024 6:48 PM
== END | disposition home or self-care (01) ==
LOC: RADXRMAIN 13:05
PROVIDERS: ATTEND Family Medicine
DX: M19.011 Primary osteoarthritis, right shoulder (principal); M54.6 Pain in thoracic spine